=== PATIENT | female | born 1940 | race Caucasian/White ===

== ENCOUNTER → 2017-05-18 | Day surgery (SDC) | payer MEDICARE, OTHER ==
[~2017-05-18] MED LIST: ALBUTEROL SULFATE 2.5 MG/3 ML NEBU. ONE; ATORVASTATIN CA80 MG PO; FUROSEMIDE 20 MG/2 ML VIAL. ONE; IPRATRPIUM/ALBUTEROL 0.5/2.5MG 3 ML NEBU. ONE; METO25TA9 PO; MIDAZOLAM HCL/PF 5 MG/5 ML VIAL. IV ONE; MIDAZOLAM HCL/PF 5 MG/5 ML VIAL. ONE; PANT40TA5 PO; POTA20TA82 PO; PRED-220 PO; PROAIR HFA8.5 GM INH; fentaNYL PF VIAL 100 MCG/2 ML VIAL IV ONE; fentaNYL PF VIAL 100 MCG/2 ML VIAL ONE; methylPREDNISolone SOD SUCC PF 40 MG/ML VIAL. IV ONE
[2017-05-18 10:48] LABS: BASO % 0 % (0-3); EOS % 0 % (0-3); HEMATOCRIT 39.2 % (36.0-47.0); HEMOGLOBIN 12.6 g/dL (12.0-15.5); LYMPH # 1.4 x10^3/uL (1.0-4.8); LYMPH % 12 % (24-48); MEAN CORPUSCULAR HEMOGLOBIN 25 pg (25-35); MEAN CORPUSCULAR HGB CONC 32 g/dL (31-37); MEAN CORPUSCULAR VOLUME 78 fL (79-100); MONO % 6 % (0-9); NEUT % 83 % (31-73); PLATELET COUNT 218 x10^3/uL (140-400); RED BLOOD COUNT 5.01 x10^6/uL (3.50-5.40); RED CELL DISTRIBUTION WIDTH 18.2 % (11.5-14.5); WHITE BLOOD COUNT 11.9 x10^3/uL (4.0-11.0)
[2017-05-18 10:59] LABS: INR 1.1 (0.8-1.1); PROTHROMBIN TIME PATIENT 13.8 SEC (11.7-14.0)
[2017-05-18 13:57] VITALS: BP 123/59
--- NOTE | 2017-05-18 15:38 | OP ---
DATE OF SURGERY: 05/18/2017 PROCEDURE: Fiberoptic bronchoscopy with right upper lobe bronchoalveolar lavage, right upper lobe endobronchial biopsy, right upper lobe brushing. INDICATION FOR PROCEDURE: Abnormal chest x-ray and CT of the chest, right upper lobe atelectasis. ANESTHESIA: Versed 2 mg IV, fentanyl 100 mcg IV. The procedure risk and benefits of the procedure, lack of guarantee was discussed with the patient. She understood and agreed to proceed with the procedure. DESCRIPTION OF PROCEDURE: After informed consent was obtained, timeout was called. Fiberoptic bronchoscopy was performed via right naris after using topical anesthesia with lidocaine jelly. Vocal cords were well visualized. They opposed normally. Vocal cords were normal. Trachea was then entered using more topical anesthesia with lidocaine 1%. Trachea was normal. Deon was sharp. Left mainstem was entered. Left upper lingula, lower lobe bronchi were entered. There were no endobronchial lesions seen. The right mainstem bronchus was entered. About 1.5 to 2 cm below deon, the patient had irregular mass, started from 1.5-2 cm below deon to secondary deon, then towards right upper lobe area causing right upper lobe orifice become very narrowed and it has also gone to right lower lobe area causing narrowing and distortion of right lower lobe, right middle lobe area. Right upper lobe, right secondary deon, endobronchial biopsy was performed. Brushing and bronchoalveolar lavage were performed. The patient developed wheezing and I gave her Solu-Medrol 80 mg IV. The patient is in bronchoscopy room and that has been monitored very closely. Her oxygenation is okay. We will monitor her very closely. The patient continued to smoke. I strongly advised her to stop smoking. The patient also was very anxious before the procedure. The procedure results were discussed with her and her daughter. At the end of the procedure, her heart rate is 105, respiratory rate 22, blood pressure 135/68, oxygen saturation is 94%. The patient tolerated the procedure well. There were no obvious complications. she was discharged to home. Bony ROSADO JOB#: [id number] / [id number] TAJ
--- NOTE | 2017-05-19 16:33 | PATHOLOGY ---
CYTOPATHOLOGY REPORT CLINICAL HISTORY: Cough, RUL atelectulious, possible mass SPECIMEN(S) RECEIVED: A.Bronchoalveolar lavage, RUL B.Bronchial brushing, RUL C.Bronchial brush rinse FINAL DIAGNOSIS: A. Right upper lobe bronchoalveolar lavage, ThinPrep: - No malignant cells identified. - Focally reactive bronchial epithelial cells, pulmonary macrophages, and acute inflammatory cells identified. B. 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 C. 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 (JPM:mgr; 05/19/2017) PATHOLOGIST: Ancelmo Coates M.D. REPORT ELECTRONICALLY SIGNED BY: Ancelmo Coates M.D. DATE/TIME: 05/19/2017 16:33 GROSS PATHOLOGY: A. Bronchoalveolar lavage, RUL: The specimen is submitted unfixed, labeled "Candida Sahni". Received by the Cytology Department is ten mL of cloudy red fluid. One ThinPrep slide was prepared. B. Bronchial brushing, RUL: The specimen is labeled "Candida Sahni" and consists of two fixed slides. C. Bronchial brush rinse: The specimen is labeled "Candida Sahni" and consists of a brush tip in fixative. One ThinPrep slide was prepared. (mm 05.18.2017) CISO(S): DEB Rock(ASCP) INITIAL CPT CODE(S): A; 83212 B; 87822 C; 06483 Professional services performed [place] [address] Technical services performed by [facility] at [address] [place] [address], [address] [address]. PATIENT: CANDIDA SAHNI /AGE: 3 1940 (Age: 76) SEX: F PATIENT #: [id number] ALT CASE #: SPECIMEN COLLECTION DATE: 05/18/2017 SPECIMEN RECEIVED DATE: 05/18/[address] [facility] [address] [place] [address], [address] [place] [address] PHONE: [phone] DIRECTOR: Tesfaye W. Prateek, M.D. * * * END OF REPORT * * *
--- NOTE | 2017-05-20 14:33 | PATHOLOGY ---
PATHOLOGY REPORT * * * * * * * * FINAL DIAGNOSIS: Bronchial biopsies, right upper lobe: - SMALL CELL UNDIFFERENTIATED CARCINOMA. SEE COMMENT. COMMENT: Sections of the right upper lobe bronchial biopsy reveal several segments of bronchial mucosa, which are focally lined by bronchial epithelium and focally lined by metaplastic squamous epithelium. There is a malignant neoplasm within the underlying stroma which shows crush artifact. Where best preserved, the malignant cells are small and have a high N/C ratio. The malignant cells possess nuclei having a finely dispersed chromatin. There is nuclear molding. There is no evidence of squamous or glandular differentiation. The bronchial biopsies also contain segments of necrotic tissue and acute inflammatory exudate. A panel of immunohistochemical stains is obtained and yields the following results: Cytokeratin 7: Tumor cells negative; surface bronchial epithelium and metaplastic squamous epithelium positive. AE1/AE3: Tumor cells show dot-like positivity; bronchial surface epithelium and metaplastic squamous epithelium positive. CD45: Tumor cells negative. Synaptophysin: Tumor cells focally positive. TTF-1: Tumor cells positive. CD56: Tumor cells positive. 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 The case is also examined by Dr. Khanna, who concurs with the diagnosis. The results are reported to Dr. Trujillo office on 05/20/17 at 11:30 AM. Special Stains Performed: Immunoperoxidase stains AE1/AE3, cytokeratin 7, CD45, CD56, Synaptophysin, and TTF-1. (JPM:/rosalva; 05/20/2017) REPORT ELECTRONICALLY SIGNED BY: Ancelmo Coates M.D. DATE/TIME: 05/20/2017 14:32 * * * * * * * * GROSS PATHOLOGY: Received in formalin labeled "Candida Sahni, RUL BBX," are multiple segments of avila soft tissue measuring from less than 00.1 up to 0.3 cm in maximum dimension. The specimen is submitted entirely in cassette A1. (JPM; 05/18/17) INITIAL CPT CODE(S): A; 71126, 81154, 51647, 72737, 89622, 53558, 17024 Professional services performed by [facility] at [address] [address] Technical services performed by [facility] at [address] [place] [address], [address], [place] [address]. SPECIMEN(S) RECEIVED: A.Bronchial biopsy RUL CLINICAL HISTORY: Cough, RUL atelectasis, possible mass PATIENT: CANDIDA SAHNI /AGE: 3 1940 (Age: 76) PATIENT #: [id number] ALT CASE #: [id number] SPECIMEN COLLECTION DATE: 05/18/2017 SPECIMEN RECEIVED DATE: 05/18/2017 [facility] - [address] [place] [address] - PHONE: [phone] * * * END OF REPORT * * *
== END | disposition home or self-care (01) ==
LOC: SURG 09:09
PROVIDERS: ATTEND Internal Medicine Pulmonary Disease
DX: J98.11 Atelectasis (principal); I10 Essential (primary) hypertension; J44.9 Chronic obstructive pulmonary disease, unspecified; M19.90 Unspecified osteoarthritis, unspecified site; Z79.01 Long term (current) use of anticoagulants; Z87.39 Personal history of other diseases of the musculoskeletal system and connective tissue; Z72.0 Tobacco use
CPT/HCPCS: 31624; 31625; 36415; 85025; 85610; 85730; 87070; 87102; 87116; 87205; 88104; 88112; 88305; 88341; 88342; 94640; J2250; J2920; J3010; J7613; J7620; 31622

== ENCOUNTER 2017-08-09 10:31 | Inpatient (IN) | payer MEDICARE, OTHER ==
[2017-08-09] VITALS (15 sets, daily range): BP systolic 94–133; BP diastolic 47–79
[~2017-08-09] VITALS: Ht 157.5 cm; Wt 59.9 kg
[~2017-08-09 10:31] MED LIST changes: -ALBUTEROL SULFATE 2.5 MG/3 ML NEBU. ONE; +APIX5TAB PO; +ASPI-482 PO; +CELE200C PO; +DIAZ2TAB3 PO; +DOXY100C14 PO; -FUROSEMIDE 20 MG/2 ML VIAL. ONE; -IPRATRPIUM/ALBUTEROL 0.5/2.5MG 3 ML NEBU. ONE; +LORA-434 PO; +METO-239 PO; -METO25TA9 PO; -MIDAZOLAM HCL/PF 5 MG/5 ML VIAL. IV ONE; -MIDAZOLAM HCL/PF 5 MG/5 ML VIAL. ONE; +NAPR-682 PO; +NAPR-695 PO; +ONDA8TAB9 PO; +POTASSIUM CHLO10 MEQ PO; +TIOT4MIS3 IH; +TRAM50TA PO; -fentaNYL PF VIAL 100 MCG/2 ML VIAL IV ONE; -fentaNYL PF VIAL 100 MCG/2 ML VIAL ONE; -methylPREDNISolone SOD SUCC PF 40 MG/ML VIAL. IV ONE
[2017-08-09] MEDS ORDERED: IV NORMAL SALINE 1000ML BAG 1,000 ML IV SCH ×2 (10:49→12:10)
--- NOTE | 2017-08-09 10:58 | PHYS DOC ---
Past Medical History Past Medical History: Arthritis, Cancer, SD Past Surgical History: Knee Replacement, Other Additional Past Surgical Histo: CARDIAC STENT Alcohol Use: None Drug Use: None Adult General Chief Complaint Chief Complaint: SHORTNESS OF BREATH HPI HPI Patient is a 76 year old female with a history of arthritis, coronary artery disease, COPD, reflux, hypertension, anxiety, prostatitis, and pulmonary embolism on Eliquis and a history of lung cancer. She was seen originally in March 2017 underwent bronchoscopy in April 2017 which revealed a right mainstem bronchus mass in the right upper lobe the biopsy revealed a small undifferentiated Shona. With evidence of extensive mediastinal lymphadenopathy it was staged at grade 3. She was started on chemotherapy of carboplatin and etoposide in May 2017 she received 3 cycles of chemotherapy and began radiation therapy last received last week. She was seen the last June of this year and she was diagnosed with multiple pulmonary bilateral emboli and was placed on Lovenox and changed to Eliquis. Patient today presents with increasing shortness of breath despite being on medications. She denies any fevers, chills but has had a nonproductive cough. She denies any chest pain just shortness of breath difficulty breathing. She normally is not on any albuterol nebs at home admits to no recent antibiotics. She denies any sick contacts, travel outside the country, or changes in medications. PAST MEDICAL HISTORY: Arthritis, coronary artery disease, COPD, GERD, hypertension, anxiety, osteoarthritis. SOCIAL HISTORY: She has a history of smoking cigarettes for almost 60 years. Review of Systems Review of Systems Constitutional: Denies fever or chills [] Eyes: Denies change in visual acuity, redness, or eye pain [] HENT: Has some nasal congestion and a mild sore throat with cough Respiratory: Does have a nonproductive cough and shortness of breath Cardiovascular: No additional information not addressed in HPI [] GI: Denies abdominal pain, nausea, vomiting, bloody stools or diarrhea [] : Denies dysuria or hematuria [] Musculoskeletal: Denies back pain or joint pain [] Integument: Denies rash or skin lesions [] Neurologic: Denies headache, focal weakness or sensory changes [] All other systems were reviewed and found to be within normal limits, except as documented in this note. Current Medications Current Medications Current Medications Medications (Trade) Dose Ordered Sig/Moses Start Time Stop Time Status Last Admin Dose Admin Albuterol/ Ipratropium (Duoneb) 3 ml 1X ONCE 08/09/17 11:00 08/09/17 11:01 DC 08/09/17 11:05 3 ML Cefepime HCl (Maxipime) 2 gm 1X ONCE 08/09/17 12:30 08/09/17 12:31 Cefepime HCl 2 gm/ Sodium Chloride 100 ml @ 200 mls/hr 1X ONCE 08/09/17 12:15 08/09/17 12:44 UNV Lorazepam (Ativan) 1 mg 1X ONCE 08/09/17 11:00 08/09/17 11:01 DC 08/09/17 11:27 1 MG Methylprednisolone Sodium Succinate (SOLU-Medrol 125MG VIAL) 125 mg 1X ONCE 08/09/17 11:00 08/09/17 11:01 DC 08/09/17 11:27 125 MG Norepinephrine Bitartrate 250 ml @ 0 mls/hr CONT PRN 08/09/17 12:15 Sodium Chloride 1,000 ml @ 1,830 mls/hr Q33M 08/09/17 12:10 08/09/17 13:10 Sodium Chloride (Normal Saline Flush) 10 ml QSHIFT PRN 08/09/17 12:15 Allergies Allergies Allergies Coded Allergies Type Severity Reaction Last Updated Verified No Known Drug Allergies 05/18/17 No Physical Exam Physical Exam Vital signs recorded on the chart noted to be tachycardic. Constitutional: As thin and cachectic obviously distressed with tachypnea nor hypoxia and skin is pale and somewhat pallorous with dry mucous membranes HENT: Normocephalic, atraumatic, bilateral external ears normal, oropharynx dry no oral exudates, nose normal. [] Eyes: PERRLA, EOMI, conjunctiva normal, no discharge. [] Neck: Normal range of motion, no tenderness, supple, no stridor. [] Cardiovascular:Heart rate regular rhythm, no murmur [] Lungs & Thorax: Has decreased breath sounds prolonged exhalation no retractions , no accessory muscle use. Abdomen: Bowel sounds normal, soft, no tenderness, no masses, no pulsatile masses. [] Skin: Warm, dry, no erythema, no rash. [] Back: No tenderness, no CVA tenderness. [] Extremities: No tenderness, no cyanosis, no clubbing, ROM intact, no edema. [] Neurologic: Alert and oriented X 3, normal motor function, normal sensory function, no focal deficits noted. [] Psychologic: Somewhat anxious but able answer questions appropriately. Current Patient Data Vital Signs Vital Signs Date Time Temp Pulse Resp B/P (MAP) Pulse Ox O2 Delivery O2 Flow Rate FiO2 08/09/17 11:37 122 28 89/56 (67) 98 Room Air 08/09/17 10:45 97.6 97.6 Lab Values Laboratory Tests Test 08/09/17 11:00 White Blood Count 1.1 x10^3/uL (4.0-11.0) *L Red Blood Count 2.62 x10^6/uL (3.50-5.40) L Hemoglobin 7.0 g/dL (12.0-15.5) *L Hematocrit 21.3 % (36.0-47.0) L Mean Corpuscular Volume 81 fL (79-100) Mean Corpuscular Hemoglobin 27 pg (25-35) Mean Corpuscular Hemoglobin Concent 33 g/dL (31-37) Red Cell Distribution Width 28.2 % (11.5-14.5) H Platelet Count 164 x10^3/uL (140-400) Neutrophils (%) (Auto) 63 % (31-73) Lymphocytes (%) (Auto) 36 % (24-48) Monocytes (%) (Auto) 1 % (0-9) Eosinophils (%) (Auto) 0 % (0-3) Basophils (%) (Auto) 0 % (0-3) Neutrophils # (Auto) 0.7 x10^3uL (1.8-7.7) L Lymphocytes # (Auto) 0.4 x10^3/uL (1.0-4.8) L Monocytes # (Auto) 0.0 x10^3/uL (0.0-1.1) Eosinophils # (Auto) 0.0 x10^3/uL (0.0-0.7) Basophils # (Auto) 0.0 x10^3/uL (0.0-0.2) Segmented Neutrophils % 56 % (35-66) Lymphocytes % 42 % (24-48) Monocytes % 2 % (0-10) Platelet Estimate Adequate (ADEQUATE) Anisocytosis Mod Sodium Level 139 mmol/L (136-145) Potassium Level 3.0 mmol/L (3.5-5.1) L Chloride Level 102 mmol/L (98-107) Carbon Dioxide Level 21 mmol/L (21-32) Anion Gap 16 (6-14) H Blood Urea Nitrogen 20 mg/dL (7-20) Creatinine 1.2 mg/dL (0.6-1.0) H Estimated GFR (Cockcroft-Gault) 43.4 Glucose Level 142 mg/dL (70-99) H Lactic Acid Level 5.4 mmol/L (0.4-2.0) *H Calcium Level 8.0 mg/dL (8.5-10.1) L Magnesium Level 0.5 mg/dL (1.8-2.4) L Total Bilirubin 1.3 mg/dL (0.2-1.0) H Direct Bilirubin 0.2 mg/dL (0.0-0.2) Aspartate Amino Transferase (AST) 19 U/L (15-37) Alanine Aminotransferase (ALT) 19 U/L (14-59) Alkaline Phosphatase 112 U/L (46-116) Creatine Kinase 54 U/L (26-192) Creatine Kinase MB (Mass) < 0.5 ng/mL (0.0-3.6) Creatine Kinase MB Relative Index % (0-4) Troponin I Quantitative < 0.017 ng/mL (0.000-0.055) ZN-Jkt-U-Type Natriuretic Peptide 577 pg/mL (0-449) H Total Protein 6.6 g/dL (6.4-8.2) Albumin 2.9 g/dL (3.4-5.0) L Thyroid Stimulating Hormone (TSH) 2.307 uIU/mL (0.358-3.74) Influenza Type A Antigen Negative (NEGATIVE) Influenza Type B Antigen Negative (NEGATIVE) Laboratory Tests 08/09/17 11:00 Laboratory Tests 08/09/17 11:00 EKG EKG []Itchy timed 10:39 AM read by me demonstrates a peak QRS sinus tachycardia noted the heart rate of 127 DE interval of 134 inches normal, QRS width of 76 which is normal, QTC of 465 which is normal. His question of left atrial enlargement based on a large P wave in lead 2 Radiology/Procedures Radiology/Procedures [] IMAGING REPORT Signed PATIENT: KAITLYN LEMUS ACCOUNT: [id number] : 1940 LOCATION: ER AGE: 76 SEX: F EXAM STATUS: PRE ER ORD. PHYSICIAN: GEOVANI VALDIVIA MD REASON: sob PROCEDURE: PORTABLE CHEST 1V Portable chest, 08/09/2017: History: Shortness of breath Comparison is made to a study from 07/21/2017. There is unchanged elevation of the right hemidiaphragm. There is a small persistent peripheral mass in the lateral aspect of the right lung base. There is an ongoing mass effect at the right hilum. The CT study from 07/21/2017 suggested that this was due to a combination of underlying tumor and adjacent atelectasis. The left chest is clear. No pleural fluid is seen. The bony structures are demineralized. IMPRESSION: 1. Moderate persistent right hilar opacity compatible with a combination of tumor and adjacent atelectasis, with associated chronic volume loss on the right. 2. Persistent right lateral basilar pulmonary mass. 3. No new abnormality is detected. DICTATED and SIGNED BY: OSCAR VELAZQUEZ MD DATE: 08/09/17 1125 CC: GEOVANI VALDIVIA MD; JERRY GONZALEZ ~ Course & Med Decision Making Course & Med Decision Making Pertinent Labs and Imaging studies reviewed. (See chart for details) []Differential diagnosis: Acute myocardial ischemia, heart failure, cardiac tamponade, bronchospasm, pulmonary embolism, pneumothorax, pulmonary infection i.e. bronchitis or pneumonia, upper airway obstruction, anaphylaxis, aspiration , psychogenic, pulmonary contusion, toxidrome, pneumomediastinum, noncardiogenic pulmonary edema or ARDS, COPD, tuberculosis, cystic fibrosis, asthma, high altitude pulmonary edema, valvular dysfunction, cardiac dysrhythmia , stroke, neuromuscular diseases like myasthenia gravis gravis, ALS, Guillain- Tapia syndrome, metabolic acidosis to include diabetic ketoacidosis, sepsis, and obstructive disorders like massive obesity inserted upon arrival given patient's immediate, state with chemoradiation therapy culture will be completed as well as empiric IV antibiotics if necessary. Approximately 11:30 AM patient noted to have a lactic acid of 5.7 given her tachycardia or hypoxia or tachypnea my concern is possible infiltrate. Chest x-ray reviewed and read by me at 11:11 AM 08/09/2017 as significant mass in the right lower lobe as well as some increased atelectasis at the right middle lobe and also has an elevated MB right diaphragm which may be related to her prior pulmonary most. Patient is no longer tachypnea after the breathing treatment here in the emergency department. Patient's blood pressures improved from 87/69-109/49. Patient's heart rate is also improved from 120s to now 105 Is resting quietly Reviewed by me demonstrates significant neutropenia and significant anemia requiring likely transfusion. Patient's H&H is 7 and 21 given her increased shortness of breath and work of breathing likely secondary to anemia. Her troponin is negative, impression swallow is negative, CMP appears normal, as been ordered 30 mL/kg bolus of ideal body weight team IV antibiotics for suspected pneumonia. She'll be admitted to the ICU given her bouts of hypotension and tachycardia Laboratory Tests Test 08/09/17 11:00 White Blood Count 1.1 x10^3/uL (4.0-11.0) Red Blood Count 2.62 x10^6/uL (3.50-5.40) Hemoglobin 7.0 g/dL (12.0-15.5) Hematocrit 21.3 % (36.0-47.0) Mean Corpuscular Volume 81 fL (79-100) Mean Corpuscular Hemoglobin 27 pg (25-35) Mean Corpuscular Hemoglobin Concent 33 g/dL (31-37) Red Cell Distribution Width 28.2 % (11.5-14.5) Platelet Count 164 x10^3/uL (140-400) Neutrophils (%) (Auto) 63 % (31-73) Lymphocytes (%) (Auto) 36 % (24-48) Monocytes (%) (Auto) 1 % (0-9) Eosinophils (%) (Auto) 0 % (0-3) Basophils (%) (Auto) 0 % (0-3) Neutrophils # (Auto) 0.7 x10^3uL (1.8-7.7) Lymphocytes # (Auto) 0.4 x10^3/uL (1.0-4.8) Monocytes # (Auto) 0.0 x10^3/uL (0.0-1.1) Eosinophils # (Auto) 0.0 x10^3/uL (0.0-0.7) Basophils # (Auto) 0.0 x10^3/uL (0.0-0.2) Segmented Neutrophils % 56 % (35-66) Lymphocytes % 42 % (24-48) Monocytes % 2 % (0-10) Platelet Estimate Adequate (ADEQUATE) Anisocytosis Mod Sodium Level 139 mmol/L (136-145) Chloride Level 102 mmol/L (98-107) Carbon Dioxide Level 21 mmol/L (21-32) Anion Gap 16 (6-14) Blood Urea Nitrogen 20 mg/dL (7-20) Estimated GFR (Cockcroft-Gault) 43.4 Glucose Level 142 mg/dL (70-99) Lactic Acid Level 5.4 mmol/L (0.4-2.0) Calcium Level 8.0 mg/dL (8.5-10.1) Total Bilirubin 1.3 mg/dL (0.2-1.0) Direct Bilirubin 0.2 mg/dL (0.0-0.2) Aspartate Amino Transf (AST/SGOT) 19 U/L (15-37) Alkaline Phosphatase 112 U/L (46-116) Creatine Kinase 54 U/L (26-192) Creatine Kinase MB (Mass) < 0.5 ng/mL (0.0-3.6) Creatine Kinase MB Relative Index % (0-4) Troponin I Quantitative < 0.017 ng/mL (0.000-0.055) Total Protein 6.6 g/dL (6.4-8.2) Albumin 2.9 g/dL (3.4-5.0) Influenza Type A Antigen Negative (NEGATIVE) Influenza Type B Antigen Negative (NEGATIVE) Court Recorder note: Dr. Monaco Court Recorder called at of the service:[id number] Consult called back at12:26 Discussed the case I presented and they agreed with admission. Time of acceptance 12:26 Critical Care: The high probability of sudden, clinically significant deterioration in the patient's condition required the highest level of my preparedness to intervene urgently. The services I provided to this patient were to treat and/or prevent clinically significant deterioration. Services included the following: chart data review, reviewing nursing notes and/or old charts, documentation time, information services consultant collaboration regarding findings and treatment options, medication orders and management, direct patient care, vital sign assessments and ordering, interpreting and reviewing diagnostic studies/ lab tests. Aggregate critical care time includes only time during which I was engaged in work directly related to the patient's care, as described above, whether at the bedside or elsewhere in the Emergency Department. It did not include time spent performing other reported procedures or the services of nurses or physician assistants. Critical Care Time: 35 Dragon Disclaimer Dragon Disclaimer This electronic medical record was generated, in whole or in part, using a voice recognition dictation system. Departure Departure Impression: Primary Impression: Dyspnea Additional Impressions: Pneumonia Neutropenia Anemia Disposition: 09 ADMITTED INPATIENT Admitting Physician: Beltran Monaco Condition: GUARDED Referrals: JERRY GONZALEZ (PCP) Problem Qualifiers GEOVANI VALDIVIA MD Aug 09, 2017 10:58
[2017-08-09] MEDS ORDERED: IPRATRPIUM/ALBUTEROL 0.5/2.5MG 3 ML NEBU. NEB ONE (11:00)
[2017-08-09] MEDS ORDERED: methylPREDNISolone SOD SUCC PF 125 MG/2 ML VIAL. IV ONE (11:00)
[2017-08-09] MEDS ORDERED: 0.9 % SODIUM CHLORIDE 10 ML DISP.SYRIN. IV PRN ×2 (11:00→12:15)
[2017-08-09 11:21] LABS: BASO % 0 % (0-3); EOS % 0 % (0-3); HEMATOCRIT 21.3 % (36.0-47.0); LYMPH # 0.4 x10^3/uL (1.0-4.8); LYMPH % 36 % (24-48); MEAN CORPUSCULAR HEMOGLOBIN 27 pg (25-35); MEAN CORPUSCULAR HGB CONC 33 g/dL (31-37); MEAN CORPUSCULAR VOLUME 81 fL (79-100); MONO % 1 % (0-9); NEUT % 63 % (31-73); PLATELET COUNT 164 x10^3/uL (140-400); RED BLOOD COUNT 2.62 x10^6/uL (3.50-5.40); RED CELL DISTRIBUTION WIDTH 28.2 % (11.5-14.5)
[2017-08-09 11:28] LABS: WHITE BLOOD COUNT 1.1 x10^3/uL (4.0-11.0)
--- NOTE | 2017-08-09 11:36 | RAD ---
Portable chest, 08/09/2017: History: Shortness of breath Comparison is made to a study from 07/21/2017. There is unchanged elevation of the right hemidiaphragm. There is a small persistent peripheral mass in the lateral aspect of the right lung base. There is an ongoing mass effect at the right hilum. The CT study from 07/21/2017 suggested that this was due to a combination of underlying tumor and adjacent atelectasis. The left chest is clear. No pleural fluid is seen. The bony structures are demineralized. IMPRESSION: 1. Moderate persistent right hilar opacity compatible with a combination of tumor and adjacent atelectasis, with associated chronic volume loss on the right. 2. Persistent right lateral basilar pulmonary mass. 3. No new abnormality is detected.
[2017-08-09 11:38] LABS: OBC FLU VALID
[2017-08-09 11:46] LABS: ALBUMIN 2.9 g/dL (3.4-5.0); CREATININE 1.2 mg/dL (0.6-1.0); DIRECT BILIRUBIN 0.2 mg/dL (0.0-0.2); GFR 43.4; MAGNESIUM 0.5 mg/dL (1.8-2.4); TOTAL BILIRUBIN 1.3 mg/dL (0.2-1.0); TOTAL PROTEIN 6.6 g/dL (6.4-8.2)
[2017-08-09 11:53] LABS: ANISOCYTOSIS MOD; PLT ESTIMATE ADEQUATE (ADEQUATE)
[2017-08-09 12:14] LABS: CKMB MASS < 0.5 ng/mL (0.0-3.6); CREATINE KINASE 54 U/L (26-192)
[2017-08-09] MEDS ORDERED: CEFEPIME HCL 2 GM in IV NORMAL SALINE 100ML 100 ML IV ONE (12:15)
[2017-08-09] MEDS ORDERED: CEFEPIME HCL IV Push 2 GM VIAL. IVP ONE (12:30)
[2017-08-09] MEDS ORDERED: ACETAMINOPHEN 325 MG TABLET. PO PRN ×2 (12:45→14:15)
[2017-08-09] MEDS ORDERED: ONDANSETRON PF 4 MG/2 ML VIAL. IV PRN ×2 (12:45→14:15)
[2017-08-09] MEDS ORDERED: fentaNYL PF VIAL 100 MCG/2 ML VIAL IV PRN (12:45)
--- NOTE | 2017-08-09 13:17 | EKG ---
[facility] [address] [place] [address] Test Date: 2017-08-09 Test Time: 10:39:39 Pat Name: KAITLYN LEMUS Department: Room: [facility] Gender: F Senior Java Software Developer: : 1940 Requested By: GEOVANI VALDIVIA Order Number: [id number] Reading MD: Diogenes Goldberg MD Measurements Intervals [place] Rate: 127 P: 51 [place]: 134 QRS: 79 QRSD: 76 T: 56 QT: 316 QTc: 465 Interpretive Statements SINUS TACHYCARDIA Electronically Signed On 08-09-2017 15:33:21 TEST BAKER by Diogenes Goldberg MD
[2017-08-09] MEDS ORDERED: ALBUTEROL SULFATE 2.5 MG/3 ML NEBU. NEB PRN (14:15)
[2017-08-09] MEDS ORDERED: DOCUSATE SODIUM 100 MG CAPSULE. PO PRN (14:15)
[2017-08-09] MEDS ORDERED: LORazepam 1 MG TABLET PO PRN (14:15)
[2017-08-09] MEDS ORDERED: hydrALAZINE 20 MG/ML VIAL. IVP PRN (14:15)
[2017-08-09] MEDS ORDERED: traMADol 50 MG TABLET PO PRN (14:15)
[2017-08-09] MEDS ORDERED: MORPHINE SULFATE 4 MG/ML DISP.SYRIN. IV PRN (14:15)
[2017-08-09] MEDS ORDERED: MAGNESIUM SULFATE 4GM 100 ML IV ONE (14:45)
--- NOTE | 2017-08-09 15:32 | CONS ---
DATE OF CONSULTATION: 08/09/2017 ATTENDING PHYSICIAN: Dr. Monaco. REASON FOR CONSULTATION: Dyspnea and lung cancer. 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 She had a right mainstem bronchial mass and also in the right upper lobe. The patient has had also extensive mediastinal adenopathy. She has received chemo and radiation. The patient was brought in to the hospital with complaint of weakness and as well as some shortness of breath. She had no chest pain, no syncopal episodes. No fever, no chills. She started coughing with yellow sputum production, no hemoptysis. She is on Eliquis for her pulmonary emboli. There was no evidence of DVT. She is currently not requiring any supplemental oxygen. Saturation on room air is 95%. Blood pressure was 111 systolic, initially was 81 systolic, but she responded to fluid. I have been asked to see her for further evaluation. PAST MEDICAL HISTORY: History of arthritis; history of small cell, undifferentiated carcinoma and status post chemoradiation; history of pulmonary embolism, no DVT, hypercoagulable state. History of COPD. History of cardiac stent, knee replacement. PAST SURGICAL HISTORY: As above. ALLERGIES: None. CURRENT MEDICATIONS: Reviewed as listed in the [facility]AD including antibiotics and DuoNebs. REVIEW OF SYSTEMS: Twelve-point system obtained. Pertinent positives discussed in history of present illness, otherwise noncontributory. All systems that were negative were reviewed as well. SOCIAL HISTORY: Smoked for about 35-40 years before quitting. FAMILY HISTORY: Noncontributory to lungs. PHYSICAL EXAMINATION: GENERAL: She is awake, in no obvious respiratory distress. VITAL SIGNS: Latest pressure of 111 systolic. Pulse ox 95% on room air, afebrile. HEENT: Sclerae nonicteric. NECK: Supple. LUNGS: Diminished breath sounds at the bases. No crackles or wheezing. CARDIOVASCULAR: Regular rate and tachycardic. ABDOMEN: Soft, nontender. EXTREMITIES: With trace pitting edema. LABORATORY DATA: Reviewed. White cell count is 1.1, hemoglobin of 7.0 and platelets are 164. Her influenza screen is negative. Chemistries with a lactic acid of 5.4 and it is down to 2.6. ProBNP is 577. Her chest x-ray was reviewed and shows persistent right hilar opacity compatible with tumor and obstructive atelectasis and also history of right lateral basilar pulmonary mass. IMPRESSION: 1. Dyspnea/weakness, most likely related to anemia in a patient who has been treated with chemo and radiation for small cell, undifferentiated carcinoma. 2. Small cell carcinoma, undifferentiated status post chemo and radiation. It is too early to see the response to these treatments. 3. History of recent pulmonary embolism and no evidence of any deep venous thrombosis. This is secondary to hypercoagulable state. Currently on Eliquis at home and I would continue Eliquis. I do not think that anemia is related to Eliquis, but rather chemo-induced. 4. Leukopenia and anemia, chemo-induced. 5. Underlying chronic obstructive pulmonary disease. 6. Suspected post-obstructive pneumonia. RECOMMENDATIONS: 1. Continue with p.r.n. oxygen. 2. Antibiotic cefepime. 3. Continue Eliquis. 4. DuoNebs. 5. Follow Oncology recommendation. 6. Monitor white cell count and hemoglobin. 7. Transfuse to keep hemoglobin above 8. 8. We will follow along with you. CUCA ANTUNEZ MD DR: MIGUEL ÁNGEL/poonam JOB#: [id number] / [id number] TAJ
[2017-08-09] MEDS ORDERED: POTASSIUM CHLORIDE 20 MEQ TABLET.ER. PO ONE (16:30)
[2017-08-09] MEDS ORDERED: ENOXAPARIN 40 MG/0.4 ML SYRINGE. SQ SCH (16:30)
--- NOTE | 2017-08-09 16:34 | PDOC1 ---
History and Physical Date of Admission Date of Admission 08/09/17 Identification/Chief Complaint Chief Complaint sob Problems: Source Source: Chart review, Patient History of Present Illness History of Present Illness HPI Patient is a 76 year old female with a history of arthritis, right lUng Ca on RT AND chemo, PE, came for sob x1 d. Pt was dced here 2 weeks ago fro PE. on eliquis now. She is currently on Chemo and RT for right hilar Non small cell Ca. poor historian. She said she was doing ok, till today with sob, coughing with whitish sputum, denies fever, chills, chest pain, + 1 time loose diarrhea, no N/V. as per ERP, She was seen originally in March 2017 underwent bronchoscopy in April 2017 which revealed a right mainstem bronchus mass in the right upper lobe the biopsy revealed a small undifferentiated. With evidence of extensive mediastinal lymphadenopathy it was staged at grade 3. She was started on chemotherapy of carboplatin and etoposide in May 2017 she received 3 cycles of chemotherapy and began radiation therapy last received last week. pt was found Hb 6.[address] Mccracken office, refused transfusion BP at 80s in ER, responding well to IVF to 100s Past Medical History Past Medical History lung Ca Past Surgical History Past Surgical History: Total knee replacement Family History Family History: Hypertension Social History Smoke: Quit ALCOHOL: social Drugs: None Current Problem List Problem List Problems Medical Problems: (1) Anemia Status: Acute (2) Neutropenia Status: Acute (3) Pneumonia Status: Acute Current Medications Current Medications Current Medications Medications (Trade) Dose Ordered Sig/Moses Start Time Stop Time Status Last Admin Dose Admin Acetaminophen (Tylenol) 650 mg PRN Q6HRS PRN 08/09/17 14:15 Albuterol Sulfate (Ventolin Neb Soln) 2.5 mg PRN Q2HR PRN 08/09/17 14:15 Albuterol/ Ipratropium (Duoneb) 3 ml RTQID 08/09/17 16:00 Apixaban (Eliquis) 5 mg BID 08/09/17 21:00 Cefepime HCl (Maxipime) 1 gm Q12HR 08/09/17 21:00 Cancel Cefepime HCl 1 gm/ Dextrose 50 ml @ 100 mls/hr Q12HR 08/09/17 21:00 Cefepime HCl 2 gm/ Sodium Chloride 100 ml @ 200 mls/hr 1X ONCE 08/09/17 12:15 08/09/17 12:44 UNV Docusate Sodium (Colace) 100 mg PRN DAILY PRN 08/09/17 14:15 Fentanyl Citrate (Fentanyl 2ml Vial) 50 mcg PRN Q2HR PRN 08/09/17 12:45 08/10/17 12:44 Guaifenesin (Mucinex) 600 mg BID 08/09/17 21:00 Hydralazine HCl (Apresoline Inj) 10 mg PRN Q4HRS PRN 08/09/17 14:15 Lorazepam (Ativan) 0.5 mg Q6HRS PRN 08/09/17 14:15 Magnesium Sulfate/ Dextrose 100 ml @ 25 mls/hr 1X ONCE 08/09/17 14:45 08/09/17 18:44 08/09/17 15:30 25 MLS/HR Methylprednisolone Sodium Succinate (SOLU-Medrol 125MG VIAL) 125 mg 1X ONCE 08/09/17 11:00 08/09/17 11:01 DC 08/09/17 11:27 125 MG Morphine Sulfate 2 mg PRN Q2HR PRN 08/09/17 14:15 Norepinephrine Bitartrate 250 ml @ 0 mls/hr CONT PRN 08/09/17 12:15 Ondansetron HCl (Zofran) 4 mg PRN Q6HRS PRN 08/09/17 14:15 Pantoprazole Sodium (Protonix) 40 mg DAILYAC 08/10/17 07:30 Potassium Chloride/Sodium Chloride 1,000 ml @ 75 mls/hr [id number] 08/09/17 14:45 08/09/17 15:32 75 MLS/HR Sodium Chloride 1,000 ml @ 1,830 mls/hr Q33M 08/09/17 12:10 08/09/17 13:10 DC 08/09/17 12:37 1,830 MLS/HR Sodium Chloride (Normal Saline Flush) 10 ml QSHIFT PRN 08/09/17 12:15 Tramadol HCl (Ultram) 50 mg PRN Q6HRS PRN 08/09/17 14:15 Allergies Allergies Allergies Coded Allergies Type Severity Reaction Last Updated Verified No Known Drug Allergies 05/18/17 No ROS Review of System CONSTITUTIONAL: No fever or chills EYES: No recent changes SKIN: No rash or itching CARDIOVASCULAR: No chest pain, syncope, palpitations, or edema RESPIRATORY: No SOB or cough GASTROINTESTINAL: No nausea, vomiting or abdominal pain NEUROLOGICAL: No headaches or weakness ENDOCRINE: No cold or heat intolerance GENITOURINARY: No urgency or frequency of urination MUSCULOSKELETAL: No back pain or joint pain LYMPHATICS: No enlarged lymph nodes PSYCHIATRIC: No anxiety or depression Physical Exam Physical Exam GEN.: No apparent distress. Alert and oriented. HEENT: Head is normocephalic, atraumatic NECK: Supple. LUNGS: bl rhonchis HEART: RRR, S1, S2 present. Peripheral pulses intact ABDOMEN: Soft, nontender. Positive bowel sounds. EXTREMITIES: Without any cyanosis. NEUROLOGIC: Normal speech, normal tone PSYCHIATRIC: Normal affect, normal mood. SKIN: No ulcerations Vitals Vitals Vital Signs Date Time Temp Pulse Resp B/P (MAP) Pulse Ox O2 Delivery O2 Flow Rate FiO2 08/09/17 16:00 98.7 108 106/59 (75) 97 Room Air 98.7 08/09/17 15:26 18 Labs Labs Laboratory Tests Test 08/09/17 11:00 08/09/17 14:10 White Blood Count 1.1 x10^3/uL (4.0-11.0) Red Blood Count 2.62 x10^6/uL (3.50-5.40) Hemoglobin 7.0 g/dL (12.0-15.5) Hematocrit 21.3 % (36.0-47.0) Mean Corpuscular Volume 81 fL (79-100) Mean Corpuscular Hemoglobin 27 pg (25-35) Mean Corpuscular Hemoglobin Concent 33 g/dL (31-37) Red Cell Distribution Width 28.2 % (11.5-14.5) Platelet Count 164 x10^3/uL (140-400) Neutrophils (%) (Auto) 63 % (31-73) Lymphocytes (%) (Auto) 36 % (24-48) Monocytes (%) (Auto) 1 % (0-9) Eosinophils (%) (Auto) 0 % (0-3) Basophils (%) (Auto) 0 % (0-3) Neutrophils # (Auto) 0.7 x10^3uL (1.8-7.7) Lymphocytes # (Auto) 0.4 x10^3/uL (1.0-4.8) Monocytes # (Auto) 0.0 x10^3/uL (0.0-1.1) Eosinophils # (Auto) 0.0 x10^3/uL (0.0-0.7) Basophils # (Auto) 0.0 x10^3/uL (0.0-0.2) Segmented Neutrophils % 56 % (35-66) Lymphocytes % 42 % (24-48) Monocytes % 2 % (0-10) Platelet Estimate Adequate (ADEQUATE) Anisocytosis Mod Sodium Level 139 mmol/L (136-145) Potassium Level 3.0 mmol/L (3.5-5.1) Chloride Level 102 mmol/L (98-107) Carbon Dioxide Level 21 mmol/L (21-32) Anion Gap 16 (6-14) Blood Urea Nitrogen 20 mg/dL (7-20) Creatinine 1.2 mg/dL (0.6-1.0) Estimated GFR (Cockcroft-Gault) 43.4 Glucose Level 142 mg/dL (70-99) Lactic Acid Level 5.4 mmol/L (0.4-2.0) 2.6 mmol/L (0.4-2.0) Calcium Level 8.0 mg/dL (8.5-10.1) Magnesium Level 0.5 mg/dL (1.8-2.4) Total Bilirubin 1.3 mg/dL (0.2-1.0) Direct Bilirubin 0.2 mg/dL (0.0-0.2) Aspartate Amino Transf (AST/SGOT) 19 U/L (15-37) Alanine Aminotransferase (ALT/SGPT) 19 U/L (14-59) Alkaline Phosphatase 112 U/L (46-116) Creatine Kinase 54 U/L (26-192) Creatine Kinase MB (Mass) < 0.5 ng/mL (0.0-3.6) Creatine Kinase MB Relative Index % (0-4) Troponin I Quantitative < 0.017 ng/mL (0.000-0.055) YG-Wah-Y-Type Natriuretic Peptide 577 pg/mL (0-449) Total Protein 6.6 g/dL (6.4-8.2) Albumin 2.9 g/dL (3.4-5.0) Thyroid Stimulating Hormone (TSH) 2.307 uIU/mL (0.358-3.74) Influenza Type A Antigen Negative (NEGATIVE) Influenza Type B Antigen Negative (NEGATIVE) Laboratory Tests Test 08/09/17 11:00 08/09/17 14:10 White Blood Count 1.1 x10^3/uL (4.0-11.0) Red Blood Count 2.62 x10^6/uL (3.50-5.40) Hemoglobin 7.0 g/dL (12.0-15.5) Hematocrit 21.3 % (36.0-47.0) Mean Corpuscular Volume 81 fL (79-100) Mean Corpuscular Hemoglobin 27 pg (25-35) Mean Corpuscular Hemoglobin Concent 33 g/dL (31-37) Red Cell Distribution Width 28.2 % (11.5-14.5) Platelet Count 164 x10^3/uL (140-400) Neutrophils (%) (Auto) 63 % (31-73) Lymphocytes (%) (Auto) 36 % (24-48) Monocytes (%) (Auto) 1 % (0-9) Eosinophils (%) (Auto) 0 % (0-3) Basophils (%) (Auto) 0 % (0-3) Neutrophils # (Auto) 0.7 x10^3uL (1.8-7.7) Lymphocytes # (Auto) 0.4 x10^3/uL (1.0-4.8) Monocytes # (Auto) 0.0 x10^3/uL (0.0-1.1) Eosinophils # (Auto) 0.0 x10^3/uL (0.0-0.7) Basophils # (Auto) 0.0 x10^3/uL (0.0-0.2) Segmented Neutrophils % 56 % (35-66) Lymphocytes % 42 % (24-48) Monocytes % 2 % (0-10) Platelet Estimate Adequate (ADEQUATE) Anisocytosis Mod Sodium Level 139 mmol/L (136-145) Potassium Level 3.0 mmol/L (3.5-5.1) Chloride Level 102 mmol/L (98-107) Carbon Dioxide Level 21 mmol/L (21-32) Anion Gap 16 (6-14) Blood Urea Nitrogen 20 mg/dL (7-20) Creatinine 1.2 mg/dL (0.6-1.0) Estimated GFR (Cockcroft-Gault) 43.4 Glucose Level 142 mg/dL (70-99) Lactic Acid Level 5.4 mmol/L (0.4-2.0) 2.6 mmol/L (0.4-2.0) Calcium Level 8.0 mg/dL (8.5-10.1) Magnesium Level 0.5 mg/dL (1.8-2.4) Total Bilirubin 1.3 mg/dL (0.2-1.0) Direct Bilirubin 0.2 mg/dL (0.0-0.2) Aspartate Amino Transf (AST/SGOT) 19 U/L (15-37) Alanine Aminotransferase (ALT/SGPT) 19 U/L (14-59) Alkaline Phosphatase 112 U/L (46-116) Creatine Kinase 54 U/L (26-192) Creatine Kinase MB (Mass) < 0.5 ng/mL (0.0-3.6) Creatine Kinase MB Relative Index % (0-4) Troponin I Quantitative < 0.017 ng/mL (0.000-0.055) RM-Wkp-[id number]-Type Natriuretic Peptide 577 pg/mL (0-449) Total Protein 6.6 g/dL (6.4-8.2) Albumin 2.9 g/dL (3.4-5.0) Thyroid Stimulating Hormone (TSH) 2.307 uIU/mL (0.358-3.74) Influenza Type A Antigen Negative (NEGATIVE) Influenza Type B Antigen Negative (NEGATIVE) VTE Prophylaxis Ordered VTE Prophylaxis Devices: No VTE Pharmacological Prophylaxi: No Assessment/Plan Assessment/Plan dyspnea, 2/2 right lung Ca, PE, and possible obstructive PNA hypotension, 2/2 anemia, PNA recent dignosed BL PE ON eliquis right lung NON small cell Ca, on chemo and RT h/o Grade 1 CHF, copd pervious smoker htn RA leukopenia with chemo anemia with RT, CHEMO LA acidosis ckd3 mild malnutrition plan: onco, RT, pulm consult 1 u PRBC transfusion ivf for now cont eliquis cefepime for now, check sputum cx, bcx duoneb ICU care, levaphed if needed lbs tmr anemia work out, likely 2/2 chemo tho admit 2 nights PTOT ASHLEY DUMONT MD Aug 09, 2017 16:34
[2017-08-09] MEDS: IPRATRPIUM/ALBUTEROL 0.5/2.5MG 3 ML NEBU. NEB SCH ×2 (17:27→19:49)
--- NOTE | 2017-08-09 17:33 | PDOC2 ---
CONSULT Date of Consult Date of Consult DATE: 08/09/17 TIME: 17:27 Past Surgical History Past Surgical History: Total knee replacement Family History Family History: Hypertension Social History Quit ALCOHOL: social Drugs: None Current Problem List Problem List Problems Medical Problems: (1) Anemia Status: Acute (2) Neutropenia Status: Acute (3) Pneumonia Status: Acute Current Medications Current Medications Current Medications Lorazepam (Ativan) 1 mg 1X ONCE IV Last administered on 08/09/17 11:27; Start 08/09/17 at 11:00; Stop 08/09/17 at 11:01; Status DC Sodium Chloride 1,000 ml @ 1,000 mls/hr Q1H IV Last administered on 11:27; Start 08/09/17 at 10:49; Stop 08/09/17 at 11:48; Status DC Sodium Chloride (Normal Saline Flush) 10 ml QSHIFT PRN IV AFTER MEDS AND BLOOD DRAWS Last administered on 08/09/17 11:28; Start 08/09/17 at 11:00 Albuterol/ Ipratropium (Duoneb) 3 ml 1X ONCE NEB Last administered on 11:05; Start 08/09/17 at 11:00; Stop 08/09/17 at 11:01; Status DC Methylprednisolone Sodium Succinate (SOLU-Medrol 125MG VIAL) 125 mg 1X ONCE IV Last administered on 08/09/17 11:27; Start 08/09/17 at 11:00; Stop at 11:01; Status DC Sodium Chloride (Normal Saline Flush) 10 ml QSHIFT PRN IV AFTER MEDS AND BLOOD DRAWS; Start 08/09/17 at 12:15 Sodium Chloride 1,000 ml @ 1,830 mls/hr Q33M IV Last administered on 12:37; Start 08/09/17 at 12:10; Stop 08/09/17 at 13:10; Status DC Cefepime HCl 2 gm/ Sodium Chloride 100 ml @ 200 mls/hr 1X ONCE IV ; Start at 12:15; Stop 08/09/17 at 12:44; Status UNV Norepinephrine Bitartrate 250 ml @ 0 mls/hr CONT PRN IV PER PROTOCOL; Start at 12:15 Cefepime HCl (Maxipime) 2 gm 1X ONCE IVP Last administered on 08/09/17t 12:33 ; Start 08/09/17 at 12:30; Stop 08/09/17 at 12:31; Status DC Ondansetron HCl (Zofran) 4 mg PRN Q8HRS PRN IV NAUSEA/VOMITING; Start at 12:45; Stop 08/09/17 at 14:13; Status DC Fentanyl Citrate (Fentanyl 2ml Vial) 50 mcg PRN Q2HR PRN IV PAIN; Start at 12:45; Stop 08/10/17 at 12:44 Acetaminophen (Tylenol) 650 mg PRN Q4HRS PRN PO FEVER; Start 08/09/17 at 12:45 ; Stop 08/10/17 at 12:44 Acetaminophen (Tylenol) 650 mg PRN Q6HRS PRN PO FEVER; Start 08/09/17 at 14:15 Ondansetron HCl (Zofran) 4 mg PRN Q6HRS PRN IV NAUSEA/VOMITING; Start at 14:15 Morphine Sulfate 2 mg PRN Q2HR PRN IV PAIN; Start 08/09/17 at 14:15 Tramadol HCl (Ultram) 50 mg PRN Q6HRS PRN PO PAIN; Start 08/09/17 at 14:15 Hydralazine HCl (Apresoline Inj) 10 mg PRN Q4HRS PRN IVP ELEVATED BP, SEE COMMENTS; Start 08/09/17 at 14:15 Docusate Sodium (Colace) 100 mg PRN DAILY PRN PO CONSTIPATION; Start 08/09/17 at 14:15 Apixaban (Eliquis) 5 mg BID PO ; Start 08/09/17 at 21:00 Lorazepam (Ativan) 0.5 mg Q6HRS PRN PO ANXIETY; Start 08/09/17 at 14:15 Pantoprazole Sodium (Protonix) 40 mg DAILYAC PO ; Start 08/10/17 at 07:30 Albuterol/ Ipratropium (Duoneb) 3 ml RTQID NEB ; Start 08/09/17 at 16:00 Albuterol Sulfate (Ventolin Neb Soln) 2.5 mg PRN Q2HR PRN NEB SHORTNESS OF BREATH; Start 08/09/17 at 14:15 Guaifenesin (Mucinex) 600 mg BID PO ; Start 08/09/17 at 21:00 Cefepime HCl 1 gm/ Dextrose 50 ml @ 100 mls/hr Q8HRS IV ; Start 08/09/17 at 22 :00; Status UNV Cefepime HCl (Maxipime) 1 gm Q12HR IVP ; Start 08/09/17 at 21:00; Status Cancel Cefepime HCl 1 gm/ Dextrose 50 ml @ 100 mls/hr Q12HR IV ; Start 08/09/17 at 21 :00 Potassium Chloride/Sodium Chloride 1,000 ml @ 75 mls/hr [id number] IV Last administered on 08/09/17t 15:32; Start 08/09/17 at 14:45; Stop 08/10/17 at 16 :00 Magnesium Sulfate/ Dextrose 100 ml @ 25 mls/hr 1X ONCE IV Last administered on 08/09/17t 15:30; Start 08/09/17 at 14:45; Stop 08/09/17 at 18:44 Potassium Chloride (Klor-Con) 40 meq 1X ONCE PO ; Start 08/09/17 at 16:30; Stop 08/09/17 at 16:31; Status DC Enoxaparin Sodium (Lovenox 40mg Syringe) 40 mg Q24H SQ ; Start 08/09/17 at 16: 30; Status UNV Active Scripts Active Reported Ativan (Lorazepam) 1 Mg Tablet 1 Mg PO Q6HRS PRN Eliquis (Apixaban) 5 Mg Tablet 5 Mg PO BID Zofran (Ondansetron Hcl) 8 Mg Tablet 8 Mg PO BID PRN Pantoprazole Sodium 40 Mg Tablet. 1 Tab PO DAILY Allergies Allergies: Coded Allergies: No Known Drug Allergies (Unverified , 05/18/17) Vitals VITALS Vital Signs Date Time Temp Pulse Resp B/P (MAP) Pulse Ox O2 Delivery O2 Flow Rate FiO2 08/09/17 16:25 98.6 106 28 99/56 98.6 08/09/17 16:05 Room Air 08/09/17 16:00 97 Labs Labs Laboratory Tests Test 08/09/17 11:00 08/09/17 14:10 White Blood Count 1.1 x10^3/uL (4.0-11.0) Red Blood Count 2.62 x10^6/uL (3.50-5.40) Hemoglobin 7.0 g/dL (12.0-15.5) Hematocrit 21.3 % (36.0-47.0) Mean Corpuscular Volume 81 fL (79-100) Mean Corpuscular Hemoglobin 27 pg (25-35) Mean Corpuscular Hemoglobin Concent 33 g/dL (31-37) Red Cell Distribution Width 28.2 % (11.5-14.5) Platelet Count 164 x10^3/uL (140-400) Neutrophils (%) (Auto) 63 % (31-73) Lymphocytes (%) (Auto) 36 % (24-48) Monocytes (%) (Auto) 1 % (0-9) Eosinophils (%) (Auto) 0 % (0-3) Basophils (%) (Auto) 0 % (0-3) Neutrophils # (Auto) 0.7 x10^3uL (1.8-7.7) Lymphocytes # (Auto) 0.4 x10^3/uL (1.0-4.8) Monocytes # (Auto) 0.0 x10^3/uL (0.0-1.1) Eosinophils # (Auto) 0.0 x10^3/uL (0.0-0.7) Basophils # (Auto) 0.0 x10^3/uL (0.0-0.2) Segmented Neutrophils % 56 % (35-66) Lymphocytes % 42 % (24-48) Monocytes % 2 % (0-10) Platelet Estimate Adequate (ADEQUATE) Anisocytosis Mod Sodium Level 139 mmol/L (136-145) Potassium Level 3.0 mmol/L (3.5-5.1) Chloride Level 102 mmol/L (98-107) Carbon Dioxide Level 21 mmol/L (21-32) Anion Gap 16 (6-14) Blood Urea Nitrogen 20 mg/dL (7-20) Creatinine 1.2 mg/dL (0.6-1.0) Estimated GFR (Cockcroft-Gault) 43.4 Glucose Level 142 mg/dL (70-99) Lactic Acid Level 5.4 mmol/L (0.4-2.0) 2.6 mmol/L (0.4-2.0) Calcium Level 8.0 mg/dL (8.5-10.1) Magnesium Level 0.5 mg/dL (1.8-2.4) Total Bilirubin 1.3 mg/dL (0.2-1.0) Direct Bilirubin 0.2 mg/dL (0.0-0.2) Aspartate Amino Transf (AST/SGOT) 19 U/L (15-37) Alanine Aminotransferase (ALT/SGPT) 19 U/L (14-59) Alkaline Phosphatase 112 U/L (46-116) Creatine Kinase 54 U/L (26-192) Creatine Kinase MB (Mass) < 0.5 ng/mL (0.0-3.6) Creatine Kinase MB Relative Index % (0-4) Troponin I Quantitative < 0.017 ng/mL (0.000-0.055) TL-Vku-C-Type Natriuretic Peptide 577 pg/mL (0-449) Total Protein 6.6 g/dL (6.4-8.2) Albumin 2.9 g/dL (3.4-5.0) Thyroid Stimulating Hormone (TSH) 2.307 uIU/mL (0.358-3.74) Influenza Type A Antigen Negative (NEGATIVE) Influenza Type B Antigen Negative (NEGATIVE) Laboratory Tests Test 08/09/17 11:00 08/09/17 14:10 White Blood Count 1.1 x10^3/uL (4.0-11.0) Red Blood Count 2.62 x10^6/uL (3.50-5.40) Hemoglobin 7.0 g/dL (12.0-15.5) Hematocrit 21.3 % (36.0-47.0) Mean Corpuscular Volume 81 fL (79-100) Mean Corpuscular Hemoglobin 27 pg (25-35) Mean Corpuscular Hemoglobin Concent 33 g/dL (31-37) Red Cell Distribution Width 28.2 % (11.5-14.5) Platelet Count 164 x10^3/uL (140-400) Neutrophils (%) (Auto) 63 % (31-73) Lymphocytes (%) (Auto) 36 % (24-48) Monocytes (%) (Auto) 1 % (0-9) Eosinophils (%) (Auto) 0 % (0-3) Basophils (%) (Auto) 0 % (0-3) Neutrophils # (Auto) 0.7 x10^3uL (1.8-7.7) Lymphocytes # (Auto) 0.4 x10^3/uL (1.0-4.8) Monocytes # (Auto) 0.0 x10^3/uL (0.0-1.1) Eosinophils # (Auto) 0.0 x10^3/uL (0.0-0.7) Basophils # (Auto) 0.0 x10^3/uL (0.0-0.2) Segmented Neutrophils % 56 % (35-66) Lymphocytes % 42 % (24-48) Monocytes % 2 % (0-10) Platelet Estimate Adequate (ADEQUATE) Anisocytosis Mod Sodium Level 139 mmol/L (136-145) Potassium Level 3.0 mmol/L (3.5-5.1) Chloride Level 102 mmol/L (98-107) Carbon Dioxide Level 21 mmol/L (21-32) Anion Gap 16 (6-14) Blood Urea Nitrogen 20 mg/dL (7-20) Creatinine 1.2 mg/dL (0.6-1.0) Estimated GFR (Cockcroft-Gault) 43.4 Glucose Level 142 mg/dL (70-99) Lactic Acid Level 5.4 mmol/L (0.4-2.0) 2.6 mmol/L (0.4-2.0) Calcium Level 8.0 mg/dL (8.5-10.1) Magnesium Level 0.5 mg/dL (1.8-2.4) Total Bilirubin 1.3 mg/dL (0.2-1.0) Direct Bilirubin 0.2 mg/dL (0.0-0.2) Aspartate Amino Transf (AST/SGOT) 19 U/L (15-37) Alanine Aminotransferase (ALT/SGPT) 19 U/L (14-59) Alkaline Phosphatase 112 U/L (46-116) Creatine Kinase 54 U/L (26-192) Creatine Kinase MB (Mass) < 0.5 ng/mL (0.0-3.6) Creatine Kinase MB Relative Index % (0-4) Troponin I Quantitative < 0.017 ng/mL (0.000-0.055) CH-Bjs-N-Type Natriuretic Peptide 577 pg/mL (0-449) Total Protein 6.6 g/dL (6.4-8.2) Albumin 2.9 g/dL (3.4-5.0) Thyroid Stimulating Hormone (TSH) 2.307 uIU/mL (0.358-3.74) Influenza Type A Antigen Negative (NEGATIVE) Influenza Type B Antigen Negative (NEGATIVE) Assessment/Plan Assessment/Plan DATE OF CONSULTATION: 08/09/2017 MEDICAL ONCOLOGY CONSULTATION CONSULTATION REQUESTED BY: Dr. Monaco REASON FOR CONSULTATION: Small cell lung cancer and now admitted with pulmonary embolism. HISTORY OF PRESENTING ILLNESS: The patient is a 76-year-old female who has a history of cigarette smoking and she presented with exertional dyspnea since March 2017. She underwent a bronchoscopy on 05/18/2017, which revealed a mass in the right main stem bronchus extending into the right upper lobe. Biopsy revealed small cell undifferentiated carcinoma. There was evidence of extensive mediastinal lymphadenopathy and hence it was staged as a stage 3 malignancy. She was started on chemotherapy with carboplatin and etoposide on 06/06/2017. She received second cycle of chemotherapy from 06/27/2017 and she started concurrent radiation therapy on 06/27/2017. Her radiation and chemotherapy are now on hold because of severe thrombocytopenia. I saw her at the office for an urgent care visit on 07/21/2017 with significant worsening dyspnea and profound fatigue. She was recommended to go to the Emergency Room. CT angiogram of the chest on 07/21/2017 revealed multiple bilateral pulmonary emboli. Subcarinal adenopathy has improved. New cavitary lesion in the lateral aspect of the right lower lobe could be infectious or neoplastic. She underwent venous Doppler of the lower extremities which revealed thrombus in the peroneal vein in the left calf. MRI of the brain on 07/21/2017 did not reveal any evidence of metastatic disease. She was then started on Lovenox. Pulmonary consultation was obtained and she will be switched to Eliquis. The patient was brought in to the hospital 08/09/17 with complaint of weakness and as well as some shortness of breath. She had no chest pain, no syncopal episodes. No fever, no chills. She started coughing with yellow sputum production, no hemoptysis. She is currently not requiring any supplemental oxygen. Saturation on room air is 95%. Blood pressure was 111 systolic, initially was 81 systolic, but she responded to fluid. PAST MEDICAL HISTORY: Arthritis, coronary artery disease, COPD, GERD, hypertension, anxiety, osteoarthritis. SOCIAL HISTORY: She has a history of smoking cigarettes for almost 60 years. FAMILY HISTORY: Negative for malignancy. REVIEW OF SYSTEMS: A 14-point review of system was performed. Pertinent positives are mentioned in the history of present illness. Rest of the system review is negative. PHYSICAL EXAMINATION: GENERAL APPEARANCE: The patient is a 76-year-old female who is in no acute cardiorespiratory distress. VITAL SIGNS: Reviewed HEAD: Atraumatic, normocephalic. EYES: No icterus. NECK: Supple. CHEST: Bilaterally symmetrical. HEART: S1, S2 normal. ABDOMEN: Soft, nontender. CENTRAL NERVOUS SYSTEM: No focal deficits. LYMPHATICS: No lymphadenopathy. SKIN: No rashes. PSYCHOLOGIC: Mood and affect are appropriate. MUSCULOSKELETAL: No joint effusions. LABORATORY DATA: WBC 1.1, hemoglobin 7.0, platelet count 164. IMPRESSION AND PLAN: 1. 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 She was started on chemotherapy with carboplatin and etoposide on 06/06/2017. Cycle #2 was given on 06/27/2017 and radiation therapy was also initiated on 06/27/2017. Cycle #3 was postponed because of severe thrombocytopenia and platelet counts improved and she received chemo Aug 01,, 2. Acute pulmonary embolism, bilateral diagnosed on 07/21/2017 along with deep venous thrombosis of the left peroneal vein diagnosed on 07/22/2017. She was initially started on Lovenox and then switched to Eliquis. Agree to continue anticoagulation and in view of the malignancy, she may need long-term anticoagulation. 3. Anemia due to chemotherapy. Hemoglobin is worse at 7.0 on 08/09/17. Transfuse 1 unit. Continue to monitor hemoglobin and transfuse as needed. 4. Coronary artery disease. Appreciate Cardiology evaluation. 5. Neutropenia due to chemo - start granix 08/09/17. I discussed with IRENE ALEGRIA MD Aug 09, 2017 17:33
[2017-08-09] MEDS: TBO-FILGRASTIM 480 MCG/0.8 ML SYRINGE. SQ SCH (20:32)
[2017-08-09] MEDS: CEFEPIME HCL 1 GM in IV DEXTROSE 5% 50 ML IV SCH (20:33)
[2017-08-09] MEDS: APIXABAN 5 MG TABLET. PO SCH (20:33)
[2017-08-09] MEDS ORDERED: CEFEPIME HCL IV Push 1 GM VIAL. IVP SCH (21:00)
[2017-08-09] MEDS ORDERED: CEFEPIME HCL 1 GM in IV DEXTROSE 5% 50 ML IV SCH (22:00)
[2017-08-10] VITALS (25 sets, daily range): BP systolic 78–117; BP diastolic 49–65
[2017-08-10] MEDS: NOREPINEPHRIN PREMIX 250 ML IV PRN ×2 (00:37→22:46)
--- NOTE | 2017-08-10 01:12 | CONS ---
DATE OF CONSULTATION: 08/09/2017 REFERRING PHYSICIAN: Steve Ji MD. DIAGNOSIS: Limited stage 3 (T2N2M0) small cell carcinoma of the right upper lobe diagnosed with bronchoscopy on 05/18/2017. She initiated chemotherapy in 05/2017 and following this, initiated radiation with her second cycle of chemotherapy. Radiation was significantly delayed due to cytopenia. She ultimately completed just 20 Gy of her chest radiation by 08/05/2017. She now is admitted as a result of recent decline over the last day with increasing shortness of breath, fatigue and chills. We were asked to see her regarding further management. ICD 10 C34.11 HISTORY OF PRESENT ILLNESS: The patient is a 76-year-old woman with diagnosis of stage 3 limited small cell carcinoma of the lung as summarized above. She initially presented with chronic cough and shortness of breath with the chest x-ray in 01/2017 revealing central right hilar mass confirmed on CT scan. Bronchoscopy in 04/2017 revealed a mass 2 cm below the deon, biopsy which did confirm small cell carcinoma. She could not tolerate PET CT imaging or brain MRI imaging to complete a staging as she could not lie down long enough due to her chronic back pain. She ultimately did initiate chemotherapy with chest radiation initiated with her second cycle of chemotherapy on 06/27/2017. Following her initiation of treatment, she developed severe cytopenia, which disruption radiation after the fifth treatment. She ultimately did recover over time and today completed 20 Gy of her chest radiation as of 07/05/2017. She returned to our clinic on the morning of 08/08/2017 generally feeling better. Yesterday evening on the , then developed a sense of not feeling right, diarrhea, shortness of breath, transient chills, minimal nausea with no headaches or vomiting. She had some cough with no chest pain. Prior to reinitiating treatment, she had a CBC in Dr. Mccracken's office on 08/08/2017 at which time, her hemoglobin was 6.8, white count 2400, absolute neutrophil count 1900 and platelet count of 183,000. She now has been admitted from the Emergency Room. She was found to be hypokalemic with potassium 3.0, hypomagnesemic with the magnesium of 0.5 with an elevated creatinine of 1.2. Hemoglobin 7.0, white count 1100, platelet count 164,000. Portable chest x-ray revealed persistent right hilar opacity was chronic volume loss on the right, persistent right lateral basilar pulmonary mass (the latter which had been decreasing in size and was known post-obstructive pneumonitis from the past). She is now receiving transfusion, potassium and magnesium replacement and feeling better. From prior to admission 07/22/2017, venous ultrasonography revealed no deep venous thrombosis. Brain MRI from 07/21/2017 revealed no occult metastatic disease. CTA of the chest from 07/21/2017 did reveal multiple bilateral pulmonary emboli, worsening right upper lobe and right middle lobe atelectasis, right hilar and subcarinal adenopathy, the latter which was smaller, lateralized cavitating lesion in the right lower lobe, incontinuity with the lung obstruction compatible with infectious process, although malignancy could not be excluded at that time. PAST MEDICAL HISTORY: Remarkable for hypertension, coronary artery disease, [place] in 2011, stent placement, COPD, hypercholesterolemia, right knee replacement, osteoarthritis, gastroesophageal reflux disease. ALLERGIES: No known allergies. MEDICATIONS: See hospital chart. FAMILY HISTORY: Parents from some form of malignancy. She cannot recall which type. SOCIAL HISTORY: since June last year, from complications of sepsis and diabetes. One daughter who lives nearby, Susannah Wilkins. 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 Denies alcohol use. Had significant smoking in the past and up to the present illness, smoked 1 quarter to 3 quarter packs of cigarettes a day, now none. PHYSICAL EXAMINATION: GENERAL: Revealed a pleasant, conversant woman, in no acute distress, alopecic from chemotherapy. HEENT: Revealed no scleral icterus. LYMPH NODES: She had no palpable cervical or supraclavicular adenopathy. LUNGS: Clear. No wheezes or rhonchi. HEART: Regular, no gallop. ABDOMEN: Revealed no hepatomegaly, mass or tenderness. EXTREMITIES: Reveal no significant edema. No clubbing or cyanosis. ASSESSMENT AND PLAN: In summary, my impression is that of limited stage 3 small cell carcinoma of the right lung. She has responded to radiation and chemo with some reduction of her central disease. She has had profound cytopenias from her chemo and radiation which delayed radiation. She now has recurrent leukopenia from her last cycle of chemotherapy as well as she has hypomagnesemia likely due to chemotherapy as well. She is now feeling better with transfusion and mineral replacement given the white count and overall debilitated status. We will observe her without reinitiating radiation at this time. Anticipating she does improve and has stable CBC, we would reinitiate radiation when she is better overall. I discussed this with the patient. We will continue to follow her for now. ARASH HERNANDEZ MD DR: BHUPINDER/poonam JOB#: [id number] / [id number] IRENE Kumari MD, GEORGE MD MTDD
[2017-08-10 06:30] LABS: CALCIUM 7.4 mg/dL (8.5-10.1); GFR 53.6; PHOSPHORUS 2.6 mg/dL (2.6-4.7); POTASSIUM 3.5 mmol/L (3.5-5.1)
[2017-08-10 06:33] LABS: % SAT IRON 96 % (15-34)
[2017-08-10 06:41] LABS: IRON,SERUM 191 ug/dL (50-170)
[2017-08-10 06:42] LABS: BASO % 0 % (0-3); EOS % 0 % (0-3); HEMATOCRIT 22.5 % (36.0-47.0); HEMOGLOBIN 7.5 g/dL (12.0-15.5); LYMPH # 0.2 x10^3/uL (1.0-4.8); LYMPH % 24 % (24-48); MEAN CORPUSCULAR HEMOGLOBIN 27 pg (25-35); MEAN CORPUSCULAR HGB CONC 33 g/dL (31-37); MEAN CORPUSCULAR VOLUME 83 fL (79-100); MONO % 4 % (0-9); NEUT % 71 % (31-73); PLATELET COUNT 116 x10^3/uL (140-400); RED BLOOD COUNT 2.72 x10^6/uL (3.50-5.40); RED CELL DISTRIBUTION WIDTH 26.5 % (11.5-14.5)
[2017-08-10] MEDS: IPRATRPIUM/ALBUTEROL 0.5/2.5MG 3 ML NEBU. NEB SCH ×4 (08:00→19:55)
[2017-08-10] MEDS: APIXABAN 5 MG TABLET. PO SCH ×2 (09:03→20:18)
[2017-08-10] MEDS: PANTOPRAZOLE 40 MG TABLET.DR. PO SCH (09:03)
[2017-08-10] MEDS: CEFEPIME HCL 1 GM in IV DEXTROSE 5% 50 ML IV SCH ×2 (09:11→20:19)
[2017-08-10] MEDS: ANTI-COAG MONITOR BY PHARMACY. MC PRN (11:02)
--- NOTE | 2017-08-10 11:51 | PDOC ---
PULMONARY PROGRESS NOTES Subjective no soa Vitals Vital Signs Date Time Temp Pulse Resp B/P (MAP) Pulse Ox O2 Delivery O2 Flow Rate FiO2 08/10/17 10:16 97 Room Air 08/10/17 06:00 115 22 87/55 (66) 1.0 08/10/17 04:09 97.4 97.4 ROS: No Nausea, No Chest Pain, No Increase Cough General: Alert Lungs: Other (decrease bs) Cardiovascular: S1 Abdomen: Soft Neuro Exam: Alert Extremities: Other (1+edema) Labs Laboratory Tests Test 08/09/17 11:00 08/09/17 14:10 08/09/17 14:40 08/10/17 05:27 White Blood Count 1.1 x10^3/uL (4.0-11.0) 1.0 x10^3/uL (4.0-11.0) Red Blood Count 2.62 x10^6/uL (3.50-5.40) 2.72 x10^6/uL (3.50-5.40) Hemoglobin 7.0 g/dL (12.0-15.5) 7.5 g/dL (12.0-15.5) Hematocrit 21.3 % (36.0-47.0) 22.5 % (36.0-47.0) Mean Corpuscular Volume 81 fL (79-100) 83 fL (79-100) Mean Corpuscular Hemoglobin 27 pg (25-35) 27 pg (25-35) Mean Corpuscular Hemoglobin Concent 33 g/dL (31-37) 33 g/dL (31-37) Red Cell Distribution Width 28.2 % (11.5-14.5) 26.5 % (11.5-14.5) Platelet Count 164 x10^3/uL (140-400) 116 x10^3/uL (140-400) Neutrophils (%) (Auto) 63 % (31-73) 71 % (31-73) Lymphocytes (%) (Auto) 36 % (24-48) 24 % (24-48) Monocytes (%) (Auto) 1 % (0-9) 4 % (0-9) Eosinophils (%) (Auto) 0 % (0-3) 0 % (0-3) Basophils (%) (Auto) 0 % (0-3) 0 % (0-3) Neutrophils # (Auto) 0.7 x10^3uL (1.8-7.7) 0.7 x10^3uL (1.8-7.7) Lymphocytes # (Auto) 0.4 x10^3/uL (1.0-4.8) 0.2 x10^3/uL (1.0-4.8) Monocytes # (Auto) 0.0 x10^3/uL (0.0-1.1) 0.0 x10^3/uL (0.0-1.1) Eosinophils # (Auto) 0.0 x10^3/uL (0.0-0.7) 0.0 x10^3/uL (0.0-0.7) Basophils # (Auto) 0.0 x10^3/uL (0.0-0.2) 0.0 x10^3/uL (0.0-0.2) Segmented Neutrophils % 56 % (35-66) Lymphocytes % 42 % (24-48) Monocytes % 2 % (0-10) Platelet Estimate Adequate (ADEQUATE) Anisocytosis Mod Sodium Level 139 mmol/L (136-145) 140 mmol/L (136-145) Potassium Level 3.0 mmol/L (3.5-5.1) 3.5 mmol/L (3.5-5.1) Chloride Level 102 mmol/L (98-107) 108 mmol/L (98-107) Carbon Dioxide Level 21 mmol/L (21-32) 22 mmol/L (21-32) Anion Gap 16 (6-14) 10 (6-14) Blood Urea Nitrogen 20 mg/dL (7-20) 19 mg/dL (7-20) Creatinine 1.2 mg/dL (0.6-1.0) 1.0 mg/dL (0.6-1.0) Estimated GFR (Cockcroft-Gault) 43.4 53.6 Glucose Level 142 mg/dL (70-99) 150 mg/dL (70-99) Lactic Acid Level 5.4 mmol/L (0.4-2.0) 2.6 mmol/L (0.4-2.0) 2.2 mmol/L (0.4-2.0) Calcium Level 8.0 mg/dL (8.5-10.1) 7.4 mg/dL (8.5-10.1) Magnesium Level 0.5 mg/dL (1.8-2.4) 2.0 mg/dL (1.8-2.4) Total Bilirubin 1.3 mg/dL (0.2-1.0) Direct Bilirubin 0.2 mg/dL (0.0-0.2) Aspartate Amino Transf (AST/SGOT) 19 U/L (15-37) Alanine Aminotransferase (ALT/SGPT) 19 U/L (14-59) Alkaline Phosphatase 112 U/L (46-116) Creatine Kinase 54 U/L (26-192) Creatine Kinase MB (Mass) < 0.5 ng/mL (0.0-3.6) Creatine Kinase MB Relative Index % (0-4) Troponin I Quantitative < 0.017 ng/mL (0.000-0.055) DB-Qra-D-Type Natriuretic Peptide 577 pg/mL (0-449) Total Protein 6.6 g/dL (6.4-8.2) Albumin 2.9 g/dL (3.4-5.0) Thyroid Stimulating Hormone (TSH) 2.307 uIU/mL (0.358-3.74) Influenza Type A Antigen Negative (NEGATIVE) Influenza Type B Antigen Negative (NEGATIVE) Nasal Screen MRSA (PCR) Negative (Negative) Phosphorus Level 2.6 mg/dL (2.6-4.7) Iron Level 191 ug/dL (50-170) Total Iron Binding Capacity 200 ug/dL (250-450) Iron Saturation 96 % (15-34) Ferritin 534 ng/mL (8-252) Laboratory Tests Test 08/09/17 14:10 08/09/17 14:40 08/10/17 05:27 Lactic Acid Level 2.6 mmol/L (0.4-2.0) 2.2 mmol/L (0.4-2.0) Nasal Screen MRSA (PCR) Negative (Negative) White Blood Count 1.0 x10^3/uL (4.0-11.0) Red Blood Count 2.72 x10^6/uL (3.50-5.40) Hemoglobin 7.5 g/dL (12.0-15.5) Hematocrit 22.5 % (36.0-47.0) Mean Corpuscular Volume 83 fL (79-100) Mean Corpuscular Hemoglobin 27 pg (25-35) Mean Corpuscular Hemoglobin Concent 33 g/dL (31-37) Red Cell Distribution Width 26.5 % (11.5-14.5) Platelet Count 116 x10^3/uL (140-400) Neutrophils (%) (Auto) 71 % (31-73) Lymphocytes (%) (Auto) 24 % (24-48) Monocytes (%) (Auto) 4 % (0-9) Eosinophils (%) (Auto) 0 % (0-3) Basophils (%) (Auto) 0 % (0-3) Neutrophils # (Auto) 0.7 x10^3uL (1.8-7.7) Lymphocytes # (Auto) 0.2 x10^3/uL (1.0-4.8) Monocytes # (Auto) 0.0 x10^3/uL (0.0-1.1) Eosinophils # (Auto) 0.0 x10^3/uL (0.0-0.7) Basophils # (Auto) 0.0 x10^3/uL (0.0-0.2) Sodium Level 140 mmol/L (136-145) Potassium Level 3.5 mmol/L (3.5-5.1) Chloride Level 108 mmol/L (98-107) Carbon Dioxide Level 22 mmol/L (21-32) Anion Gap 10 (6-14) Blood Urea Nitrogen 19 mg/dL (7-20) Creatinine 1.0 mg/dL (0.6-1.0) Estimated GFR (Cockcroft-Gault) 53.6 Glucose Level 150 mg/dL (70-99) Calcium Level 7.4 mg/dL (8.5-10.1) Phosphorus Level 2.6 mg/dL (2.6-4.7) Magnesium Level 2.0 mg/dL (1.8-2.4) Iron Level 191 ug/dL (50-170) Total Iron Binding Capacity 200 ug/dL (250-450) Iron Saturation 96 % (15-34) Ferritin 534 ng/mL (8-252) Medications Active Scripts Medications Dose Route/Sig Max Daily Dose Days Date Category Ativan (Lorazepam) 1 Mg Tablet 1 Mg PO Q6HRS PRN 07/25/17 Reported Eliquis (Apixaban) 5 Mg Tablet 5 Mg PO BID 07/25/17 Reported Zofran (Ondansetron Hcl) 8 Mg Tablet 8 Mg PO BID PRN 06/09/17 Reported Pantoprazole Sodium 40 Mg Tablet. 1 Tab PO DAILY 05/18/17 Reported Impression . 1. Dyspnea/weakness, most likely related to anemia in a patient who has been treated with chemo and radiation for small cell, undifferentiated carcinoma. 2. Small cell carcinoma, undifferentiated status post chemo and radiation. 3. History of recent pulmonary embolism and no evidence of any deep venous thrombosis. This is secondary to hypercoagulable state. Currently on Eliquis at home and I would continue Eliquis. I do not think that anemia is related to Eliquis, but rather chemo-induced. 4. Neutropenia and anemia, chemo-induced. 5. Underlying chronic obstructive pulmonary disease. 6. Suspected post-obstructive pneumonia. Plan . 1. Continue with p.r.n. oxygen. 2. Antibiotic cefepime. 3. Continue Eliquis. 4. DuoNebs. 5. Follow Oncology recommendation. 6. Monitor white cell count and hemoglobin. 7. Transfuse to keep hemoglobin above 8. 8. We will follow along with you. CUCA ANTUNEZ MD Aug 10, 2017 11:51
--- NOTE | 2017-08-10 12:56 | PDOC ---
Provider Note Provider Note Feeling much better overall. Happy not to need 02 while awake. (Still noted to desat while sleeping) Eating well. Alert upright in chair conversant actively eating lunch. 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 Hb better after 1 unit PRBC's Leukopenia stable with recurrent thrombocytopenia likely due to treatment. Hypokalemia and magnesemia and renal failure all improved with replacement and IVF. Will continue to hold resuming treatment for now, consider resuming when WBC better and out of ICU. ARASH HERNANDEZ MD Aug 10, 2017 12:56
--- NOTE | 2017-08-10 13:07 | PDOC ---
PROGRESS NOTES Chief Complaint Chief Complaint acute dyspnea, 2/2 right lung Ca, PE, and possible obstructive PNA hypotension, 2/2 anemia, PNA, sepsis, recent dignosed BL PE ON eliquis right lung NON small cell Ca, on chemo and RT h/o Grade 1 CHF, copd w/ prior tobacco use history htn Rheumatoid arthritis leukopenia with recent chemo for lung cancer anemia with RT, CHEMO ckd3 mild malnutrition History of Present Illness History of Present Illness in ICU, still on pharmacological BP support, on NE, onco, RT, pulm consult following s/p 1 u PRBC transfusion ivf to continue good PO intake feels much improved, cont eliquis cefepime for now, check sputum cx, bcx PTOT Vitals Vitals Vital Signs Date Time Temp Pulse Resp B/P (MAP) Pulse Ox O2 Delivery O2 Flow Rate FiO2 08/10/17 12:34 97 Room Air 08/10/17 06:00 115 22 87/55 (66) 1.0 08/10/17 04:09 97.4 97.4 Physical Exam General: Alert, Oriented X3, Cooperative, No acute distress, mild distress Heart: No murmurs Lungs: Clear, Other (decrease bs) Abdomen: Normal bowel sounds, No tenderness Extremities: No clubbing, No cyanosis, No edema Skin: No rashes Labs LABS Laboratory Tests Test 08/09/17 14:10 08/09/17 14:40 08/10/17 05:27 Lactic Acid Level 2.6 mmol/L (0.4-2.0) 2.2 mmol/L (0.4-2.0) Nasal Screen MRSA (PCR) Negative (Negative) White Blood Count 1.0 x10^3/uL (4.0-11.0) Red Blood Count 2.72 x10^6/uL (3.50-5.40) Hemoglobin 7.5 g/dL (12.0-15.5) Hematocrit 22.5 % (36.0-47.0) Mean Corpuscular Volume 83 fL (79-100) Mean Corpuscular Hemoglobin 27 pg (25-35) Mean Corpuscular Hemoglobin Concent 33 g/dL (31-37) Red Cell Distribution Width 26.5 % (11.5-14.5) Platelet Count 116 x10^3/uL (140-400) Neutrophils (%) (Auto) 71 % (31-73) Lymphocytes (%) (Auto) 24 % (24-48) Monocytes (%) (Auto) 4 % (0-9) Eosinophils (%) (Auto) 0 % (0-3) Basophils (%) (Auto) 0 % (0-3) Neutrophils # (Auto) 0.7 x10^3uL (1.8-7.7) Lymphocytes # (Auto) 0.2 x10^3/uL (1.0-4.8) Monocytes # (Auto) 0.0 x10^3/uL (0.0-1.1) Eosinophils # (Auto) 0.0 x10^3/uL (0.0-0.7) Basophils # (Auto) 0.0 x10^3/uL (0.0-0.2) Sodium Level 140 mmol/L (136-145) Potassium Level 3.5 mmol/L (3.5-5.1) Chloride Level 108 mmol/L (98-107) Carbon Dioxide Level 22 mmol/L (21-32) Anion Gap 10 (6-14) Blood Urea Nitrogen 19 mg/dL (7-20) Creatinine 1.0 mg/dL (0.6-1.0) Estimated GFR (Cockcroft-Gault) 53.6 Glucose Level 150 mg/dL (70-99) Calcium Level 7.4 mg/dL (8.5-10.1) Phosphorus Level 2.6 mg/dL (2.6-4.7) Magnesium Level 2.0 mg/dL (1.8-2.4) Iron Level 191 ug/dL (50-170) Total Iron Binding Capacity 200 ug/dL (250-450) Iron Saturation 96 % (15-34) Ferritin 534 ng/mL (8-252) Review of Systems Review of Systems some weakness no cough, no n.v.d Assessment and Plan Assessmemt and Plan Problems Medical Problems: (1) Anemia Status: Acute (2) Neutropenia Status: Acute (3) Pneumonia Status: Acute Problems: Comment Review of Relevant I have reviewed the following items gen (where applicable) has been applied. Labs Laboratory Tests Test 08/09/17 11:00 08/09/17 14:10 08/09/17 14:40 08/10/17 05:27 White Blood Count 1.1 x10^3/uL (4.0-11.0) 1.0 x10^3/uL (4.0-11.0) Red Blood Count 2.62 x10^6/uL (3.50-5.40) 2.72 x10^6/uL (3.50-5.40) Hemoglobin 7.0 g/dL (12.0-15.5) 7.5 g/dL (12.0-15.5) Hematocrit 21.3 % (36.0-47.0) 22.5 % (36.0-47.0) Mean Corpuscular Volume 81 fL (79-100) 83 fL (79-100) Mean Corpuscular Hemoglobin 27 pg (25-35) 27 pg (25-35) Mean Corpuscular Hemoglobin Concent 33 g/dL (31-37) 33 g/dL (31-37) Red Cell Distribution Width 28.2 % (11.5-14.5) 26.5 % (11.5-14.5) Platelet Count 164 x10^3/uL (140-400) 116 x10^3/uL (140-400) Neutrophils (%) (Auto) 63 % (31-73) 71 % (31-73) Lymphocytes (%) (Auto) 36 % (24-48) 24 % (24-48) Monocytes (%) (Auto) 1 % (0-9) 4 % (0-9) Eosinophils (%) (Auto) 0 % (0-3) 0 % (0-3) Basophils (%) (Auto) 0 % (0-3) 0 % (0-3) Neutrophils # (Auto) 0.7 x10^3uL (1.8-7.7) 0.7 x10^3uL (1.8-7.7) Lymphocytes # (Auto) 0.4 x10^3/uL (1.0-4.8) 0.2 x10^3/uL (1.0-4.8) Monocytes # (Auto) 0.0 x10^3/uL (0.0-1.1) 0.0 x10^3/uL (0.0-1.1) Eosinophils # (Auto) 0.0 x10^3/uL (0.0-0.7) 0.0 x10^3/uL (0.0-0.7) Basophils # (Auto) 0.0 x10^3/uL (0.0-0.2) 0.0 x10^3/uL (0.0-0.2) Segmented Neutrophils % 56 % (35-66) Lymphocytes % 42 % (24-48) Monocytes % 2 % (0-10) Platelet Estimate Adequate (ADEQUATE) Anisocytosis Mod Sodium Level 139 mmol/L (136-145) 140 mmol/L (136-145) Potassium Level 3.0 mmol/L (3.5-5.1) 3.5 mmol/L (3.5-5.1) Chloride Level 102 mmol/L (98-107) 108 mmol/L (98-107) Carbon Dioxide Level 21 mmol/L (21-32) 22 mmol/L (21-32) Anion Gap 16 (6-14) 10 (6-14) Blood Urea Nitrogen 20 mg/dL (7-20) 19 mg/dL (7-20) Creatinine 1.2 mg/dL (0.6-1.0) 1.0 mg/dL (0.6-1.0) Estimated GFR (Cockcroft-Gault) 43.4 53.6 Glucose Level 142 mg/dL (70-99) 150 mg/dL (70-99) Lactic Acid Level 5.4 mmol/L (0.4-2.0) 2.6 mmol/L (0.4-2.0) 2.2 mmol/L (0.4-2.0) Calcium Level 8.0 mg/dL (8.5-10.1) 7.4 mg/dL (8.5-10.1) Magnesium Level 0.5 mg/dL (1.8-2.4) 2.0 mg/dL (1.8-2.4) Total Bilirubin 1.3 mg/dL (0.2-1.0) Direct Bilirubin 0.2 mg/dL (0.0-0.2) Aspartate Amino Transf (AST/SGOT) 19 U/L (15-37) Alanine Aminotransferase (ALT/SGPT) 19 U/L (14-59) Alkaline Phosphatase 112 U/L (46-116) Creatine Kinase 54 U/L (26-192) Creatine Kinase MB (Mass) < 0.5 ng/mL (0.0-3.6) Creatine Kinase MB Relative Index % (0-4) Troponin I Quantitative < 0.017 ng/mL (0.000-0.055) HK-Ocl-B-Type Natriuretic Peptide 577 pg/mL (0-449) Total Protein 6.6 g/dL (6.4-8.2) Albumin 2.9 g/dL (3.4-5.0) Thyroid Stimulating Hormone (TSH) 2.307 uIU/mL (0.358-3.74) Influenza Type A Antigen Negative (NEGATIVE) Influenza Type B Antigen Negative (NEGATIVE) Nasal Screen MRSA (PCR) Negative (Negative) Phosphorus Level 2.6 mg/dL (2.6-4.7) Iron Level 191 ug/dL (50-170) Total Iron Binding Capacity 200 ug/dL (250-450) Iron Saturation 96 % (15-34) Ferritin 534 ng/mL (8-252) Laboratory Tests Test 08/09/17 14:10 08/09/17 14:40 08/10/17 05:27 Lactic Acid Level 2.6 mmol/L (0.4-2.0) 2.2 mmol/L (0.4-2.0) Nasal Screen MRSA (PCR) Negative (Negative) White Blood Count 1.0 x10^3/uL (4.0-11.0) Red Blood Count 2.72 x10^6/uL (3.50-5.40) Hemoglobin 7.5 g/dL (12.0-15.5) Hematocrit 22.5 % (36.0-47.0) Mean Corpuscular Volume 83 fL (79-100) Mean Corpuscular Hemoglobin 27 pg (25-35) Mean Corpuscular Hemoglobin Concent 33 g/dL (31-37) Red Cell Distribution Width 26.5 % (11.5-14.5) Platelet Count 116 x10^3/uL (140-400) Neutrophils (%) (Auto) 71 % (31-73) Lymphocytes (%) (Auto) 24 % (24-48) Monocytes (%) (Auto) 4 % (0-9) Eosinophils (%) (Auto) 0 % (0-3) Basophils (%) (Auto) 0 % (0-3) Neutrophils # (Auto) 0.7 x10^3uL (1.8-7.7) Lymphocytes # (Auto) 0.2 x10^3/uL (1.0-4.8) Monocytes # (Auto) 0.0 x10^3/uL (0.0-1.1) Eosinophils # (Auto) 0.0 x10^3/uL (0.0-0.7) Basophils # (Auto) 0.0 x10^3/uL (0.0-0.2) Sodium Level 140 mmol/L (136-145) Potassium Level 3.5 mmol/L (3.5-5.1) Chloride Level 108 mmol/L (98-107) Carbon Dioxide Level 22 mmol/L (21-32) Anion Gap 10 (6-14) Blood Urea Nitrogen 19 mg/dL (7-20) Creatinine 1.0 mg/dL (0.6-1.0) Estimated GFR (Cockcroft-Gault) 53.6 Glucose Level 150 mg/dL (70-99) Calcium Level 7.4 mg/dL (8.5-10.1) Phosphorus Level 2.6 mg/dL (2.6-4.7) Magnesium Level 2.0 mg/dL (1.8-2.4) Iron Level 191 ug/dL (50-170) Total Iron Binding Capacity 200 ug/dL (250-450) Iron Saturation 96 % (15-34) Ferritin 534 ng/mL (8-252) Microbiology 08/09/17 Blood Culture - Preliminary, Resulted NO GROWTH AFTER 1 DAY Medications Current Medications Lorazepam (Ativan) 1 mg 1X ONCE IV Last administered on 08/09/17 11:27; Start 08/09/17 at 11:00; Stop 08/09/17 at 11:01; Status DC Sodium Chloride 1,000 ml @ 1,000 mls/hr Q1H IV Last administered on 11:27; Start 08/09/17 at 10:49; Stop 08/09/17 at 11:48; Status DC Sodium Chloride (Normal Saline Flush) 10 ml QSHIFT PRN IV AFTER MEDS AND BLOOD DRAWS Last administered on 08/09/17 11:28; Start 08/09/17 at 11:00; Stop at 09:41; Status DC Albuterol/ Ipratropium (Duoneb) 3 ml 1X ONCE NEB Last administered on 11:05; Start 08/09/17 at 11:00; Stop 08/09/17 at 11:01; Status DC Methylprednisolone Sodium Succinate (SOLU-Medrol 125MG VIAL) 125 mg 1X ONCE IV Last administered on 08/09/17 11:27; Start 08/09/17 at 11:00; Stop at 11:01; Status DC Sodium Chloride (Normal Saline Flush) 10 ml QSHIFT PRN IV AFTER MEDS AND BLOOD DRAWS; Start 08/09/17 at 12:15 Sodium Chloride 1,000 ml @ 1,830 mls/hr Q33M IV Last administered on 12:37; Start 08/09/17 at 12:10; Stop 08/09/17 at 13:10; Status DC Cefepime HCl 2 gm/ Sodium Chloride 100 ml @ 200 mls/hr 1X ONCE IV ; Start at 12:15; Stop 08/09/17 at 12:44; Status UNV Norepinephrine Bitartrate 250 ml @ 0 mls/hr CONT PRN IV PER PROTOCOL Last administered on 08/10/17 00:37; Start 08/09/17 at 12:15 Cefepime HCl (Maxipime) 2 gm 1X ONCE IVP Last administered on 08/09/17 12:33 ; Start 08/09/17 at 12:30; Stop 08/09/17 at 12:31; Status DC Ondansetron HCl (Zofran) 4 mg PRN Q8HRS PRN IV NAUSEA/VOMITING; Start at 12:45; Stop 08/09/17 at 14:13; Status DC Fentanyl Citrate (Fentanyl 2ml Vial) 50 mcg PRN Q2HR PRN IV PAIN Last administered on 08/10/17 01:01; Start 08/09/17 at 12:45; Stop 08/10/17 at 12 :44; Status DC Acetaminophen (Tylenol) 650 mg PRN Q4HRS PRN PO FEVER; Start 08/09/17 at 12:45 ; Stop 08/10/17 at 12:44; Status DC Acetaminophen (Tylenol) 650 mg PRN Q6HRS PRN PO FEVER Last administered on 09:03; Start 08/09/17 at 14:15 Ondansetron HCl (Zofran) 4 mg PRN Q6HRS PRN IV NAUSEA/VOMITING; Start at 14:15 Morphine Sulfate 2 mg PRN Q2HR PRN IV PAIN; Start 08/09/17 at 14:15 Tramadol HCl (Ultram) 50 mg PRN Q6HRS PRN PO PAIN; Start 08/09/17 at 14:15 Hydralazine HCl (Apresoline Inj) 10 mg PRN Q4HRS PRN IVP ELEVATED BP, SEE COMMENTS; Start 08/09/17 at 14:15 Docusate Sodium (Colace) 100 mg PRN DAILY PRN PO CONSTIPATION; Start 08/09/17 at 14:15 Apixaban (Eliquis) 5 mg BID PO Last administered on 08/10/17 09:03; Start at 21:00 Lorazepam (Ativan) 0.5 mg Q6HRS PRN PO ANXIETY; Start 08/09/17 at 14:15 Pantoprazole Sodium (Protonix) 40 mg DAILYAC PO Last administered on 09:03; Start 08/10/17 at 07:30 Albuterol/ Ipratropium (Duoneb) 3 ml RTQID NEB Last administered on 08/10/17 12:34; Start 08/09/17 at 16:00 Albuterol Sulfate (Ventolin Neb Soln) 2.5 mg PRN Q2HR PRN NEB SHORTNESS OF BREATH; Start 08/09/17 at 14:15 Guaifenesin (Mucinex) 600 mg BID PO Last administered on 08/10/17 09:04; Start 08/09/17 at 21:00 Cefepime HCl 1 gm/ Dextrose 50 ml @ 100 mls/hr Q8HRS IV ; Start 08/09/17 at 22 :00; Status UNV Cefepime HCl (Maxipime) 1 gm Q12HR IVP ; Start 08/09/17 at 21:00; Status Cancel Cefepime HCl 1 gm/ Dextrose 50 ml @ 100 mls/hr Q12HR IV Last administered on 08/10/17 09:11; Start 08/09/17 at 21:00; Stop 08/10/17 at 23:00 Potassium Chloride/Sodium Chloride 1,000 ml @ 75 mls/hr [id number] IV Last administered on 08/10/17 09:04; Start 08/09/17 at 14:45; Stop 08/10/17 at 16 :00 Magnesium Sulfate/ Dextrose 100 ml @ 25 mls/hr 1X ONCE IV Last administered on 08/09/17 15:30; Start 08/09/17 at 14:45; Stop 08/09/17 at 18:44; Status DC Potassium Chloride (Klor-Con) 40 meq 1X ONCE PO Last administered on 20:32; Start 08/09/17 at 16:30; Stop 08/09/17 at 16:31; Status DC Enoxaparin Sodium (Lovenox 40mg Syringe) 40 mg Q24H SQ ; Start 08/09/17 at 16: 30; Status UNV Tbo-Filgrastim (Granix) 480 mcg QHS SQ Last administered on 08/09/17 20:32; Start 08/09/17 at 21:00 Cefepime HCl (Maxipime) 1 gm Q12HR IVP ; Start 08/11/17 at 09:00 Info (Anti-Coagulation Monitoring By Pharmacy) 1 each PRN DAILY PRN MC SEE COMMENTS Last administered on 08/10/17 11:02; Start 08/10/17 at 11:00 Active Scripts Active Reported Ativan (Lorazepam) 1 Mg Tablet 1 Mg PO Q6HRS PRN Eliquis (Apixaban) 5 Mg Tablet 5 Mg PO BID Zofran (Ondansetron Hcl) 8 Mg Tablet 8 Mg PO BID PRN Pantoprazole Sodium 40 Mg Tablet. 1 Tab PO DAILY Vitals/I & O Vital Sign - Last 24 Hours 08/09/17 08/09/17 08/09/17 08/09/17 13:37 14:30 14:30 15:00 Temp 98.6 98.6 Pulse 118 112 112 Resp 22 B/P (MAP) 111/64 (80) 102/57 (72) 111/64 (80) Pulse Ox 95 96 94 O2 Delivery Room Air Room Air Room Air 11/14/17 11/14/17 11/14/17 11/14/17 15:06 15:26 15:30 16:00 Temp 98.5 98.4 98.7 98.5 98.4 98.7 Pulse 110 104 110 108 Resp 18 B/P (MAP) 104/60 106/65 106/65 (79) 106/59 (75) Pulse Ox 96 97 O2 Delivery Room Air Room Air 08/09/17 08/09/17 08/09/17 08/09/17 16:05 16:25 17:00 17:27 Temp 98.6 98.6 Pulse 106 102 Resp B/P (MAP) 99/56 99/56 (70) Pulse Ox 96 97 O2 Delivery Room Air Room Air Room Air 08/09/17 08/09/17 08/09/17 08/09/17 17:30 18:00 19:00 19:47 Temp 98.3 98.3 98.3 98.3 Pulse 107 107 112 Resp B/P (MAP) 133/69 107/68 (81) 94/47 (63) Pulse Ox 95 96 91 O2 Delivery Room Air Room Air Room Air 08/09/17 08/09/17 08/09/17 08/09/17 20:00 20:00 21:00 22:00 Temp 97.4 97.4 Pulse 112 112 110 Resp B/P (MAP) 103/50 (67) 109/55 (73) 108/79 (89) Pulse Ox 96 96 94 O2 Delivery Room Air Room Air Room Air Room Air 08/09/17 08/09/17 08/10/17 08/10/17 23:00 23:59 01:00 01:01 Pulse 106 106 Resp B/P (MAP) 95/51 (66) 78/52 (61) Pulse Ox 96 96 96 O2 Delivery Room Air Room Air Room Air Room Air 08/10/17 08/10/17 08/10/17 08/10/17 01:15 01:31 01:31 02:00 Pulse 120 119 117 Resp 17 23 19 B/P (MAP) 86/51 (63) 106/65 (79) 107/63 (78) Pulse Ox 95 96 96 96 O2 Delivery Room Air Room Air Room Air Room Air 08/10/17 08/10/17 08/10/17 08/10/17 03:00 04:06 04:09 05:13 Temp 97.4 97.4 Pulse 116 116 119 Resp 25 28 22 B/P (MAP) 108/61 (77) 97/54 (68) 99/57 (71) Pulse Ox 98 97 95 O2 Delivery Nasal Cannula Room Air Nasal Cannula Nasal Cannula O2 Flow Rate 1.0 1.0 1.0 08/10/17 08/10/17 08/10/17 08/10/17 06:00 08:00 10:16 12:34 Pulse 115 Resp 22 B/P (MAP) 87/55 (66) Pulse Ox 95 97 97 O2 Delivery Nasal Cannula Room Air Room Air Room Air O2 Flow Rate 1.0 Intake and Output 08/09/17 08/09/17 08/10/17 15:00 23:00 07:00 Intake Total 2000 ml 780 ml 497 ml Output Total 50 ml 0 ml Balance 2000 ml 730 ml 497 ml LAURA VENTURA MD Aug 10, 2017 13:07
[2017-08-10 13:37] LABS: FOLATE 5.99 ng/ml (3.2-20.0)
--- NOTE | 2017-08-10 17:19 | PDOC ---
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 She was started on chemotherapy with carboplatin and etoposide on 06/06/2017. ROS - feels much better Objective Objective Vital Signs Date Time Temp Pulse Resp B/P (MAP) Pulse Ox O2 Delivery O2 Flow Rate FiO2 08/10/17 16:06 Room Air 08/10/17 12:34 97 08/10/17 06:00 115 22 87/55 (66) 1.0 08/10/17 04:09 97.4 97.4 Intake and Output 08/10/17 07:00 Intake Total 3277 ml Output Total 50 ml Balance 3227 ml Intake Oral 400 ml IV Total 2497 ml Blood Product 330 ml Other 50 ml Output Urine Total 50 ml # Voids 1 Physical Exam Heart: Normal S1, Normal S2 General: Alert, Oriented X3, No acute distress Lungs: Clear to auscultation Neuro: Normal speech Psych/Mental Status: Mental status NL Assessment Assessment Problems Medical Problems: (1) Anemia Status: Acute (2) Neutropenia Status: Acute (3) Pneumonia Status: Acute IMPRESSION AND PLAN: 1. 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 She was started on chemotherapy with carboplatin and etoposide on 06/06/2017. Cycle #2 was given on 06/27/2017 and radiation therapy was also initiated on 06/27/2017. Cycle #3 was postponed because of severe thrombocytopenia and platelet counts improved and she received chemo Aug 01,, 2. Acute pulmonary embolism, bilateral diagnosed on 07/21/2017 along with deep venous thrombosis of the left peroneal vein diagnosed on 07/22/2017. She was initially started on Lovenox and then switched to Eliquis. Agree to continue anticoagulation and in view of the malignancy, she may need long-term anticoagulation. 3. Anemia due to chemotherapy. Hemoglobin is worse at 7.0 on 08/09/17. Transfused 1 unit. Hb better at 7.5 on 08/10/17. Continue to monitor hemoglobin and transfuse as needed. 4. Coronary artery disease. Appreciate Cardiology evaluation. 5. Neutropenia due to chemo - started granix 08/09/17. WBC worse at 1.0, monitor Comment Review of Relevant I have reviewed the following items gen (where applicable) has been applied. Labs Laboratory Tests Test 08/09/17 11:00 08/09/17 14:10 08/09/17 14:40 08/10/17 05:27 White Blood Count 1.1 x10^3/uL (4.0-11.0) 1.0 x10^3/uL (4.0-11.0) Red Blood Count 2.62 x10^6/uL (3.50-5.40) 2.72 x10^6/uL (3.50-5.40) Hemoglobin 7.0 g/dL (12.0-15.5) 7.5 g/dL (12.0-15.5) Hematocrit 21.3 % (36.0-47.0) 22.5 % (36.0-47.0) Mean Corpuscular Volume 81 fL (79-100) 83 fL (79-100) Mean Corpuscular Hemoglobin 27 pg (25-35) 27 pg (25-35) Mean Corpuscular Hemoglobin Concent 33 g/dL (31-37) 33 g/dL (31-37) Red Cell Distribution Width 28.2 % (11.5-14.5) 26.5 % (11.5-14.5) Platelet Count 164 x10^3/uL (140-400) 116 x10^3/uL (140-400) Neutrophils (%) (Auto) 63 % (31-73) 71 % (31-73) Lymphocytes (%) (Auto) 36 % (24-48) 24 % (24-48) Monocytes (%) (Auto) 1 % (0-9) 4 % (0-9) Eosinophils (%) (Auto) 0 % (0-3) 0 % (0-3) Basophils (%) (Auto) 0 % (0-3) 0 % (0-3) Neutrophils # (Auto) 0.7 x10^3uL (1.8-7.7) 0.7 x10^3uL (1.8-7.7) Lymphocytes # (Auto) 0.4 x10^3/uL (1.0-4.8) 0.2 x10^3/uL (1.0-4.8) Monocytes # (Auto) 0.0 x10^3/uL (0.0-1.1) 0.0 x10^3/uL (0.0-1.1) Eosinophils # (Auto) 0.0 x10^3/uL (0.0-0.7) 0.0 x10^3/uL (0.0-0.7) Basophils # (Auto) 0.0 x10^3/uL (0.0-0.2) 0.0 x10^3/uL (0.0-0.2) Segmented Neutrophils % 56 % (35-66) Lymphocytes % 42 % (24-48) Monocytes % 2 % (0-10) Platelet Estimate Adequate (ADEQUATE) Anisocytosis Mod Sodium Level 139 mmol/L (136-145) 140 mmol/L (136-145) Potassium Level 3.0 mmol/L (3.5-5.1) 3.5 mmol/L (3.5-5.1) Chloride Level 102 mmol/L (98-107) 108 mmol/L (98-107) Carbon Dioxide Level 21 mmol/L (21-32) 22 mmol/L (21-32) Anion Gap 16 (6-14) 10 (6-14) Blood Urea Nitrogen 20 mg/dL (7-20) 19 mg/dL (7-20) Creatinine 1.2 mg/dL (0.6-1.0) 1.0 mg/dL (0.6-1.0) Estimated GFR (Cockcroft-Gault) 43.4 53.6 Glucose Level 142 mg/dL (70-99) 150 mg/dL (70-99) Lactic Acid Level 5.4 mmol/L (0.4-2.0) 2.6 mmol/L (0.4-2.0) 2.2 mmol/L (0.4-2.0) Calcium Level 8.0 mg/dL (8.5-10.1) 7.4 mg/dL (8.5-10.1) Magnesium Level 0.5 mg/dL (1.8-2.4) 2.0 mg/dL (1.8-2.4) Total Bilirubin 1.3 mg/dL (0.2-1.0) Direct Bilirubin 0.2 mg/dL (0.0-0.2) Aspartate Amino Transf (AST/SGOT) 19 U/L (15-37) Alanine Aminotransferase (ALT/SGPT) 19 U/L (14-59) Alkaline Phosphatase 112 U/L (46-116) Creatine Kinase 54 U/L (26-192) Creatine Kinase MB (Mass) < 0.5 ng/mL (0.0-3.6) Creatine Kinase MB Relative Index % (0-4) Troponin I Quantitative < 0.017 ng/mL (0.000-0.055) BC-Csg-N-Type Natriuretic Peptide 577 pg/mL (0-449) Total Protein 6.6 g/dL (6.4-8.2) Albumin 2.9 g/dL (3.4-5.0) Thyroid Stimulating Hormone (TSH) 2.307 uIU/mL (0.358-3.74) Influenza Type A Antigen Negative (NEGATIVE) Influenza Type B Antigen Negative (NEGATIVE) Nasal Screen MRSA (PCR) Negative (Negative) Phosphorus Level 2.6 mg/dL (2.6-4.7) Iron Level 191 ug/dL (50-170) Total Iron Binding Capacity 200 ug/dL (250-450) Iron Saturation 96 % (15-34) Ferritin 534 ng/mL (8-252) Vitamin B12 Level 334 pg/mL (247-911) Serum Folate 5.99 ng/ml (3.2-20.0) Laboratory Tests Test 08/10/17 05:27 White Blood Count 1.0 x10^3/uL (4.0-11.0) Red Blood Count 2.72 x10^6/uL (3.50-5.40) Hemoglobin 7.5 g/dL (12.0-15.5) Hematocrit 22.5 % (36.0-47.0) Mean Corpuscular Volume 83 fL (79-100) Mean Corpuscular Hemoglobin 27 pg (25-35) Mean Corpuscular Hemoglobin Concent 33 g/dL (31-37) Red Cell Distribution Width 26.5 % (11.5-14.5) Platelet Count 116 x10^3/uL (140-400) Neutrophils (%) (Auto) 71 % (31-73) Lymphocytes (%) (Auto) 24 % (24-48) Monocytes (%) (Auto) 4 % (0-9) Eosinophils (%) (Auto) 0 % (0-3) Basophils (%) (Auto) 0 % (0-3) Neutrophils # (Auto) 0.7 x10^3uL (1.8-7.7) Lymphocytes # (Auto) 0.2 x10^3/uL (1.0-4.8) Monocytes # (Auto) 0.0 x10^3/uL (0.0-1.1) Eosinophils # (Auto) 0.0 x10^3/uL (0.0-0.7) Basophils # (Auto) 0.0 x10^3/uL (0.0-0.2) Sodium Level 140 mmol/L (136-145) Potassium Level 3.5 mmol/L (3.5-5.1) Chloride Level 108 mmol/L (98-107) Carbon Dioxide Level 22 mmol/L (21-32) Anion Gap 10 (6-14) Blood Urea Nitrogen 19 mg/dL (7-20) Creatinine 1.0 mg/dL (0.6-1.0) Estimated GFR (Cockcroft-Gault) 53.6 Glucose Level 150 mg/dL (70-99) Lactic Acid Level 2.2 mmol/L (0.4-2.0) Calcium Level 7.4 mg/dL (8.5-10.1) Phosphorus Level 2.6 mg/dL (2.6-4.7) Magnesium Level 2.0 mg/dL (1.8-2.4) Iron Level 191 ug/dL (50-170) Total Iron Binding Capacity 200 ug/dL (250-450) Iron Saturation 96 % (15-34) Ferritin 534 ng/mL (8-252) Vitamin B12 Level 334 pg/mL (247-911) Serum Folate 5.99 ng/ml (3.2-20.0) Microbiology 08/09/17 Blood Culture - Preliminary, Resulted NO GROWTH AFTER 1 DAY Medications Current Medications Lorazepam (Ativan) 1 mg 1X ONCE IV Last administered on 08/09/17 11:27; Start 08/09/17 at 11:00; Stop 08/09/17 at 11:01; Status DC Sodium Chloride 1,000 ml @ 1,000 mls/hr Q1H IV Last administered on 11:27; Start 08/09/17 at 10:49; Stop 08/09/17 at 11:48; Status DC Sodium Chloride (Normal Saline Flush) 10 ml QSHIFT PRN IV AFTER MEDS AND BLOOD DRAWS Last administered on 08/09/17 11:28; Start 08/09/17 at 11:00; Stop at 09:41; Status DC Albuterol/ Ipratropium (Duoneb) 3 ml 1X ONCE NEB Last administered on 11:05; Start 08/09/17 at 11:00; Stop 08/09/17 at 11:01; Status DC Methylprednisolone Sodium Succinate (SOLU-Medrol 125MG VIAL) 125 mg 1X ONCE IV Last administered on 08/09/17 11:27; Start 08/09/17 at 11:00; Stop at 11:01; Status DC Sodium Chloride (Normal Saline Flush) 10 ml QSHIFT PRN IV AFTER MEDS AND BLOOD DRAWS; Start 08/09/17 at 12:15 Sodium Chloride 1,000 ml @ 1,830 mls/hr Q33M IV Last administered on 12:37; Start 08/09/17 at 12:10; Stop 08/09/17 at 13:10; Status DC Cefepime HCl 2 gm/ Sodium Chloride 100 ml @ 200 mls/hr 1X ONCE IV ; Start at 12:15; Stop 08/09/17 at 12:44; Status UNV Norepinephrine Bitartrate 250 ml @ 0 mls/hr CONT PRN IV PER PROTOCOL Last administered on 08/10/17 00:37; Start 08/09/17 at 12:15 Cefepime HCl (Maxipime) 2 gm 1X ONCE IVP Last administered on 08/09/17 12:33 ; Start 08/09/17 at 12:30; Stop 08/09/17 at 12:31; Status DC Ondansetron HCl (Zofran) 4 mg PRN Q8HRS PRN IV NAUSEA/VOMITING; Start at 12:45; Stop 08/09/17 at 14:13; Status DC Fentanyl Citrate (Fentanyl 2ml Vial) 50 mcg PRN Q2HR PRN IV PAIN Last administered on 08/10/17 01:01; Start 08/09/17 at 12:45; Stop 08/10/17 at 12 :44; Status DC Acetaminophen (Tylenol) 650 mg PRN Q4HRS PRN PO FEVER; Start 08/09/17 at 12:45 ; Stop 08/10/17 at 12:44; Status DC Acetaminophen (Tylenol) 650 mg PRN Q6HRS PRN PO FEVER Last administered on 09:03; Start 08/09/17 at 14:15 Ondansetron HCl (Zofran) 4 mg PRN Q6HRS PRN IV NAUSEA/VOMITING; Start at 14:15 Morphine Sulfate 2 mg PRN Q2HR PRN IV PAIN; Start 08/09/17 at 14:15 Tramadol HCl (Ultram) 50 mg PRN Q6HRS PRN PO PAIN; Start 08/09/17 at 14:15 Hydralazine HCl (Apresoline Inj) 10 mg PRN Q4HRS PRN IVP ELEVATED BP, SEE COMMENTS; Start 08/09/17 at 14:15 Docusate Sodium (Colace) 100 mg PRN DAILY PRN PO CONSTIPATION; Start 08/09/17 at 14:15 Apixaban (Eliquis) 5 mg BID PO Last administered on 08/10/17 09:03; Start at 21:00 Lorazepam (Ativan) 0.5 mg Q6HRS PRN PO ANXIETY; Start 08/09/17 at 14:15 Pantoprazole Sodium (Protonix) 40 mg DAILYAC PO Last administered on 09:03; Start 08/10/17 at 07:30 Albuterol/ Ipratropium (Duoneb) 3 ml RTQID NEB Last administered on 08/10/17 16:03; Start 08/09/17 at 16:00 Albuterol Sulfate (Ventolin Neb Soln) 2.5 mg PRN Q2HR PRN NEB SHORTNESS OF BREATH; Start 08/09/17 at 14:15 Guaifenesin (Mucinex) 600 mg BID PO Last administered on 08/10/17 09:04; Start 08/09/17 at 21:00 Cefepime HCl 1 gm/ Dextrose 50 ml @ 100 mls/hr Q8HRS IV ; Start 08/09/17 at 22 :00; Status UNV Cefepime HCl (Maxipime) 1 gm Q12HR IVP ; Start 08/09/17 at 21:00; Status Cancel Cefepime HCl 1 gm/ Dextrose 50 ml @ 100 mls/hr Q12HR IV Last administered on 08/10/17 09:11; Start 08/09/17 at 21:00; Stop 08/10/17 at 23:00 Potassium Chloride/Sodium Chloride 1,000 ml @ 75 mls/hr [id number] IV Last administered on 08/10/17 09:04; Start 08/09/17 at 14:45; Stop 08/10/17 at 16 :00; Status DC Magnesium Sulfate/ Dextrose 100 ml @ 25 mls/hr 1X ONCE IV Last administered on 08/09/17 15:30; Start 08/09/17 at 14:45; Stop 08/09/17 at 18:44; Status DC Potassium Chloride (Klor-Con) 40 meq 1X ONCE PO Last administered on 20:32; Start 08/09/17 at 16:30; Stop 08/09/17 at 16:31; Status DC Enoxaparin Sodium (Lovenox 40mg Syringe) 40 mg Q24H SQ ; Start 08/09/17 at 16: 30; Status UNV Tbo-Filgrastim (Granix) 480 mcg QHS SQ Last administered on 08/09/17 20:32; Start 08/09/17 at 21:00 Cefepime HCl (Maxipime) 1 gm Q12HR IVP ; Start 08/11/17 at 09:00 Info (Anti-Coagulation Monitoring By Pharmacy) 1 each PRN DAILY PRN MC SEE COMMENTS Last administered on 08/10/17 11:02; Start 08/10/17 at 11:00 Active Scripts Active Reported Ativan (Lorazepam) 1 Mg Tablet 1 Mg PO Q6HRS PRN Eliquis (Apixaban) 5 Mg Tablet 5 Mg PO BID Zofran (Ondansetron Hcl) 8 Mg Tablet 8 Mg PO BID PRN Pantoprazole Sodium 40 Mg Tablet. 1 Tab PO DAILY Vitals/I & O Vital Sign - Last 24 Hours 08/09/17 08/09/17 08/09/17 08/09/17 17:27 17:30 18:00 19:00 Temp 98.3 98.3 98.3 98.3 Pulse 107 107 112 Resp 28 B/P (MAP) 133/69 107/68 (81) 94/47 (63) Pulse Ox 97 95 96 O2 Delivery Room Air Room Air Room Air 08/09/17 08/09/17 08/09/17 08/09/17 19:47 20:00 20:00 21:00 Temp 97.4 97.4 Pulse 112 112 Resp 28 B/P (MAP) 103/50 (67) 109/55 (73) Pulse Ox 91 96 96 O2 Delivery Room Air Room Air Room Air Room Air 08/09/17 08/09/17 08/09/17 08/10/17 22:00 23:00 23:59 01:00 Pulse 110 106 106 Resp 24 B/P (MAP) 108/79 (89) 95/51 (66) 78/52 (61) Pulse Ox 94 96 96 O2 Delivery Room Air Room Air Room Air Room Air 08/10/17 08/10/17 08/10/17 08/10/17 01:01 01:15 01:31 01:31 Pulse 120 119 Resp 17 23 B/P (MAP) 86/51 (63) 106/65 (79) Pulse Ox 96 95 96 96 O2 Delivery Room Air Room Air Room Air Room Air 08/10/17 08/10/17 08/10/17 08/10/17 02:00 03:00 04:06 04:09 Temp 97.4 97.4 Pulse 117 116 116 Resp 28 B/P (MAP) 107/63 (78) 108/61 (77) 97/54 (68) Pulse Ox 96 98 97 O2 Delivery Room Air Nasal Cannula Room Air Nasal Cannula O2 Flow Rate 1.0 1.0 08/10/17 08/10/17 08/10/17 08/10/17 05:13 06:00 08:00 10:16 Pulse 119 115 Resp 22 22 B/P (MAP) 99/57 (71) 87/55 (66) Pulse Ox 95 95 97 O2 Delivery Nasal Cannula Nasal Cannula Room Air Room Air O2 Flow Rate 1.0 1.0 08/10/17 08/10/17 08/10/17 12:00 12:34 16:06 Pulse Ox 97 O2 Delivery Room Air Room Air Room Air Intake and Output 08/09/17 08/09/17 08/10/17 15:00 23:00 07:00 Intake Total 2000 ml 780 ml 497 ml Output Total 50 ml 0 ml Balance 2000 ml 730 ml 497 ml IRENE HDZ MD Aug 10, 2017 17:18
[2017-08-10] MEDS: TBO-FILGRASTIM 480 MCG/0.8 ML SYRINGE. SQ SCH (20:25)
[2017-08-10] MEDS ORDERED: LIDO:MAALOX:DONNATAL 1:1:1 15 ML SINGLE DOSE SWSW PRN (20:45)
[2017-08-10] MEDS ORDERED: CALCIUM CARBONATE 500 MG TAB.CHEW PO PRN (20:45)
[2017-08-11] VITALS (38 sets, daily range): BP systolic 80–129; BP diastolic 43–118
[2017-08-11 08:21] LABS: BASO % 0 % (0-3); EOS % 1 % (0-3); HEMATOCRIT 21.3 % (36.0-47.0); LYMPH # 0.3 x10^3/uL (1.0-4.8); LYMPH % 75 % (24-48); MEAN CORPUSCULAR HEMOGLOBIN 28 pg (25-35); MEAN CORPUSCULAR HGB CONC 33 g/dL (31-37); MEAN CORPUSCULAR VOLUME 85 fL (79-100); MONO % 6 % (0-9); NEUT % 18 % (31-73); PLATELET COUNT 64 x10^3/uL (140-400); RED BLOOD COUNT 2.51 x10^6/uL (3.50-5.40); RED CELL DISTRIBUTION WIDTH 27.4 % (11.5-14.5)
[2017-08-11] MEDS: IPRATRPIUM/ALBUTEROL 0.5/2.5MG 3 ML NEBU. NEB SCH ×4 (08:26→20:30)
[2017-08-11] MEDS: PANTOPRAZOLE 40 MG TABLET.DR. PO SCH (08:44)
[2017-08-11] MEDS: APIXABAN 5 MG TABLET. PO SCH ×2 (08:44→21:33)
[2017-08-11] MEDS: CEFEPIME HCL IV Push 1 GM VIAL. IVP SCH ×2 (08:44→21:34)
[2017-08-11 08:47] LABS: HEMOGLOBIN 6.9 g/dL (12.0-15.5); WHITE BLOOD COUNT 0.4 x10^3/uL (4.0-11.0)
--- NOTE | 2017-08-11 09:01 | PDOC ---
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 ROS - dyspnea better Objective Objective Vital Signs Date Time Temp Pulse Resp B/P (MAP) Pulse Ox O2 Delivery O2 Flow Rate FiO2 08/11/17 08:27 97 Room Air 08/11/17 06:45 109 24 105/61 (76) 1.0 08/11/17 00:00 97.4 97.4 Intake and Output 08/11/17 07:00 Intake Total 1866.13 ml Output Total 2300 ml Balance -433.87 ml Intake Oral 600 ml IV Total 1266.13 ml Output Urine Total 2300 ml Physical Exam Heart: Normal S1, Normal S2 General: Alert, Oriented X3, No acute distress Lungs: Clear to auscultation Neuro: Normal speech Psych/Mental Status: Mental status NL Assessment Assessment Problems Medical Problems: (1) Anemia Status: Acute (2) Neutropenia Status: Acute (3) Pneumonia Status: Acute IMPRESSION AND PLAN: 1. 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 She was started on chemotherapy with carboplatin and etoposide on 06/06/2017. Cycle #2 was given on 06/27/2017 and radiation therapy was also initiated on 06/27/2017. Cycle #3 was postponed because of severe thrombocytopenia and platelet counts improved and she received chemo Aug 01,, 2. Acute pulmonary embolism, bilateral diagnosed on 07/21/2017 along with deep venous thrombosis of the left peroneal vein diagnosed on 07/22/2017. She was initially started on Lovenox and then switched to Eliquis. Agree to continue anticoagulation and in view of the malignancy, she may need long-term anticoagulation. 3. Anemia due to chemotherapy. Hemoglobin is worse at 7.0 on 08/09/17. Transfused 1 unit. Hb better at 7.5 on 08/10/17. Worse at 6.9 on 08/11/17, plan 1 unit PRBC Continue to monitor hemoglobin and transfuse as needed. 4. Coronary artery disease. Appreciate Cardiology evaluation. 5. Neutropenia due to chemo - started granix 08/09/17. WBC worse at 0.4, monitor. Continue granix. 6. Thrombocytopenia, monitor. Comment Review of Relevant I have reviewed the following items gen (where applicable) has been applied. Labs Laboratory Tests Test 08/09/17 11:00 08/09/17 14:10 08/09/17 14:40 08/10/17 05:27 White Blood Count 1.1 x10^3/uL (4.0-11.0) 1.0 x10^3/uL (4.0-11.0) Red Blood Count 2.62 x10^6/uL (3.50-5.40) 2.72 x10^6/uL (3.50-5.40) Hemoglobin 7.0 g/dL (12.0-15.5) 7.5 g/dL (12.0-15.5) Hematocrit 21.3 % (36.0-47.0) 22.5 % (36.0-47.0) Mean Corpuscular Volume 81 fL (79-100) 83 fL (79-100) Mean Corpuscular Hemoglobin 27 pg (25-35) 27 pg (25-35) Mean Corpuscular Hemoglobin Concent 33 g/dL (31-37) 33 g/dL (31-37) Red Cell Distribution Width 28.2 % (11.5-14.5) 26.5 % (11.5-14.5) Platelet Count 164 x10^3/uL (140-400) 116 x10^3/uL (140-400) Neutrophils (%) (Auto) 63 % (31-73) 71 % (31-73) Lymphocytes (%) (Auto) 36 % (24-48) 24 % (24-48) Monocytes (%) (Auto) 1 % (0-9) 4 % (0-9) Eosinophils (%) (Auto) 0 % (0-3) 0 % (0-3) Basophils (%) (Auto) 0 % (0-3) 0 % (0-3) Neutrophils # (Auto) 0.7 x10^3uL (1.8-7.7) 0.7 x10^3uL (1.8-7.7) Lymphocytes # (Auto) 0.4 x10^3/uL (1.0-4.8) 0.2 x10^3/uL (1.0-4.8) Monocytes # (Auto) 0.0 x10^3/uL (0.0-1.1) 0.0 x10^3/uL (0.0-1.1) Eosinophils # (Auto) 0.0 x10^3/uL (0.0-0.7) 0.0 x10^3/uL (0.0-0.7) Basophils # (Auto) 0.0 x10^3/uL (0.0-0.2) 0.0 x10^3/uL (0.0-0.2) Segmented Neutrophils % 56 % (35-66) Lymphocytes % 42 % (24-48) Monocytes % 2 % (0-10) Platelet Estimate Adequate (ADEQUATE) Anisocytosis Mod Sodium Level 139 mmol/L (136-145) 140 mmol/L (136-145) Potassium Level 3.0 mmol/L (3.5-5.1) 3.5 mmol/L (3.5-5.1) Chloride Level 102 mmol/L (98-107) 108 mmol/L (98-107) Carbon Dioxide Level 21 mmol/L (21-32) 22 mmol/L (21-32) Anion Gap 16 (6-14) 10 (6-14) Blood Urea Nitrogen 20 mg/dL (7-20) 19 mg/dL (7-20) Creatinine 1.2 mg/dL (0.6-1.0) 1.0 mg/dL (0.6-1.0) Estimated GFR (Cockcroft-Gault) 43.4 53.6 Glucose Level 142 mg/dL (70-99) 150 mg/dL (70-99) Lactic Acid Level 5.4 mmol/L (0.4-2.0) 2.6 mmol/L (0.4-2.0) 2.2 mmol/L (0.4-2.0) Calcium Level 8.0 mg/dL (8.5-10.1) 7.4 mg/dL (8.5-10.1) Magnesium Level 0.5 mg/dL (1.8-2.4) 2.0 mg/dL (1.8-2.4) Total Bilirubin 1.3 mg/dL (0.2-1.0) Direct Bilirubin 0.2 mg/dL (0.0-0.2) Aspartate Amino Transf (AST/SGOT) 19 U/L (15-37) Alanine Aminotransferase (ALT/SGPT) 19 U/L (14-59) Alkaline Phosphatase 112 U/L (46-116) Creatine Kinase 54 U/L (26-192) Creatine Kinase MB (Mass) < 0.5 ng/mL (0.0-3.6) Creatine Kinase MB Relative Index % (0-4) Troponin I Quantitative < 0.017 ng/mL (0.000-0.055) VX-Iwd-P-Type Natriuretic Peptide 577 pg/mL (0-449) Total Protein 6.6 g/dL (6.4-8.2) Albumin 2.9 g/dL (3.4-5.0) Thyroid Stimulating Hormone (TSH) 2.307 uIU/mL (0.358-3.74) Influenza Type A Antigen Negative (NEGATIVE) Influenza Type B Antigen Negative (NEGATIVE) Nasal Screen MRSA (PCR) Negative (Negative) Phosphorus Level 2.6 mg/dL (2.6-4.7) Iron Level 191 ug/dL (50-170) Total Iron Binding Capacity 200 ug/dL (250-450) Iron Saturation 96 % (15-34) Ferritin 534 ng/mL (8-252) Vitamin B12 Level 334 pg/mL (247-911) Serum Folate 5.99 ng/ml (3.2-20.0) Test 08/11/17 08:07 White Blood Count 0.4 x10^3/uL (4.0-11.0) Red Blood Count 2.51 x10^6/uL (3.50-5.40) Hemoglobin 6.9 g/dL (12.0-15.5) Hematocrit 21.3 % (36.0-47.0) Mean Corpuscular Volume 85 fL (79-100) Mean Corpuscular Hemoglobin 28 pg (25-35) Mean Corpuscular Hemoglobin Concent 33 g/dL (31-37) Red Cell Distribution Width 27.4 % (11.5-14.5) Platelet Count 64 x10^3/uL (140-400) Neutrophils (%) (Auto) 18 % (31-73) Lymphocytes (%) (Auto) 75 % (24-48) Monocytes (%) (Auto) 6 % (0-9) Eosinophils (%) (Auto) 1 % (0-3) Basophils (%) (Auto) 0 % (0-3) Neutrophils # (Auto) 0.1 x10^3uL (1.8-7.7) Lymphocytes # (Auto) 0.3 x10^3/uL (1.0-4.8) Monocytes # (Auto) 0.0 x10^3/uL (0.0-1.1) Eosinophils # (Auto) 0.0 x10^3/uL (0.0-0.7) Basophils # (Auto) 0.0 x10^3/uL (0.0-0.2) Laboratory Tests Test 08/11/17 08:07 White Blood Count 0.4 x10^3/uL (4.0-11.0) Red Blood Count 2.51 x10^6/uL (3.50-5.40) Hemoglobin 6.9 g/dL (12.0-15.5) Hematocrit 21.3 % (36.0-47.0) Mean Corpuscular Volume 85 fL (79-100) Mean Corpuscular Hemoglobin 28 pg (25-35) Mean Corpuscular Hemoglobin Concent 33 g/dL (31-37) Red Cell Distribution Width 27.4 % (11.5-14.5) Platelet Count 64 x10^3/uL (140-400) Neutrophils (%) (Auto) 18 % (31-73) Lymphocytes (%) (Auto) 75 % (24-48) Monocytes (%) (Auto) 6 % (0-9) Eosinophils (%) (Auto) 1 % (0-3) Basophils (%) (Auto) 0 % (0-3) Neutrophils # (Auto) 0.1 x10^3uL (1.8-7.7) Lymphocytes # (Auto) 0.3 x10^3/uL (1.0-4.8) Monocytes # (Auto) 0.0 x10^3/uL (0.0-1.1) Eosinophils # (Auto) 0.0 x10^3/uL (0.0-0.7) Basophils # (Auto) 0.0 x10^3/uL (0.0-0.2) Microbiology 08/09/17 Blood Culture - Preliminary, Resulted NO GROWTH AFTER 1 DAY Medications Current Medications Lorazepam (Ativan) 1 mg 1X ONCE IV Last administered on 08/09/17 11:27; Start 08/09/17 at 11:00; Stop 08/09/17 at 11:01; Status DC Sodium Chloride 1,000 ml @ 1,000 mls/hr Q1H IV Last administered on 11:27; Start 08/09/17 at 10:49; Stop 08/09/17 at 11:48; Status DC Sodium Chloride (Normal Saline Flush) 10 ml QSHIFT PRN IV AFTER MEDS AND BLOOD DRAWS Last administered on 08/09/17 11:28; Start 08/09/17 at 11:00; Stop at 09:41; Status DC Albuterol/ Ipratropium (Duoneb) 3 ml 1X ONCE NEB Last administered on 11:05; Start 08/09/17 at 11:00; Stop 08/09/17 at 11:01; Status DC Methylprednisolone Sodium Succinate (SOLU-Medrol 125MG VIAL) 125 mg 1X ONCE IV Last administered on 08/09/17 11:27; Start 08/09/17 at 11:00; Stop at 11:01; Status DC Sodium Chloride (Normal Saline Flush) 10 ml QSHIFT PRN IV AFTER MEDS AND BLOOD DRAWS; Start 08/09/17 at 12:15 Sodium Chloride 1,000 ml @ 1,830 mls/hr Q33M IV Last administered on 12:37; Start 08/09/17 at 12:10; Stop 08/09/17 at 13:10; Status DC Cefepime HCl 2 gm/ Sodium Chloride 100 ml @ 200 mls/hr 1X ONCE IV ; Start at 12:15; Stop 08/09/17 at 12:44; Status UNV Norepinephrine Bitartrate 250 ml @ 0 mls/hr CONT PRN IV PER PROTOCOL Last administered on 08/10/17 22:46; Start 08/09/17 at 12:15 Cefepime HCl (Maxipime) 2 gm 1X ONCE IVP Last administered on 08/09/17 12:33 ; Start 08/09/17 at 12:30; Stop 08/09/17 at 12:31; Status DC Ondansetron HCl (Zofran) 4 mg PRN Q8HRS PRN IV NAUSEA/VOMITING; Start at 12:45; Stop 08/09/17 at 14:13; Status DC Fentanyl Citrate (Fentanyl 2ml Vial) 50 mcg PRN Q2HR PRN IV PAIN Last administered on 08/10/17 01:01; Start 08/09/17 at 12:45; Stop 08/10/17 at 12 :44; Status DC Acetaminophen (Tylenol) 650 mg PRN Q4HRS PRN PO FEVER; Start 08/09/17 at 12:45 ; Stop 08/10/17 at 12:44; Status DC Acetaminophen (Tylenol) 650 mg PRN Q6HRS PRN PO FEVER Last administered on 09:03; Start 08/09/17 at 14:15 Ondansetron HCl (Zofran) 4 mg PRN Q6HRS PRN IV NAUSEA/VOMITING; Start at 14:15 Morphine Sulfate 2 mg PRN Q2HR PRN IV PAIN; Start 08/09/17 at 14:15 Tramadol HCl (Ultram) 50 mg PRN Q6HRS PRN PO PAIN; Start 08/09/17 at 14:15 Hydralazine HCl (Apresoline Inj) 10 mg PRN Q4HRS PRN IVP ELEVATED BP, SEE COMMENTS; Start 08/09/17 at 14:15 Docusate Sodium (Colace) 100 mg PRN DAILY PRN PO CONSTIPATION; Start 08/09/17 at 14:15 Apixaban (Eliquis) 5 mg BID PO Last administered on 08/11/17 08:44; Start at 21:00 Lorazepam (Ativan) 0.5 mg Q6HRS PRN PO ANXIETY; Start 08/09/17 at 14:15 Pantoprazole Sodium (Protonix) 40 mg DAILYAC PO Last administered on 08:44; Start 08/10/17 at 07:30 Albuterol/ Ipratropium (Duoneb) 3 ml RTQID NEB Last administered on 08/11/17 08:26; Start 08/09/17 at 16:00 Albuterol Sulfate (Ventolin Neb Soln) 2.5 mg PRN Q2HR PRN NEB SHORTNESS OF BREATH; Start 08/09/17 at 14:15 Guaifenesin (Mucinex) 600 mg BID PO Last administered on 08/11/17 08:44; Start 08/09/17 at 21:00 Cefepime HCl 1 gm/ Dextrose 50 ml @ 100 mls/hr Q8HRS IV ; Start 08/09/17 at 22 :00; Status UNV Cefepime HCl (Maxipime) 1 gm Q12HR IVP ; Start 08/09/17 at 21:00; Status Cancel Cefepime HCl 1 gm/ Dextrose 50 ml @ 100 mls/hr Q12HR IV Last administered on 08/10/17 20:19; Start 08/09/17 at 21:00; Stop 08/10/17 at 23:00; Status DC Potassium Chloride/Sodium Chloride 1,000 ml @ 75 mls/hr [id number] IV Last administered on 08/10/17 09:04; Start 08/09/17 at 14:45; Stop 08/10/17 at 16 :00; Status DC Magnesium Sulfate/ Dextrose 100 ml @ 25 mls/hr 1X ONCE IV Last administered on 08/09/17 15:30; Start 08/09/17 at 14:45; Stop 08/09/17 at 18:44; Status DC Potassium Chloride (Klor-Con) 40 meq 1X ONCE PO Last administered on 20:32; Start 08/09/17 at 16:30; Stop 08/09/17 at 16:31; Status DC Enoxaparin Sodium (Lovenox 40mg Syringe) 40 mg Q24H SQ ; Start 08/09/17 at 16: 30; Status UNV Tbo-Filgrastim (Granix) 480 mcg QHS SQ Last administered on 08/10/17 20:25; Start 08/09/17 at 21:00 Cefepime HCl (Maxipime) 1 gm Q12HR IVP Last administered on 08/11/17 08:44; Start 08/11/17 at 09:00 Info (Anti-Coagulation Monitoring By Pharmacy) 1 each PRN DAILY PRN MC SEE COMMENTS Last administered on 08/10/17 11:02; Start 08/10/17 at 11:00 Calcium Carbonate/ Glycine (Tums) 500 mg PRN AFTMEALHC PRN PO INDIGESTION Last administered on 08/10/17t 21:09; Start 08/10/17 at 20:45 Multi-Ingredient Mouthwash/Gargle (Gi Cocktail Single Dose) 15 ml PRN 1X PRN SWSW CHEST PAIN; Start 08/10/17 at 20:45 Active Scripts Active Reported Ativan (Lorazepam) 1 Mg Tablet 1 Mg PO Q6HRS PRN Eliquis (Apixaban) 5 Mg Tablet 5 Mg PO BID Zofran (Ondansetron Hcl) 8 Mg Tablet 8 Mg PO BID PRN Pantoprazole Sodium 40 Mg Tablet. 1 Tab PO DAILY Vitals/I & O Vital Sign - Last 24 Hours 08/10/17 08/10/17 08/10/17 08/10/17 09:00 10:00 10:16 11:00 Pulse 120 116 116 Resp 24 20 B/P (MAP) 109/58 (75) 97/55 (69) 113/58 (76) Pulse Ox 98 98 97 98 O2 Delivery Room Air Room Air Room Air Room Air 08/10/17 08/10/17 08/10/17 08/10/17 12:00 12:00 12:34 13:00 Temp 97.4 97.4 Pulse 118 130 Resp B/P (MAP) 99/49 (66) 112/63 (79) Pulse Ox 97 97 98 O2 Delivery Room Air Room Air Room Air Room Air 08/10/17 08/10/17 08/10/17 08/10/17 14:00 15:00 16:00 16:00 Temp 97.8 97.8 Pulse 124 114 118 Resp 24 20 B/P (MAP) 90/50 (63) 97/62 (74) 109/58 (75) Pulse Ox 97 95 96 O2 Delivery Room Air Room Air Room Air Room Air 08/10/17 08/10/17 08/10/17 08/10/17 16:06 17:00 18:00 19:00 Pulse 132 126 119 Resp 21 B/P (MAP) 112/59 (76) 94/59 (71) 109/61 (77) Pulse Ox 98 98 97 O2 Delivery Room Air Room Air Room Air Room Air 11/15/17 11/15/17 11/15/17 11/15/17 19:49 19:55 20:00 21:00 Temp 97.4 97.4 Pulse 124 120 Resp 21 B/P (MAP) 102/60 (74) 103/59 (74) Pulse Ox 98 97 97 O2 Delivery Room Air Room Air Room Air Room Air 08/10/17 08/10/17 08/11/17 08/11/17 22:00 23:00 00:00 00:14 Temp 97.4 97.4 Pulse 126 130 120 Resp 25 20 18 B/P (MAP) 106/58 (74) 110/61 (77) 117/56 (76) Pulse Ox 92 96 95 O2 Delivery Room Air Room Air Nasal Cannula Nasal Cannula O2 Flow Rate 1.0 1.0 08/11/17 08/11/17 08/11/17 08/11/17 01:00 02:00 02:15 02:30 Pulse 119 116 118 116 Resp 19 B/P (MAP) 108/64 (79) 109/72 (84) 113/64 (80) 113/58 (76) Pulse Ox 99 99 99 100 O2 Delivery Nasal Cannula Nasal Cannula Nasal Cannula Nasal Cannula O2 Flow Rate 1.0 1.0 1.0 1.0 08/11/17 08/11/17 08/11/17 08/11/17 03:00 03:15 03:30 03:45 Pulse 116 116 110 108 Resp 20 B/P (MAP) 113/68 (83) 98/54 (69) 83/57 (66) 129/118 (122) Pulse Ox 100 97 97 99 O2 Delivery Nasal Cannula Nasal Cannula Nasal Cannula Nasal Cannula O2 Flow Rate 1.0 1.0 1.0 1.0 08/11/17 08/11/17 08/11/17 08/11/17 03:58 04:00 04:15 05:00 Pulse 108 110 112 Resp 19 15 B/P (MAP) 80/44 (56) 81/43 (56) 106/70 (82) Pulse Ox 99 99 99 O2 Delivery Nasal Cannula Nasal Cannula Nasal Cannula Nasal Cannula O2 Flow Rate 1.0 1.0 1.0 1.0 08/11/17 08/11/17 08/11/17 08/11/17 06:00 06:45 08:00 08:27 Pulse 114 109 Resp 24 B/P (MAP) 106/65 (79) 105/61 (76) Pulse Ox 100 96 97 O2 Delivery Nasal Cannula Nasal Cannula Room Air Room Air O2 Flow Rate 1.0 1.0 Intake and Output 08/10/17 08/10/17 08/11/17 15:00 23:00 07:00 Intake Total 290 ml 1379.13 ml 197 ml Output Total 700 ml 650 ml 950 ml Balance -410 ml 729.13 ml -753 ml IRENE HDZ MD Aug 11, 2017 09:01
--- NOTE | 2017-08-11 10:47 | PDOC ---
PULMONARY PROGRESS NOTES Subjective no soa Vitals Vital Signs Date Time Temp Pulse Resp B/P (MAP) Pulse Ox O2 Delivery O2 Flow Rate FiO2 08/11/17 10:45 97.5 118 23 96/44 97.5 08/11/17 08:27 97 Room Air 08/11/17 06:45 1.0 ROS: No Nausea, No Chest Pain, No Increase Cough General: Alert Lungs: Other (decrease bs) Cardiovascular: S1 Abdomen: Soft Neuro Exam: Alert Extremities: Other (1+edema) Labs Laboratory Tests Test 08/09/17 11:00 08/09/17 14:10 08/09/17 14:40 08/10/17 05:27 White Blood Count 1.1 x10^3/uL (4.0-11.0) 1.0 x10^3/uL (4.0-11.0) Red Blood Count 2.62 x10^6/uL (3.50-5.40) 2.72 x10^6/uL (3.50-5.40) Hemoglobin 7.0 g/dL (12.0-15.5) 7.5 g/dL (12.0-15.5) Hematocrit 21.3 % (36.0-47.0) 22.5 % (36.0-47.0) Mean Corpuscular Volume 81 fL (79-100) 83 fL (79-100) Mean Corpuscular Hemoglobin 27 pg (25-35) 27 pg (25-35) Mean Corpuscular Hemoglobin Concent 33 g/dL (31-37) 33 g/dL (31-37) Red Cell Distribution Width 28.2 % (11.5-14.5) 26.5 % (11.5-14.5) Platelet Count 164 x10^3/uL (140-400) 116 x10^3/uL (140-400) Neutrophils (%) (Auto) 63 % (31-73) 71 % (31-73) Lymphocytes (%) (Auto) 36 % (24-48) 24 % (24-48) Monocytes (%) (Auto) 1 % (0-9) 4 % (0-9) Eosinophils (%) (Auto) 0 % (0-3) 0 % (0-3) Basophils (%) (Auto) 0 % (0-3) 0 % (0-3) Neutrophils # (Auto) 0.7 x10^3uL (1.8-7.7) 0.7 x10^3uL (1.8-7.7) Lymphocytes # (Auto) 0.4 x10^3/uL (1.0-4.8) 0.2 x10^3/uL (1.0-4.8) Monocytes # (Auto) 0.0 x10^3/uL (0.0-1.1) 0.0 x10^3/uL (0.0-1.1) Eosinophils # (Auto) 0.0 x10^3/uL (0.0-0.7) 0.0 x10^3/uL (0.0-0.7) Basophils # (Auto) 0.0 x10^3/uL (0.0-0.2) 0.0 x10^3/uL (0.0-0.2) Segmented Neutrophils % 56 % (35-66) Lymphocytes % 42 % (24-48) Monocytes % 2 % (0-10) Platelet Estimate Adequate (ADEQUATE) Anisocytosis Mod Sodium Level 139 mmol/L (136-145) 140 mmol/L (136-145) Potassium Level 3.0 mmol/L (3.5-5.1) 3.5 mmol/L (3.5-5.1) Chloride Level 102 mmol/L (98-107) 108 mmol/L (98-107) Carbon Dioxide Level 21 mmol/L (21-32) 22 mmol/L (21-32) Anion Gap 16 (6-14) 10 (6-14) Blood Urea Nitrogen 20 mg/dL (7-20) 19 mg/dL (7-20) Creatinine 1.2 mg/dL (0.6-1.0) 1.0 mg/dL (0.6-1.0) Estimated GFR (Cockcroft-Gault) 43.4 53.6 Glucose Level 142 mg/dL (70-99) 150 mg/dL (70-99) Lactic Acid Level 5.4 mmol/L (0.4-2.0) 2.6 mmol/L (0.4-2.0) 2.2 mmol/L (0.4-2.0) Calcium Level 8.0 mg/dL (8.5-10.1) 7.4 mg/dL (8.5-10.1) Magnesium Level 0.5 mg/dL (1.8-2.4) 2.0 mg/dL (1.8-2.4) Total Bilirubin 1.3 mg/dL (0.2-1.0) Direct Bilirubin 0.2 mg/dL (0.0-0.2) Aspartate Amino Transf (AST/SGOT) 19 U/L (15-37) Alanine Aminotransferase (ALT/SGPT) 19 U/L (14-59) Alkaline Phosphatase 112 U/L (46-116) Creatine Kinase 54 U/L (26-192) Creatine Kinase MB (Mass) < 0.5 ng/mL (0.0-3.6) Creatine Kinase MB Relative Index % (0-4) Troponin I Quantitative < 0.017 ng/mL (0.000-0.055) XC-Hnk-[id number]-Type Natriuretic Peptide 577 pg/mL (0-449) Total Protein 6.6 g/dL (6.4-8.2) Albumin 2.9 g/dL (3.4-5.0) Thyroid Stimulating Hormone (TSH) 2.307 uIU/mL (0.358-3.74) Influenza Type A Antigen Negative (NEGATIVE) Influenza Type B Antigen Negative (NEGATIVE) Nasal Screen MRSA (PCR) Negative (Negative) Phosphorus Level 2.6 mg/dL (2.6-4.7) Iron Level 191 ug/dL (50-170) Total Iron Binding Capacity 200 ug/dL (250-450) Iron Saturation 96 % (15-34) Ferritin 534 ng/mL (8-252) Vitamin B12 Level 334 pg/mL (247-911) Serum Folate 5.99 ng/ml (3.2-20.0) Test 08/11/17 08:07 White Blood Count 0.4 x10^3/uL (4.0-11.0) Red Blood Count 2.51 x10^6/uL (3.50-5.40) Hemoglobin 6.9 g/dL (12.0-15.5) Hematocrit 21.3 % (36.0-47.0) Mean Corpuscular Volume 85 fL (79-100) Mean Corpuscular Hemoglobin 28 pg (25-35) Mean Corpuscular Hemoglobin Concent 33 g/dL (31-37) Red Cell Distribution Width 27.4 % (11.5-14.5) Platelet Count 64 x10^3/uL (140-400) Neutrophils (%) (Auto) 18 % (31-73) Lymphocytes (%) (Auto) 75 % (24-48) Monocytes (%) (Auto) 6 % (0-9) Eosinophils (%) (Auto) 1 % (0-3) Basophils (%) (Auto) 0 % (0-3) Neutrophils # (Auto) 0.1 x10^3uL (1.8-7.7) Lymphocytes # (Auto) 0.3 x10^3/uL (1.0-4.8) Monocytes # (Auto) 0.0 x10^3/uL (0.0-1.1) Eosinophils # (Auto) 0.0 x10^3/uL (0.0-0.7) Basophils # (Auto) 0.0 x10^3/uL (0.0-0.2) Laboratory Tests Test 08/11/17 08:07 White Blood Count 0.4 x10^3/uL (4.0-11.0) Red Blood Count 2.51 x10^6/uL (3.50-5.40) Hemoglobin 6.9 g/dL (12.0-15.5) Hematocrit 21.3 % (36.0-47.0) Mean Corpuscular Volume 85 fL (79-100) Mean Corpuscular Hemoglobin 28 pg (25-35) Mean Corpuscular Hemoglobin Concent 33 g/dL (31-37) Red Cell Distribution Width 27.4 % (11.5-14.5) Platelet Count 64 x10^3/uL (140-400) Neutrophils (%) (Auto) 18 % (31-73) Lymphocytes (%) (Auto) 75 % (24-48) Monocytes (%) (Auto) 6 % (0-9) Eosinophils (%) (Auto) 1 % (0-3) Basophils (%) (Auto) 0 % (0-3) Neutrophils # (Auto) 0.1 x10^3uL (1.8-7.7) Lymphocytes # (Auto) 0.3 x10^3/uL (1.0-4.8) Monocytes # (Auto) 0.0 x10^3/uL (0.0-1.1) Eosinophils # (Auto) 0.0 x10^3/uL (0.0-0.7) Basophils # (Auto) 0.0 x10^3/uL (0.0-0.2) Medications Active Scripts Medications Dose Route/Sig Max Daily Dose Days Date Category Ativan (Lorazepam) 1 Mg Tablet 1 Mg PO Q6HRS PRN 07/25/17 Reported Eliquis (Apixaban) 5 Mg Tablet 5 Mg PO BID 07/25/17 Reported Zofran (Ondansetron Hcl) 8 Mg Tablet 8 Mg PO BID PRN 06/09/17 Reported Pantoprazole Sodium 40 Mg Tablet.dr 1 Tab PO DAILY 05/18/17 Reported Impression . 1. Dyspnea/weakness, most likely related to anemia in a patient who has been treated with chemo and radiation for small cell, undifferentiated carcinoma. 2. Small cell carcinoma, undifferentiated status post chemo and radiation. 3. History of recent pulmonary embolism and no evidence of any deep venous thrombosis. This is secondary to hypercoagulable state. Currently on Eliquis at home and I would continue Eliquis. I do not think that anemia is related to Eliquis, but rather chemo-induced. 4. Neutropenia and anemia, chemo-induced. 5. Underlying chronic obstructive pulmonary disease. 6. Suspected post-obstructive pneumonia. Plan . 1. Continue with p.r.n. oxygen. 2. Antibiotic cefepime. 3. Continue Eliquis. 4. DuoNebs. 5. Follow Oncology recommendation. 6. Monitor white cell count and hemoglobin. 7. Transfuse to keep hemoglobin above 8. 8. We will follow along with you. CUCA ANTUNEZ MD Aug 11, 2017 10:47
--- NOTE | 2017-08-11 14:06 | PDOC ---
PROGRESS NOTES Chief Complaint Chief Complaint acute dyspnea, 2/2 right lung Ca, PE, and obstructive PNA hypotension, 2/2 anemia, PNA, sepsis, still on NE recent dignosed BL PE ON eliquis right lung NON small cell Ca, on chemo and RT h/o Grade 1 CHF, copd w/ prior tobacco use history htn Rheumatoid arthritis leukopenia with recent chemo for lung cancer anemia with RT, CHEMO ckd3 mild malnutrition History of Present Illness History of Present Illness in ICU, still on pharmacological BP support, on NE, for sepsis, severe sepsis and hypotension ivf to continue good PO intake feels much improved, cont eliquis cefepime for now, check sputum cx, bcx PTOT Vitals Vitals Vital Signs Date Time Temp Pulse Resp B/P (MAP) Pulse Ox O2 Delivery O2 Flow Rate FiO2 08/11/17 12:00 Room Air 08/11/17 11:27 97 08/11/17 10:45 97.5 118 23 96/44 97.5 08/11/17 06:45 1.0 Physical Exam General: Alert, Oriented X3, No acute distress Heart: Normal S1, Normal S2 Lungs: Other (decrease bs) Abdomen: Normal bowel sounds, No tenderness Extremities: No clubbing, No cyanosis, No edema Skin: No rashes Labs LABS Laboratory Tests Test 08/11/17 08:07 White Blood Count 0.4 x10^3/uL (4.0-11.0) Red Blood Count 2.51 x10^6/uL (3.50-5.40) Hemoglobin 6.9 g/dL (12.0-15.5) Hematocrit 21.3 % (36.0-47.0) Mean Corpuscular Volume 85 fL (79-100) Mean Corpuscular Hemoglobin 28 pg (25-35) Mean Corpuscular Hemoglobin Concent 33 g/dL (31-37) Red Cell Distribution Width 27.4 % (11.5-14.5) Platelet Count 64 x10^3/uL (140-400) Neutrophils (%) (Auto) 18 % (31-73) Lymphocytes (%) (Auto) 75 % (24-48) Monocytes (%) (Auto) 6 % (0-9) Eosinophils (%) (Auto) 1 % (0-3) Basophils (%) (Auto) 0 % (0-3) Neutrophils # (Auto) 0.1 x10^3uL (1.8-7.7) Lymphocytes # (Auto) 0.3 x10^3/uL (1.0-4.8) Monocytes # (Auto) 0.0 x10^3/uL (0.0-1.1) Eosinophils # (Auto) 0.0 x10^3/uL (0.0-0.7) Basophils # (Auto) 0.0 x10^3/uL (0.0-0.2) Review of Systems Review of Systems no n.v.d Assessment and Plan Assessmemt and Plan Problems Medical Problems: (1) Anemia Status: Acute (2) Neutropenia Status: Acute (3) Pneumonia Status: Acute Problems: Comment Review of Relevant I have reviewed the following items gen (where applicable) has been applied. Labs Laboratory Tests Test 08/09/17 14:10 08/09/17 14:40 08/10/17 05:27 08/11/17 08:07 Lactic Acid Level 2.6 mmol/L (0.4-2.0) 2.2 mmol/L (0.4-2.0) Nasal Screen MRSA (PCR) Negative (Negative) White Blood Count 1.0 x10^3/uL (4.0-11.0) 0.4 x10^3/uL (4.0-11.0) Red Blood Count 2.72 x10^6/uL (3.50-5.40) 2.51 x10^6/uL (3.50-5.40) Hemoglobin 7.5 g/dL (12.0-15.5) 6.9 g/dL (12.0-15.5) Hematocrit 22.5 % (36.0-47.0) 21.3 % (36.0-47.0) Mean Corpuscular Volume 83 fL (79-100) 85 fL (79-100) Mean Corpuscular Hemoglobin 27 pg (25-35) 28 pg (25-35) Mean Corpuscular Hemoglobin Concent 33 g/dL (31-37) 33 g/dL (31-37) Red Cell Distribution Width 26.5 % (11.5-14.5) 27.4 % (11.5-14.5) Platelet Count 116 x10^3/uL (140-400) 64 x10^3/uL (140-400) Neutrophils (%) (Auto) 71 % (31-73) 18 % (31-73) Lymphocytes (%) (Auto) 24 % (24-48) 75 % (24-48) Monocytes (%) (Auto) 4 % (0-9) 6 % (0-9) Eosinophils (%) (Auto) 0 % (0-3) 1 % (0-3) Basophils (%) (Auto) 0 % (0-3) 0 % (0-3) Neutrophils # (Auto) 0.7 x10^3uL (1.8-7.7) 0.1 x10^3uL (1.8-7.7) Lymphocytes # (Auto) 0.2 x10^3/uL (1.0-4.8) 0.3 x10^3/uL (1.0-4.8) Monocytes # (Auto) 0.0 x10^3/uL (0.0-1.1) 0.0 x10^3/uL (0.0-1.1) Eosinophils # (Auto) 0.0 x10^3/uL (0.0-0.7) 0.0 x10^3/uL (0.0-0.7) Basophils # (Auto) 0.0 x10^3/uL (0.0-0.2) 0.0 x10^3/uL (0.0-0.2) Sodium Level 140 mmol/L (136-145) Potassium Level 3.5 mmol/L (3.5-5.1) Chloride Level 108 mmol/L (98-107) Carbon Dioxide Level 22 mmol/L (21-32) Anion Gap 10 (6-14) Blood Urea Nitrogen 19 mg/dL (7-20) Creatinine 1.0 mg/dL (0.6-1.0) Estimated GFR (Cockcroft-Gault) 53.6 Glucose Level 150 mg/dL (70-99) Calcium Level 7.4 mg/dL (8.5-10.1) Phosphorus Level 2.6 mg/dL (2.6-4.7) Magnesium Level 2.0 mg/dL (1.8-2.4) Iron Level 191 ug/dL (50-170) Total Iron Binding Capacity 200 ug/dL (250-450) Iron Saturation 96 % (15-34) Ferritin 534 ng/mL (8-252) Vitamin B12 Level 334 pg/mL (247-911) Serum Folate 5.99 ng/ml (3.2-20.0) Laboratory Tests Test 08/11/17 08:07 White Blood Count 0.4 x10^3/uL (4.0-11.0) Red Blood Count 2.51 x10^6/uL (3.50-5.40) Hemoglobin 6.9 g/dL (12.0-15.5) Hematocrit 21.3 % (36.0-47.0) Mean Corpuscular Volume 85 fL (79-100) Mean Corpuscular Hemoglobin 28 pg (25-35) Mean Corpuscular Hemoglobin Concent 33 g/dL (31-37) Red Cell Distribution Width 27.4 % (11.5-14.5) Platelet Count 64 x10^3/uL (140-400) Neutrophils (%) (Auto) 18 % (31-73) Lymphocytes (%) (Auto) 75 % (24-48) Monocytes (%) (Auto) 6 % (0-9) Eosinophils (%) (Auto) 1 % (0-3) Basophils (%) (Auto) 0 % (0-3) Neutrophils # (Auto) 0.1 x10^3uL (1.8-7.7) Lymphocytes # (Auto) 0.3 x10^3/uL (1.0-4.8) Monocytes # (Auto) 0.0 x10^3/uL (0.0-1.1) Eosinophils # (Auto) 0.0 x10^3/uL (0.0-0.7) Basophils # (Auto) 0.0 x10^3/uL (0.0-0.2) Microbiology 08/09/17 Blood Culture - Preliminary, Resulted NO GROWTH AFTER 2 DAYS Medications Current Medications Lorazepam (Ativan) 1 mg 1X ONCE IV Last administered on 08/09/17 11:27; Start 08/09/17 at 11:00; Stop 08/09/17 at 11:01; Status DC Sodium Chloride 1,000 ml @ 1,000 mls/hr Q1H IV Last administered on 11:27; Start 08/09/17 at 10:49; Stop 08/09/17 at 11:48; Status DC Sodium Chloride (Normal Saline Flush) 10 ml QSHIFT PRN IV AFTER MEDS AND BLOOD DRAWS Last administered on 08/09/17 11:28; Start 08/09/17 at 11:00; Stop at 09:41; Status DC Albuterol/ Ipratropium (Duoneb) 3 ml 1X ONCE NEB Last administered on 11:05; Start 08/09/17 at 11:00; Stop 08/09/17 at 11:01; Status DC Methylprednisolone Sodium Succinate (SOLU-Medrol 125MG VIAL) 125 mg 1X ONCE IV Last administered on 08/09/17 11:27; Start 08/09/17 at 11:00; Stop at 11:01; Status DC Sodium Chloride (Normal Saline Flush) 10 ml QSHIFT PRN IV AFTER MEDS AND BLOOD DRAWS; Start 08/09/17 at 12:15 Sodium Chloride 1,000 ml @ 1,830 mls/hr Q33M IV Last administered on 12:37; Start 08/09/17 at 12:10; Stop 08/09/17 at 13:10; Status DC Cefepime HCl 2 gm/ Sodium Chloride 100 ml @ 200 mls/hr 1X ONCE IV ; Start at 12:15; Stop 08/09/17 at 12:44; Status UNV Norepinephrine Bitartrate 250 ml @ 0 mls/hr CONT PRN IV PER PROTOCOL Last administered on 08/10/17 22:46; Start 08/09/17 at 12:15 Cefepime HCl (Maxipime) 2 gm 1X ONCE IVP Last administered on 08/09/17 12:33 ; Start 08/09/17 at 12:30; Stop 08/09/17 at 12:31; Status DC Ondansetron HCl (Zofran) 4 mg PRN Q8HRS PRN IV NAUSEA/VOMITING; Start at 12:45; Stop 08/09/17 at 14:13; Status DC Fentanyl Citrate (Fentanyl 2ml Vial) 50 mcg PRN Q2HR PRN IV PAIN Last administered on 08/10/17 01:01; Start 08/09/17 at 12:45; Stop 08/10/17 at 12 :44; Status DC Acetaminophen (Tylenol) 650 mg PRN Q4HRS PRN PO FEVER; Start 08/09/17 at 12:45 ; Stop 08/10/17 at 12:44; Status DC Acetaminophen (Tylenol) 650 mg PRN Q6HRS PRN PO FEVER Last administered on 09:03; Start 08/09/17 at 14:15 Ondansetron HCl (Zofran) 4 mg PRN Q6HRS PRN IV NAUSEA/VOMITING; Start at 14:15 Morphine Sulfate 2 mg PRN Q2HR PRN IV PAIN; Start 08/09/17 at 14:15 Tramadol HCl (Ultram) 50 mg PRN Q6HRS PRN PO PAIN; Start 08/09/17 at 14:15 Hydralazine HCl (Apresoline Inj) 10 mg PRN Q4HRS PRN IVP ELEVATED BP, SEE COMMENTS; Start 08/09/17 at 14:15 Docusate Sodium (Colace) 100 mg PRN DAILY PRN PO CONSTIPATION; Start 08/09/17 at 14:15 Apixaban (Eliquis) 5 mg BID PO Last administered on 08/11/17 08:44; Start at 21:00 Lorazepam (Ativan) 0.5 mg Q6HRS PRN PO ANXIETY; Start 08/09/17 at 14:15 Pantoprazole Sodium (Protonix) 40 mg DAILYAC PO Last administered on 08:44; Start 08/10/17 at 07:30 Albuterol/ Ipratropium (Duoneb) 3 ml RTQID NEB Last administered on 08/11/17 11:27; Start 08/09/17 at 16:00 Albuterol Sulfate (Ventolin Neb Soln) 2.5 mg PRN Q2HR PRN NEB SHORTNESS OF BREATH; Start 08/09/17 at 14:15 Guaifenesin (Mucinex) 600 mg BID PO Last administered on 08/11/17 08:44; Start 08/09/17 at 21:00 Cefepime HCl 1 gm/ Dextrose 50 ml @ 100 mls/hr Q8HRS IV ; Start 08/09/17 at 22 :00; Status UNV Cefepime HCl (Maxipime) 1 gm Q12HR IVP ; Start 08/09/17 at 21:00; Status Cancel Cefepime HCl 1 gm/ Dextrose 50 ml @ 100 mls/hr Q12HR IV Last administered on 08/10/17 20:19; Start 08/09/17 at 21:00; Stop 08/10/17 at 23:00; Status DC Potassium Chloride/Sodium Chloride 1,000 ml @ 75 mls/hr [id number] IV Last administered on 08/10/17 09:04; Start 08/09/17 at 14:45; Stop 08/10/17 at 16 :00; Status DC Magnesium Sulfate/ Dextrose 100 ml @ 25 mls/hr 1X ONCE IV Last administered on 08/09/17 15:30; Start 08/09/17 at 14:45; Stop 08/09/17 at 18:44; Status DC Potassium Chloride (Klor-Con) 40 meq 1X ONCE PO Last administered on 20:32; Start 08/09/17 at 16:30; Stop 08/09/17 at 16:31; Status DC Enoxaparin Sodium (Lovenox 40mg Syringe) 40 mg Q24H SQ ; Start 08/09/17 at 16: 30; Status UNV Tbo-Filgrastim (Granix) 480 mcg QHS SQ Last administered on 08/10/17 20:25; Start 08/09/17 at 21:00 Cefepime HCl (Maxipime) 1 gm Q12HR IVP Last administered on 08/11/17 08:44; Start 08/11/17 at 09:00 Info (Anti-Coagulation Monitoring By Pharmacy) 1 each PRN DAILY PRN MC SEE COMMENTS Last administered on 08/10/17 11:02; Start 08/10/17 at 11:00 Calcium Carbonate/ Glycine (Tums) 500 mg PRN AFTMEALHC PRN PO INDIGESTION Last administered on 08/10/17 21:09; Start 08/10/17 at 20:45 Multi-Ingredient Mouthwash/Gargle (Gi Cocktail Single Dose) 15 ml PRN 1X PRN SWSW CHEST PAIN; Start 08/10/17 at 20:45 Active Scripts Active Reported Ativan (Lorazepam) 1 Mg Tablet 1 Mg PO Q6HRS PRN Eliquis (Apixaban) 5 Mg Tablet 5 Mg PO BID Zofran (Ondansetron Hcl) 8 Mg Tablet 8 Mg PO BID PRN Pantoprazole Sodium 40 Mg Tablet. 1 Tab PO DAILY Vitals/I & O Vital Sign - Last 24 Hours 08/10/17 08/10/17 08/10/17 08/10/17 15:00 16:00 16:00 16:06 Temp 97.8 97.8 Pulse 114 118 Resp 24 20 B/P (MAP) 97/62 (74) 109/58 (75) Pulse Ox 95 96 O2 Delivery Room Air Room Air Room Air Room Air 08/10/17 08/10/17 08/10/17 08/10/17 17:00 18:00 19:00 19:49 Pulse 132 126 119 Resp 26 20 21 B/P (MAP) 112/59 (76) 94/59 (71) 109/61 (77) Pulse Ox 98 98 97 O2 Delivery Room Air Room Air Room Air Room Air 08/10/17 08/10/17 08/10/17 08/10/17 19:55 20:00 21:00 22:00 Temp 97.4 97.4 Pulse 124 120 126 Resp 25 21 25 B/P (MAP) 102/60 (74) 103/59 (74) 106/58 (74) Pulse Ox 98 97 97 92 O2 Delivery Room Air Room Air Room Air Room Air 08/10/17 08/11/17 08/11/17 08/11/17 23:00 00:00 00:14 01:00 Temp 97.4 97.4 Pulse 130 120 119 Resp 20 18 16 B/P (MAP) 110/61 (77) 117/56 (76) 108/64 (79) Pulse Ox 96 95 99 O2 Delivery Room Air Nasal Cannula Nasal Cannula Nasal Cannula O2 Flow Rate 1.0 1.0 1.0 08/11/17 08/11/17 08/11/17 08/11/17 02:00 02:15 02:30 03:00 Pulse 116 118 116 116 Resp 17 22 19 13 B/P (MAP) 109/72 (84) 113/64 (80) 113/58 (76) 113/68 (83) Pulse Ox 99 99 100 100 O2 Delivery Nasal Cannula Nasal Cannula Nasal Cannula Nasal Cannula O2 Flow Rate 1.0 1.0 1.0 1.0 08/11/17 08/11/17 08/11/17 08/11/17 03:15 03:30 03:45 03:58 Pulse 116 110 108 Resp 25 22 20 B/P (MAP) 98/54 (69) 83/57 (66) 129/118 (122) Pulse Ox 97 97 99 O2 Delivery Nasal Cannula Nasal Cannula Nasal Cannula Nasal Cannula O2 Flow Rate 1.0 1.0 1.0 1.0 08/11/17 08/11/17 08/11/17 08/11/17 04:00 04:15 05:00 06:00 Pulse 108 110 112 114 Resp 20 15 17 B/P (MAP) 80/44 (56) 81/43 (56) 106/70 (82) 106/65 (79) Pulse Ox 99 99 99 100 O2 Delivery Nasal Cannula Nasal Cannula Nasal Cannula Nasal Cannula O2 Flow Rate 1.0 1.0 1.0 1.0 08/11/17 08/11/17 08/11/17 08/11/17 06:45 08:00 08:27 10:45 Temp 97.5 97.5 Pulse 109 118 Resp 24 23 B/P (MAP) 105/61 (76) 96/44 Pulse Ox 96 97 O2 Delivery Nasal Cannula Room Air Room Air O2 Flow Rate 1.0 08/11/17 08/11/17 11:27 12:00 Pulse Ox 97 O2 Delivery Room Air Room Air Intake and Output 08/10/17 08/10/17 08/11/17 15:00 23:00 07:00 Intake Total 290 ml 1379.13 ml 197 ml Output Total 700 ml 650 ml 950 ml Balance -410 ml 729.13 ml -753 ml LAURA VENTURA MD Aug 11, 2017 14:06
--- NOTE | 2017-08-11 15:51 | PDOC ---
Provider Note Provider Note 76 [address] small cell carcinoma of right lung. Previous treatment delays prior to admit for significant cytopenias. Now doing better since admit with treatment for sepsis and now second unit of pRBCs. Still on Levophed at reduced dose for persistent hypotension. Felling better oveall. Eating well, breathing ok, dry mouth but no difficulty with swallowing. Lab today Hb 6.9 (before second unit) WBC 0.4 Plat 64K Impression: Limited small cell lung cancer. Complicated by recurrent cytopenias sepsis and hypotension. Will continue to observe for now. Discussed with patient. ARASH HERNANDEZ MD Aug 11, 2017 15:51
[2017-08-11] MEDS: TBO-FILGRASTIM 480 MCG/0.8 ML SYRINGE. SQ SCH (21:33)
[2017-08-12] VITALS (41 sets, daily range): BP systolic 67–130; BP diastolic 44–69
[2017-08-12] MEDS: IPRATRPIUM/ALBUTEROL 0.5/2.5MG 3 ML NEBU. NEB SCH ×4 (07:47→19:39)
[2017-08-12 09:34] LABS: BASO % 0 % (0-3); EOS % 1 % (0-3); HEMATOCRIT 26.8 % (36.0-47.0); HEMOGLOBIN 8.8 g/dL (12.0-15.5); LYMPH # 0.3 x10^3/uL (1.0-4.8); LYMPH % 80 % (24-48); MEAN CORPUSCULAR HEMOGLOBIN 28 pg (25-35); MEAN CORPUSCULAR HGB CONC 33 g/dL (31-37); MEAN CORPUSCULAR VOLUME 85 fL (79-100); MONO % 12 % (0-9); NEUT % 6 % (31-73); PLATELET COUNT 34 x10^3/uL (140-400); RED BLOOD COUNT 3.17 x10^6/uL (3.50-5.40); RED CELL DISTRIBUTION WIDTH 23.7 % (11.5-14.5)
[2017-08-12] MEDS: PANTOPRAZOLE 40 MG TABLET.DR. PO SCH (09:43)
[2017-08-12] MEDS: CEFEPIME HCL IV Push 1 GM VIAL. IVP SCH ×2 (09:43→20:11)
[2017-08-12] MEDS: APIXABAN 5 MG TABLET. PO SCH ×2 (09:43→20:12)
[2017-08-12] MEDS: ANTI-COAG MONITOR BY PHARMACY. MC PRN (10:28)
[2017-08-12 10:45] LABS: WHITE BLOOD COUNT 0.3 x10^3/uL (4.0-11.0)
--- NOTE | 2017-08-12 11:05 | PDOC ---
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 diagnosed on 05/18/2017 by a bronchoscopy and biopsy ROS - has cough Objective Objective Vital Signs Date Time Temp Pulse Resp B/P (MAP) Pulse Ox O2 Delivery O2 Flow Rate FiO2 08/12/17 08:00 Room Air 08/12/17 07:48 94 08/12/17 06:44 101/56 (71) 08/12/17 06:00 108 24 2.0 08/12/17 04:00 99.2 99.2 Intake and Output 08/12/17 07:00 Intake Total 431 ml Output Total 1150 ml Balance -719 ml Intake Oral 220 ml IV Total 111 ml Blood Product IV Normal Saline Flush 100 ml Output Urine Total 1150 ml Physical Exam Heart: Normal S1, Normal S2 General: Alert, Oriented X3 Lungs: Clear to auscultation Neuro: Normal speech Psych/Mental Status: Mental status NL Assessment Assessment Problems Medical Problems: (1) Anemia Status: Acute (2) Neutropenia Status: Acute (3) Pneumonia Status: Acute IMPRESSION AND PLAN: 1. 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 She was started on chemotherapy with carboplatin and etoposide on 06/06/2017. Cycle #2 was given on 06/27/2017 and radiation therapy was also initiated on 06/27/2017. Cycle #3 was postponed because of severe thrombocytopenia and platelet counts improved and she received chemo Nov 6,7,8 2. Acute pulmonary embolism, bilateral diagnosed on 07/21/2017 along with deep venous thrombosis of the left peroneal vein diagnosed on 07/22/2017. She was initially started on Lovenox and then switched to Eliquis. Agree to continue anticoagulation and in view of the malignancy, she may need long-term anticoagulation. 3. Anemia due to chemotherapy. Hemoglobin is worse at 7.0 on 08/09/17. Transfused 1 unit. Hb better at 7.5 on 08/10/17. Worse at 6.9 on 08/11/17, s/p 1 unit PRBC 08.11.17 Hb better at 8.8 on 08/12/17 Continue to monitor hemoglobin and transfuse as needed. 4. Coronary artery disease. Appreciate Cardiology evaluation. 5. Neutropenia due to chemo - started granix 08/09/17. WBC worse at 0.3, monitor. Continue granix. 6. Thrombocytopenia, monitor. Plt 34 Comment Review of Relevant I have reviewed the following items gen (where applicable) has been applied. Labs Laboratory Tests Test 08/11/17 08:07 08/12/17 09:20 White Blood Count 0.4 x10^3/uL (4.0-11.0) 0.3 x10^3/uL (4.0-11.0) Red Blood Count 2.51 x10^6/uL (3.50-5.40) 3.17 x10^6/uL (3.50-5.40) Hemoglobin 6.9 g/dL (12.0-15.5) 8.8 g/dL (12.0-15.5) Hematocrit 21.3 % (36.0-47.0) 26.8 % (36.0-47.0) Mean Corpuscular Volume 85 fL (79-100) 85 fL (79-100) Mean Corpuscular Hemoglobin 28 pg (25-35) 28 pg (25-35) Mean Corpuscular Hemoglobin Concent 33 g/dL (31-37) 33 g/dL (31-37) Red Cell Distribution Width 27.4 % (11.5-14.5) 23.7 % (11.5-14.5) Platelet Count 64 x10^3/uL (140-400) 34 x10^3/uL (140-400) Neutrophils (%) (Auto) 18 % (31-73) 6 % (31-73) Lymphocytes (%) (Auto) 75 % (24-48) 80 % (24-48) Monocytes (%) (Auto) 6 % (0-9) 12 % (0-9) Eosinophils (%) (Auto) 1 % (0-3) 1 % (0-3) Basophils (%) (Auto) 0 % (0-3) 0 % (0-3) Neutrophils # (Auto) 0.1 x10^3uL (1.8-7.7) 0.0 x10^3uL (1.8-7.7) Lymphocytes # (Auto) 0.3 x10^3/uL (1.0-4.8) 0.3 x10^3/uL (1.0-4.8) Monocytes # (Auto) 0.0 x10^3/uL (0.0-1.1) 0.0 x10^3/uL (0.0-1.1) Eosinophils # (Auto) 0.0 x10^3/uL (0.0-0.7) 0.0 x10^3/uL (0.0-0.7) Basophils # (Auto) 0.0 x10^3/uL (0.0-0.2) 0.0 x10^3/uL (0.0-0.2) Laboratory Tests Test 08/12/17 09:20 White Blood Count 0.3 x10^3/uL (4.0-11.0) Red Blood Count 3.17 x10^6/uL (3.50-5.40) Hemoglobin 8.8 g/dL (12.0-15.5) Hematocrit 26.8 % (36.0-47.0) Mean Corpuscular Volume 85 fL (79-100) Mean Corpuscular Hemoglobin 28 pg (25-35) Mean Corpuscular Hemoglobin Concent 33 g/dL (31-37) Red Cell Distribution Width 23.7 % (11.5-14.5) Platelet Count 34 x10^3/uL (140-400) Neutrophils (%) (Auto) 6 % (31-73) Lymphocytes (%) (Auto) 80 % (24-48) Monocytes (%) (Auto) 12 % (0-9) Eosinophils (%) (Auto) 1 % (0-3) Basophils (%) (Auto) 0 % (0-3) Neutrophils # (Auto) 0.0 x10^3uL (1.8-7.7) Lymphocytes # (Auto) 0.3 x10^3/uL (1.0-4.8) Monocytes # (Auto) 0.0 x10^3/uL (0.0-1.1) Eosinophils # (Auto) 0.0 x10^3/uL (0.0-0.7) Basophils # (Auto) 0.0 x10^3/uL (0.0-0.2) Microbiology 08/09/17 Blood Culture - Preliminary, Resulted NO GROWTH AFTER 2 DAYS 08/11/17 - Final, Resulted 08/11/17 - Final, Resulted 08/11/17 - Final, Resulted 08/11/17 - Final, Resulted 08/11/17 - Final, Resulted 08/11/17 Gram Stain Evaluation - Final, Resulted 08/11/17 Sputum Culture, Resulted Pending 08/11/17 Sputum Result 1, Resulted Pending Medications Current Medications Lorazepam (Ativan) 1 mg 1X ONCE IV Last administered on 08/09/17 11:27; Start 08/09/17 at 11:00; Stop 08/09/17 at 11:01; Status DC Sodium Chloride 1,000 ml @ 1,000 mls/hr Q1H IV Last administered on 11:27; Start 08/09/17 at 10:49; Stop 08/09/17 at 11:48; Status DC Sodium Chloride (Normal Saline Flush) 10 ml QSHIFT PRN IV AFTER MEDS AND BLOOD DRAWS Last administered on 08/09/17 11:28; Start 08/09/17 at 11:00; Stop at 09:41; Status DC Albuterol/ Ipratropium (Duoneb) 3 ml 1X ONCE NEB Last administered on 11:05; Start 08/09/17 at 11:00; Stop 08/09/17 at 11:01; Status DC Methylprednisolone Sodium Succinate (SOLU-Medrol 125MG VIAL) 125 mg 1X ONCE IV Last administered on 08/09/17 11:27; Start 08/09/17 at 11:00; Stop at 11:01; Status DC Sodium Chloride (Normal Saline Flush) 10 ml QSHIFT PRN IV AFTER MEDS AND BLOOD DRAWS; Start 08/09/17 at 12:15 Sodium Chloride 1,000 ml @ 1,830 mls/hr Q33M IV Last administered on 12:37; Start 08/09/17 at 12:10; Stop 08/09/17 at 13:10; Status DC Cefepime HCl 2 gm/ Sodium Chloride 100 ml @ 200 mls/hr 1X ONCE IV ; Start at 12:15; Stop 08/09/17 at 12:44; Status UNV Norepinephrine Bitartrate 250 ml @ 0 mls/hr CONT PRN IV PER PROTOCOL Last administered on 08/10/17 22:46; Start 08/09/17 at 12:15 Cefepime HCl (Maxipime) 2 gm 1X ONCE IVP Last administered on 08/09/17 12:33 ; Start 08/09/17 at 12:30; Stop 08/09/17 at 12:31; Status DC Ondansetron HCl (Zofran) 4 mg PRN Q8HRS PRN IV NAUSEA/VOMITING; Start at 12:45; Stop 08/09/17 at 14:13; Status DC Fentanyl Citrate (Fentanyl 2ml Vial) 50 mcg PRN Q2HR PRN IV PAIN Last administered on 08/10/17 01:01; Start 08/09/17 at 12:45; Stop 08/10/17 at 12 :44; Status DC Acetaminophen (Tylenol) 650 mg PRN Q4HRS PRN PO FEVER; Start 08/09/17 at 12:45 ; Stop 08/10/17 at 12:44; Status DC Acetaminophen (Tylenol) 650 mg PRN Q6HRS PRN PO FEVER Last administered on 09:03; Start 08/09/17 at 14:15 Ondansetron HCl (Zofran) 4 mg PRN Q6HRS PRN IV NAUSEA/VOMITING; Start at 14:15 Morphine Sulfate 2 mg PRN Q2HR PRN IV PAIN; Start 08/09/17 at 14:15 Tramadol HCl (Ultram) 50 mg PRN Q6HRS PRN PO PAIN; Start 08/09/17 at 14:15 Hydralazine HCl (Apresoline Inj) 10 mg PRN Q4HRS PRN IVP ELEVATED BP, SEE COMMENTS; Start 08/09/17 at 14:15 Docusate Sodium (Colace) 100 mg PRN DAILY PRN PO CONSTIPATION; Start 08/09/17 at 14:15 Apixaban (Eliquis) 5 mg BID PO Last administered on 08/12/17 09:43; Start at 21:00 Lorazepam (Ativan) 0.5 mg Q6HRS PRN PO ANXIETY; Start 08/09/17 at 14:15 Pantoprazole Sodium (Protonix) 40 mg DAILYAC PO Last administered on 09:43; Start 08/10/17 at 07:30 Albuterol/ Ipratropium (Duoneb) 3 ml RTQID NEB Last administered on 08/12/17 07:47; Start 08/09/17 at 16:00 Albuterol Sulfate (Ventolin Neb Soln) 2.5 mg PRN Q2HR PRN NEB SHORTNESS OF BREATH; Start 08/09/17 at 14:15 Guaifenesin (Mucinex) 600 mg BID PO Last administered on 08/12/17 09:43; Start 08/09/17 at 21:00 Cefepime HCl 1 gm/ Dextrose 50 ml @ 100 mls/hr Q8HRS IV ; Start 08/09/17 at 22 :00; Status UNV Cefepime HCl (Maxipime) 1 gm Q12HR IVP ; Start 08/09/17 at 21:00; Status Cancel Cefepime HCl 1 gm/ Dextrose 50 ml @ 100 mls/hr Q12HR IV Last administered on 08/10/17 20:19; Start 08/09/17 at 21:00; Stop 08/10/17 at 23:00; Status DC Potassium Chloride/Sodium Chloride 1,000 ml @ 75 mls/hr [id number] IV Last administered on 08/10/17 09:04; Start 08/09/17 at 14:45; Stop 08/10/17 at 16 :00; Status DC Magnesium Sulfate/ Dextrose 100 ml @ 25 mls/hr 1X ONCE IV Last administered on 08/09/17 15:30; Start 08/09/17 at 14:45; Stop 08/09/17 at 18:44; Status DC Potassium Chloride (Klor-Con) 40 meq 1X ONCE PO Last administered on 20:32; Start 08/09/17 at 16:30; Stop 08/09/17 at 16:31; Status DC Enoxaparin Sodium (Lovenox 40mg Syringe) 40 mg Q24H SQ ; Start 08/09/17 at 16: 30; Status UNV Tbo-Filgrastim (Granix) 480 mcg QHS SQ Last administered on 08/11/17 21:33; Start 08/09/17 at 21:00 Cefepime HCl (Maxipime) 1 gm Q12HR IVP Last administered on 08/12/17 09:43; Start 08/11/17 at 09:00 Info (Anti-Coagulation Monitoring By Pharmacy) 1 each PRN DAILY PRN MC SEE COMMENTS Last administered on 08/12/17 10:28; Start 08/10/17 at 11:00 Calcium Carbonate/ Glycine (Tums) 500 mg PRN AFTMEALHC PRN PO INDIGESTION Last administered on 08/10/17 21:09; Start 08/10/17 at 20:45 Multi-Ingredient Mouthwash/Gargle (Gi Cocktail Single Dose) 15 ml PRN 1X PRN SWSW CHEST PAIN; Start 08/10/17 at 20:45 Active Scripts Active Reported Ativan (Lorazepam) 1 Mg Tablet 1 Mg PO Q6HRS PRN Eliquis (Apixaban) 5 Mg Tablet 5 Mg PO BID Zofran (Ondansetron Hcl) 8 Mg Tablet 8 Mg PO BID PRN Pantoprazole Sodium 40 Mg Tablet.dr 1 Tab PO DAILY Vitals/I & O Vital Sign - Last 24 Hours 08/11/17 08/11/17 08/11/17 08/11/17 11:27 11:30 12:00 12:00 Temp 98.3 98.3 Pulse 112 114 Resp 22 24 B/P (MAP) 93/50 (64) 95/50 (65) Pulse Ox 97 100 96 O2 Delivery Room Air Room Air Room Air Room Air 08/11/17 08/11/17 08/11/17 08/11/17 13:00 14:00 15:00 15:23 Pulse 116 120 118 Resp 24 28 24 B/P (MAP) 103/53 (70) 96/55 (69) 102/50 (67) Pulse Ox 96 96 97 99 O2 Delivery Room Air Room Air Room Air Room Air 08/11/17 08/11/17 08/11/17 08/11/17 16:00 16:00 17:00 18:00 Temp 98.4 98.4 Pulse 118 114 119 Resp 20 26 25 B/P (MAP) 107/60 (76) 90/46 (61) 93/51 (65) Pulse Ox 96 95 95 O2 Delivery Room Air Room Air Room Air Room Air 11/16/17 11/16/17 11/16/17 11/16/17 19:00 20:00 20:00 20:15 Pulse 114 112 Resp 21 29 B/P (MAP) 100/54 (69) 100/52 (68) 86/53 (64) Pulse Ox 97 97 O2 Delivery Room Air Room Air Room Air 08/11/17 08/11/17 08/11/17 08/11/17 20:30 20:31 20:45 21:00 Pulse 114 Resp 29 B/P (MAP) 97/55 (69) 94/43 (60) 97/55 (69) Pulse Ox 98 95 O2 Delivery Room Air Room Air 08/11/17 08/11/17 08/12/17 08/12/17 22:00 23:00 00:00 00:00 Temp 97.8 97.8 Pulse 128 122 121 Resp 23 19 24 B/P (MAP) 104/52 (69) 116/60 (78) 116/64 (81) Pulse Ox 97 92 95 O2 Delivery Room Air Room Air Room Air Room Air 08/12/17 08/12/17 08/12/17 08/12/17 00:30 02:00 02:30 03:00 Pulse 123 123 Resp 27 25 B/P (MAP) 104/50 (68) 117/65 (82) 120/60 (80) 114/69 (84) Pulse Ox 97 96 O2 Delivery Nasal Cannula Nasal Cannula O2 Flow Rate 2.0 2.0 08/12/17 08/12/17 08/12/17 08/12/17 03:30 04:00 04:00 04:30 Temp 99.2 99.2 Pulse 116 Resp 25 B/P (MAP) 104/58 (73) 105/65 (78) 119/64 (82) Pulse Ox 98 O2 Delivery Room Air Nasal Cannula O2 Flow Rate 2.0 08/12/17 08/12/17 08/12/17 08/12/17 05:00 05:30 06:00 06:44 Pulse 113 108 Resp 21 24 B/P (MAP) 120/59 (79) 91/49 (63) 102/52 (69) 101/56 (71) Pulse Ox 98 99 O2 Delivery Nasal Cannula Nasal Cannula O2 Flow Rate 2.0 2.0 08/12/17 08/12/17 07:48 08:00 Pulse Ox 94 O2 Delivery Room Air Room Air Intake and Output 08/11/17 08/11/1708/12/17 15:00 23:00 07:00 Intake Total 220 ml 145 ml 66 ml Output Total 500 ml 0 ml 650 ml Balance -280 ml 145 ml -584 ml IRENE HDZ MD Aug 12, 2017 11:05
--- NOTE | 2017-08-12 12:01 | PDOC ---
PULMONARY PROGRESS NOTES Subjective no soa ON LOW DOSE LEVO Vitals Vital Signs Date Time Temp Pulse Resp B/P (MAP) Pulse Ox O2 Delivery O2 Flow Rate FiO2 08/12/17 11:44 97 Room Air 08/12/17 06:44 101/56 (71) 08/12/17 06:00 108 24 2.0 08/12/17 04:00 99.2 99.2 ROS: No Nausea, No Chest Pain, No Increase Cough General: Alert, No acute distress Lungs: Other (decrease bs) Cardiovascular: S1 Abdomen: Soft Neuro Exam: Alert Extremities: Other (1+edema) Labs Laboratory Tests Test 08/11/17 08:07 08/12/17 09:20 White Blood Count 0.4 x10^3/uL (4.0-11.0) 0.3 x10^3/uL (4.0-11.0) Red Blood Count 2.51 x10^6/uL (3.50-5.40) 3.17 x10^6/uL (3.50-5.40) Hemoglobin 6.9 g/dL (12.0-15.5) 8.8 g/dL (12.0-15.5) Hematocrit 21.3 % (36.0-47.0) 26.8 % (36.0-47.0) Mean Corpuscular Volume 85 fL (79-100) 85 fL (79-100) Mean Corpuscular Hemoglobin 28 pg (25-35) 28 pg (25-35) Mean Corpuscular Hemoglobin Concent 33 g/dL (31-37) 33 g/dL (31-37) Red Cell Distribution Width 27.4 % (11.5-14.5) 23.7 % (11.5-14.5) Platelet Count 64 x10^3/uL (140-400) 34 x10^3/uL (140-400) Neutrophils (%) (Auto) 18 % (31-73) 6 % (31-73) Lymphocytes (%) (Auto) 75 % (24-48) 80 % (24-48) Monocytes (%) (Auto) 6 % (0-9) 12 % (0-9) Eosinophils (%) (Auto) 1 % (0-3) 1 % (0-3) Basophils (%) (Auto) 0 % (0-3) 0 % (0-3) Neutrophils # (Auto) 0.1 x10^3uL (1.8-7.7) 0.0 x10^3uL (1.8-7.7) Lymphocytes # (Auto) 0.3 x10^3/uL (1.0-4.8) 0.3 x10^3/uL (1.0-4.8) Monocytes # (Auto) 0.0 x10^3/uL (0.0-1.1) 0.0 x10^3/uL (0.0-1.1) Eosinophils # (Auto) 0.0 x10^3/uL (0.0-0.7) 0.0 x10^3/uL (0.0-0.7) Basophils # (Auto) 0.0 x10^3/uL (0.0-0.2) 0.0 x10^3/uL (0.0-0.2) Laboratory Tests Test 08/12/17 09:20 White Blood Count 0.3 x10^3/uL (4.0-11.0) Red Blood Count 3.17 x10^6/uL (3.50-5.40) Hemoglobin 8.8 g/dL (12.0-15.5) Hematocrit 26.8 % (36.0-47.0) Mean Corpuscular Volume 85 fL (79-100) Mean Corpuscular Hemoglobin 28 pg (25-35) Mean Corpuscular Hemoglobin Concent 33 g/dL (31-37) Red Cell Distribution Width 23.7 % (11.5-14.5) Platelet Count 34 x10^3/uL (140-400) Neutrophils (%) (Auto) 6 % (31-73) Lymphocytes (%) (Auto) 80 % (24-48) Monocytes (%) (Auto) 12 % (0-9) Eosinophils (%) (Auto) 1 % (0-3) Basophils (%) (Auto) 0 % (0-3) Neutrophils # (Auto) 0.0 x10^3uL (1.8-7.7) Lymphocytes # (Auto) 0.3 x10^3/uL (1.0-4.8) Monocytes # (Auto) 0.0 x10^3/uL (0.0-1.1) Eosinophils # (Auto) 0.0 x10^3/uL (0.0-0.7) Basophils # (Auto) 0.0 x10^3/uL (0.0-0.2) Medications Active Scripts Medications Dose Route/Sig Max Daily Dose Days Date Category Ativan (Lorazepam) 1 Mg Tablet 1 Mg PO Q6HRS PRN 07/25/17 Reported Eliquis (Apixaban) 5 Mg Tablet 5 Mg PO BID 07/25/17 Reported Zofran (Ondansetron Hcl) 8 Mg Tablet 8 Mg PO BID PRN 06/09/17 Reported Pantoprazole Sodium 40 Mg Tablet.dr 1 Tab PO DAILY 05/18/17 Reported Impression . 1. Dyspnea/weakness, most likely related to anemia in a patient who has been treated with chemo and radiation for small cell, undifferentiated carcinoma. 2. Small cell carcinoma, undifferentiated status post chemo and radiation. 3. History of recent pulmonary embolism and no evidence of any deep venous thrombosis. This is secondary to hypercoagulable state. Currently on Eliquis at home and I would continue Eliquis. I do not think that anemia is related to Eliquis, but rather chemo-induced. 4. Neutropenia and anemia, chemo-induced. 5. Underlying chronic obstructive pulmonary disease. 6. Suspected post-obstructive pneumonia. 7. SHOCK Plan . 1. Continue with p.r.n. oxygen. 2. Antibiotic cefepime. 3. Continue Eliquis. 4. DuoNebs. 5. Follow Oncology recommendation. 6. Monitor white cell count and hemoglobin. 7. Transfuse to keep hemoglobin above 8. 8. Try fluids bolus 9. wean pressor CUCA ANTUNEZ MD Aug 12, 2017 12:01
[2017-08-12] MEDS ORDERED: IV NORMAL SALINE 1000ML BAG 1,000 ML IV ONE (14:00)
--- NOTE | 2017-08-12 14:17 | RAD ---
Portable chest, 08/12/2017: History: Distress posttransfusion Comparison is made to a study from 08/09/2017. There is unchanged elevation of the right hemidiaphragm. The heart size is normal. There is an unchanged mass effect at the right hilum. There is an unchanged peripheral density laterally in the right base. The pulmonary vascularity is normal. No pulmonary infiltrates are seen. No significant pleural fluid is identified. IMPRESSION: 1. Stable right chest opacities. 2. No new cardiopulmonary abnormality is detected.
--- NOTE | 2017-08-12 14:17 | EKG ---
[facility] [address] [place] [address] Test Date: 2017-08-12 Test Time: 14:14:41 Pat Name: KAITLYN LEMUS Department: Room: [facility] 1 Gender: F Emissions Testing Technician: LAQUITA : 1940 Requested By: LAURA VENTURA Order Number: [id number] Reading MD: Diogenes Goldberg MD Measurements Intervals [place] Rate: 127 P: 49 MN: 136 QRS: 90 QRSD: 82 T: 56 QT: 308 QTc: 453 Interpretive Statements SINUS TACHYCARDIA ATRIAL PREMATURE COMPLEX(ES) NON-SPECIFIC ST/T CHANGES Electronically Signed On 08-15-2017 14:15:02 GARMENT FOLDER by Diogenes Goldberg MD
[2017-08-12] MEDS ORDERED: VECURONIUM BOLUS 10 MG VIAL. IV PRN (14:30)
--- NOTE | 2017-08-12 15:00 | PDOC2 ---
CARDIAC CONSULT DATE OF CONSULT Date of Consult DATE: 08/12/17 TIME: 14:19 REASON FOR CONSULT Reason for Consult: Tachycardia, hypotension REFERRING PHYSICIAN Referring Physician: Waqar SOURCE Source: Chart review, Patient HISTORY OF PRESENT ILLNESS HISTORY OF PRESENT ILLNESS This is a pleasant 76 yo female admitted for complains of SOA. She was recently discharged and was treated for PE. I saw her last on her previous admission for tachycardia which was related to her PE on 07/22/2017. 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 She is also significant for lung CA and COPD. She has been on chemotherapy and radiation therapy. She has presented back for increasing SOA and was noted with anemia. Pt has received blood transfusion and presently denies SOA and no discomfort but BP remains low and with sinus tach prompting this consult. No cardiac symptoms at this time. PAST MEDICAL HISTORY Past Medical History Cardiovascular: CAD, HTN Pulmonary: COPD, PE GI: GERD Heme/Onc: Cancer (lung) Psych: Anxiety Musculoskeletal: Osteoarthritis PAST SURGICAL HISTORY Past Surgical History right knee surgery last yr; PCI/stent FAMILY HISTORY Family History noncontributory SOCIAL HISTORY Social History Smoke: <1 pack per day ALCOHOL: none Drugs: None Lives: Alone ALLERGIES ALLERGIES: Coded Allergies: No Known Drug Allergies (Unverified , 05/18/17) ROS Review of System 14 point ROS evaluated with pertinent positives noted per HPI PHYSICAL EXAM General: Alert, Oriented X3, Cooperative, No acute distress HEENT: Atraumatic, Mucous membr. moist/pink Lungs: Clear to auscultation, Normal air movement Heart: Regular rate (sinus tach with PACs), Normal S1, Normal S2, Other (2/6 systolic murmur to LLS border) Abdomen: Soft, No tenderness Extremities: No cyanosis, No edema Skin: No breakdown, No significant lesion Neuro: Normal speech, Sensation intact Psych/Mental Status: Mental status NL, Mood NL MUSCULOSKELETAL: Osteoarthritic changes both hands VITALS VITALS Vital Signs Date Time Temp Pulse Resp B/P (MAP) Pulse Ox O2 Delivery O2 Flow Rate FiO2 08/12/17 12:00 Room Air 08/12/17 11:44 97 08/12/17 06:44 101/56 (71) 08/12/17 06:00 108 24 2.0 08/12/17 04:00 99.2 99.2 LABS Lab: Laboratory Tests Test 08/12/17 09:20 White Blood Count 0.3 x10^3/uL (4.0-11.0) Red Blood Count 3.17 x10^6/uL (3.50-5.40) Hemoglobin 8.8 g/dL (12.0-15.5) Hematocrit 26.8 % (36.0-47.0) Mean Corpuscular Volume 85 fL (79-100) Mean Corpuscular Hemoglobin 28 pg (25-35) Mean Corpuscular Hemoglobin Concent 33 g/dL (31-37) Red Cell Distribution Width 23.7 % (11.5-14.5) Platelet Count 34 x10^3/uL (140-400) Neutrophils (%) (Auto) 6 % (31-73) Lymphocytes (%) (Auto) 80 % (24-48) Monocytes (%) (Auto) 12 % (0-9) Eosinophils (%) (Auto) 1 % (0-3) Basophils (%) (Auto) 0 % (0-3) Neutrophils # (Auto) 0.0 x10^3uL (1.8-7.7) Lymphocytes # (Auto) 0.3 x10^3/uL (1.0-4.8) Monocytes # (Auto) 0.0 x10^3/uL (0.0-1.1) Eosinophils # (Auto) 0.0 x10^3/uL (0.0-0.7) Basophils # (Auto) 0.0 x10^3/uL (0.0-0.2) ECHOCARDIOGRAM ECHOCARDIOGRAM <Conclusion> The left ventricular systolic function is hyperdynamic. The Ejection Fraction is >70%. There is normal LV segmental wall motion. The right ventricle is mildly dilated. Doppler and Color Flow revealed trace tricuspid regurgitation.There is mild pulmonary hypertension.The PA pressure was estimated at 38 mmHg. DATE: 07/22/17 1258 ASSESSMENT/PLAN ASSESSMENT/PLAN 1. Dyspnea: multifactorial wit lung CA, recent acute bilateral PE, and anemia. SOA much better and comfortable. 2. Stage 3 SCLCA with pancytopenia 3. Sinus tachycardia with hypotension: Reactive and multifactorial primarily due to extracardiac factors as noted above. 4. Protein malnutrition 5. CAD: PCI/stent in the past 6. COPD Recommendations 1. No obvious sign of bleed. Continue with eliquis per pulmonary. Agree with keeping Hgb at 8. Recheck hemogram. 2. Start routine IV hydration. Check CMP and will consider giving albumin and replace K and Mg per results.. 3. No AV esau blocking agents. Continue to treat extracardiac factors 4. Vasopressor to titrate as warranted Problems: ISABEL WELSH PARTS WASHER Aug 12, 2017 15:00
--- NOTE | 2017-08-12 15:23 | PDOC ---
PROGRESS NOTES Chief Complaint Chief Complaint acute dyspnea, 2/2 right lung Ca, PE, and obstructive PNA hypotension, 2/2 anemia, PNA, sepsis, still on NE recent dignosed BL PE ON eliquis right lung NON small cell Ca, on chemo and RT h/o Grade 1 CHF, copd w/ prior tobacco use history htn Rheumatoid arthritis leukopenia with recent chemo for lung cancer anemia with RT, CHEMO ckd3 mild malnutrition History of Present Illness History of Present Illness in ICU, still on pharmacological BP support, on NE, for sepsis, severe sepsis and hypotension ivf to continue good PO intake feels much improved, cont eliquis cefepime for now, check sputum cx, bcx PT/OT Vitals Vitals Vital Signs Date Time Temp Pulse Resp B/P (MAP) Pulse Ox O2 Delivery O2 Flow Rate FiO2 08/12/17 12:00 Room Air 08/12/17 11:44 97 08/12/17 06:44 101/56 (71) 08/12/17 06:00 108 24 2.0 08/12/17 04:00 99.2 99.2 Physical Exam General: Alert, Oriented X3, Cooperative, No acute distress Heart: Regular rate (sinus tach with PACs), Normal S1, Normal S2, Other (2/6 systolic murmur to LLS border) Lungs: Other (decrease bs) Abdomen: Soft, No tenderness Extremities: No cyanosis, No edema Skin: No breakdown, No significant lesion Labs LABS Laboratory Tests Test 08/12/17 09:20 White Blood Count 0.3 x10^3/uL (4.0-11.0) Red Blood Count 3.17 x10^6/uL (3.50-5.40) Hemoglobin 8.8 g/dL (12.0-15.5) Hematocrit 26.8 % (36.0-47.0) Mean Corpuscular Volume 85 fL (79-100) Mean Corpuscular Hemoglobin 28 pg (25-35) Mean Corpuscular Hemoglobin Concent 33 g/dL (31-37) Red Cell Distribution Width 23.7 % (11.5-14.5) Platelet Count 34 x10^3/uL (140-400) Neutrophils (%) (Auto) 6 % (31-73) Lymphocytes (%) (Auto) 80 % (24-48) Monocytes (%) (Auto) 12 % (0-9) Eosinophils (%) (Auto) 1 % (0-3) Basophils (%) (Auto) 0 % (0-3) Neutrophils # (Auto) 0.0 x10^3uL (1.8-7.7) Lymphocytes # (Auto) 0.3 x10^3/uL (1.0-4.8) Monocytes # (Auto) 0.0 x10^3/uL (0.0-1.1) Eosinophils # (Auto) 0.0 x10^3/uL (0.0-0.7) Basophils # (Auto) 0.0 x10^3/uL (0.0-0.2) Magnesium Level 0.7 mg/dL (1.8-2.4) Review of Systems Review of Systems no n,v/d Assessment and Plan Assessmemt and Plan Problems Medical Problems: (1) Anemia Status: Acute (2) Neutropenia Status: Acute (3) Pneumonia Status: Acute Problems: Comment Review of Relevant I have reviewed the following items gen (where applicable) has been applied. Labs Laboratory Tests Test 08/11/17 08:07 08/12/17 09:20 White Blood Count 0.4 x10^3/uL (4.0-11.0) 0.3 x10^3/uL (4.0-11.0) Red Blood Count 2.51 x10^6/uL (3.50-5.40) 3.17 x10^6/uL (3.50-5.40) Hemoglobin 6.9 g/dL (12.0-15.5) 8.8 g/dL (12.0-15.5) Hematocrit 21.3 % (36.0-47.0) 26.8 % (36.0-47.0) Mean Corpuscular Volume 85 fL (79-100) 85 fL (79-100) Mean Corpuscular Hemoglobin 28 pg (25-35) 28 pg (25-35) Mean Corpuscular Hemoglobin Concent 33 g/dL (31-37) 33 g/dL (31-37) Red Cell Distribution Width 27.4 % (11.5-14.5) 23.7 % (11.5-14.5) Platelet Count 64 x10^3/uL (140-400) 34 x10^3/uL (140-400) Neutrophils (%) (Auto) 18 % (31-73) 6 % (31-73) Lymphocytes (%) (Auto) 75 % (24-48) 80 % (24-48) Monocytes (%) (Auto) 6 % (0-9) 12 % (0-9) Eosinophils (%) (Auto) 1 % (0-3) 1 % (0-3) Basophils (%) (Auto) 0 % (0-3) 0 % (0-3) Neutrophils # (Auto) 0.1 x10^3uL (1.8-7.7) 0.0 x10^3uL (1.8-7.7) Lymphocytes # (Auto) 0.3 x10^3/uL (1.0-4.8) 0.3 x10^3/uL (1.0-4.8) Monocytes # (Auto) 0.0 x10^3/uL (0.0-1.1) 0.0 x10^3/uL (0.0-1.1) Eosinophils # (Auto) 0.0 x10^3/uL (0.0-0.7) 0.0 x10^3/uL (0.0-0.7) Basophils # (Auto) 0.0 x10^3/uL (0.0-0.2) 0.0 x10^3/uL (0.0-0.2) Magnesium Level 0.7 mg/dL (1.8-2.4) Laboratory Tests Test 08/12/17 09:20 White Blood Count 0.3 x10^3/uL (4.0-11.0) Red Blood Count 3.17 x10^6/uL (3.50-5.40) Hemoglobin 8.8 g/dL (12.0-15.5) Hematocrit 26.8 % (36.0-47.0) Mean Corpuscular Volume 85 fL (79-100) Mean Corpuscular Hemoglobin 28 pg (25-35) Mean Corpuscular Hemoglobin Concent 33 g/dL (31-37) Red Cell Distribution Width 23.7 % (11.5-14.5) Platelet Count 34 x10^3/uL (140-400) Neutrophils (%) (Auto) 6 % (31-73) Lymphocytes (%) (Auto) 80 % (24-48) Monocytes (%) (Auto) 12 % (0-9) Eosinophils (%) (Auto) 1 % (0-3) Basophils (%) (Auto) 0 % (0-3) Neutrophils # (Auto) 0.0 x10^3uL (1.8-7.7) Lymphocytes # (Auto) 0.3 x10^3/uL (1.0-4.8) Monocytes # (Auto) 0.0 x10^3/uL (0.0-1.1) Eosinophils # (Auto) 0.0 x10^3/uL (0.0-0.7) Basophils # (Auto) 0.0 x10^3/uL (0.0-0.2) Magnesium Level 0.7 mg/dL (1.8-2.4) Microbiology 08/09/17 Blood Culture - Preliminary, Resulted NO GROWTH AFTER 3 DAYS 08/11/17 - Final, Resulted 08/11/17 - Final, Resulted 08/11/17 - Final, Resulted 08/11/17 - Final, Resulted 08/11/17 - Final, Resulted 08/11/17 Gram Stain Evaluation - Final, Resulted 08/11/17 Sputum Culture - Preliminary, Resulted 08/11/17 Sputum Result 1 - Final, Resulted Medications Current Medications Lorazepam (Ativan) 1 mg 1X ONCE IV Last administered on 08/09/17 11:27; Start 08/09/17 at 11:00; Stop 08/09/17 at 11:01; Status DC Sodium Chloride 1,000 ml @ 1,000 mls/hr Q1H IV Last administered on 11:27; Start 08/09/17 at 10:49; Stop 08/09/17 at 11:48; Status DC Sodium Chloride (Normal Saline Flush) 10 ml QSHIFT PRN IV AFTER MEDS AND BLOOD DRAWS Last administered on 08/09/17 11:28; Start 08/09/17 at 11:00; Stop at 09:41; Status DC Albuterol/ Ipratropium (Duoneb) 3 ml 1X ONCE NEB Last administered on 11:05; Start 08/09/17 at 11:00; Stop 08/09/17 at 11:01; Status DC Methylprednisolone Sodium Succinate (SOLU-Medrol 125MG VIAL) 125 mg 1X ONCE IV Last administered on 08/09/17 11:27; Start 08/09/17 at 11:00; Stop at 11:01; Status DC Sodium Chloride (Normal Saline Flush) 10 ml QSHIFT PRN IV AFTER MEDS AND BLOOD DRAWS; Start 08/09/17 at 12:15 Sodium Chloride 1,000 ml @ 1,830 mls/hr Q33M IV Last administered on 12:37; Start 08/09/17 at 12:10; Stop 08/09/17 at 13:10; Status DC Cefepime HCl 2 gm/ Sodium Chloride 100 ml @ 200 mls/hr 1X ONCE IV ; Start at 12:15; Stop 08/09/17 at 12:44; Status UNV Norepinephrine Bitartrate 250 ml @ 0 mls/hr CONT PRN IV PER PROTOCOL Last administered on 08/10/17 22:46; Start 08/09/17 at 12:15 Cefepime HCl (Maxipime) 2 gm 1X ONCE IVP Last administered on 08/09/17 12:33 ; Start 08/09/17 at 12:30; Stop 08/09/17 at 12:31; Status DC Ondansetron HCl (Zofran) 4 mg PRN Q8HRS PRN IV NAUSEA/VOMITING; Start at 12:45; Stop 08/09/17 at 14:13; Status DC Fentanyl Citrate (Fentanyl 2ml Vial) 50 mcg PRN Q2HR PRN IV PAIN Last administered on 08/10/17 01:01; Start 08/09/17 at 12:45; Stop 08/10/17 at 12 :44; Status DC Acetaminophen (Tylenol) 650 mg PRN Q4HRS PRN PO FEVER; Start 08/09/17 at 12:45 ; Stop 08/10/17 at 12:44; Status DC Acetaminophen (Tylenol) 650 mg PRN Q6HRS PRN PO FEVER Last administered on 09:03; Start 08/09/17 at 14:15 Ondansetron HCl (Zofran) 4 mg PRN Q6HRS PRN IV NAUSEA/VOMITING Last administered on 08/12/17 13:38; Start 08/09/17 at 14:15 Morphine Sulfate 2 mg PRN Q2HR PRN IV PAIN; Start 08/09/17 at 14:15 Tramadol HCl (Ultram) 50 mg PRN Q6HRS PRN PO PAIN; Start 08/09/17 at 14:15 Hydralazine HCl (Apresoline Inj) 10 mg PRN Q4HRS PRN IVP ELEVATED BP, SEE COMMENTS; Start 08/09/17 at 14:15 Docusate Sodium (Colace) 100 mg PRN DAILY PRN PO CONSTIPATION; Start 08/09/17 at 14:15 Apixaban (Eliquis) 5 mg BID PO Last administered on 08/12/17 09:43; Start at 21:00 Lorazepam (Ativan) 0.5 mg Q6HRS PRN PO ANXIETY; Start 08/09/17 at 14:15 Pantoprazole Sodium (Protonix) 40 mg DAILYAC PO Last administered on 09:43; Start 08/10/17 at 07:30 Albuterol/ Ipratropium (Duoneb) 3 ml RTQID NEB Last administered on 08/12/17 11:44; Start 08/09/17 at 16:00 Albuterol Sulfate (Ventolin Neb Soln) 2.5 mg PRN Q2HR PRN NEB SHORTNESS OF BREATH; Start 08/09/17 at 14:15 Guaifenesin (Mucinex) 600 mg BID PO Last administered on 08/12/17 09:43; Start 08/09/17 at 21:00 Cefepime HCl 1 gm/ Dextrose 50 ml @ 100 mls/hr Q8HRS IV ; Start 08/09/17 at 22 :00; Status UNV Cefepime HCl (Maxipime) 1 gm Q12HR IVP ; Start 08/09/17 at 21:00; Status Cancel Cefepime HCl 1 gm/ Dextrose 50 ml @ 100 mls/hr Q12HR IV Last administered on 08/10/17 20:19; Start 08/09/17 at 21:00; Stop 08/10/17 at 23:00; Status DC Potassium Chloride/Sodium Chloride 1,000 ml @ 75 mls/hr [id number] IV Last administered on 08/10/17 09:04; Start 08/09/17 at 14:45; Stop 08/10/17 at 16 :00; Status DC Magnesium Sulfate/ Dextrose 100 ml @ 25 mls/hr 1X ONCE IV Last administered on 08/09/17 15:30; Start 08/09/17 at 14:45; Stop 08/09/17 at 18:44; Status DC Potassium Chloride (Klor-Con) 40 meq 1X ONCE PO Last administered on 20:32; Start 08/09/17 at 16:30; Stop 08/09/17 at 16:31; Status DC Enoxaparin Sodium (Lovenox 40mg Syringe) 40 mg Q24H SQ ; Start 08/09/17 at 16: 30; Status UNV Tbo-Filgrastim (Granix) 480 mcg QHS SQ Last administered on 08/11/17 21:33; Start 08/09/17 at 21:00 Cefepime HCl (Maxipime) 1 gm Q12HR IVP Last administered on 08/12/17 09:43; Start 08/11/17 at 09:00 Info (Anti-Coagulation Monitoring By Pharmacy) 1 each PRN DAILY PRN MC SEE COMMENTS Last administered on 08/12/17 10:28; Start 08/10/17 at 11:00 Calcium Carbonate/ Glycine (Tums) 500 mg PRN AFTMEALHC PRN PO INDIGESTION Last administered on 08/10/17 21:09; Start 08/10/17 at 20:45 Multi-Ingredient Mouthwash/Gargle (Gi Cocktail Single Dose) 15 ml PRN 1X PRN SWSW CHEST PAIN; Start 08/10/17 at 20:45 Sodium Chloride 1,000 ml @ 1,000 mls/hr 1X ONCE IV Last administered on 08/12 15:02; Start 08/12/17 at 14:00; Stop 08/12/17 at 14:59; Status DC Vecuronium [place] (Norcuron Bolus) 4 mg PRN Q4HRS PRN IV AGITATION; Start at 14:30; Stop 08/12/17 at 14:48; Status DC Active Scripts Active Reported Ativan (Lorazepam) 1 Mg Tablet 1 Mg PO Q6HRS PRN Eliquis (Apixaban) 5 Mg Tablet 5 Mg PO BID Zofran (Ondansetron Hcl) 8 Mg Tablet 8 Mg PO BID PRN Pantoprazole Sodium 40 Mg Tablet. 1 Tab PO DAILY Vitals/I & O Vital Sign - Last 24 Hours 08/11/17 08/11/17 08/11/17 08/11/17 15:23 16:00 16:00 17:00 Temp 98.4 98.4 Pulse 118 114 Resp 20 26 B/P (MAP) 107/60 (76) 90/46 (61) Pulse Ox 99 96 95 O2 Delivery Room Air Room Air Room Air Room Air 08/11/17 08/11/17 08/11/17 08/11/17 18:00 19:00 20:00 20:00 Pulse 119 114 112 Resp 25 21 29 B/P (MAP) 93/51 (65) 100/54 (69) 100/52 (68) Pulse Ox 95 97 97 O2 Delivery Room Air Room Air Room Air Room Air 08/11/17 08/11/17 08/11/17 08/11/17 20:15 20:30 20:31 20:45 B/P (MAP) 86/53 (64) 97/55 (69) 94/43 (60) Pulse Ox 98 O2 Delivery Room Air 08/11/17 08/11/17 08/11/17 08/12/17 21:00 22:00 23:00 00:00 Pulse 114 128 122 Resp 29 23 19 B/P (MAP) 97/55 (69) 104/52 (69) 116/60 (78) Pulse Ox 95 97 92 O2 Delivery Room Air Room Air Room Air Room Air 08/12/17 08/12/17 08/12/17 08/12/17 00:00 00:30 02:00 02:30 Temp 97.8 97.8 Pulse 121 123 Resp 24 27 B/P (MAP) 116/64 (81) 104/50 (68) 117/65 (82) 120/60 (80) Pulse Ox 95 97 O2 Delivery Room Air Nasal Cannula O2 Flow Rate 2.0 08/12/17 08/12/17 08/12/17 08/12/17 03:00 03:30 04:00 04:00 Temp 99.2 99.2 Pulse 123 116 Resp 25 25 B/P (MAP) 114/69 (84) 104/58 (73) 105/65 (78) Pulse Ox 96 98 O2 Delivery Nasal Cannula Room Air Nasal Cannula O2 Flow Rate 2.0 2.0 08/12/17 08/12/17 08/12/17 08/12/17 04:30 05:00 05:30 06:00 Pulse 113 108 Resp 21 24 B/P (MAP) 119/64 (82) 120/59 (79) 91/49 (63) 102/52 (69) Pulse Ox 98 99 O2 Delivery Nasal Cannula Nasal Cannula O2 Flow Rate 2.0 2.0 08/12/17 08/12/17 08/12/17 08/12/17 06:44 07:48 08:00 11:44 B/P (MAP) 101/56 (71) Pulse Ox 94 97 O2 Delivery Room Air Room Air Room Air 08/12/17 12:00 O2 Delivery Room Air Intake and Output 08/11/17 08/11/17 08/12/17 15:00 23:00 07:00 Intake Total 220 ml 145 ml 66 ml Output Total 500 ml 0 ml 650 ml Balance -280 ml 145 ml -584 ml LAURA VENTURA MD Aug 12, 2017 15:23
[2017-08-12 15:27] LABS: ALBUMIN 2.7 g/dL (3.4-5.0); CALCIUM 8.1 mg/dL (8.5-10.1); CREATININE 0.8 mg/dL (0.6-1.0); GFR 69.4; TOTAL BILIRUBIN 0.5 mg/dL (0.2-1.0); TOTAL PROTEIN 5.5 g/dL (6.4-8.2)
[2017-08-12 15:34] LABS: POTASSIUM 2.9 mmol/L (3.5-5.1)
[2017-08-12] MEDS ORDERED: ALBUMIN HUMAN 25% 100 ML IV ONE (15:45)
[2017-08-12] MEDS ORDERED: POTASSIUM CHLORIDE 20 MEQ TABLET.ER. PO ONE ×3 (15:45→22:00)
[2017-08-12 15:58] LABS: HEMATOCRIT 26.2 % (36.0-47.0); HEMOGLOBIN 8.7 g/dL (12.0-15.5); RED BLOOD COUNT 3.13 x10^6/uL (3.50-5.40); RED CELL DISTRIBUTION WIDTH 23.3 % (11.5-14.5)
[2017-08-12] MEDS ORDERED: MAGNESIUM SULFATE 4GM 100 ML IV ONE (16:00)
[2017-08-12 16:02] LABS: WHITE BLOOD COUNT 0.4 x10^3/uL (4.0-11.0)
[2017-08-12] MEDS: TBO-FILGRASTIM 480 MCG/0.8 ML SYRINGE. SQ SCH (20:35)
[2017-08-12] MEDS: NOREPINEPHRIN PREMIX 250 ML IV PRN (21:01)
[2017-08-12 21:18] LABS: MAGNESIUM 2.3 mg/dL (1.8-2.4)
[2017-08-12 21:28] LABS: POTASSIUM 2.8 mmol/L (3.5-5.1)
[2017-08-13] VITALS (39 sets, daily range): BP systolic 73–115; BP diastolic 36–67
[2017-08-13] MEDS ORDERED: POTASSIUM CHLORIDE 20 MEQ TABLET.ER. PO ONE
[2017-08-13 05:28] LABS: BASO % 1 % (0-3); EOS % 2 % (0-3); HEMATOCRIT 24.4 % (36.0-47.0); HEMOGLOBIN 8.1 g/dL (12.0-15.5); LYMPH # 0.2 x10^3/uL (1.0-4.8); LYMPH % 65 % (24-48); MEAN CORPUSCULAR HEMOGLOBIN 27 pg (25-35); MEAN CORPUSCULAR HGB CONC 33 g/dL (31-37); MEAN CORPUSCULAR VOLUME 83 fL (79-100); MONO % 24 % (0-9); NEUT % 9 % (31-73); RED BLOOD COUNT 2.94 x10^6/uL (3.50-5.40); RED CELL DISTRIBUTION WIDTH 23.6 % (11.5-14.5)
[2017-08-13 05:33] LABS: WHITE BLOOD COUNT 0.4 x10^3/uL (4.0-11.0)
[2017-08-13 05:34] LABS: PLATELET COUNT 23 x10^3/uL (140-400)
[2017-08-13 05:57] LABS: ALBUMIN 2.9 g/dL (3.4-5.0); CALCIUM 8.5 mg/dL (8.5-10.1); CREATININE 0.7 mg/dL (0.6-1.0); GFR 80.9; POTASSIUM 4.6 mmol/L (3.5-5.1); TOTAL BILIRUBIN 0.6 mg/dL (0.2-1.0); TOTAL PROTEIN 5.9 g/dL (6.4-8.2)
[2017-08-13] MEDS: IPRATRPIUM/ALBUTEROL 0.5/2.5MG 3 ML NEBU. NEB SCH ×4 (08:14→20:14)
--- NOTE | 2017-08-13 09:50 | PDOC ---
PROGRESS NOTES Chief Complaint Chief Complaint acute dyspnea, 2/2 right lung Ca, PE, and obstructive PNA hypotension, 2/2 anemia, PNA, sepsis, still on NE recent dignosed BL PE ON eliquis right lung NON small cell Ca, on chemo and RT h/o Grade 1 CHF, copd w/ prior tobacco use history htn Rheumatoid arthritis leukopenia with recent chemo for lung cancer anemia with RT, CHEMO ckd3 mild malnutrition History of Present Illness History of Present Illness in ICU, still on pharmacological BP support, hypotension persists, she feels well, and wants to move out of ICU ivf to continue good PO intake feels much improved, cont eliquis cefepime for now, check sputum cx, bcx PT/OT code status reviewed with RN and patient, she is open to discussing next week with palliative care, would prefer to be full code for now, her daughter is stressed with her in the [facility] right now, has a lot on her plate Vitals Vitals Vital Signs Date Time Temp Pulse Resp B/P (MAP) Pulse Ox O2 Delivery O2 Flow Rate FiO2 08/13/17 08:14 95 Nasal Cannula 2.0 08/13/17 07:00 110 27 104/55 (71) 08/13/17 04:00 98.9 98.9 Physical Exam General: Alert, Oriented X3, Cooperative, No acute distress Heart: Regular rate (sinus tach with PACs), Normal S1, Normal S2, Other (2/6 systolic murmur to LLS border) Lungs: Other (decrease bs) Abdomen: Soft, No tenderness Extremities: No cyanosis, No edema Skin: No breakdown, No significant lesion Labs LABS Laboratory Tests Test 08/12/17 15:15 08/12/17 21:00 08/13/17 05:00 White Blood Count 0.4 x10^3/uL (4.0-11.0) 0.4 x10^3/uL (4.0-11.0) Red Blood Count 3.13 x10^6/uL (3.50-5.40) 2.94 x10^6/uL (3.50-5.40) Hemoglobin 8.7 g/dL (12.0-15.5) 8.1 g/dL (12.0-15.5) Hematocrit 26.2 % (36.0-47.0) 24.4 % (36.0-47.0) Mean Corpuscular Volume 84 fL (79-100) 83 fL (79-100) Mean Corpuscular Hemoglobin 28 pg (25-35) 27 pg (25-35) Mean Corpuscular Hemoglobin Concent 33 g/dL (31-37) 33 g/dL (31-37) Red Cell Distribution Width 23.3 % (11.5-14.5) 23.6 % (11.5-14.5) Platelet Count 28 x10^3/uL (140-400) 23 x10^3/uL (140-400) Potassium Level 2.8 mmol/L (3.5-5.1) 4.6 mmol/L (3.5-5.1) Magnesium Level 2.3 mg/dL (1.8-2.4) Neutrophils (%) (Auto) 9 % (31-73) Lymphocytes (%) (Auto) 65 % (24-48) Monocytes (%) (Auto) 24 % (0-9) Eosinophils (%) (Auto) 2 % (0-3) Basophils (%) (Auto) 1 % (0-3) Neutrophils # (Auto) 0.0 x10^3uL (1.8-7.7) Lymphocytes # (Auto) 0.2 x10^3/uL (1.0-4.8) Monocytes # (Auto) 0.1 x10^3/uL (0.0-1.1) Eosinophils # (Auto) 0.0 x10^3/uL (0.0-0.7) Basophils # (Auto) 0.0 x10^3/uL (0.0-0.2) Sodium Level 141 mmol/L (136-145) Chloride Level 105 mmol/L (98-107) Carbon Dioxide Level 27 mmol/L (21-32) Anion Gap 9 (6-14) Blood Urea Nitrogen 8 mg/dL (7-20) Creatinine 0.7 mg/dL (0.6-1.0) Estimated GFR (Cockcroft-Gault) 80.9 BUN/Creatinine Ratio 11 (6-20) Glucose Level 122 mg/dL (70-99) Calcium Level 8.5 mg/dL (8.5-10.1) Total Bilirubin 0.6 mg/dL (0.2-1.0) Aspartate Amino Transf (AST/SGOT) 11 U/L (15-37) Alanine Aminotransferase (ALT/SGPT) 14 U/L (14-59) Alkaline Phosphatase 95 U/L (46-116) Total Protein 5.9 g/dL (6.4-8.2) Albumin 2.9 g/dL (3.4-5.0) Albumin/Globulin Ratio 1.0 (1.0-1.7) Review of Systems Review of Systems no n.v.d str better eating OK, did OK with PT Assessment and Plan Assessmemt and Plan Problems Medical Problems: (1) Anemia Status: Acute (2) Neutropenia Status: Acute (3) Pneumonia Status: Acute Problems: Comment Review of Relevant I have reviewed the following items gen (where applicable) has been applied. Labs Laboratory Tests Test 08/12/17 09:20 08/12/17 15:15 08/12/17 21:00 08/13/17 05:00 White Blood Count 0.3 x10^3/uL (4.0-11.0) 0.4 x10^3/uL (4.0-11.0) 0.4 x10^3/uL (4.0-11.0) Red Blood Count 3.17 x10^6/uL (3.50-5.40) 3.13 x10^6/uL (3.50-5.40) 2.94 x10^6/uL (3.50-5.40) Hemoglobin 8.8 g/dL (12.0-15.5) 8.7 g/dL (12.0-15.5) 8.1 g/dL (12.0-15.5) Hematocrit 26.8 % (36.0-47.0) 26.2 % (36.0-47.0) 24.4 % (36.0-47.0) Mean Corpuscular Volume 85 fL (79-100) 84 fL (79-100) 83 fL (79-100) Mean Corpuscular Hemoglobin 28 pg (25-35) 28 pg (25-35) 27 pg (25-35) Mean Corpuscular Hemoglobin Concent 33 g/dL (31-37) 33 g/dL (31-37) 33 g/dL (31-37) Red Cell Distribution Width 23.7 % (11.5-14.5) 23.3 % (11.5-14.5) 23.6 % (11.5-14.5) Platelet Count 34 x10^3/uL (140-400) 28 x10^3/uL (140-400) 23 x10^3/uL (140-400) Neutrophils (%) (Auto) 6 % (31-73) 9 % (31-73) Lymphocytes (%) (Auto) 80 % (24-48) 65 % (24-48) Monocytes (%) (Auto) 12 % (0-9) 24 % (0-9) Eosinophils (%) (Auto) 1 % (0-3) 2 % (0-3) Basophils (%) (Auto) 0 % (0-3) 1 % (0-3) Neutrophils # (Auto) 0.0 x10^3uL (1.8-7.7) 0.0 x10^3uL (1.8-7.7) Lymphocytes # (Auto) 0.3 x10^3/uL (1.0-4.8) 0.2 x10^3/uL (1.0-4.8) Monocytes # (Auto) 0.0 x10^3/uL (0.0-1.1) 0.1 x10^3/uL (0.0-1.1) Eosinophils # (Auto) 0.0 x10^3/uL (0.0-0.7) 0.0 x10^3/uL (0.0-0.7) Basophils # (Auto) 0.0 x10^3/uL (0.0-0.2) 0.0 x10^3/uL (0.0-0.2) Sodium Level 140 mmol/L (136-145) 141 mmol/L (136-145) Potassium Level 2.9 mmol/L (3.5-5.1) 2.8 mmol/L (3.5-5.1) 4.6 mmol/L (3.5-5.1) Chloride Level 102 mmol/L (98-107) 105 mmol/L (98-107) Carbon Dioxide Level 28 mmol/L (21-32) 27 mmol/L (21-32) Anion Gap 10 (6-14) 9 (6-14) Blood Urea Nitrogen 9 mg/dL (7-20) 8 mg/dL (7-20) Creatinine 0.8 mg/dL (0.6-1.0) 0.7 mg/dL (0.6-1.0) Estimated GFR (Cockcroft-Gault) 69.4 80.9 BUN/Creatinine Ratio 11 (6-20) 11 (6-20) Glucose Level 133 mg/dL (70-99) 122 mg/dL (70-99) Calcium Level 8.1 mg/dL (8.5-10.1) 8.5 mg/dL (8.5-10.1) Magnesium Level 0.7 mg/dL (1.8-2.4) 2.3 mg/dL (1.8-2.4) Total Bilirubin 0.5 mg/dL (0.2-1.0) 0.6 mg/dL (0.2-1.0) Aspartate Amino Transf (AST/SGOT) 8 U/L (15-37) 11 U/L (15-37) Alanine Aminotransferase (ALT/SGPT) 17 U/L (14-59) 14 U/L (14-59) Alkaline Phosphatase 106 U/L (46-116) 95 U/L (46-116) Total Protein 5.5 g/dL (6.4-8.2) 5.9 g/dL (6.4-8.2) Albumin 2.7 g/dL (3.4-5.0) 2.9 g/dL (3.4-5.0) Albumin/Globulin Ratio 1.0 (1.0-1.7) 1.0 (1.0-1.7) Laboratory Tests Test 08/12/17 15:15 08/12/17 21:00 08/13/17 05:00 White Blood Count 0.4 x10^3/uL (4.0-11.0) 0.4 x10^3/uL (4.0-11.0) Red Blood Count 3.13 x10^6/uL (3.50-5.40) 2.94 x10^6/uL (3.50-5.40) Hemoglobin 8.7 g/dL (12.0-15.5) 8.1 g/dL (12.0-15.5) Hematocrit 26.2 % (36.0-47.0) 24.4 % (36.0-47.0) Mean Corpuscular Volume 84 fL (79-100) 83 fL (79-100) Mean Corpuscular Hemoglobin 28 pg (25-35) 27 pg (25-35) Mean Corpuscular Hemoglobin Concent 33 g/dL (31-37) 33 g/dL (31-37) Red Cell Distribution Width 23.3 % (11.5-14.5) 23.6 % (11.5-14.5) Platelet Count 28 x10^3/uL (140-400) 23 x10^3/uL (140-400) Potassium Level 2.8 mmol/L (3.5-5.1) 4.6 mmol/L (3.5-5.1) Magnesium Level 2.3 mg/dL (1.8-2.4) Neutrophils (%) (Auto) 9 % (31-73) Lymphocytes (%) (Auto) 65 % (24-48) Monocytes (%) (Auto) 24 % (0-9) Eosinophils (%) (Auto) 2 % (0-3) Basophils (%) (Auto) 1 % (0-3) Neutrophils # (Auto) 0.0 x10^3uL (1.8-7.7) Lymphocytes # (Auto) 0.2 x10^3/uL (1.0-4.8) Monocytes # (Auto) 0.1 x10^3/uL (0.0-1.1) Eosinophils # (Auto) 0.0 x10^3/uL (0.0-0.7) Basophils # (Auto) 0.0 x10^3/uL (0.0-0.2) Sodium Level 141 mmol/L (136-145) Chloride Level 105 mmol/L (98-107) Carbon Dioxide Level 27 mmol/L (21-32) Anion Gap 9 (6-14) Blood Urea Nitrogen 8 mg/dL (7-20) Creatinine 0.7 mg/dL (0.6-1.0) Estimated GFR (Cockcroft-Gault) 80.9 BUN/Creatinine Ratio 11 (6-20) Glucose Level 122 mg/dL (70-99) Calcium Level 8.5 mg/dL (8.5-10.1) Total Bilirubin 0.6 mg/dL (0.2-1.0) Aspartate Amino Transf (AST/SGOT) 11 U/L (15-37) Alanine Aminotransferase (ALT/SGPT) 14 U/L (14-59) Alkaline Phosphatase 95 U/L (46-116) Total Protein 5.9 g/dL (6.4-8.2) Albumin 2.9 g/dL (3.4-5.0) Albumin/Globulin Ratio 1.0 (1.0-1.7) Microbiology 08/09/17 Blood Culture - Preliminary, Resulted NO GROWTH AFTER 3 DAYS 08/11/17 - Final, Resulted 08/11/17 - Final, Resulted 08/11/17 - Final, Resulted 08/11/17 - Final, Resulted 08/11/17 - Final, Resulted 08/11/17 Gram Stain Evaluation - Final, Resulted 08/11/17 Sputum Culture - Preliminary, Resulted 08/11/17 Sputum Result 1 - Final, Resulted Medications Current Medications Lorazepam (Ativan) 1 mg 1X ONCE IV Last administered on 08/09/17 11:27; Start 08/09/17 at 11:00; Stop 08/09/17 at 11:01; Status DC Sodium Chloride 1,000 ml @ 1,000 mls/hr Q1H IV Last administered on 11:27; Start 08/09/17 at 10:49; Stop 08/09/17 at 11:48; Status DC Sodium Chloride (Normal Saline Flush) 10 ml QSHIFT PRN IV AFTER MEDS AND BLOOD DRAWS Last administered on 08/09/17 11:28; Start 08/09/17 at 11:00; Stop at 09:41; Status DC Albuterol/ Ipratropium (Duoneb) 3 ml 1X ONCE NEB Last administered on 11:05; Start 08/09/17 at 11:00; Stop 08/09/17 at 11:01; Status DC Methylprednisolone Sodium Succinate (SOLU-Medrol 125MG VIAL) 125 mg 1X ONCE IV Last administered on 08/09/17 11:27; Start 08/09/17 at 11:00; Stop at 11:01; Status DC Sodium Chloride (Normal Saline Flush) 10 ml QSHIFT PRN IV AFTER MEDS AND BLOOD DRAWS; Start 08/09/17 at 12:15 Sodium Chloride 1,000 ml @ 1,830 mls/hr Q33M IV Last administered on 12:37; Start 08/09/17 at 12:10; Stop 08/09/17 at 13:10; Status DC Cefepime HCl 2 gm/ Sodium Chloride 100 ml @ 200 mls/hr 1X ONCE IV ; Start at 12:15; Stop 08/09/17 at 12:44; Status UNV Norepinephrine Bitartrate 250 ml @ 0 mls/hr CONT PRN IV PER PROTOCOL Last administered on 08/12/17 21:01; Start 08/09/17 at 12:15 Cefepime HCl (Maxipime) 2 gm 1X ONCE IVP Last administered on 08/09/17 12:33 ; Start 08/09/17 at 12:30; Stop 08/09/17 at 12:31; Status DC Ondansetron HCl (Zofran) 4 mg PRN Q8HRS PRN IV NAUSEA/VOMITING; Start at 12:45; Stop 08/09/17 at 14:13; Status DC Fentanyl Citrate (Fentanyl 2ml Vial) 50 mcg PRN Q2HR PRN IV PAIN Last administered on 08/10/17 01:01; Start 08/09/17 at 12:45; Stop 08/10/17 at 12 :44; Status DC Acetaminophen (Tylenol) 650 mg PRN Q4HRS PRN PO FEVER; Start 08/09/17 at 12:45 ; Stop 08/10/17 at 12:44; Status DC Acetaminophen (Tylenol) 650 mg PRN Q6HRS PRN PO FEVER Last administered on 09:03; Start 08/09/17 at 14:15 Ondansetron HCl (Zofran) 4 mg PRN Q6HRS PRN IV NAUSEA/VOMITING Last administered on 08/12/17 13:38; Start 08/09/17 at 14:15 Morphine Sulfate 2 mg PRN Q2HR PRN IV PAIN; Start 08/09/17 at 14:15 Tramadol HCl (Ultram) 50 mg PRN Q6HRS PRN PO PAIN; Start 08/09/17 at 14:15 Hydralazine HCl (Apresoline Inj) 10 mg PRN Q4HRS PRN IVP ELEVATED BP, SEE COMMENTS; Start 08/09/17 at 14:15 Docusate Sodium (Colace) 100 mg PRN DAILY PRN PO CONSTIPATION; Start 08/09/17 at 14:15 Apixaban (Eliquis) 5 mg BID PO Last administered on 08/12/17 20:12; Start at 21:00 Lorazepam (Ativan) 0.5 mg Q6HRS PRN PO ANXIETY; Start 08/09/17 at 14:15 Pantoprazole Sodium (Protonix) 40 mg DAILYAC PO Last administered on 09:43; Start 08/10/17 at 07:30 Albuterol/ Ipratropium (Duoneb) 3 ml RTQID NEB Last administered on 08/13/17 08:14; Start 08/09/17 at 16:00 Albuterol Sulfate (Ventolin Neb Soln) 2.5 mg PRN Q2HR PRN NEB SHORTNESS OF BREATH; Start 08/09/17 at 14:15 Guaifenesin (Mucinex) 600 mg BID PO Last administered on 08/12/17 20:11; Start 08/09/17 at 21:00 Cefepime HCl 1 gm/ Dextrose 50 ml @ 100 mls/hr Q8HRS IV ; Start 08/09/17 at 22 :00; Status UNV Cefepime HCl (Maxipime) 1 gm Q12HR IVP ; Start 08/09/17 at 21:00; Status Cancel Cefepime HCl 1 gm/ Dextrose 50 ml @ 100 mls/hr Q12HR IV Last administered on 08/10/17 20:19; Start 08/09/17 at 21:00; Stop 08/10/17 at 23:00; Status DC Potassium Chloride/Sodium Chloride 1,000 ml @ 75 mls/hr [id number] IV Last administered on 08/10/17 09:04; Start 08/09/17 at 14:45; Stop 08/10/17 at 16 :00; Status DC Magnesium Sulfate/ Dextrose 100 ml @ 25 mls/hr 1X ONCE IV Last administered on 08/09/17 15:30; Start 08/09/17 at 14:45; Stop 08/09/17 at 18:44; Status DC Potassium Chloride (Klor-Con) 40 meq 1X ONCE PO Last administered on 20:32; Start 08/09/17 at 16:30; Stop 08/09/17 at 16:31; Status DC Enoxaparin Sodium (Lovenox 40mg Syringe) 40 mg Q24H SQ ; Start 08/09/17 at 16: 30; Status UNV Tbo-Filgrastim (Granix) 480 mcg QHS SQ Last administered on 08/12/17 20:35; Start 08/09/17 at 21:00 Cefepime HCl (Maxipime) 1 gm Q12HR IVP Last administered on 08/12/17 20:11; Start 08/11/17 at 09:00 Info (Anti-Coagulation Monitoring By Pharmacy) 1 each PRN DAILY PRN MC SEE COMMENTS Last administered on 08/12/17 10:28; Start 08/10/17 at 11:00 Calcium Carbonate/ Glycine (Tums) 500 mg PRN AFTMEALHC PRN PO INDIGESTION Last administered on 08/10/17 21:09; Start 08/10/17 at 20:45 Multi-Ingredient Mouthwash/Gargle (Gi Cocktail Single Dose) 15 ml PRN 1X PRN SWSW CHEST PAIN; Start 08/10/17 at 20:45 Sodium Chloride 1,000 ml @ 1,000 mls/hr 1X ONCE IV Last administered on 08/12 15:02; Start 08/12/17 at 14:00; Stop 08/12/17 at 14:59; Status DC Vecuronium [place] (Norcuron Bolus) 4 mg PRN Q4HRS PRN IV AGITATION; Start at 14:30; Stop 08/12/17 at 14:48; Status DC Albumin Human 100 ml @ 100 mls/hr 1X ONCE IV Last administered on 08/12/17 16:15; Start 08/12/17 at 15:45; Stop 08/12/17 at 16:44; Status DC Potassium Chloride (Klor-Con) 40 meq 1X ONCE PO Last administered on 16:08; Start 08/12/17 at 15:45; Stop 08/12/17 at 15:46; Status DC Potassium Chloride (Klor-Con) 20 meq 1X ONCE PO Last administered on 20:12; Start 08/12/17 at 18:00; Stop 08/12/17 at 18:01; Status DC Magnesium Sulfate/ Dextrose 100 ml @ 25 mls/hr 1X ONCE IV Last administered on 08/12/17 16:09; Start 08/12/17 at 16:00; Stop 08/12/17 at 19:59; Status DC Potassium Chloride (Klor-Con) 40 meq 1X ONCE PO Last administered on 21:56; Start 08/12/17 at 22:00; Stop 08/12/17 at 22:01; Status DC Potassium Chloride (Klor-Con) 40 meq 1X ONCE PO Last administered on 00:27; Start 08/13/17 at 00:00; Stop 08/13/17 at 00:01; Status DC Active Scripts Active Reported Ativan (Lorazepam) 1 Mg Tablet 1 Mg PO Q6HRS PRN Eliquis (Apixaban) 5 Mg Tablet 5 Mg PO BID Zofran (Ondansetron Hcl) 8 Mg Tablet 8 Mg PO BID PRN Pantoprazole Sodium 40 Mg Tablet.dr 1 Tab PO DAILY Vitals/I & O Vital Sign - Last 24 Hours 08/12/17 08/12/17 08/12/17 08/12/17 10:00 10:30 11:00 11:44 Pulse 116 126 122 Resp 18 19 24 B/P (MAP) 82/48 (59) 110/58 (75) 109/59 (76) Pulse Ox 96 98 96 97 O2 Delivery Room Air Room Air Room Air Room Air 08/12/17 08/12/17 08/12/17 08/12/17 12:00 12:00 13:00 14:00 Temp 98.0 98.0 Pulse 132 138 126 Resp 25 20 23 B/P (MAP) 112/68 (83) 110/59 (76) 86/46 (59) Pulse Ox 95 98 96 O2 Delivery Room Air Room Air Room Air Room Air 08/12/17 08/12/17 08/12/17 08/12/17 14:30 15:00 15:30 15:32 Pulse 120 122 122 Resp 26 26 18 B/P (MAP) 83/47 (59) 83/50 (61) 74/44 (54) Pulse Ox 94 92 97 97 O2 Delivery Room Air Room Air Room Air Room Air 08/12/17 08/12/17 08/12/17 08/12/17 16:00 16:00 16:30 17:00 Temp 98.0 98.0 Pulse 126 122 134 Resp 20 18 27 B/P (MAP) 95/51 (66) 67/46 (53) 126/66 (86) Pulse Ox 96 95 96 O2 Delivery Room Air Room Air Room Air Room Air 08/12/17 08/12/17 08/12/17 08/12/17 17:30 18:00 19:00 19:30 Pulse 136 133 125 Resp 24 24 31 B/P (MAP) 124/60 (81) 130/67 (88) 102/52 (69) 113/55 (74) Pulse Ox 92 94 92 O2 Delivery Room Air Room Air Room Air 08/12/17 08/12/17 08/12/17 08/12/17 19:40 20:00 20:00 20:30 Temp 98.4 98.4 Pulse 128 Resp 27 B/P (MAP) 108/55 (72) 115/62 (79) Pulse Ox 99 93 O2 Delivery Room Air Room Air Room Air 08/12/17 08/12/17 08/12/17 08/12/17 21:00 21:30 22:00 22:30 Pulse 132 125 Resp 19 19 B/P (MAP) 113/54 (73) 126/63 (84) 102/56 (71) 104/61 (75) Pulse Ox 98 95 O2 Delivery Room Air Room Air 08/12/17 08/12/17 08/13/17 08/13/17 23:00 23:30 00:00 00:00 Temp 98.9 98.9 Pulse 124 118 Resp 23 18 B/P (MAP) 97/53 (68) 112/58 (76) 112/63 (79) Pulse Ox 95 99 O2 Delivery Room Air Room Air Room Air 08/13/17 08/13/17 08/13/17 08/13/17 00:30 02:00 03:00 04:00 Temp 98.9 98.9 Pulse 123 130 115 Resp 28 25 24 B/P (MAP) 97/58 (71) 100/61 (74) 101/55 (70) 101/61 (74) Pulse Ox 98 98 96 O2 Delivery Room Air Room Air Room Air 08/13/17 08/13/17 08/13/17 08/13/17 04:00 04:30 05:00 05:30 Pulse 114 Resp 29 B/P (MAP) 115/67 (83) 112/57 (75) 103/60 (74) Pulse Ox 97 O2 Delivery Room Air Room Air 08/13/17 08/13/17 08/13/17 06:00 07:00 08:14 Pulse 114 110 Resp 30 27 B/P (MAP) 95/54 (68) 104/55 (71) Pulse Ox 95 96 95 O2 Delivery Room Air Room Air Nasal Cannula O2 Flow Rate 2.0 Intake and Output 08/12/17 08/12/17 08/13/17 14:59 22:59 06:59 Intake Total 360 ml 1600 ml 397 ml Output Total 1100 ml 1700 ml 700 ml Balance -740 ml -100 ml -303 ml LAURA VENTURA MD Aug 13, 2017 09:50
--- NOTE | 2017-08-13 10:10 | PDOC ---
PROGRESS NOTES Subjective Subjective Patient continues to complain of dyspnea. Denied any chest pain. Objective Objective Vital Signs Date Time Temp Pulse Resp B/P (MAP) Pulse Ox O2 Delivery O2 Flow Rate FiO2 08/13/17 08:14 95 Nasal Cannula 2.0 08/13/17 07:00 110 27 104/55 (71) 08/13/17 04:00 98.9 98.9 Intake and Output 08/13/17 07:00 Intake Total 2357 ml Output Total 3500 ml Balance -1143 ml Intake Oral 720 ml IV Total 1637 ml Output Urine Total 3500 ml Physical Exam Abdomen: Soft, No tenderness Heart: Normal S1, Normal S2, Other (tachycardic, 2/6 systolic murmur to LLS border) Extremities: No cyanosis, No edema General: Alert, Oriented X3, Cooperative, No acute distress HEENT: Atraumatic, Mucous membr. moist/pink Lungs: Other (decreased air entry bases. Scattered crepitations.) MUSCULOSKELETAL: Osteoarthritic changes both hands Neuro: Normal speech, Sensation intact Psych/Mental Status: Mental status NL, Mood NL Skin: No breakdown, No significant lesion Assessment Assessment 1. Dyspnea: multifactorial with lung CA, recent acute bilateral PE, postobstructive pneumonia, COPD and anemia. SOA improved since admission. 2. Stage 3 SCLCA with pancytopenia. Pulmonary following 3. Sinus tachycardia with hypotension: Reactive and multifactorial primarily due to extracardiac factors as noted above. Patient still needing pressors - wean off as tolerated. 4. CAD: PCI/stent in the past, stable and chest pain-free. Okay for transfer out of ICU Plan Plan of Care Problems Medical Problems: (1) Anemia Status: Acute (2) Neutropenia Status: Acute (3) Pneumonia Status: Acute Comment Review of Relevant I have reviewed the following items gen (where applicable) has been applied. Labs Laboratory Tests Test 08/12/17 15:15 08/12/17 21:00 08/13/17 05:00 White Blood Count 0.4 x10^3/uL (4.0-11.0) 0.4 x10^3/uL (4.0-11.0) Red Blood Count 3.13 x10^6/uL (3.50-5.40) 2.94 x10^6/uL (3.50-5.40) Hemoglobin 8.7 g/dL (12.0-15.5) 8.1 g/dL (12.0-15.5) Hematocrit 26.2 % (36.0-47.0) 24.4 % (36.0-47.0) Mean Corpuscular Volume 84 fL (79-100) 83 fL (79-100) Mean Corpuscular Hemoglobin 28 pg (25-35) 27 pg (25-35) Mean Corpuscular Hemoglobin Concent 33 g/dL (31-37) 33 g/dL (31-37) Red Cell Distribution Width 23.3 % (11.5-14.5) 23.6 % (11.5-14.5) Platelet Count 28 x10^3/uL (140-400) 23 x10^3/uL (140-400) Potassium Level 2.8 mmol/L (3.5-5.1) 4.6 mmol/L (3.5-5.1) Magnesium Level 2.3 mg/dL (1.8-2.4) Neutrophils (%) (Auto) 9 % (31-73) Lymphocytes (%) (Auto) 65 % (24-48) Monocytes (%) (Auto) 24 % (0-9) Eosinophils (%) (Auto) 2 % (0-3) Basophils (%) (Auto) 1 % (0-3) Neutrophils # (Auto) 0.0 x10^3uL (1.8-7.7) Lymphocytes # (Auto) 0.2 x10^3/uL (1.0-4.8) Monocytes # (Auto) 0.1 x10^3/uL (0.0-1.1) Eosinophils # (Auto) 0.0 x10^3/uL (0.0-0.7) Basophils # (Auto) 0.0 x10^3/uL (0.0-0.2) Sodium Level 141 mmol/L (136-145) Chloride Level 105 mmol/L (98-107) Carbon Dioxide Level 27 mmol/L (21-32) Anion Gap 9 (6-14) Blood Urea Nitrogen 8 mg/dL (7-20) Creatinine 0.7 mg/dL (0.6-1.0) Estimated GFR (Cockcroft-Gault) 80.9 BUN/Creatinine Ratio 11 (6-20) Glucose Level 122 mg/dL (70-99) Calcium Level 8.5 mg/dL (8.5-10.1) Total Bilirubin 0.6 mg/dL (0.2-1.0) Aspartate Amino Transf (AST/SGOT) 11 U/L (15-37) Alanine Aminotransferase (ALT/SGPT) 14 U/L (14-59) Alkaline Phosphatase 95 U/L (46-116) Total Protein 5.9 g/dL (6.4-8.2) Albumin 2.9 g/dL (3.4-5.0) Albumin/Globulin Ratio 1.0 (1.0-1.7) Microbiology 08/09/17 Blood Culture - Preliminary, Resulted NO GROWTH AFTER 3 DAYS 08/11/17 - Final, Resulted 08/11/17 - Final, Resulted 08/11/17 - Final, Resulted 08/11/17 - Final, Resulted 08/11/17 - Final, Resulted 08/11/17 Gram Stain Evaluation - Final, Resulted 08/11/17 Sputum Culture - Preliminary, Resulted 08/11/17 Sputum Result 1 - Final, Resulted Medications Current Medications Albumin Human 100 ml @ 100 mls/hr 1X ONCE IV Last administered on 08/12/17 16:15; Start 08/12/17 at 15:45; Stop 08/12/17 at 16:44; Status DC Magnesium Sulfate/ Dextrose 100 ml @ 25 mls/hr 1X ONCE IV Last administered on 08/12/17 16:09; Start 08/12/17 at 16:00; Stop 08/12/17 at 19:59; Status DC Potassium Chloride (Klor-Con) 20 meq 1X ONCE PO Last administered on 20:12; Start 08/12/17 at 18:00; Stop 08/12/17 at 18:01; Status DC Potassium Chloride (Klor-Con) 40 meq 1X ONCE PO Last administered on 16:08; Start 08/12/17 at 15:45; Stop 08/12/17 at 15:46; Status DC Potassium Chloride (Klor-Con) 40 meq 1X ONCE PO Last administered on 21:56; Start 08/12/17 at 22:00; Stop 08/12/17 at 22:01; Status DC Potassium Chloride (Klor-Con) 40 meq 1X ONCE PO Last administered on t 00:27; Start 08/13/17 at 00:00; Stop 08/13/17 at 00:01; Status DC Sodium Chloride 1,000 ml @ 1,000 mls/hr 1X ONCE IV Last administered on 08/12t 15:02; Start 08/12/17 at 14:00; Stop 08/12/17 at 14:59; Status DC Vecuronium Winter (Norcuron Bolus) 4 mg PRN Q4HRS PRN IV AGITATION; Start at 14:30; Stop 08/12/17 at 14:48; Status DC Vitals/I & O Vital Sign - Last 24 Hours 08/12/17 08/12/17 08/12/17 08/12/17 10:30 11:00 11:44 12:00 Temp 98.0 98.0 Pulse 126 122 132 Resp 19 24 25 B/P (MAP) 110/58 (75) 109/59 (76) 112/68 (83) Pulse Ox 98 96 97 95 O2 Delivery Room Air Room Air Room Air Room Air 08/12/17 08/12/17 08/12/17 08/12/17 12:00 13:00 14:00 14:30 Pulse 138 126 120 Resp 20 23 26 B/P (MAP) 110/59 (76) 86/46 (59) 83/47 (59) Pulse Ox 98 96 94 O2 Delivery Room Air Room Air Room Air Room Air 08/12/17 08/12/17 08/12/17 08/12/17 15:00 15:30 15:32 16:00 Pulse 122 122 Resp 26 18 B/P (MAP) 83/50 (61) 74/44 (54) Pulse Ox 92 97 97 O2 Delivery Room Air Room Air Room Air Room Air 08/12/17 08/12/17 08/12/17 08/12/17 16:00 16:30 17:00 17:30 Temp 98.0 98.0 Pulse 126 122 134 136 Resp 20 18 27 24 B/P (MAP) 95/51 (66) 67/46 (53) 126/66 (86) 124/60 (81) Pulse Ox 96 95 96 92 O2 Delivery Room Air Room Air Room Air Room Air 11/17/08/12/17 08/12/17 08/12/17 18:00 19:00 19:30 19:40 Pulse 133 125 Resp 24 31 B/P (MAP) 130/67 (88) 102/52 (69) 113/55 (74) Pulse Ox 94 92 99 O2 Delivery Room Air Room Air Room Air 08/12/17 08/12/17 08/12/17 08/12/17 20:00 20:00 20:30 21:00 Temp 98.4 98.4 Pulse 128 132 Resp 27 19 B/P (MAP) 108/55 (72) 115/62 (79) 113/54 (73) Pulse Ox 93 98 O2 Delivery Room Air Room Air Room Air 08/12/17 08/12/17 08/12/17 08/12/17 21:30 22:00 22:30 23:00 Pulse 125 124 Resp 19 23 B/P (MAP) 126/63 (84) 102/56 (71) 104/61 (75) 97/53 (68) Pulse Ox 95 95 O2 Delivery Room Air Room Air 08/12/17 08/13/17 08/13/17 08/13/17 23:30 00:00 00:00 00:30 Temp 98.9 98.9 Pulse 118 Resp 18 B/P (MAP) 112/58 (76) 112/63 (79) 97/58 (71) Pulse Ox 99 O2 Delivery Room Air Room Air 08/13/17 08/13/17 08/13/17 08/13/17 02:00 03:00 04:00 04:00 Temp 98.9 98.9 Pulse 123 130 115 Resp 28 25 24 B/P (MAP) 100/61 (74) 101/55 (70) 101/61 (74) Pulse Ox 98 98 96 O2 Delivery Room Air Room Air Room Air Room Air 08/13/17 08/13/17 08/13/17 08/13/17 04:30 05:00 05:30 06:00 Pulse 114 114 Resp 29 30 B/P (MAP) 115/67 (83) 112/57 (75) 103/60 (74) 95/54 (68) Pulse Ox 97 95 O2 Delivery Room Air Room Air 08/13/17 08/13/17 08/13/17 07:00 08:00 08:14 Pulse 110 Resp 27 B/P (MAP) 104/55 (71) Pulse Ox 96 95 O2 Delivery Room Air Room Air Nasal Cannula O2 Flow Rate 2.0 Intake and Output 08/12/17 08/12/17 08/13/17 15:00 23:00 07:00 Intake Total 480 ml 1480 ml 397 ml Output Total 1400 ml 1600 ml 500 ml Balance -920 ml -120 ml -103 ml ELISA SOUZA MD Aug 13, 2017 10:10
[2017-08-13] MEDS: APIXABAN 5 MG TABLET. PO SCH ×2 (10:43→20:30)
[2017-08-13] MEDS: CEFEPIME HCL IV Push 1 GM VIAL. IVP SCH ×2 (10:43→20:31)
[2017-08-13] MEDS: PANTOPRAZOLE 40 MG TABLET.DR. PO SCH (10:43)
[2017-08-13] MEDS: MICAFUNGIN 100 MG in IV DEXTROSE 5% 100 ML IV SCH (12:04)
--- NOTE | 2017-08-13 12:30 | PDOC ---
PULMONARY PROGRESS NOTES Subjective no soa ON LOW DOSE LEVO Vitals Vital Signs Date Time Temp Pulse Resp B/P (MAP) Pulse Ox O2 Delivery O2 Flow Rate FiO2 08/13/17 12:00 Room Air 08/13/17 11:58 95 08/13/17 11:00 114 21 92/47 (62) 08/13/17 08:14 2.0 08/13/17 08:00 98.7 98.7 ROS: No Nausea, No Chest Pain, No Increase Cough General: Alert, No acute distress Lungs: Other (decrease bs) Cardiovascular: S1 Abdomen: Soft Neuro Exam: Alert Extremities: Other (1+edema) Labs Laboratory Tests Test 08/12/17 09:20 08/12/17 15:15 08/12/17 21:00 08/13/17 05:00 White Blood Count 0.3 x10^3/uL (4.0-11.0) 0.4 x10^3/uL (4.0-11.0) 0.4 x10^3/uL (4.0-11.0) Red Blood Count 3.17 x10^6/uL (3.50-5.40) 3.13 x10^6/uL (3.50-5.40) 2.94 x10^6/uL (3.50-5.40) Hemoglobin 8.8 g/dL (12.0-15.5) 8.7 g/dL (12.0-15.5) 8.1 g/dL (12.0-15.5) Hematocrit 26.8 % (36.0-47.0) 26.2 % (36.0-47.0) 24.4 % (36.0-47.0) Mean Corpuscular Volume 85 fL (79-100) 84 fL (79-100) 83 fL (79-100) Mean Corpuscular Hemoglobin 28 pg (25-35) 28 pg (25-35) 27 pg (25-35) Mean Corpuscular Hemoglobin Concent 33 g/dL (31-37) 33 g/dL (31-37) 33 g/dL (31-37) Red Cell Distribution Width 23.7 % (11.5-14.5) 23.3 % (11.5-14.5) 23.6 % (11.5-14.5) Platelet Count 34 x10^3/uL (140-400) 28 x10^3/uL (140-400) 23 x10^3/uL (140-400) Neutrophils (%) (Auto) 6 % (31-73) 9 % (31-73) Lymphocytes (%) (Auto) 80 % (24-48) 65 % (24-48) Monocytes (%) (Auto) 12 % (0-9) 24 % (0-9) Eosinophils (%) (Auto) 1 % (0-3) 2 % (0-3) Basophils (%) (Auto) 0 % (0-3) 1 % (0-3) Neutrophils # (Auto) 0.0 x10^3uL (1.8-7.7) 0.0 x10^3uL (1.8-7.7) Lymphocytes # (Auto) 0.3 x10^3/uL (1.0-4.8) 0.2 x10^3/uL (1.0-4.8) Monocytes # (Auto) 0.0 x10^3/uL (0.0-1.1) 0.1 x10^3/uL (0.0-1.1) Eosinophils # (Auto) 0.0 x10^3/uL (0.0-0.7) 0.0 x10^3/uL (0.0-0.7) Basophils # (Auto) 0.0 x10^3/uL (0.0-0.2) 0.0 x10^3/uL (0.0-0.2) Sodium Level 140 mmol/L (136-145) 141 mmol/L (136-145) Potassium Level 2.9 mmol/L (3.5-5.1) 2.8 mmol/L (3.5-5.1) 4.6 mmol/L (3.5-5.1) Chloride Level 102 mmol/L (98-107) 105 mmol/L (98-107) Carbon Dioxide Level 28 mmol/L (21-32) 27 mmol/L (21-32) Anion Gap 10 (6-14) 9 (6-14) Blood Urea Nitrogen 9 mg/dL (7-20) 8 mg/dL (7-20) Creatinine 0.8 mg/dL (0.6-1.0) 0.7 mg/dL (0.6-1.0) Estimated GFR (Cockcroft-Gault) 69.4 80.9 BUN/Creatinine Ratio 11 (6-20) 11 (6-20) Glucose Level 133 mg/dL (70-99) 122 mg/dL (70-99) Calcium Level 8.1 mg/dL (8.5-10.1) 8.5 mg/dL (8.5-10.1) Magnesium Level 0.7 mg/dL (1.8-2.4) 2.3 mg/dL (1.8-2.4) Total Bilirubin 0.5 mg/dL (0.2-1.0) 0.6 mg/dL (0.2-1.0) Aspartate Amino Transf (AST/SGOT) 8 U/L (15-37) 11 U/L (15-37) Alanine Aminotransferase (ALT/SGPT) 17 U/L (14-59) 14 U/L (14-59) Alkaline Phosphatase 106 U/L (46-116) 95 U/L (46-116) Total Protein 5.5 g/dL (6.4-8.2) 5.9 g/dL (6.4-8.2) Albumin 2.7 g/dL (3.4-5.0) 2.9 g/dL (3.4-5.0) Albumin/Globulin Ratio 1.0 (1.0-1.7) 1.0 (1.0-1.7) Laboratory Tests Test 08/12/17 15:15 08/12/17 21:00 08/13/17 05:00 White Blood Count 0.4 x10^3/uL (4.0-11.0) 0.4 x10^3/uL (4.0-11.0) Red Blood Count 3.13 x10^6/uL (3.50-5.40) 2.94 x10^6/uL (3.50-5.40) Hemoglobin 8.7 g/dL (12.0-15.5) 8.1 g/dL (12.0-15.5) Hematocrit 26.2 % (36.0-47.0) 24.4 % (36.0-47.0) Mean Corpuscular Volume 84 fL (79-100) 83 fL (79-100) Mean Corpuscular Hemoglobin 28 pg (25-35) 27 pg (25-35) Mean Corpuscular Hemoglobin Concent 33 g/dL (31-37) 33 g/dL (31-37) Red Cell Distribution Width 23.3 % (11.5-14.5) 23.6 % (11.5-14.5) Platelet Count 28 x10^3/uL (140-400) 23 x10^3/uL (140-400) Potassium Level 2.8 mmol/L (3.5-5.1) 4.6 mmol/L (3.5-5.1) Magnesium Level 2.3 mg/dL (1.8-2.4) Neutrophils (%) (Auto) 9 % (31-73) Lymphocytes (%) (Auto) 65 % (24-48) Monocytes (%) (Auto) 24 % (0-9) Eosinophils (%) (Auto) 2 % (0-3) Basophils (%) (Auto) 1 % (0-3) Neutrophils # (Auto) 0.0 x10^3uL (1.8-7.7) Lymphocytes # (Auto) 0.2 x10^3/uL (1.0-4.8) Monocytes # (Auto) 0.1 x10^3/uL (0.0-1.1) Eosinophils # (Auto) 0.0 x10^3/uL (0.0-0.7) Basophils # (Auto) 0.0 x10^3/uL (0.0-0.2) Sodium Level 141 mmol/L (136-145) Chloride Level 105 mmol/L (98-107) Carbon Dioxide Level 27 mmol/L (21-32) Anion Gap 9 (6-14) Blood Urea Nitrogen 8 mg/dL (7-20) Creatinine 0.7 mg/dL (0.6-1.0) Estimated GFR (Cockcroft-Gault) 80.9 BUN/Creatinine Ratio 11 (6-20) Glucose Level 122 mg/dL (70-99) Calcium Level 8.5 mg/dL (8.5-10.1) Total Bilirubin 0.6 mg/dL (0.2-1.0) Aspartate Amino Transf (AST/SGOT) 11 U/L (15-37) Alanine Aminotransferase (ALT/SGPT) 14 U/L (14-59) Alkaline Phosphatase 95 U/L (46-116) Total Protein 5.9 g/dL (6.4-8.2) Albumin 2.9 g/dL (3.4-5.0) Albumin/Globulin Ratio 1.0 (1.0-1.7) Medications Active Scripts Medications Dose Route/Sig Max Daily Dose Days Date Category Ativan (Lorazepam) 1 Mg Tablet 1 Mg PO Q6HRS PRN 07/25/17 Reported Eliquis (Apixaban) 5 Mg Tablet 5 Mg PO BID 07/25/17 Reported Zofran (Ondansetron Hcl) 8 Mg Tablet 8 Mg PO BID PRN 06/09/17 Reported Pantoprazole Sodium 40 Mg Tablet.dr 1 Tab PO DAILY 05/18/17 Reported Impression . 1. Dyspnea/weakness, most likely related to anemia in a patient who has been treated with chemo and radiation for small cell, undifferentiated carcinoma. 2. Small cell carcinoma, undifferentiated status post chemo and radiation. 3. History of recent pulmonary embolism and no evidence of any deep venous thrombosis. This is secondary to hypercoagulable state. Currently on Eliquis at home and I would continue Eliquis. I do not think that anemia is related to Eliquis, but rather chemo-induced. 4. Neutropenia and anemia, chemo-induced. 5. Underlying chronic obstructive pulmonary disease. 6. Suspected post-obstructive pneumonia. 7. SHOCK Plan . 1. Continue with p.r.n. oxygen. 2. Antibiotic cefepime. 3. Continue Eliquis. 4. DuoNebs. 5. Follow Oncology recommendation. 6. Monitor white cell count and hemoglobin. 7. Transfuse to keep hemoglobin above 8. 8. sputum with yeast, add micafungin 9. wean pressor CUCA ANTUNEZ MD Aug 13, 2017 12:30
[2017-08-13] MEDS: ANTI-COAG MONITOR BY PHARMACY. MC PRN (16:19)
[2017-08-13] MEDS: TBO-FILGRASTIM 480 MCG/0.8 ML SYRINGE. SQ SCH (20:39)
[2017-08-14] VITALS (8 sets, daily range): BP systolic 87–154; BP diastolic 46–82
[2017-08-14 05:32] LABS: BASO % 0 % (0-3); EOS % 2 % (0-3); HEMATOCRIT 23.8 % (36.0-47.0); HEMOGLOBIN 7.9 g/dL (12.0-15.5); LYMPH # 0.4 x10^3/uL (1.0-4.8); LYMPH % 52 % (24-48); MEAN CORPUSCULAR HEMOGLOBIN 28 pg (25-35); MEAN CORPUSCULAR HGB CONC 33 g/dL (31-37); MEAN CORPUSCULAR VOLUME 83 fL (79-100); MONO % 16 % (0-9); NEUT % 30 % (31-73); RED BLOOD COUNT 2.86 x10^6/uL (3.50-5.40); RED CELL DISTRIBUTION WIDTH 24.5 % (11.5-14.5)
[2017-08-14 05:47] LABS: WHITE BLOOD COUNT 0.7 x10^3/uL (4.0-11.0)
[2017-08-14 05:48] LABS: PLATELET COUNT 13 x10^3/uL (140-400)
[2017-08-14 06:04] LABS: ALBUMIN 2.6 g/dL (3.4-5.0); ALBUMIN/GLOBULIN RATIO 0.8 (1.0-1.7); CALCIUM 8.7 mg/dL (8.5-10.1); CREATININE 0.7 mg/dL (0.6-1.0); GFR 80.9; POTASSIUM 4.4 mmol/L (3.5-5.1); TOTAL BILIRUBIN 0.5 mg/dL (0.2-1.0); TOTAL PROTEIN 5.8 g/dL (6.4-8.2)
[2017-08-14] MEDS: IPRATRPIUM/ALBUTEROL 0.5/2.5MG 3 ML NEBU. NEB SCH ×4 (08:17→19:19)
[2017-08-14] MEDS: CEFEPIME HCL IV Push 1 GM VIAL. IVP SCH ×2 (08:59→21:12)
[2017-08-14] MEDS: PANTOPRAZOLE 40 MG TABLET.DR. PO SCH (08:59)
[2017-08-14] MEDS: APIXABAN 5 MG TABLET. PO SCH ×2 (08:59→21:12)
--- NOTE | 2017-08-14 09:24 | PDOC ---
PROGRESS NOTES Subjective Subjective Doing better. Off pressors. No bruising or bleeding. Mild cough, no dyspnea Objective Objective Vital Signs Date Time Temp Pulse Resp B/P (MAP) Pulse Ox O2 Delivery O2 Flow Rate FiO2 08/14/17 08:19 95 Room Air 08/14/17 03:40 97.9 111 26 108/55 (72) 97.9 08/13/17 08:14 2.0 Intake and Output 08/14/17 07:00 Intake Total 1000 ml Output Total 1035 ml Balance -35 ml Intake Oral 900 ml IV Total 100 ml Output Urine Total 1035 ml # Bowel Movements 1 Physical Exam Abdomen: Normal bowel sounds Heart: Regular rate Extremities: No clubbing General: Alert HEENT: Atraumatic Lungs: Normal air movement MUSCULOSKELETAL: No joint tenderness Neck: Supple Neuro: Normal speech Psych/Mental Status: Mental status NL Skin: No rashes Assessment Assessment Problems Medical Problems: (1) Anemia Status: Acute (2) Neutropenia Status: Acute (3) Pneumonia Status: Acute Plan Plan of Care Impression: Thrombocytopenia Neutropenia Acute PE/DVT on Eliquis Stage III lugn cancer s/p chemoradiation Recent septic shock Recommend: - Transfuse 1U platelets - [place] to have platelets >50k while on full dose Eliquis - Continue Eliquis - Continue Granix until ANC >1500 - Continue supportive care Comment Review of Relevant I have reviewed the following items gen (where applicable) has been applied. Labs Laboratory Tests Test 08/12/17 15:15 08/12/17 21:00 08/13/17 05:00 08/14/17 03:00 White Blood Count 0.4 x10^3/uL (4.0-11.0) 0.4 x10^3/uL (4.0-11.0) 0.7 x10^3/uL (4.0-11.0) Red Blood Count 3.13 x10^6/uL (3.50-5.40) 2.94 x10^6/uL (3.50-5.40) 2.86 x10^6/uL (3.50-5.40) Hemoglobin 8.7 g/dL (12.0-15.5) 8.1 g/dL (12.0-15.5) 7.9 g/dL (12.0-15.5) Hematocrit 26.2 % (36.0-47.0) 24.4 % (36.0-47.0) 23.8 % (36.0-47.0) Mean Corpuscular Volume 84 fL (79-100) 83 fL (79-100) 83 fL (79-100) Mean Corpuscular Hemoglobin 28 pg (25-35) 27 pg (25-35) 28 pg (25-35) Mean Corpuscular Hemoglobin Concent 33 g/dL (31-37) 33 g/dL (31-37) 33 g/dL (31-37) Red Cell Distribution Width 23.3 % (11.5-14.5) 23.6 % (11.5-14.5) 24.5 % (11.5-14.5) Platelet Count 28 x10^3/uL (140-400) 23 x10^3/uL (140-400) 13 x10^3/uL (140-400) Potassium Level 2.8 mmol/L (3.5-5.1) 4.6 mmol/L (3.5-5.1) 4.4 mmol/L (3.5-5.1) Magnesium Level 2.3 mg/dL (1.8-2.4) Neutrophils (%) (Auto) 9 % (31-73) 30 % (31-73) Lymphocytes (%) (Auto) 65 % (24-48) 52 % (24-48) Monocytes (%) (Auto) 24 % (0-9) 16 % (0-9) Eosinophils (%) (Auto) 2 % (0-3) 2 % (0-3) Basophils (%) (Auto) 1 % (0-3) 0 % (0-3) Neutrophils # (Auto) 0.0 x10^3uL (1.8-7.7) 0.2 x10^3uL (1.8-7.7) Lymphocytes # (Auto) 0.2 x10^3/uL (1.0-4.8) 0.4 x10^3/uL (1.0-4.8) Monocytes # (Auto) 0.1 x10^3/uL (0.0-1.1) 0.1 x10^3/uL (0.0-1.1) Eosinophils # (Auto) 0.0 x10^3/uL (0.0-0.7) 0.0 x10^3/uL (0.0-0.7) Basophils # (Auto) 0.0 x10^3/uL (0.0-0.2) 0.0 x10^3/uL (0.0-0.2) Sodium Level 141 mmol/L (136-145) 137 mmol/L (136-145) Chloride Level 105 mmol/L (98-107) 103 mmol/L (98-107) Carbon Dioxide Level 27 mmol/L (21-32) 27 mmol/L (21-32) Anion Gap 9 (6-14) 7 (6-14) Blood Urea Nitrogen 8 mg/dL (7-20) 11 mg/dL (7-20) Creatinine 0.7 mg/dL (0.6-1.0) 0.7 mg/dL (0.6-1.0) Estimated GFR (Cockcroft-Gault) 80.9 80.9 BUN/Creatinine Ratio 11 (6-20) 16 (6-20) Glucose Level 122 mg/dL (70-99) 102 mg/dL (70-99) Calcium Level 8.5 mg/dL (8.5-10.1) 8.7 mg/dL (8.5-10.1) Total Bilirubin 0.6 mg/dL (0.2-1.0) 0.5 mg/dL (0.2-1.0) Aspartate Amino Transf (AST/SGOT) 11 U/L (15-37) 12 U/L (15-37) Alanine Aminotransferase (ALT/SGPT) 14 U/L (14-59) 14 U/L (14-59) Alkaline Phosphatase 95 U/L (46-116) 91 U/L (46-116) Total Protein 5.9 g/dL (6.4-8.2) 5.8 g/dL (6.4-8.2) Albumin 2.9 g/dL (3.4-5.0) 2.6 g/dL (3.4-5.0) Albumin/Globulin Ratio 1.0 (1.0-1.7) 0.8 (1.0-1.7) Laboratory Tests Test 08/14/17 03:00 White Blood Count 0.7 x10^3/uL (4.0-11.0) Red Blood Count 2.86 x10^6/uL (3.50-5.40) Hemoglobin 7.9 g/dL (12.0-15.5) Hematocrit 23.8 % (36.0-47.0) Mean Corpuscular Volume 83 fL (79-100) Mean Corpuscular Hemoglobin 28 pg (25-35) Mean Corpuscular Hemoglobin Concent 33 g/dL (31-37) Red Cell Distribution Width 24.5 % (11.5-14.5) Platelet Count 13 x10^3/uL (140-400) Neutrophils (%) (Auto) 30 % (31-73) Lymphocytes (%) (Auto) 52 % (24-48) Monocytes (%) (Auto) 16 % (0-9) Eosinophils (%) (Auto) 2 % (0-3) Basophils (%) (Auto) 0 % (0-3) Neutrophils # (Auto) 0.2 x10^3uL (1.8-7.7) Lymphocytes # (Auto) 0.4 x10^3/uL (1.0-4.8) Monocytes # (Auto) 0.1 x10^3/uL (0.0-1.1) Eosinophils # (Auto) 0.0 x10^3/uL (0.0-0.7) Basophils # (Auto) 0.0 x10^3/uL (0.0-0.2) Sodium Level 137 mmol/L (136-145) Potassium Level 4.4 mmol/L (3.5-5.1) Chloride Level 103 mmol/L (98-107) Carbon Dioxide Level 27 mmol/L (21-32) Anion Gap 7 (6-14) Blood Urea Nitrogen 11 mg/dL (7-20) Creatinine 0.7 mg/dL (0.6-1.0) Estimated GFR (Cockcroft-Gault) 80.9 BUN/Creatinine Ratio 16 (6-20) Glucose Level 102 mg/dL (70-99) Calcium Level 8.7 mg/dL (8.5-10.1) Total Bilirubin 0.5 mg/dL (0.2-1.0) Aspartate Amino Transf (AST/SGOT) 12 U/L (15-37) Alanine Aminotransferase (ALT/SGPT) 14 U/L (14-59) Alkaline Phosphatase 91 U/L (46-116) Total Protein 5.8 g/dL (6.4-8.2) Albumin 2.6 g/dL (3.4-5.0) Albumin/Globulin Ratio 0.8 (1.0-1.7) Microbiology 08/09/17 Blood Culture - Preliminary, Resulted NO GROWTH AFTER 4 DAYS 08/11/17 - Final, Complete 08/11/17 - Final, Complete 08/11/17 - Final, Complete 08/11/17 - Final, Complete 08/11/17 - Final, Complete 08/11/17 Gram Stain Evaluation - Final, Complete 08/11/17 Sputum Culture - Final, Complete 08/11/17 Sputum Result 1 - Final, Complete Medications Current Medications Lorazepam (Ativan) 1 mg 1X ONCE IV Last administered on 08/09/17 11:27; Start 08/09/17 at 11:00; Stop 08/09/17 at 11:01; Status DC Sodium Chloride 1,000 ml @ 1,000 mls/hr Q1H IV Last administered on 11:27; Start 08/09/17 at 10:49; Stop 08/09/17 at 11:48; Status DC Sodium Chloride (Normal Saline Flush) 10 ml QSHIFT PRN IV AFTER MEDS AND BLOOD DRAWS Last administered on 08/09/17 11:28; Start 08/09/17 at 11:00; Stop at 09:41; Status DC Albuterol/ Ipratropium (Duoneb) 3 ml 1X ONCE NEB Last administered on 11:05; Start 08/09/17 at 11:00; Stop 08/09/17 at 11:01; Status DC Methylprednisolone Sodium Succinate (SOLU-Medrol 125MG VIAL) 125 mg 1X ONCE IV Last administered on 08/09/17 11:27; Start 08/09/17 at 11:00; Stop at 11:01; Status DC Sodium Chloride (Normal Saline Flush) 10 ml QSHIFT PRN IV AFTER MEDS AND BLOOD DRAWS; Start 08/09/17 at 12:15 Sodium Chloride 1,000 ml @ 1,830 mls/hr Q33M IV Last administered on 12:37; Start 08/09/17 at 12:10; Stop 08/09/17 at 13:10; Status DC Cefepime HCl 2 gm/ Sodium Chloride 100 ml @ 200 mls/hr 1X ONCE IV ; Start at 12:15; Stop 08/09/17 at 12:44; Status UNV Norepinephrine Bitartrate 250 ml @ 0 mls/hr CONT PRN IV PER PROTOCOL Last administered on 08/12/17 21:01; Start 08/09/17 at 12:15 Cefepime HCl (Maxipime) 2 gm 1X ONCE IVP Last administered on 08/09/17 12:33 ; Start 08/09/17 at 12:30; Stop 08/09/17 at 12:31; Status DC Ondansetron HCl (Zofran) 4 mg PRN Q8HRS PRN IV NAUSEA/VOMITING; Start at 12:45; Stop 08/09/17 at 14:13; Status DC Fentanyl Citrate (Fentanyl 2ml Vial) 50 mcg PRN Q2HR PRN IV PAIN Last administered on 08/10/17 01:01; Start 08/09/17 at 12:45; Stop 08/10/17 at 12 :44; Status DC Acetaminophen (Tylenol) 650 mg PRN Q4HRS PRN PO FEVER; Start 08/09/17 at 12:45 ; Stop 08/10/17 at 12:44; Status DC Acetaminophen (Tylenol) 650 mg PRN Q6HRS PRN PO FEVER Last administered on 09:03; Start 08/09/17 at 14:15 Ondansetron HCl (Zofran) 4 mg PRN Q6HRS PRN IV NAUSEA/VOMITING Last administered on 08/12/17 13:38; Start 08/09/17 at 14:15 Morphine Sulfate 2 mg PRN Q2HR PRN IV PAIN; Start 08/09/17 at 14:15 Tramadol HCl (Ultram) 50 mg PRN Q6HRS PRN PO PAIN; Start 08/09/17 at 14:15 Hydralazine HCl (Apresoline Inj) 10 mg PRN Q4HRS PRN IVP ELEVATED BP, SEE COMMENTS; Start 08/09/17 at 14:15 Docusate Sodium (Colace) 100 mg PRN DAILY PRN PO CONSTIPATION; Start 08/09/17 at 14:15 Apixaban (Eliquis) 5 mg BID PO Last administered on 08/14/17 08:59; Start at 21:00 Lorazepam (Ativan) 0.5 mg Q6HRS PRN PO ANXIETY; Start 08/09/17 at 14:15 Pantoprazole Sodium (Protonix) 40 mg DAILYAC PO Last administered on 08:59; Start 08/10/17 at 07:30 Albuterol/ Ipratropium (Duoneb) 3 ml RTQID NEB Last administered on 08/14/17 08:17; Start 08/09/17 at 16:00 Albuterol Sulfate (Ventolin Neb Soln) 2.5 mg PRN Q2HR PRN NEB SHORTNESS OF BREATH; Start 08/09/17 at 14:15 Guaifenesin (Mucinex) 600 mg BID PO Last administered on 08/14/17 08:59; Start 08/09/17 at 21:00 Cefepime HCl 1 gm/ Dextrose 50 ml @ 100 mls/hr Q8HRS IV ; Start 08/09/17 at 22 :00; Status UNV Cefepime HCl (Maxipime) 1 gm Q12HR IVP ; Start 08/09/17 at 21:00; Status Cancel Cefepime HCl 1 gm/ Dextrose 50 ml @ 100 mls/hr Q12HR IV Last administered on 08/10/17 20:19; Start 08/09/17 at 21:00; Stop 08/10/17 at 23:00; Status DC Potassium Chloride/Sodium Chloride 1,000 ml @ 75 mls/hr [id number] IV Last administered on 08/10/17 09:04; Start 08/09/17 at 14:45; Stop 08/10/17 at 16 :00; Status DC Magnesium Sulfate/ Dextrose 100 ml @ 25 mls/hr 1X ONCE IV Last administered on 08/09/17 15:30; Start 08/09/17 at 14:45; Stop 08/09/17 at 18:44; Status DC Potassium Chloride (Klor-Con) 40 meq 1X ONCE PO Last administered on 20:32; Start 08/09/17 at 16:30; Stop 08/09/17 at 16:31; Status DC Enoxaparin Sodium (Lovenox 40mg Syringe) 40 mg Q24H SQ ; Start 08/09/17 at 16: 30; Status UNV Tbo-Filgrastim (Granix) 480 mcg QHS SQ Last administered on 08/13/17 20:39; Start 08/09/17 at 21:00 Cefepime HCl (Maxipime) 1 gm Q12HR IVP Last administered on 08/14/17 08:59; Start 08/11/17 at 09:00 Info (Anti-Coagulation Monitoring By Pharmacy) 1 each PRN DAILY PRN MC SEE COMMENTS Last administered on 08/13/17 16:19; Start 08/10/17 at 11:00 Calcium Carbonate/ Glycine (Tums) 500 mg PRN AFTMEALHC PRN PO INDIGESTION Last administered on 08/10/17 21:09; Start 08/10/17 at 20:45 Multi-Ingredient Mouthwash/Gargle (Gi Cocktail Single Dose) 15 ml PRN 1X PRN SWSW CHEST PAIN; Start 08/10/17 at 20:45 Sodium Chloride 1,000 ml @ 1,000 mls/hr 1X ONCE IV Last administered on 08/12 15:02; Start 08/12/17 at 14:00; Stop 08/12/17 at 14:59; Status DC Vecuronium Slater (Norcuron Bolus) 4 mg PRN Q4HRS PRN IV AGITATION; Start at 14:30; Stop 08/12/17 at 14:48; Status DC Albumin Human 100 ml @ 100 mls/hr 1X ONCE IV Last administered on 08/12/17 16:15; Start 08/12/17 at 15:45; Stop 08/12/17 at 16:44; Status DC Potassium Chloride (Klor-Con) 40 meq 1X ONCE PO Last administered on 16:08; Start 08/12/17 at 15:45; Stop 08/12/17 at 15:46; Status DC Potassium Chloride (Klor-Con) 20 meq 1X ONCE PO Last administered on 20:12; Start 08/12/17 at 18:00; Stop 08/12/17 at 18:01; Status DC Magnesium Sulfate/ Dextrose 100 ml @ 25 mls/hr 1X ONCE IV Last administered on 08/12/17 16:09; Start 08/12/17 at 16:00; Stop 08/12/17 at 19:59; Status DC Potassium Chloride (Klor-Con) 40 meq 1X ONCE PO Last administered on 21:56; Start 08/12/17 at 22:00; Stop 08/12/17 at 22:01; Status DC Potassium Chloride (Klor-Con) 40 meq 1X ONCE PO Last administered on 00:27; Start 08/13/17 at 00:00; Stop 08/13/17 at 00:01; Status DC Micafungin Sodium 100 mg/Dextrose 100 ml @ 100 mls/hr Q24H IV Last administered on 08/13/17 12:04; Start 08/13/17 at 12:00 Active Scripts Active Reported Ativan (Lorazepam) 1 Mg Tablet 1 Mg PO Q6HRS PRN Eliquis (Apixaban) 5 Mg Tablet 5 Mg PO BID Zofran (Ondansetron Hcl) 8 Mg Tablet 8 Mg PO BID PRN Pantoprazole Sodium 40 Mg Tablet. 1 Tab PO DAILY Vitals/I & O Vital Sign - Last 24 Hours 08/13/17 08/13/17 08/13/17 08/13/17 09:30 10:00 10:30 10:45 Pulse 118 116 118 114 Resp 20 28 29 29 B/P (MAP) 86/48 (61) 87/46 (60) 87/46 (60) 86/47 (60) Pulse Ox 97 98 98 96 O2 Delivery Room Air Room Air Room Air Room Air 08/13/17 08/13/17 08/13/17 08/13/17 11:00 11:15 11:30 11:45 Pulse 114 124 114 112 Resp 21 39 21 20 B/P (MAP) 92/47 (62) 108/52 (70) 92/47 (62) 78/41 (53) Pulse Ox 97 96 97 98 O2 Delivery Room Air Room Air Room Air Room Air 08/13/17 08/13/17 08/13/17 08/13/17 11:58 12:00 12:00 12:15 Temp 98.2 98.2 Pulse 112 116 Resp 13 29 B/P (MAP) 89/46 (60) 87/48 (61) Pulse Ox 95 100 96 O2 Delivery Room Air Room Air Room Air Room Air 08/13/17 08/13/17 08/13/17 08/13/17 12:30 12:45 13:00 13:15 Pulse 114 118 118 122 Resp 27 30 B/P (MAP) 82/46 (58) 78/40 (53) 79/46 (57) 87/48 (61) Pulse Ox 98 94 97 99 O2 Delivery Room Air Room Air Room Air Room Air 08/13/17 08/13/17 08/13/17 08/13/17 13:30 13:45 14:00 14:15 Pulse 114 114 114 114 Resp 25 14 B/P (MAP) 80/52 (61) 73/36 (48) 79/43 (55) 83/46 (58) Pulse Ox 95 96 94 92 O2 Delivery Room Air Room Air Room Air Room Air 08/13/17 08/13/17 08/13/17 08/13/17 14:30 14:45 15:00 15:15 Pulse 114 112 112 116 Resp 13 28 B/P (MAP) 80/43 (55) 77/36 (50) 86/45 (59) 80/55 (63) Pulse Ox 92 93 94 96 O2 Delivery Room Air Room Air Room Air Room Air 08/13/17 08/13/17 08/13/17 08/13/17 15:30 15:58 18:00 18:00 Temp 98.1 98.1 Pulse 116 117 Resp 30 24 B/P (MAP) 87/51 (63) 90/52 (65) 89/50 (63) Pulse Ox 95 96 O2 Delivery Room Air Room Air Room Air 08/13/17 08/13/17 08/13/17 08/13/17 19:30 20:00 20:15 23:30 Temp 98.8 97.5 98.8 97.5 Pulse 116 109 Resp 24 25 B/P (MAP) 83/50 (61) 96/50 (65) Pulse Ox 97 94 O2 Delivery Room Air Room Air Room Air Room Air 08/14/17 08/14/17 08/14/17 03:40 07:18 08:19 Temp 97.9 97.9 Pulse 111 Resp 26 B/P (MAP) 108/55 (72) Pulse Ox 93 95 O2 Delivery Room Air Room Air Room Air Intake and Output 08/13/17 08/13/17 08/14/17 15:00 23:00 07:00 Intake Total 580 ml 370 ml 50 ml Output Total 575 ml 60 ml 400 ml Balance 5 ml 310 ml -350 ml ANTONINA KATHLEEN MD Aug 14, 2017 09:24
[2017-08-14] MEDS: ANTI-COAG MONITOR BY PHARMACY. MC PRN (09:55)
--- NOTE | 2017-08-14 11:02 | PDOC ---
PULMONARY PROGRESS NOTES Subjective no soa Vitals Vital Signs Date Time Temp Pulse Resp B/P (MAP) Pulse Ox O2 Delivery O2 Flow Rate FiO2 08/14/17 08:19 95 Room Air 08/14/17 07:00 97.8 105 20 102/59 (73) 97.8 08/13/17 08:14 2.0 ROS: No Nausea, No Chest Pain, No Increase Cough General: Alert, No acute distress Lungs: Other (decrease bs) Cardiovascular: S1 Abdomen: Soft Neuro Exam: Alert Extremities: Other (1+edema) Labs Laboratory Tests Test 08/12/17 15:15 08/12/17 21:00 08/13/17 05:00 08/14/17 03:00 White Blood Count 0.4 x10^3/uL (4.0-11.0) 0.4 x10^3/uL (4.0-11.0) 0.7 x10^3/uL (4.0-11.0) Red Blood Count 3.13 x10^6/uL (3.50-5.40) 2.94 x10^6/uL (3.50-5.40) 2.86 x10^6/uL (3.50-5.40) Hemoglobin 8.7 g/dL (12.0-15.5) 8.1 g/dL (12.0-15.5) 7.9 g/dL (12.0-15.5) Hematocrit 26.2 % (36.0-47.0) 24.4 % (36.0-47.0) 23.8 % (36.0-47.0) Mean Corpuscular Volume 84 fL (79-100) 83 fL (79-100) 83 fL (79-100) Mean Corpuscular Hemoglobin 28 pg (25-35) 27 pg (25-35) 28 pg (25-35) Mean Corpuscular Hemoglobin Concent 33 g/dL (31-37) 33 g/dL (31-37) 33 g/dL (31-37) Red Cell Distribution Width 23.3 % (11.5-14.5) 23.6 % (11.5-14.5) 24.5 % (11.5-14.5) Platelet Count 28 x10^3/uL (140-400) 23 x10^3/uL (140-400) 13 x10^3/uL (140-400) Potassium Level 2.8 mmol/L (3.5-5.1) 4.6 mmol/L (3.5-5.1) 4.4 mmol/L (3.5-5.1) Magnesium Level 2.3 mg/dL (1.8-2.4) Neutrophils (%) (Auto) 9 % (31-73) 30 % (31-73) Lymphocytes (%) (Auto) 65 % (24-48) 52 % (24-48) Monocytes (%) (Auto) 24 % (0-9) 16 % (0-9) Eosinophils (%) (Auto) 2 % (0-3) 2 % (0-3) Basophils (%) (Auto) 1 % (0-3) 0 % (0-3) Neutrophils # (Auto) 0.0 x10^3uL (1.8-7.7) 0.2 x10^3uL (1.8-7.7) Lymphocytes # (Auto) 0.2 x10^3/uL (1.0-4.8) 0.4 x10^3/uL (1.0-4.8) Monocytes # (Auto) 0.1 x10^3/uL (0.0-1.1) 0.1 x10^3/uL (0.0-1.1) Eosinophils # (Auto) 0.0 x10^3/uL (0.0-0.7) 0.0 x10^3/uL (0.0-0.7) Basophils # (Auto) 0.0 x10^3/uL (0.0-0.2) 0.0 x10^3/uL (0.0-0.2) Sodium Level 141 mmol/L (136-145) 137 mmol/L (136-145) Chloride Level 105 mmol/L (98-107) 103 mmol/L (98-107) Carbon Dioxide Level 27 mmol/L (21-32) 27 mmol/L (21-32) Anion Gap 9 (6-14) 7 (6-14) Blood Urea Nitrogen 8 mg/dL (7-20) 11 mg/dL (7-20) Creatinine 0.7 mg/dL (0.6-1.0) 0.7 mg/dL (0.6-1.0) Estimated GFR (Cockcroft-Gault) 80.9 80.9 BUN/Creatinine Ratio 11 (6-20) 16 (6-20) Glucose Level 122 mg/dL (70-99) 102 mg/dL (70-99) Calcium Level 8.5 mg/dL (8.5-10.1) 8.7 mg/dL (8.5-10.1) Total Bilirubin 0.6 mg/dL (0.2-1.0) 0.5 mg/dL (0.2-1.0) Aspartate Amino Transf (AST/SGOT) 11 U/L (15-37) 12 U/L (15-37) Alanine Aminotransferase (ALT/SGPT) 14 U/L (14-59) 14 U/L (14-59) Alkaline Phosphatase 95 U/L (46-116) 91 U/L (46-116) Total Protein 5.9 g/dL (6.4-8.2) 5.8 g/dL (6.4-8.2) Albumin 2.9 g/dL (3.4-5.0) 2.6 g/dL (3.4-5.0) Albumin/Globulin Ratio 1.0 (1.0-1.7) 0.8 (1.0-1.7) Laboratory Tests Test 08/14/17 03:00 White Blood Count 0.7 x10^3/uL (4.0-11.0) Red Blood Count 2.86 x10^6/uL (3.50-5.40) Hemoglobin 7.9 g/dL (12.0-15.5) Hematocrit 23.8 % (36.0-47.0) Mean Corpuscular Volume 83 fL (79-100) Mean Corpuscular Hemoglobin 28 pg (25-35) Mean Corpuscular Hemoglobin Concent 33 g/dL (31-37) Red Cell Distribution Width 24.5 % (11.5-14.5) Platelet Count 13 x10^3/uL (140-400) Neutrophils (%) (Auto) 30 % (31-73) Lymphocytes (%) (Auto) 52 % (24-48) Monocytes (%) (Auto) 16 % (0-9) Eosinophils (%) (Auto) 2 % (0-3) Basophils (%) (Auto) 0 % (0-3) Neutrophils # (Auto) 0.2 x10^3uL (1.8-7.7) Lymphocytes # (Auto) 0.4 x10^3/uL (1.0-4.8) Monocytes # (Auto) 0.1 x10^3/uL (0.0-1.1) Eosinophils # (Auto) 0.0 x10^3/uL (0.0-0.7) Basophils # (Auto) 0.0 x10^3/uL (0.0-0.2) Sodium Level 137 mmol/L (136-145) Potassium Level 4.4 mmol/L (3.5-5.1) Chloride Level 103 mmol/L (98-107) Carbon Dioxide Level 27 mmol/L (21-32) Anion Gap 7 (6-14) Blood Urea Nitrogen 11 mg/dL (7-20) Creatinine 0.7 mg/dL (0.6-1.0) Estimated GFR (Cockcroft-Gault) 80.9 BUN/Creatinine Ratio 16 (6-20) Glucose Level 102 mg/dL (70-99) Calcium Level 8.7 mg/dL (8.5-10.1) Total Bilirubin 0.5 mg/dL (0.2-1.0) Aspartate Amino Transf (AST/SGOT) 12 U/L (15-37) Alanine Aminotransferase (ALT/SGPT) 14 U/L (14-59) Alkaline Phosphatase 91 U/L (46-116) Total Protein 5.8 g/dL (6.4-8.2) Albumin 2.6 g/dL (3.4-5.0) Albumin/Globulin Ratio 0.8 (1.0-1.7) Medications Active Scripts Medications Dose Route/Sig Max Daily Dose Days Date Category Ativan (Lorazepam) 1 Mg Tablet 1 Mg PO Q6HRS PRN 07/25/17 Reported Eliquis (Apixaban) 5 Mg Tablet 5 Mg PO BID 07/25/17 Reported Zofran (Ondansetron Hcl) 8 Mg Tablet 8 Mg PO BID PRN 06/09/17 Reported Pantoprazole Sodium 40 Mg Tablet.dr 1 Tab PO DAILY 05/18/17 Reported Impression . 1. Dyspnea/weakness, most likely related to anemia in a patient who has been treated with chemo and radiation for small cell, undifferentiated carcinoma. 2. Small cell carcinoma, undifferentiated status post chemo and radiation. 3. History of recent pulmonary embolism and no evidence of any deep venous thrombosis. This is secondary to hypercoagulable state. Currently on Eliquis at home and I would continue Eliquis. I do not think that anemia is related to Eliquis, but rather chemo-induced. 4. Neutropenia and anemia, chemo-induced. 5. Underlying chronic obstructive pulmonary disease. 6. Suspected post-obstructive pneumonia. 7. SHOCK Plan . 1. Continue with p.r.n. oxygen. 2. Antibiotic cefepime. 3. Continue Eliquis. 4. DuoNebs. 5. Follow Oncology recommendation. 6. Monitor white cell count and hemoglobin. 7. Transfuse to keep hemoglobin above 8. 8. sputum with yeast, added micafungin 9. off pressor CUCA ANTUNEZ MD Aug 14, 2017 11:02
--- NOTE | 2017-08-14 11:09 | PDOC ---
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 Began chemo in 05/2017 chest radiation begain with second cycle of chemo 06/2017 with significant delay of treatment due to prior cytopenias. Thus far she has had 20 Gy of chest radiation thus far. Admitted with sepsis and recurrent cytopenia. She was in the ICU with hypotension and required Levophed for support. Now feeling better and off Levophed and out of ICU. She notes some chills no SOB cough or chest pain. No nose bleeds or urinary or stool blood. Actually feels better and eating well with no nausea, vomiting or headaches. Lab today Hb 7.9 WBC 0.7 (was 0.4 08/13) Plat 13k (was 23K 08/14) Plat transfusion planned. Impression: Limited SCLC with recurrent profound treatment related cytopenias. Will continue to follow and consider resuming treatment only when counts improve significantly. Will discuss modifying overall treatment strategy with Dr. Mccracken in light of issue of recurrent significant cytopenias. ARASH HERNANDEZ MD Aug 14, 2017 11:09
[2017-08-14] MEDS: MICAFUNGIN 100 MG in IV DEXTROSE 5% 100 ML IV SCH (12:00)
--- NOTE | 2017-08-14 13:53 | PDOC ---
PROGRESS NOTES Chief Complaint Chief Complaint acute dyspnea, 2/2 right lung Ca, PE, and obstructive PNA hypotension, 2/2 anemia, PNA, sepsis, required days of IV norepi in the ICU recent dignosed Bilateral PE ON eliquis right lung NON small cell Ca, on chemo and RT now with pancytopenia, critical thrombocytopenia h/o Grade 1 CHF, copd w/ prior tobacco use history htn Rheumatoid arthritis anemia with RT, CHEMO ckd3 mild malnutrition History of Present Illness History of Present Illness on , hypotension better, , she feels well, and wants to discharge home soon plts have dropped markedly, now risk with eliquis for DVT, heme and RadOnc team following good PO intake feels much improved, cont eliquis cefepime for now, check sputum cx, bcx PT/OT Vitals Vitals Vital Signs Date Time Temp Pulse Resp B/P (MAP) Pulse Ox O2 Delivery O2 Flow Rate FiO2 08/14/17 13:18 98.2 120 18 96/46 98.2 08/14/17 11:47 Room Air 08/14/17 11:00 98 08/13/17 08:14 2.0 Physical Exam General: Alert Heart: Regular rate Lungs: Other (decrease bs) Abdomen: Normal bowel sounds Extremities: No clubbing Skin: No rashes Labs LABS Laboratory Tests Test 08/14/17 03:00 White Blood Count 0.7 x10^3/uL (4.0-11.0) Red Blood Count 2.86 x10^6/uL (3.50-5.40) Hemoglobin 7.9 g/dL (12.0-15.5) Hematocrit 23.8 % (36.0-47.0) Mean Corpuscular Volume 83 fL (79-100) Mean Corpuscular Hemoglobin 28 pg (25-35) Mean Corpuscular Hemoglobin Concent 33 g/dL (31-37) Red Cell Distribution Width 24.5 % (11.5-14.5) Platelet Count 13 x10^3/uL (140-400) Neutrophils (%) (Auto) 30 % (31-73) Lymphocytes (%) (Auto) 52 % (24-48) Monocytes (%) (Auto) 16 % (0-9) Eosinophils (%) (Auto) 2 % (0-3) Basophils (%) (Auto) 0 % (0-3) Neutrophils # (Auto) 0.2 x10^3uL (1.8-7.7) Lymphocytes # (Auto) 0.4 x10^3/uL (1.0-4.8) Monocytes # (Auto) 0.1 x10^3/uL (0.0-1.1) Eosinophils # (Auto) 0.0 x10^3/uL (0.0-0.7) Basophils # (Auto) 0.0 x10^3/uL (0.0-0.2) Sodium Level 137 mmol/L (136-145) Potassium Level 4.4 mmol/L (3.5-5.1) Chloride Level 103 mmol/L (98-107) Carbon Dioxide Level 27 mmol/L (21-32) Anion Gap 7 (6-14) Blood Urea Nitrogen 11 mg/dL (7-20) Creatinine 0.7 mg/dL (0.6-1.0) Estimated GFR (Cockcroft-Gault) 80.9 BUN/Creatinine Ratio 16 (6-20) Glucose Level 102 mg/dL (70-99) Calcium Level 8.7 mg/dL (8.5-10.1) Total Bilirubin 0.5 mg/dL (0.2-1.0) Aspartate Amino Transf (AST/SGOT) 12 U/L (15-37) Alanine Aminotransferase (ALT/SGPT) 14 U/L (14-59) Alkaline Phosphatase 91 U/L (46-116) Total Protein 5.8 g/dL (6.4-8.2) Albumin 2.6 g/dL (3.4-5.0) Albumin/Globulin Ratio 0.8 (1.0-1.7) Review of Systems Review of Systems no n.v.d Assessment and Plan Assessmemt and Plan Problems Medical Problems: (1) Anemia Status: Acute (2) Neutropenia Status: Acute (3) Pneumonia Status: Acute Problems: Comment Review of Relevant I have reviewed the following items gen (where applicable) has been applied. Labs Laboratory Tests Test 08/12/17 15:15 08/12/17 21:00 08/13/17 05:00 08/14/17 03:00 White Blood Count 0.4 x10^3/uL (4.0-11.0) 0.4 x10^3/uL (4.0-11.0) 0.7 x10^3/uL (4.0-11.0) Red Blood Count 3.13 x10^6/uL (3.50-5.40) 2.94 x10^6/uL (3.50-5.40) 2.86 x10^6/uL (3.50-5.40) Hemoglobin 8.7 g/dL (12.0-15.5) 8.1 g/dL (12.0-15.5) 7.9 g/dL (12.0-15.5) Hematocrit 26.2 % (36.0-47.0) 24.4 % (36.0-47.0) 23.8 % (36.0-47.0) Mean Corpuscular Volume 84 fL (79-100) 83 fL (79-100) 83 fL (79-100) Mean Corpuscular Hemoglobin 28 pg (25-35) 27 pg (25-35) 28 pg (25-35) Mean Corpuscular Hemoglobin Concent 33 g/dL (31-37) 33 g/dL (31-37) 33 g/dL (31-37) Red Cell Distribution Width 23.3 % (11.5-14.5) 23.6 % (11.5-14.5) 24.5 % (11.5-14.5) Platelet Count 28 x10^3/uL (140-400) 23 x10^3/uL (140-400) 13 x10^3/uL (140-400) Potassium Level 2.8 mmol/L (3.5-5.1) 4.6 mmol/L (3.5-5.1) 4.4 mmol/L (3.5-5.1) Magnesium Level 2.3 mg/dL (1.8-2.4) Neutrophils (%) (Auto) 9 % (31-73) 30 % (31-73) Lymphocytes (%) (Auto) 65 % (24-48) 52 % (24-48) Monocytes (%) (Auto) 24 % (0-9) 16 % (0-9) Eosinophils (%) (Auto) 2 % (0-3) 2 % (0-3) Basophils (%) (Auto) 1 % (0-3) 0 % (0-3) Neutrophils # (Auto) 0.0 x10^3uL (1.8-7.7) 0.2 x10^3uL (1.8-7.7) Lymphocytes # (Auto) 0.2 x10^3/uL (1.0-4.8) 0.4 x10^3/uL (1.0-4.8) Monocytes # (Auto) 0.1 x10^3/uL (0.0-1.1) 0.1 x10^3/uL (0.0-1.1) Eosinophils # (Auto) 0.0 x10^3/uL (0.0-0.7) 0.0 x10^3/uL (0.0-0.7) Basophils # (Auto) 0.0 x10^3/uL (0.0-0.2) 0.0 x10^3/uL (0.0-0.2) Sodium Level 141 mmol/L (136-145) 137 mmol/L (136-145) Chloride Level 105 mmol/L (98-107) 103 mmol/L (98-107) Carbon Dioxide Level 27 mmol/L (21-32) 27 mmol/L (21-32) Anion Gap 9 (6-14) 7 (6-14) Blood Urea Nitrogen 8 mg/dL (7-20) 11 mg/dL (7-20) Creatinine 0.7 mg/dL (0.6-1.0) 0.7 mg/dL (0.6-1.0) Estimated GFR (Cockcroft-Gault) 80.9 80.9 BUN/Creatinine Ratio 11 (6-20) 16 (6-20) Glucose Level 122 mg/dL (70-99) 102 mg/dL (70-99) Calcium Level 8.5 mg/dL (8.5-10.1) 8.7 mg/dL (8.5-10.1) Total Bilirubin 0.6 mg/dL (0.2-1.0) 0.5 mg/dL (0.2-1.0) Aspartate Amino Transf (AST/SGOT) 11 U/L (15-37) 12 U/L (15-37) Alanine Aminotransferase (ALT/SGPT) 14 U/L (14-59) 14 U/L (14-59) Alkaline Phosphatase 95 U/L (46-116) 91 U/L (46-116) Total Protein 5.9 g/dL (6.4-8.2) 5.8 g/dL (6.4-8.2) Albumin 2.9 g/dL (3.4-5.0) 2.6 g/dL (3.4-5.0) Albumin/Globulin Ratio 1.0 (1.0-1.7) 0.8 (1.0-1.7) Laboratory Tests Test 08/14/17 03:00 White Blood Count 0.7 x10^3/uL (4.0-11.0) Red Blood Count 2.86 x10^6/uL (3.50-5.40) Hemoglobin 7.9 g/dL (12.0-15.5) Hematocrit 23.8 % (36.0-47.0) Mean Corpuscular Volume 83 fL (79-100) Mean Corpuscular Hemoglobin 28 pg (25-35) Mean Corpuscular Hemoglobin Concent 33 g/dL (31-37) Red Cell Distribution Width 24.5 % (11.5-14.5) Platelet Count 13 x10^3/uL (140-400) Neutrophils (%) (Auto) 30 % (31-73) Lymphocytes (%) (Auto) 52 % (24-48) Monocytes (%) (Auto) 16 % (0-9) Eosinophils (%) (Auto) 2 % (0-3) Basophils (%) (Auto) 0 % (0-3) Neutrophils # (Auto) 0.2 x10^3uL (1.8-7.7) Lymphocytes # (Auto) 0.4 x10^3/uL (1.0-4.8) Monocytes # (Auto) 0.1 x10^3/uL (0.0-1.1) Eosinophils # (Auto) 0.0 x10^3/uL (0.0-0.7) Basophils # (Auto) 0.0 x10^3/uL (0.0-0.2) Sodium Level 137 mmol/L (136-145) Potassium Level 4.4 mmol/L (3.5-5.1) Chloride Level 103 mmol/L (98-107) Carbon Dioxide Level 27 mmol/L (21-32) Anion Gap 7 (6-14) Blood Urea Nitrogen 11 mg/dL (7-20) Creatinine 0.7 mg/dL (0.6-1.0) Estimated GFR (Cockcroft-Gault) 80.9 BUN/Creatinine Ratio 16 (6-20) Glucose Level 102 mg/dL (70-99) Calcium Level 8.7 mg/dL (8.5-10.1) Total Bilirubin 0.5 mg/dL (0.2-1.0) Aspartate Amino Transf (AST/SGOT) 12 U/L (15-37) Alanine Aminotransferase (ALT/SGPT) 14 U/L (14-59) Alkaline Phosphatase 91 U/L (46-116) Total Protein 5.8 g/dL (6.4-8.2) Albumin 2.6 g/dL (3.4-5.0) Albumin/Globulin Ratio 0.8 (1.0-1.7) Microbiology 08/09/17 Blood Culture - Final, Complete NO GROWTH AFTER 5 DAYS 08/11/17 - Final, Complete 08/11/17 - Final, Complete 08/11/17 - Final, Complete 08/11/17 - Final, Complete 08/11/17 - Final, Complete 08/11/17 Gram Stain Evaluation - Final, Complete 08/11/17 Sputum Culture - Final, Complete 08/11/17 Sputum Result 1 - Final, Complete Medications Current Medications Lorazepam (Ativan) 1 mg 1X ONCE IV Last administered on 08/09/17 11:27; Start 08/09/17 at 11:00; Stop 08/09/17 at 11:01; Status DC Sodium Chloride 1,000 ml @ 1,000 mls/hr Q1H IV Last administered on 11:27; Start 08/09/17 at 10:49; Stop 08/09/17 at 11:48; Status DC Sodium Chloride (Normal Saline Flush) 10 ml QSHIFT PRN IV AFTER MEDS AND BLOOD DRAWS Last administered on 08/09/17 11:28; Start 08/09/17 at 11:00; Stop at 09:41; Status DC Albuterol/ Ipratropium (Duoneb) 3 ml 1X ONCE NEB Last administered on 11:05; Start 08/09/17 at 11:00; Stop 08/09/17 at 11:01; Status DC Methylprednisolone Sodium Succinate (SOLU-Medrol 125MG VIAL) 125 mg 1X ONCE IV Last administered on 08/09/17 11:27; Start 08/09/17 at 11:00; Stop at 11:01; Status DC Sodium Chloride (Normal Saline Flush) 10 ml QSHIFT PRN IV AFTER MEDS AND BLOOD DRAWS; Start 08/09/17 at 12:15 Sodium Chloride 1,000 ml @ 1,830 mls/hr Q33M IV Last administered on 12:37; Start 08/09/17 at 12:10; Stop 08/09/17 at 13:10; Status DC Cefepime HCl 2 gm/ Sodium Chloride 100 ml @ 200 mls/hr 1X ONCE IV ; Start at 12:15; Stop 08/09/17 at 12:44; Status UNV Norepinephrine Bitartrate 250 ml @ 0 mls/hr CONT PRN IV PER PROTOCOL Last administered on 08/12/17 21:01; Start 08/09/17 at 12:15; Stop 08/14/17 at 09 :55; Status DC Cefepime HCl (Maxipime) 2 gm 1X ONCE IVP Last administered on 08/09/17 12:33 ; Start 08/09/17 at 12:30; Stop 08/09/17 at 12:31; Status DC Ondansetron HCl (Zofran) 4 mg PRN Q8HRS PRN IV NAUSEA/VOMITING; Start at 12:45; Stop 08/09/17 at 14:13; Status DC Fentanyl Citrate (Fentanyl 2ml Vial) 50 mcg PRN Q2HR PRN IV PAIN Last administered on 08/10/17 01:01; Start 08/09/17 at 12:45; Stop 08/10/17 at 12 :44; Status DC Acetaminophen (Tylenol) 650 mg PRN Q4HRS PRN PO FEVER; Start 08/09/17 at 12:45 ; Stop 08/10/17 at 12:44; Status DC Acetaminophen (Tylenol) 650 mg PRN Q6HRS PRN PO FEVER Last administered on 09:03; Start 08/09/17 at 14:15 Ondansetron HCl (Zofran) 4 mg PRN Q6HRS PRN IV NAUSEA/VOMITING Last administered on 08/12/17 13:38; Start 08/09/17 at 14:15 Morphine Sulfate 2 mg PRN Q2HR PRN IV PAIN; Start 08/09/17 at 14:15 Tramadol HCl (Ultram) 50 mg PRN Q6HRS PRN PO PAIN; Start 08/09/17 at 14:15 Hydralazine HCl (Apresoline Inj) 10 mg PRN Q4HRS PRN IVP ELEVATED BP, SEE COMMENTS; Start 08/09/17 at 14:15 Docusate Sodium (Colace) 100 mg PRN DAILY PRN PO CONSTIPATION; Start 08/09/17 at 14:15 Apixaban (Eliquis) 5 mg BID PO Last administered on 08/14/17 08:59; Start at 21:00 Lorazepam (Ativan) 0.5 mg Q6HRS PRN PO ANXIETY; Start 08/09/17 at 14:15 Pantoprazole Sodium (Protonix) 40 mg DAILYAC PO Last administered on 08:59; Start 08/10/17 at 07:30 Albuterol/ Ipratropium (Duoneb) 3 ml RTQID NEB Last administered on 08/14/17 11:45; Start 08/09/17 at 16:00 Albuterol Sulfate (Ventolin Neb Soln) 2.5 mg PRN Q2HR PRN NEB SHORTNESS OF BREATH; Start 08/09/17 at 14:15 Guaifenesin (Mucinex) 600 mg BID PO Last administered on 08/14/17 08:59; Start 08/09/17 at 21:00 Cefepime HCl 1 gm/ Dextrose 50 ml @ 100 mls/hr Q8HRS IV ; Start 08/09/17 at 22 :00; Status UNV Cefepime HCl (Maxipime) 1 gm Q12HR IVP ; Start 08/09/17 at 21:00; Status Cancel Cefepime HCl 1 gm/ Dextrose 50 ml @ 100 mls/hr Q12HR IV Last administered on 08/10/17 20:19; Start 08/09/17 at 21:00; Stop 08/10/17 at 23:00; Status DC Potassium Chloride/Sodium Chloride 1,000 ml @ 75 mls/hr [id number] IV Last administered on 08/10/17 09:04; Start 08/09/17 at 14:45; Stop 08/10/17 at 16 :00; Status DC Magnesium Sulfate/ Dextrose 100 ml @ 25 mls/hr 1X ONCE IV Last administered on 08/09/17 15:30; Start 08/09/17 at 14:45; Stop 08/09/17 at 18:44; Status DC Potassium Chloride (Klor-Con) 40 meq 1X ONCE PO Last administered on 20:32; Start 08/09/17 at 16:30; Stop 08/09/17 at 16:31; Status DC Enoxaparin Sodium (Lovenox 40mg Syringe) 40 mg Q24H SQ ; Start 08/09/17 at 16: 30; Status UNV Tbo-Filgrastim (Granix) 480 mcg QHS SQ Last administered on 08/13/17 20:39; Start 08/09/17 at 21:00 Cefepime HCl (Maxipime) 1 gm Q12HR IVP Last administered on 08/14/17 08:59; Start 08/11/17 at 09:00 Info (Anti-Coagulation Monitoring By Pharmacy) 1 each PRN DAILY PRN MC SEE COMMENTS Last administered on 08/14/17 09:55; Start 08/10/17 at 11:00 Calcium Carbonate/ Glycine (Tums) 500 mg PRN AFTMEALHC PRN PO INDIGESTION Last administered on 08/10/17 21:09; Start 08/10/17 at 20:45 Multi-Ingredient Mouthwash/Gargle (Gi Cocktail Single Dose) 15 ml PRN 1X PRN SWSW CHEST PAIN; Start 08/10/17 at 20:45 Sodium Chloride 1,000 ml @ 1,000 mls/hr 1X ONCE IV Last administered on 08/12 15:02; Start 08/12/17 at 14:00; Stop 08/12/17 at 14:59; Status DC Vecuronium [place] (Norcuron Bolus) 4 mg PRN Q4HRS PRN IV AGITATION; Start at 14:30; Stop 08/12/17 at 14:48; Status DC Albumin Human 100 ml @ 100 mls/hr 1X ONCE IV Last administered on 08/12/17 16:15; Start 08/12/17 at 15:45; Stop 08/12/17 at 16:44; Status DC Potassium Chloride (Klor-Con) 40 meq 1X ONCE PO Last administered on 16:08; Start 08/12/17 at 15:45; Stop 08/12/17 at 15:46; Status DC Potassium Chloride (Klor-Con) 20 meq 1X ONCE PO Last administered on 20:12; Start 08/12/17 at 18:00; Stop 08/12/17 at 18:01; Status DC Magnesium Sulfate/ Dextrose 100 ml @ 25 mls/hr 1X ONCE IV Last administered on 08/12/17 16:09; Start 08/12/17 at 16:00; Stop 08/12/17 at 19:59; Status DC Potassium Chloride (Klor-Con) 40 meq 1X ONCE PO Last administered on 21:56; Start 08/12/17 at 22:00; Stop 08/12/17 at 22:01; Status DC Potassium Chloride (Klor-Con) 40 meq 1X ONCE PO Last administered on 00:27; Start 08/13/17 at 00:00; Stop 08/13/17 at 00:01; Status DC Micafungin Sodium 100 mg/Dextrose 100 ml @ 100 mls/hr Q24H IV Last administered on 08/13/17 12:04; Start 08/13/17 at 12:00 Active Scripts Active Reported Ativan (Lorazepam) 1 Mg Tablet 1 Mg PO Q6HRS PRN Eliquis (Apixaban) 5 Mg Tablet 5 Mg PO BID Zofran (Ondansetron Hcl) 8 Mg Tablet 8 Mg PO BID PRN Pantoprazole Sodium 40 Mg Tablet. 1 Tab PO DAILY Vitals/I & O Vital Sign - Last 24 Hours 08/13/17 08/13/17 08/13/17 08/13/17 14:00 14:15 14:30 14:45 Pulse 114 114 114 112 Resp 25 14 13 26 B/P (MAP) 79/43 (55) 83/46 (58) 80/43 (55) 77/36 (50) Pulse Ox 94 92 92 93 O2 Delivery Room Air Room Air Room Air Room Air 08/13/17 08/13/17 08/13/17 08/13/17 15:00 15:15 15:30 15:58 Pulse 112 116 116 Resp 28 30 B/P (MAP) 86/45 (59) 80/55 (63) 87/51 (63) Pulse Ox 94 96 95 O2 Delivery Room Air Room Air Room Air Room Air 08/13/17 08/13/17 08/13/17 08/13/17 18:00 18:00 19:30 20:00 Temp 98.1 98.8 98.1 98.8 Pulse 117 116 Resp 24 24 B/P (MAP) 90/52 (65) 89/50 (63) 83/50 (61) Pulse Ox 96 97 O2 Delivery Room Air Room Air Room Air 08/13/17 08/13/17 08/14/17 08/14/17 20:15 23:30 03:40 07:00 Temp 97.5 97.9 97.8 97.5 97.9 97.8 Pulse 109 111 105 Resp 26 20 B/P (MAP) 96/50 (65) 108/55 (72) 102/59 (73) Pulse Ox 94 93 100 O2 Delivery Room Air Room Air Room Air Room Air 08/14/17 08/14/17 08/14/17 08/14/17 07:18 08:19 11:00 11:00 Temp 97.8 97.8 Pulse 97 Resp 19 B/P (MAP) 94/52 (66) 87/53 (64) Pulse Ox 95 98 O2 Delivery Room Air Room Air Room Air 08/14/17 08/14/17 08/14/17 11:47 13:09 13:18 Temp 98.1 98.2 98.1 98.2 Pulse 97 120 Resp 18 18 B/P (MAP) 94/52 96/46 O2 Delivery Room Air Intake and Output 08/13/17 08/13/17 08/14/17 15:00 23:00 07:00 Intake Total 580 ml 370 ml 50 ml Output Total 575 ml 60 ml 400 ml Balance 5 ml 310 ml -350 ml LAURA VENTURA MD Aug 14, 2017 13:53
[2017-08-14] MEDS: TBO-FILGRASTIM 480 MCG/0.8 ML SYRINGE. SQ SCH (21:13)
[2017-08-15 02:52] VITALS: BP 108/55
[2017-08-15 03:44] LABS: BASO % 0 % (0-3); EOS % 1 % (0-3); HEMATOCRIT 24.9 % (36.0-47.0); HEMOGLOBIN 8.2 g/dL (12.0-15.5); LYMPH # 0.4 x10^3/uL (1.0-4.8); LYMPH % 21 % (24-48); MEAN CORPUSCULAR HEMOGLOBIN 27 pg (25-35); MEAN CORPUSCULAR HGB CONC 33 g/dL (31-37); MEAN CORPUSCULAR VOLUME 83 fL (79-100); MONO % 13 % (0-9); NEUT % 65 % (31-73); PLATELET COUNT 49 x10^3/uL (140-400); RED BLOOD COUNT 2.98 x10^6/uL (3.50-5.40); RED CELL DISTRIBUTION WIDTH 24.5 % (11.5-14.5)
[2017-08-15 03:54] LABS: CALCIUM 8.7 mg/dL (8.5-10.1); CREATININE 0.8 mg/dL (0.6-1.0); GFR 69.4
[2017-08-15 03:58] LABS: WHITE BLOOD COUNT 1.8 x10^3/uL (4.0-11.0)
[2017-08-15 07:00] VITALS: BP 103/56
[2017-08-15] MEDS: IPRATRPIUM/ALBUTEROL 0.5/2.5MG 3 ML NEBU. NEB SCH ×4 (07:15→19:54)
[2017-08-15] MEDS: APIXABAN 5 MG TABLET. PO SCH ×2 (09:09→20:32)
[2017-08-15] MEDS: PANTOPRAZOLE 40 MG TABLET.DR. PO SCH (09:09)
[2017-08-15] MEDS: CEFEPIME HCL IV Push 1 GM VIAL. IVP SCH ×2 (09:09→20:32)
--- NOTE | 2017-08-15 09:13 | PDOC ---
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 ROS - dyspnea better Objective Objective Vital Signs Date Time Temp Pulse Resp B/P (MAP) Pulse Ox O2 Delivery O2 Flow Rate FiO2 08/15/17 07:16 95 Room Air 08/15/17 07:00 98.1 119 18 103/56 (72) 2.0 98.1 Intake and Output 08/15/17 07:00 Intake Total 1778 ml Output Total 1150 ml Balance 628 ml Intake Oral 1550 ml Blood Product IV Normal Saline Flush 228 ml Output Urine Total 1150 ml Physical Exam Heart: Normal S1, Normal S2 General: Alert, Oriented X3, No acute distress Lungs: Clear to auscultation Neuro: Normal speech Psych/Mental Status: Mental status NL Assessment Assessment Problems Medical Problems: (1) Anemia Status: Acute (2) Neutropenia Status: Acute (3) Pneumonia Status: Acute IMPRESSION AND PLAN: 1. 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 She was started on chemotherapy with carboplatin and etoposide on 06/06/2017. Cycle #2 was given on 06/27/2017 and radiation therapy was also initiated on 06/27/2017. Cycle #3 was postponed because of severe thrombocytopenia and platelet counts improved and she received chemo Aug 01,, 2. Acute pulmonary embolism, bilateral diagnosed on 07/21/2017 along with deep venous thrombosis of the left peroneal vein diagnosed on 07/22/2017. She was initially started on Lovenox and then switched to Eliquis. Agree to continue anticoagulation and in view of the malignancy, 3. Anemia due to chemotherapy. Hemoglobin is worse at 7.0 on 08/09/17. Transfused 1 unit. Hb better at 7.5 on 08/10/17. Worse at 6.9 on 08/11/17, s/p 1 unit PRBC 08.11.17 Hb 8.2 on 08/15/17 Continue to monitor hemoglobin and transfuse as needed. 4. Coronary artery disease. Appreciate Cardiology evaluation. 5. Neutropenia due to chemo - started granix 08/09/17. WBC 1.8, monitor. Continue granix. 6. Thrombocytopenia, monitor. Plt 49, check cbc tomorrow and transfuse if worse. Comment Review of Relevant I have reviewed the following items gen (where applicable) has been applied. Labs Laboratory Tests Test 08/14/17 03:00 08/15/17 03:33 White Blood Count 0.7 x10^3/uL (4.0-11.0) 1.8 x10^3/uL (4.0-11.0) Red Blood Count 2.86 x10^6/uL (3.50-5.40) 2.98 x10^6/uL (3.50-5.40) Hemoglobin 7.9 g/dL (12.0-15.5) 8.2 g/dL (12.0-15.5) Hematocrit 23.8 % (36.0-47.0) 24.9 % (36.0-47.0) Mean Corpuscular Volume 83 fL (79-100) 83 fL (79-100) Mean Corpuscular Hemoglobin 28 pg (25-35) 27 pg (25-35) Mean Corpuscular Hemoglobin Concent 33 g/dL (31-37) 33 g/dL (31-37) Red Cell Distribution Width 24.5 % (11.5-14.5) 24.5 % (11.5-14.5) Platelet Count 13 x10^3/uL (140-400) 49 x10^3/uL (140-400) Neutrophils (%) (Auto) 30 % (31-73) 65 % (31-73) Lymphocytes (%) (Auto) 52 % (24-48) 21 % (24-48) Monocytes (%) (Auto) 16 % (0-9) 13 % (0-9) Eosinophils (%) (Auto) 2 % (0-3) 1 % (0-3) Basophils (%) (Auto) 0 % (0-3) 0 % (0-3) Neutrophils # (Auto) 0.2 x10^3uL (1.8-7.7) 1.2 x10^3uL (1.8-7.7) Lymphocytes # (Auto) 0.4 x10^3/uL (1.0-4.8) 0.4 x10^3/uL (1.0-4.8) Monocytes # (Auto) 0.1 x10^3/uL (0.0-1.1) 0.2 x10^3/uL (0.0-1.1) Eosinophils # (Auto) 0.0 x10^3/uL (0.0-0.7) 0.0 x10^3/uL (0.0-0.7) Basophils # (Auto) 0.0 x10^3/uL (0.0-0.2) 0.0 x10^3/uL (0.0-0.2) Sodium Level 137 mmol/L (136-145) 137 mmol/L (136-145) Potassium Level 4.4 mmol/L (3.5-5.1) 4.0 mmol/L (3.5-5.1) Chloride Level 103 mmol/L (98-107) 102 mmol/L (98-107) Carbon Dioxide Level 27 mmol/L (21-32) 30 mmol/L (21-32) Anion Gap 7 (6-14) 5 (6-14) Blood Urea Nitrogen 11 mg/dL (7-20) 12 mg/dL (7-20) Creatinine 0.7 mg/dL (0.6-1.0) 0.8 mg/dL (0.6-1.0) Estimated GFR (Cockcroft-Gault) 80.9 69.4 BUN/Creatinine Ratio 16 (6-20) Glucose Level 102 mg/dL (70-99) 116 mg/dL (70-99) Calcium Level 8.7 mg/dL (8.5-10.1) 8.7 mg/dL (8.5-10.1) Total Bilirubin 0.5 mg/dL (0.2-1.0) Aspartate Amino Transf (AST/SGOT) 12 U/L (15-37) Alanine Aminotransferase (ALT/SGPT) 14 U/L (14-59) Alkaline Phosphatase 91 U/L (46-116) Total Protein 5.8 g/dL (6.4-8.2) Albumin 2.6 g/dL (3.4-5.0) Albumin/Globulin Ratio 0.8 (1.0-1.7) Laboratory Tests Test 08/15/17 03:33 White Blood Count 1.8 x10^3/uL (4.0-11.0) Red Blood Count 2.98 x10^6/uL (3.50-5.40) Hemoglobin 8.2 g/dL (12.0-15.5) Hematocrit 24.9 % (36.0-47.0) Mean Corpuscular Volume 83 fL (79-100) Mean Corpuscular Hemoglobin 27 pg (25-35) Mean Corpuscular Hemoglobin Concent 33 g/dL (31-37) Red Cell Distribution Width 24.5 % (11.5-14.5) Platelet Count 49 x10^3/uL (140-400) Neutrophils (%) (Auto) 65 % (31-73) Lymphocytes (%) (Auto) 21 % (24-48) Monocytes (%) (Auto) 13 % (0-9) Eosinophils (%) (Auto) 1 % (0-3) Basophils (%) (Auto) 0 % (0-3) Neutrophils # (Auto) 1.2 x10^3uL (1.8-7.7) Lymphocytes # (Auto) 0.4 x10^3/uL (1.0-4.8) Monocytes # (Auto) 0.2 x10^3/uL (0.0-1.1) Eosinophils # (Auto) 0.0 x10^3/uL (0.0-0.7) Basophils # (Auto) 0.0 x10^3/uL (0.0-0.2) Sodium Level 137 mmol/L (136-145) Potassium Level 4.0 mmol/L (3.5-5.1) Chloride Level 102 mmol/L (98-107) Carbon Dioxide Level 30 mmol/L (21-32) Anion Gap 5 (6-14) Blood Urea Nitrogen 12 mg/dL (7-20) Creatinine 0.8 mg/dL (0.6-1.0) Estimated GFR (Cockcroft-Gault) 69.4 Glucose Level 116 mg/dL (70-99) Calcium Level 8.7 mg/dL (8.5-10.1) Microbiology 08/09/17 Blood Culture - Final, Complete NO GROWTH AFTER 5 DAYS 08/11/17 - Final, Complete 08/11/17 - Final, Complete 08/11/17 - Final, Complete 08/11/17 - Final, Complete 08/11/17 - Final, Complete 08/11/17 Gram Stain Evaluation - Final, Complete 08/11/17 Sputum Culture - Final, Complete 08/11/17 Sputum Result 1 - Final, Complete Medications Current Medications Lorazepam (Ativan) 1 mg 1X ONCE IV Last administered on 08/09/17 11:27; Start 08/09/17 at 11:00; Stop 08/09/17 at 11:01; Status DC Sodium Chloride 1,000 ml @ 1,000 mls/hr Q1H IV Last administered on 11:27; Start 08/09/17 at 10:49; Stop 08/09/17 at 11:48; Status DC Sodium Chloride (Normal Saline Flush) 10 ml QSHIFT PRN IV AFTER MEDS AND BLOOD DRAWS Last administered on 08/09/17 11:28; Start 08/09/17 at 11:00; Stop at 09:41; Status DC Albuterol/ Ipratropium (Duoneb) 3 ml 1X ONCE NEB Last administered on 11:05; Start 08/09/17 at 11:00; Stop 08/09/17 at 11:01; Status DC Methylprednisolone Sodium Succinate (SOLU-Medrol 125MG VIAL) 125 mg 1X ONCE IV Last administered on 08/09/17 11:27; Start 08/09/17 at 11:00; Stop at 11:01; Status DC Sodium Chloride (Normal Saline Flush) 10 ml QSHIFT PRN IV AFTER MEDS AND BLOOD DRAWS; Start 08/09/17 at 12:15 Sodium Chloride 1,000 ml @ 1,830 mls/hr Q33M IV Last administered on 12:37; Start 08/09/17 at 12:10; Stop 08/09/17 at 13:10; Status DC Cefepime HCl 2 gm/ Sodium Chloride 100 ml @ 200 mls/hr 1X ONCE IV ; Start at 12:15; Stop 08/09/17 at 12:44; Status UNV Norepinephrine Bitartrate 250 ml @ 0 mls/hr CONT PRN IV PER PROTOCOL Last administered on 08/12/17 21:01; Start 08/09/17 at 12:15; Stop 08/14/17 at 09 :55; Status DC Cefepime HCl (Maxipime) 2 gm 1X ONCE IVP Last administered on 08/09/17 12:33 ; Start 08/09/17 at 12:30; Stop 08/09/17 at 12:31; Status DC Ondansetron HCl (Zofran) 4 mg PRN Q8HRS PRN IV NAUSEA/VOMITING; Start at 12:45; Stop 08/09/17 at 14:13; Status DC Fentanyl Citrate (Fentanyl 2ml Vial) 50 mcg PRN Q2HR PRN IV PAIN Last administered on 08/10/17 01:01; Start 08/09/17 at 12:45; Stop 08/10/17 at 12 :44; Status DC Acetaminophen (Tylenol) 650 mg PRN Q4HRS PRN PO FEVER; Start 08/09/17 at 12:45 ; Stop 08/10/17 at 12:44; Status DC Acetaminophen (Tylenol) 650 mg PRN Q6HRS PRN PO FEVER Last administered on 09:03; Start 08/09/17 at 14:15 Ondansetron HCl (Zofran) 4 mg PRN Q6HRS PRN IV NAUSEA/VOMITING Last administered on 08/12/17 13:38; Start 08/09/17 at 14:15 Morphine Sulfate 2 mg PRN Q2HR PRN IV PAIN; Start 08/09/17 at 14:15 Tramadol HCl (Ultram) 50 mg PRN Q6HRS PRN PO PAIN; Start 08/09/17 at 14:15 Hydralazine HCl (Apresoline Inj) 10 mg PRN Q4HRS PRN IVP ELEVATED BP, SEE COMMENTS; Start 08/09/17 at 14:15 Docusate Sodium (Colace) 100 mg PRN DAILY PRN PO CONSTIPATION; Start 08/09/17 at 14:15 Apixaban (Eliquis) 5 mg BID PO Last administered on 08/15/17 09:09; Start at 21:00 Lorazepam (Ativan) 0.5 mg Q6HRS PRN PO ANXIETY; Start 08/09/17 at 14:15 Pantoprazole Sodium (Protonix) 40 mg DAILYAC PO Last administered on 09:09; Start 08/10/17 at 07:30 Albuterol/ Ipratropium (Duoneb) 3 ml RTQID NEB Last administered on 08/15/17 07:15; Start 08/09/17 at 16:00 Albuterol Sulfate (Ventolin Neb Soln) 2.5 mg PRN Q2HR PRN NEB SHORTNESS OF BREATH; Start 08/09/17 at 14:15 Guaifenesin (Mucinex) 600 mg BID PO Last administered on 08/15/17 09:09; Start 08/09/17 at 21:00 Cefepime HCl 1 gm/ Dextrose 50 ml @ 100 mls/hr Q8HRS IV ; Start 08/09/17 at 22 :00; Status UNV Cefepime HCl (Maxipime) 1 gm Q12HR IVP ; Start 08/09/17 at 21:00; Status Cancel Cefepime HCl 1 gm/ Dextrose 50 ml @ 100 mls/hr Q12HR IV Last administered on 08/10/17 20:19; Start 08/09/17 at 21:00; Stop 08/10/17 at 23:00; Status DC Potassium Chloride/Sodium Chloride 1,000 ml @ 75 mls/hr [id number] IV Last administered on 08/10/17 09:04; Start 08/09/17 at 14:45; Stop 08/10/17 at 16 :00; Status DC Magnesium Sulfate/ Dextrose 100 ml @ 25 mls/hr 1X ONCE IV Last administered on 08/09/17 15:30; Start 08/09/17 at 14:45; Stop 08/09/17 at 18:44; Status DC Potassium Chloride (Klor-Con) 40 meq 1X ONCE PO Last administered on 20:32; Start 08/09/17 at 16:30; Stop 08/09/17 at 16:31; Status DC Enoxaparin Sodium (Lovenox 40mg Syringe) 40 mg Q24H SQ ; Start 08/09/17 at 16: 30; Status UNV Tbo-Filgrastim (Granix) 480 mcg QHS SQ Last administered on 08/14/17 21:13; Start 08/09/17 at 21:00 Cefepime HCl (Maxipime) 1 gm Q12HR IVP Last administered on 08/15/17 09:09; Start 08/11/17 at 09:00 Info (Anti-Coagulation Monitoring By Pharmacy) 1 each PRN DAILY PRN MC SEE COMMENTS Last administered on 08/14/17 09:55; Start 08/10/17 at 11:00 Calcium Carbonate/ Glycine (Tums) 500 mg PRN AFTMEALHC PRN PO INDIGESTION Last administered on 08/10/17 21:09; Start 08/10/17 at 20:45 Multi-Ingredient Mouthwash/Gargle (Gi Cocktail Single Dose) 15 ml PRN 1X PRN SWSW CHEST PAIN; Start 08/10/17 at 20:45 Sodium Chloride 1,000 ml @ 1,000 mls/hr 1X ONCE IV Last administered on 08/12 15:02; Start 08/12/17 at 14:00; Stop 08/12/17 at 14:59; Status DC Vecuronium [place] (Norcuron Bolus) 4 mg PRN Q4HRS PRN IV AGITATION; Start at 14:30; Stop 08/12/17 at 14:48; Status DC Albumin Human 100 ml @ 100 mls/hr 1X ONCE IV Last administered on 08/12/17 16:15; Start 08/12/17 at 15:45; Stop 08/12/17 at 16:44; Status DC Potassium Chloride (Klor-Con) 40 meq 1X ONCE PO Last administered on 16:08; Start 08/12/17 at 15:45; Stop 08/12/17 at 15:46; Status DC Potassium Chloride (Klor-Con) 20 meq 1X ONCE PO Last administered on 20:12; Start 08/12/17 at 18:00; Stop 08/12/17 at 18:01; Status DC Magnesium Sulfate/ Dextrose 100 ml @ 25 mls/hr 1X ONCE IV Last administered on 08/12/17 16:09; Start 08/12/17 at 16:00; Stop 08/12/17 at 19:59; Status DC Potassium Chloride (Klor-Con) 40 meq 1X ONCE PO Last administered on 21:56; Start 08/12/17 at 22:00; Stop 08/12/17 at 22:01; Status DC Potassium Chloride (Klor-Con) 40 meq 1X ONCE PO Last administered on 00:27; Start 08/13/17 at 00:00; Stop 08/13/17 at 00:01; Status DC Micafungin Sodium 100 mg/Dextrose 100 ml @ 100 mls/hr Q24H IV Last administered on 08/14/17 12:00; Start 08/13/17 at 12:00 Active Scripts Active Reported Ativan (Lorazepam) 1 Mg Tablet 1 Mg PO Q6HRS PRN Eliquis (Apixaban) 5 Mg Tablet 5 Mg PO BID Zofran (Ondansetron Hcl) 8 Mg Tablet 8 Mg PO BID PRN Pantoprazole Sodium 40 Mg Tablet. 1 Tab PO DAILY Vitals/I & O Vital Sign - Last 24 Hours 08/14/17 08/14/17 08/14/17 08/14/17 11:00 11:00 11:47 13:09 Temp 97.8 98.1 97.8 98.1 Pulse 97 97 Resp 19 18 B/P (MAP) 94/52 (66) 87/53 (64) 94/52 Pulse Ox 98 O2 Delivery Room Air Room Air 08/14/17 08/14/17 08/14/17 08/14/17 13:18 15:00 16:15 19:15 Temp 98.2 98.1 97.8 98.2 98.1 97.8 Pulse 120 122 125 Resp 18 20 25 B/P (MAP) 96/46 95/55 (68) 87/54 (65) Pulse Ox 96 94 O2 Delivery Room Air Room Air Room Air 08/14/17 08/14/17 08/14/17 08/15/17 19:19 19:20 23:15 02:52 Temp 98.8 97.9 98.8 97.9 Pulse 120 120 Resp 22 22 B/P (MAP) 94/52 (66) 108/55 (72) Pulse Ox 96 94 O2 Delivery Room Air Room Air Room Air Nasal Cannula O2 Flow Rate 2.0 08/15/17 08/15/17 07:00 07:16 Temp 98.1 98.1 Pulse 119 Resp 18 B/P (MAP) 103/56 (72) Pulse Ox 92 95 O2 Delivery Nasal Cannula Room Air O2 Flow Rate 2.0 Intake and Output 08/14/17 08/14/17 08/15/17 15:00 23:00 07:00 Intake Total 728 ml 600 ml 450 ml Output Total 0 ml 800 ml 350 ml Balance 728 ml -200 ml 100 ml IRENE HDZ MD Aug 15, 2017 09:13
[2017-08-15 11:00] VITALS: BP 98/52
[2017-08-15 12:16] LABS: NEG OBC FOB NEG; POS OBC FOB POS
[2017-08-15] MEDS: MICAFUNGIN 100 MG in IV DEXTROSE 5% 100 ML IV SCH (13:16)
--- NOTE | 2017-08-15 13:53 | PDOC ---
PROGRESS NOTES Chief Complaint Chief Complaint acute dyspnea, 2/2 right lung Ca, PE, and obstructive PNA hypotension, 2/2 anemia, PNA, sepsis, required days of IV norepi in the ICU recently diagnosed Bilateral PE ON eliquis right lung NON small cell Ca, on chemo and RT now with pancytopenia, critical thrombocytopenia h/o Grade 1 CHF, copd w/ prior tobacco use history htn Rheumatoid arthritis anemia with RT, CHEMO ckd3 mild malnutrition History of Present Illness History of Present Illness Pt seen and examined at bedside hypotension better, she feels well and wants to be discharge home soon plts have dropped markedly, now risk with eliquis for DVT, heme and RadOnc team following Vitals Vitals Vital Signs Date Time Temp Pulse Resp B/P (MAP) Pulse Ox O2 Delivery O2 Flow Rate FiO2 08/15/17 11:14 Room Air 08/15/17 11:00 97.3 119 17 98/52 (67) 94 97.3 08/15/17 07:00 2.0 Physical Exam General: Alert, Oriented X3, No acute distress Heart: Normal S1, Normal S2, No murmurs Lungs: Other (decrease bs, fine crackles ) Abdomen: Normal bowel sounds, Soft, No tenderness Extremities: No clubbing, No cyanosis, No edema Skin: No rashes, No breakdown, No significant lesion Labs LABS Laboratory Tests Test 08/15/17 03:33 08/15/17 12:00 White Blood Count 1.8 x10^3/uL (4.0-11.0) Red Blood Count 2.98 x10^6/uL (3.50-5.40) Hemoglobin 8.2 g/dL (12.0-15.5) Hematocrit 24.9 % (36.0-47.0) Mean Corpuscular Volume 83 fL (79-100) Mean Corpuscular Hemoglobin 27 pg (25-35) Mean Corpuscular Hemoglobin Concent 33 g/dL (31-37) Red Cell Distribution Width 24.5 % (11.5-14.5) Platelet Count 49 x10^3/uL (140-400) Neutrophils (%) (Auto) 65 % (31-73) Lymphocytes (%) (Auto) 21 % (24-48) Monocytes (%) (Auto) 13 % (0-9) Eosinophils (%) (Auto) 1 % (0-3) Basophils (%) (Auto) 0 % (0-3) Neutrophils # (Auto) 1.2 x10^3uL (1.8-7.7) Lymphocytes # (Auto) 0.4 x10^3/uL (1.0-4.8) Monocytes # (Auto) 0.2 x10^3/uL (0.0-1.1) Eosinophils # (Auto) 0.0 x10^3/uL (0.0-0.7) Basophils # (Auto) 0.0 x10^3/uL (0.0-0.2) Sodium Level 137 mmol/L (136-145) Potassium Level 4.0 mmol/L (3.5-5.1) Chloride Level 102 mmol/L (98-107) Carbon Dioxide Level 30 mmol/L (21-32) Anion Gap 5 (6-14) Blood Urea Nitrogen 12 mg/dL (7-20) Creatinine 0.8 mg/dL (0.6-1.0) Estimated GFR (Cockcroft-Gault) 69.4 Glucose Level 116 mg/dL (70-99) Calcium Level 8.7 mg/dL (8.5-10.1) Stool Occult Blood Negative (NEG) Review of Systems Review of Systems General: fatigue GI: no n/v/pain Assessment and Plan Assessmemt and Plan Problems Medical Problems: (1) Anemia Status: Acute (2) Neutropenia Status: Acute (3) Pneumonia Status: Acute Assessment: acute dyspnea, 2/2 right lung Ca, PE, and obstructive PNA hypotension, 2/2 anemia, PNA, sepsis, required days of IV norepi in the ICU recently diagnosed Bilateral PE ON eliquis right lung NON small cell Ca, on chemo and RT now with pancytopenia, critical thrombocytopenia h/o Grade 1 CHF, copd w/ prior tobacco use history htn Rheumatoid arthritis anemia with RT, CHEMO ckd3 mild malnutrition Plan: Possible d/c with subspeciality input Continue home medications Continue breathing treatments and O2 monitoring Continue antibiotics Consult PT/OT Problems: Comment Review of Relevant I have reviewed the following items gen (where applicable) has been applied. Labs Laboratory Tests Test 08/14/17 03:00 08/15/17 03:33 08/15/17 12:00 White Blood Count 0.7 x10^3/uL (4.0-11.0) 1.8 x10^3/uL (4.0-11.0) Red Blood Count 2.86 x10^6/uL (3.50-5.40) 2.98 x10^6/uL (3.50-5.40) Hemoglobin 7.9 g/dL (12.0-15.5) 8.2 g/dL (12.0-15.5) Hematocrit 23.8 % (36.0-47.0) 24.9 % (36.0-47.0) Mean Corpuscular Volume 83 fL (79-100) 83 fL (79-100) Mean Corpuscular Hemoglobin 28 pg (25-35) 27 pg (25-35) Mean Corpuscular Hemoglobin Concent 33 g/dL (31-37) 33 g/dL (31-37) Red Cell Distribution Width 24.5 % (11.5-14.5) 24.5 % (11.5-14.5) Platelet Count 13 x10^3/uL (140-400) 49 x10^3/uL (140-400) Neutrophils (%) (Auto) 30 % (31-73) 65 % (31-73) Lymphocytes (%) (Auto) 52 % (24-48) 21 % (24-48) Monocytes (%) (Auto) 16 % (0-9) 13 % (0-9) Eosinophils (%) (Auto) 2 % (0-3) 1 % (0-3) Basophils (%) (Auto) 0 % (0-3) 0 % (0-3) Neutrophils # (Auto) 0.2 x10^3uL (1.8-7.7) 1.2 x10^3uL (1.8-7.7) Lymphocytes # (Auto) 0.4 x10^3/uL (1.0-4.8) 0.4 x10^3/uL (1.0-4.8) Monocytes # (Auto) 0.1 x10^3/uL (0.0-1.1) 0.2 x10^3/uL (0.0-1.1) Eosinophils # (Auto) 0.0 x10^3/uL (0.0-0.7) 0.0 x10^3/uL (0.0-0.7) Basophils # (Auto) 0.0 x10^3/uL (0.0-0.2) 0.0 x10^3/uL (0.0-0.2) Sodium Level 137 mmol/L (136-145) 137 mmol/L (136-145) Potassium Level 4.4 mmol/L (3.5-5.1) 4.0 mmol/L (3.5-5.1) Chloride Level 103 mmol/L (98-107) 102 mmol/L (98-107) Carbon Dioxide Level 27 mmol/L (21-32) 30 mmol/L (21-32) Anion Gap 7 (6-14) 5 (6-14) Blood Urea Nitrogen 11 mg/dL (7-20) 12 mg/dL (7-20) Creatinine 0.7 mg/dL (0.6-1.0) 0.8 mg/dL (0.6-1.0) Estimated GFR (Cockcroft-Gault) 80.9 69.4 BUN/Creatinine Ratio 16 (6-20) Glucose Level 102 mg/dL (70-99) 116 mg/dL (70-99) Calcium Level 8.7 mg/dL (8.5-10.1) 8.7 mg/dL (8.5-10.1) Total Bilirubin 0.5 mg/dL (0.2-1.0) Aspartate Amino Transf (AST/SGOT) 12 U/L (15-37) Alanine Aminotransferase (ALT/SGPT) 14 U/L (14-59) Alkaline Phosphatase 91 U/L (46-116) Total Protein 5.8 g/dL (6.4-8.2) Albumin 2.6 g/dL (3.4-5.0) Albumin/Globulin Ratio 0.8 (1.0-1.7) Stool Occult Blood Negative (NEG) Laboratory Tests Test 08/15/17 03:33 08/15/17 12:00 White Blood Count 1.8 x10^3/uL (4.0-11.0) Red Blood Count 2.98 x10^6/uL (3.50-5.40) Hemoglobin 8.2 g/dL (12.0-15.5) Hematocrit 24.9 % (36.0-47.0) Mean Corpuscular Volume 83 fL (79-100) Mean Corpuscular Hemoglobin 27 pg (25-35) Mean Corpuscular Hemoglobin Concent 33 g/dL (31-37) Red Cell Distribution Width 24.5 % (11.5-14.5) Platelet Count 49 x10^3/uL (140-400) Neutrophils (%) (Auto) 65 % (31-73) Lymphocytes (%) (Auto) 21 % (24-48) Monocytes (%) (Auto) 13 % (0-9) Eosinophils (%) (Auto) 1 % (0-3) Basophils (%) (Auto) 0 % (0-3) Neutrophils # (Auto) 1.2 x10^3uL (1.8-7.7) Lymphocytes # (Auto) 0.4 x10^3/uL (1.0-4.8) Monocytes # (Auto) 0.2 x10^3/uL (0.0-1.1) Eosinophils # (Auto) 0.0 x10^3/uL (0.0-0.7) Basophils # (Auto) 0.0 x10^3/uL (0.0-0.2) Sodium Level 137 mmol/L (136-145) Potassium Level 4.0 mmol/L (3.5-5.1) Chloride Level 102 mmol/L (98-107) Carbon Dioxide Level 30 mmol/L (21-32) Anion Gap 5 (6-14) Blood Urea Nitrogen 12 mg/dL (7-20) Creatinine 0.8 mg/dL (0.6-1.0) Estimated GFR (Cockcroft-Gault) 69.4 Glucose Level 116 mg/dL (70-99) Calcium Level 8.7 mg/dL (8.5-10.1) Stool Occult Blood Negative (NEG) Microbiology 08/09/17 Blood Culture - Final, Complete NO GROWTH AFTER 5 DAYS 08/11/17 - Final, Complete 08/11/17 - Final, Complete 08/11/17 - Final, Complete 08/11/17 - Final, Complete 08/11/17 - Final, Complete 08/11/17 Gram Stain Evaluation - Final, Complete 08/11/17 Sputum Culture - Final, Complete 08/11/17 Sputum Result 1 - Final, Complete Medications Current Medications Lorazepam (Ativan) 1 mg 1X ONCE IV Last administered on 08/09/17 11:27; Start 08/09/17 at 11:00; Stop 08/09/17 at 11:01; Status DC Sodium Chloride 1,000 ml @ 1,000 mls/hr Q1H IV Last administered on 11:27; Start 08/09/17 at 10:49; Stop 08/09/17 at 11:48; Status DC Sodium Chloride (Normal Saline Flush) 10 ml QSHIFT PRN IV AFTER MEDS AND BLOOD DRAWS Last administered on 08/09/17 11:28; Start 08/09/17 at 11:00; Stop at 09:41; Status DC Albuterol/ Ipratropium (Duoneb) 3 ml 1X ONCE NEB Last administered on 11:05; Start 08/09/17 at 11:00; Stop 08/09/17 at 11:01; Status DC Methylprednisolone Sodium Succinate (SOLU-Medrol 125MG VIAL) 125 mg 1X ONCE IV Last administered on 08/09/17 11:27; Start 08/09/17 at 11:00; Stop at 11:01; Status DC Sodium Chloride (Normal Saline Flush) 10 ml QSHIFT PRN IV AFTER MEDS AND BLOOD DRAWS; Start 08/09/17 at 12:15 Sodium Chloride 1,000 ml @ 1,830 mls/hr Q33M IV Last administered on 12:37; Start 08/09/17 at 12:10; Stop 08/09/17 at 13:10; Status DC Cefepime HCl 2 gm/ Sodium Chloride 100 ml @ 200 mls/hr 1X ONCE IV ; Start at 12:15; Stop 08/09/17 at 12:44; Status UNV Norepinephrine Bitartrate 250 ml @ 0 mls/hr CONT PRN IV PER PROTOCOL Last administered on 08/12/17 21:01; Start 08/09/17 at 12:15; Stop 08/14/17 at 09 :55; Status DC Cefepime HCl (Maxipime) 2 gm 1X ONCE IVP Last administered on 08/09/17 12:33 ; Start 08/09/17 at 12:30; Stop 08/09/17 at 12:31; Status DC Ondansetron HCl (Zofran) 4 mg PRN Q8HRS PRN IV NAUSEA/VOMITING; Start at 12:45; Stop 08/09/17 at 14:13; Status DC Fentanyl Citrate (Fentanyl 2ml Vial) 50 mcg PRN Q2HR PRN IV PAIN Last administered on 08/10/17 01:01; Start 08/09/17 at 12:45; Stop 08/10/17 at 12 :44; Status DC Acetaminophen (Tylenol) 650 mg PRN Q4HRS PRN PO FEVER; Start 08/09/17 at 12:45 ; Stop 08/10/17 at 12:44; Status DC Acetaminophen (Tylenol) 650 mg PRN Q6HRS PRN PO FEVER Last administered on 09:03; Start 08/09/17 at 14:15 Ondansetron HCl (Zofran) 4 mg PRN Q6HRS PRN IV NAUSEA/VOMITING Last administered on 08/12/17 13:38; Start 08/09/17 at 14:15 Morphine Sulfate 2 mg PRN Q2HR PRN IV PAIN; Start 08/09/17 at 14:15 Tramadol HCl (Ultram) 50 mg PRN Q6HRS PRN PO PAIN; Start 08/09/17 at 14:15 Hydralazine HCl (Apresoline Inj) 10 mg PRN Q4HRS PRN IVP ELEVATED BP, SEE COMMENTS; Start 08/09/17 at 14:15 Docusate Sodium (Colace) 100 mg PRN DAILY PRN PO CONSTIPATION; Start 08/09/17 at 14:15 Apixaban (Eliquis) 5 mg BID PO Last administered on 08/15/17 09:09; Start at 21:00 Lorazepam (Ativan) 0.5 mg Q6HRS PRN PO ANXIETY; Start 08/09/17 at 14:15 Pantoprazole Sodium (Protonix) 40 mg DAILYAC PO Last administered on 09:09; Start 08/10/17 at 07:30 Albuterol/ Ipratropium (Duoneb) 3 ml RTQID NEB Last administered on 08/15/17 11:12; Start 08/09/17 at 16:00 Albuterol Sulfate (Ventolin Neb Soln) 2.5 mg PRN Q2HR PRN NEB SHORTNESS OF BREATH; Start 08/09/17 at 14:15 Guaifenesin (Mucinex) 600 mg BID PO Last administered on 08/15/17 09:09; Start 08/09/17 at 21:00 Cefepime HCl 1 gm/ Dextrose 50 ml @ 100 mls/hr Q8HRS IV ; Start 08/09/17 at 22 :00; Status UNV Cefepime HCl (Maxipime) 1 gm Q12HR IVP ; Start 08/09/17 at 21:00; Status Cancel Cefepime HCl 1 gm/ Dextrose 50 ml @ 100 mls/hr Q12HR IV Last administered on 08/10/17 20:19; Start 08/09/17 at 21:00; Stop 08/10/17 at 23:00; Status DC Potassium Chloride/Sodium Chloride 1,000 ml @ 75 mls/hr [id number] IV Last administered on 08/10/17 09:04; Start 08/09/17 at 14:45; Stop 08/10/17 at 16 :00; Status DC Magnesium Sulfate/ Dextrose 100 ml @ 25 mls/hr 1X ONCE IV Last administered on 08/09/17 15:30; Start 08/09/17 at 14:45; Stop 08/09/17 at 18:44; Status DC Potassium Chloride (Klor-Con) 40 meq 1X ONCE PO Last administered on 20:32; Start 08/09/17 at 16:30; Stop 08/09/17 at 16:31; Status DC Enoxaparin Sodium (Lovenox 40mg Syringe) 40 mg Q24H SQ ; Start 08/09/17 at 16: 30; Status UNV Tbo-Filgrastim (Granix) 480 mcg QHS SQ Last administered on 08/14/17 21:13; Start 08/09/17 at 21:00 Cefepime HCl (Maxipime) 1 gm Q12HR IVP Last administered on 08/15/17 09:09; Start 08/11/17 at 09:00 Info (Anti-Coagulation Monitoring By Pharmacy) 1 each PRN DAILY PRN MC SEE COMMENTS Last administered on 08/14/17 09:55; Start 08/10/17 at 11:00 Calcium Carbonate/ Glycine (Tums) 500 mg PRN AFTMEALHC PRN PO INDIGESTION Last administered on 08/10/17 21:09; Start 08/10/17 at 20:45 Multi-Ingredient Mouthwash/Gargle (Gi Cocktail Single Dose) 15 ml PRN 1X PRN SWSW CHEST PAIN; Start 08/10/17 at 20:45 Sodium Chloride 1,000 ml @ 1,000 mls/hr 1X ONCE IV Last administered on 08/12 15:02; Start 08/12/17 at 14:00; Stop 08/12/17 at 14:59; Status DC Vecuronium [place] (Norcuron Bolus) 4 mg PRN Q4HRS PRN IV AGITATION; Start at 14:30; Stop 08/12/17 at 14:48; Status DC Albumin Human 100 ml @ 100 mls/hr 1X ONCE IV Last administered on 08/12/17 16:15; Start 08/12/17 at 15:45; Stop 08/12/17 at 16:44; Status DC Potassium Chloride (Klor-Con) 40 meq 1X ONCE PO Last administered on 16:08; Start 08/12/17 at 15:45; Stop 08/12/17 at 15:46; Status DC Potassium Chloride (Klor-Con) 20 meq 1X ONCE PO Last administered on 20:12; Start 08/12/17 at 18:00; Stop 08/12/17 at 18:01; Status DC Magnesium Sulfate/ Dextrose 100 ml @ 25 mls/hr 1X ONCE IV Last administered on 08/12/17 16:09; Start 08/12/17 at 16:00; Stop 08/12/17 at 19:59; Status DC Potassium Chloride (Klor-Con) 40 meq 1X ONCE PO Last administered on 21:56; Start 08/12/17 at 22:00; Stop 08/12/17 at 22:01; Status DC Potassium Chloride (Klor-Con) 40 meq 1X ONCE PO Last administered on 00:27; Start 08/13/17 at 00:00; Stop 08/13/17 at 00:01; Status DC Micafungin Sodium 100 mg/Dextrose 100 ml @ 100 mls/hr Q24H IV Last administered on 08/15/17t 13:16; Start 08/13/17 at 12:00 Active Scripts Active Reported Ativan (Lorazepam) 1 Mg Tablet 1 Mg PO Q6HRS PRN Eliquis (Apixaban) 5 Mg Tablet 5 Mg PO BID Zofran (Ondansetron Hcl) 8 Mg Tablet 8 Mg PO BID PRN Pantoprazole Sodium 40 Mg Tablet.dr 1 Tab PO DAILY Vitals/I & O Vital Sign - Last 24 Hours 08/14/17 08/14/17 08/14/17 08/14/17 15:00 16:15 19:15 19:19 Temp 98.1 97.8 98.1 97.8 Pulse 122 125 Resp 20 25 B/P (MAP) 95/55 (68) 87/54 (65) Pulse Ox 96 94 O2 Delivery Room Air Room Air Room Air Room Air 08/14/17 08/14/17 08/15/17 08/15/17 19:20 23:15 02:52 07:00 Temp 98.8 97.9 98.1 98.8 97.9 98.1 Pulse 120 120 119 Resp 22 22 18 B/P (MAP) 94/52 (66) 108/55 (72) 103/56 (72) Pulse Ox 96 94 92 O2 Delivery Room Air Room Air Nasal Cannula Nasal Cannula O2 Flow Rate 2.0 2.0 08/15/17 08/15/17 08/15/17 08/15/17 07:16 08:00 08:00 11:00 Temp 97.3 97.3 Pulse 119 Resp 17 B/P (MAP) 98/52 (67) Pulse Ox 95 94 O2 Delivery Room Air Room Air Room Air Room Air 08/15/17 11:14 O2 Delivery Room Air Intake and Output 08/14/17 08/14/17 08/15/17 14:59 22:59 06:59 Intake Total 728 ml 600 ml 450 ml Output Total 0 ml 800 ml 350 ml Balance 728 ml -200 ml 100 ml AYESHA HURST III DO Aug 15, 2017 13:53
[2017-08-15 15:00] VITALS: BP 106/60
--- NOTE | 2017-08-15 16:14 | PDOC ---
PROGRESS NOTES Subjective Subjective Patient seen and examined The patient is mildly more comfortable today. Objective Objective Vital Signs Date Time Temp Pulse Resp B/P (MAP) Pulse Ox O2 Delivery O2 Flow Rate FiO2 08/15/17 15:31 Room Air 08/15/17 15:00 98.1 124 18 106/60 (75) 94 98.1 08/15/17 07:00 2.0 Intake and Output 08/15/17 07:00 Intake Total 1778 ml Output Total 1150 ml Balance 628 ml Intake Oral 1550 ml Blood Product IV Normal Saline Flush 228 ml Output Urine Total 1150 ml Physical Exam Abdomen: Normal bowel sounds Heart: Regular rate General: mild distress Lungs: Other (decreased breath sounds) Assessment Assessment Problems Medical Problems: (1) Anemia Status: Acute (2) Neutropenia Status: Acute (3) Pneumonia Status: Acute 1. Dyspnea: multifactorial with lung CA, recent acute bilateral PE, postobstructive pneumonia, COPD and anemia. The patient is slowly improving and feels better today. 2. Stage 3 SCLCA with pancytopenia. Pulmonary and oncology following 3. Sinus tachycardia with hypotension: Improved. Reactive and multifactorial primarily due to extracardiac factors as noted above. Pressors as needed. 4. CAD: PCI/stent in the past, stable and chest pain-free. Comment Review of Relevant I have reviewed the following items gen (where applicable) has been applied. Labs Laboratory Tests Test 08/14/17 03:00 08/15/17 03:33 08/15/17 12:00 White Blood Count 0.7 x10^3/uL (4.0-11.0) 1.8 x10^3/uL (4.0-11.0) Red Blood Count 2.86 x10^6/uL (3.50-5.40) 2.98 x10^6/uL (3.50-5.40) Hemoglobin 7.9 g/dL (12.0-15.5) 8.2 g/dL (12.0-15.5) Hematocrit 23.8 % (36.0-47.0) 24.9 % (36.0-47.0) Mean Corpuscular Volume 83 fL (79-100) 83 fL (79-100) Mean Corpuscular Hemoglobin 28 pg (25-35) 27 pg (25-35) Mean Corpuscular Hemoglobin Concent 33 g/dL (31-37) 33 g/dL (31-37) Red Cell Distribution Width 24.5 % (11.5-14.5) 24.5 % (11.5-14.5) Platelet Count 13 x10^3/uL (140-400) 49 x10^3/uL (140-400) Neutrophils (%) (Auto) 30 % (31-73) 65 % (31-73) Lymphocytes (%) (Auto) 52 % (24-48) 21 % (24-48) Monocytes (%) (Auto) 16 % (0-9) 13 % (0-9) Eosinophils (%) (Auto) 2 % (0-3) 1 % (0-3) Basophils (%) (Auto) 0 % (0-3) 0 % (0-3) Neutrophils # (Auto) 0.2 x10^3uL (1.8-7.7) 1.2 x10^3uL (1.8-7.7) Lymphocytes # (Auto) 0.4 x10^3/uL (1.0-4.8) 0.4 x10^3/uL (1.0-4.8) Monocytes # (Auto) 0.1 x10^3/uL (0.0-1.1) 0.2 x10^3/uL (0.0-1.1) Eosinophils # (Auto) 0.0 x10^3/uL (0.0-0.7) 0.0 x10^3/uL (0.0-0.7) Basophils # (Auto) 0.0 x10^3/uL (0.0-0.2) 0.0 x10^3/uL (0.0-0.2) Sodium Level 137 mmol/L (136-145) 137 mmol/L (136-145) Potassium Level 4.4 mmol/L (3.5-5.1) 4.0 mmol/L (3.5-5.1) Chloride Level 103 mmol/L (98-107) 102 mmol/L (98-107) Carbon Dioxide Level 27 mmol/L (21-32) 30 mmol/L (21-32) Anion Gap 7 (6-14) 5 (6-14) Blood Urea Nitrogen 11 mg/dL (7-20) 12 mg/dL (7-20) Creatinine 0.7 mg/dL (0.6-1.0) 0.8 mg/dL (0.6-1.0) Estimated GFR (Cockcroft-Gault) 80.9 69.4 BUN/Creatinine Ratio 16 (6-20) Glucose Level 102 mg/dL (70-99) 116 mg/dL (70-99) Calcium Level 8.7 mg/dL (8.5-10.1) 8.7 mg/dL (8.5-10.1) Total Bilirubin 0.5 mg/dL (0.2-1.0) Aspartate Amino Transf (AST/SGOT) 12 U/L (15-37) Alanine Aminotransferase (ALT/SGPT) 14 U/L (14-59) Alkaline Phosphatase 91 U/L (46-116) Total Protein 5.8 g/dL (6.4-8.2) Albumin 2.6 g/dL (3.4-5.0) Albumin/Globulin Ratio 0.8 (1.0-1.7) Stool Occult Blood Negative (NEG) Laboratory Tests Test 08/15/17 03:33 08/15/17 12:00 White Blood Count 1.8 x10^3/uL (4.0-11.0) Red Blood Count 2.98 x10^6/uL (3.50-5.40) Hemoglobin 8.2 g/dL (12.0-15.5) Hematocrit 24.9 % (36.0-47.0) Mean Corpuscular Volume 83 fL (79-100) Mean Corpuscular Hemoglobin 27 pg (25-35) Mean Corpuscular Hemoglobin Concent 33 g/dL (31-37) Red Cell Distribution Width 24.5 % (11.5-14.5) Platelet Count 49 x10^3/uL (140-400) Neutrophils (%) (Auto) 65 % (31-73) Lymphocytes (%) (Auto) 21 % (24-48) Monocytes (%) (Auto) 13 % (0-9) Eosinophils (%) (Auto) 1 % (0-3) Basophils (%) (Auto) 0 % (0-3) Neutrophils # (Auto) 1.2 x10^3uL (1.8-7.7) Lymphocytes # (Auto) 0.4 x10^3/uL (1.0-4.8) Monocytes # (Auto) 0.2 x10^3/uL (0.0-1.1) Eosinophils # (Auto) 0.0 x10^3/uL (0.0-0.7) Basophils # (Auto) 0.0 x10^3/uL (0.0-0.2) Sodium Level 137 mmol/L (136-145) Potassium Level 4.0 mmol/L (3.5-5.1) Chloride Level 102 mmol/L (98-107) Carbon Dioxide Level 30 mmol/L (21-32) Anion Gap 5 (6-14) Blood Urea Nitrogen 12 mg/dL (7-20) Creatinine 0.8 mg/dL (0.6-1.0) Estimated GFR (Cockcroft-Gault) 69.4 Glucose Level 116 mg/dL (70-99) Calcium Level 8.7 mg/dL (8.5-10.1) Stool Occult Blood Negative (NEG) Microbiology 08/09/17 Blood Culture - Final, Complete NO GROWTH AFTER 5 DAYS 08/11/17 - Final, Complete 08/11/17 - Final, Complete 08/11/17 - Final, Complete 08/11/17 - Final, Complete 08/11/17 - Final, Complete 08/11/17 Gram Stain Evaluation - Final, Complete 08/11/17 Sputum Culture - Final, Complete 08/11/17 Sputum Result 1 - Final, Complete Medications Current Medications Lorazepam (Ativan) 1 mg 1X ONCE IV Last administered on 08/09/17 11:27; Start 08/09/17 at 11:00; Stop 08/09/17 at 11:01; Status DC Sodium Chloride 1,000 ml @ 1,000 mls/hr Q1H IV Last administered on 11:27; Start 08/09/17 at 10:49; Stop 08/09/17 at 11:48; Status DC Sodium Chloride (Normal Saline Flush) 10 ml QSHIFT PRN IV AFTER MEDS AND BLOOD DRAWS Last administered on 08/09/17 11:28; Start 08/09/17 at 11:00; Stop at 09:41; Status DC Albuterol/ Ipratropium (Duoneb) 3 ml 1X ONCE NEB Last administered on 11:05; Start 08/09/17 at 11:00; Stop 08/09/17 at 11:01; Status DC Methylprednisolone Sodium Succinate (SOLU-Medrol 125MG VIAL) 125 mg 1X ONCE IV Last administered on 08/09/17 11:27; Start 08/09/17 at 11:00; Stop at 11:01; Status DC Sodium Chloride (Normal Saline Flush) 10 ml QSHIFT PRN IV AFTER MEDS AND BLOOD DRAWS; Start 08/09/17 at 12:15 Sodium Chloride 1,000 ml @ 1,830 mls/hr Q33M IV Last administered on 12:37; Start 08/09/17 at 12:10; Stop 08/09/17 at 13:10; Status DC Cefepime HCl 2 gm/ Sodium Chloride 100 ml @ 200 mls/hr 1X ONCE IV ; Start at 12:15; Stop 08/09/17 at 12:44; Status UNV Norepinephrine Bitartrate 250 ml @ 0 mls/hr CONT PRN IV PER PROTOCOL Last administered on 08/12/17 21:01; Start 08/09/17 at 12:15; Stop 08/14/17 at 09 :55; Status DC Cefepime HCl (Maxipime) 2 gm 1X ONCE IVP Last administered on 08/09/17 12:33 ; Start 08/09/17 at 12:30; Stop 08/09/17 at 12:31; Status DC Ondansetron HCl (Zofran) 4 mg PRN Q8HRS PRN IV NAUSEA/VOMITING; Start at 12:45; Stop 08/09/17 at 14:13; Status DC Fentanyl Citrate (Fentanyl 2ml Vial) 50 mcg PRN Q2HR PRN IV PAIN Last administered on 08/10/17 01:01; Start 08/09/17 at 12:45; Stop 08/10/17 at 12 :44; Status DC Acetaminophen (Tylenol) 650 mg PRN Q4HRS PRN PO FEVER; Start 08/09/17 at 12:45 ; Stop 08/10/17 at 12:44; Status DC Acetaminophen (Tylenol) 650 mg PRN Q6HRS PRN PO FEVER Last administered on 09:03; Start 08/09/17 at 14:15 Ondansetron HCl (Zofran) 4 mg PRN Q6HRS PRN IV NAUSEA/VOMITING Last administered on 08/12/17 13:38; Start 08/09/17 at 14:15 Morphine Sulfate 2 mg PRN Q2HR PRN IV PAIN; Start 08/09/17 at 14:15 Tramadol HCl (Ultram) 50 mg PRN Q6HRS PRN PO PAIN; Start 08/09/17 at 14:15 Hydralazine HCl (Apresoline Inj) 10 mg PRN Q4HRS PRN IVP ELEVATED BP, SEE COMMENTS; Start 08/09/17 at 14:15 Docusate Sodium (Colace) 100 mg PRN DAILY PRN PO CONSTIPATION; Start 08/09/17 at 14:15 Apixaban (Eliquis) 5 mg BID PO Last administered on 08/15/17 09:09; Start at 21:00 Lorazepam (Ativan) 0.5 mg Q6HRS PRN PO ANXIETY; Start 08/09/17 at 14:15 Pantoprazole Sodium (Protonix) 40 mg DAILYAC PO Last administered on 09:09; Start 08/10/17 at 07:30 Albuterol/ Ipratropium (Duoneb) 3 ml RTQID NEB Last administered on 08/15/17 15:30; Start 08/09/17 at 16:00 Albuterol Sulfate (Ventolin Neb Soln) 2.5 mg PRN Q2HR PRN NEB SHORTNESS OF BREATH; Start 08/09/17 at 14:15 Guaifenesin (Mucinex) 600 mg BID PO Last administered on 08/15/17 09:09; Start 08/09/17 at 21:00 Cefepime HCl 1 gm/ Dextrose 50 ml @ 100 mls/hr Q8HRS IV ; Start 08/09/17 at 22 :00; Status UNV Cefepime HCl (Maxipime) 1 gm Q12HR IVP ; Start 08/09/17 at 21:00; Status Cancel Cefepime HCl 1 gm/ Dextrose 50 ml @ 100 mls/hr Q12HR IV Last administered on 08/10/17 20:19; Start 08/09/17 at 21:00; Stop 08/10/17 at 23:00; Status DC Potassium Chloride/Sodium Chloride 1,000 ml @ 75 mls/hr [id number] IV Last administered on 08/10/17 09:04; Start 08/09/17 at 14:45; Stop 08/10/17 at 16 :00; Status DC Magnesium Sulfate/ Dextrose 100 ml @ 25 mls/hr 1X ONCE IV Last administered on 08/09/17 15:30; Start 08/09/17 at 14:45; Stop 08/09/17 at 18:44; Status DC Potassium Chloride (Klor-Con) 40 meq 1X ONCE PO Last administered on 20:32; Start 08/09/17 at 16:30; Stop 08/09/17 at 16:31; Status DC Enoxaparin Sodium (Lovenox 40mg Syringe) 40 mg Q24H SQ ; Start 08/09/17 at 16: 30; Status UNV Tbo-Filgrastim (Granix) 480 mcg QHS SQ Last administered on 08/14/17 21:13; Start 08/09/17 at 21:00 Cefepime HCl (Maxipime) 1 gm Q12HR IVP Last administered on 08/15/17 09:09; Start 08/11/17 at 09:00 Info (Anti-Coagulation Monitoring By Pharmacy) 1 each PRN DAILY PRN MC SEE COMMENTS Last administered on 08/14/17 09:55; Start 08/10/17 at 11:00 Calcium Carbonate/ Glycine (Tums) 500 mg PRN AFTMEALHC PRN PO INDIGESTION Last administered on 08/10/17 21:09; Start 08/10/17 at 20:45 Multi-Ingredient Mouthwash/Gargle (Gi Cocktail Single Dose) 15 ml PRN 1X PRN SWSW CHEST PAIN; Start 08/10/17 at 20:45 Sodium Chloride 1,000 ml @ 1,000 mls/hr 1X ONCE IV Last administered on 08/12 15:02; Start 08/12/17 at 14:00; Stop 08/12/17 at 14:59; Status DC Vecuronium [place] (Norcuron Bolus) 4 mg PRN Q4HRS PRN IV AGITATION; Start at 14:30; Stop 08/12/17 at 14:48; Status DC Albumin Human 100 ml @ 100 mls/hr 1X ONCE IV Last administered on 08/12/17 16:15; Start 08/12/17 at 15:45; Stop 08/12/17 at 16:44; Status DC Potassium Chloride (Klor-Con) 40 meq 1X ONCE PO Last administered on 16:08; Start 08/12/17 at 15:45; Stop 08/12/17 at 15:46; Status DC Potassium Chloride (Klor-Con) 20 meq 1X ONCE PO Last administered on 20:12; Start 08/12/17 at 18:00; Stop 08/12/17 at 18:01; Status DC Magnesium Sulfate/ Dextrose 100 ml @ 25 mls/hr 1X ONCE IV Last administered on 08/12/17 16:09; Start 08/12/17 at 16:00; Stop 08/12/17 at 19:59; Status DC Potassium Chloride (Klor-Con) 40 meq 1X ONCE PO Last administered on 21:56; Start 08/12/17 at 22:00; Stop 08/12/17 at 22:01; Status DC Potassium Chloride (Klor-Con) 40 meq 1X ONCE PO Last administered on 00:27; Start 08/13/17 at 00:00; Stop 08/13/17 at 00:01; Status DC Micafungin Sodium 100 mg/Dextrose 100 ml @ 100 mls/hr Q24H IV Last administered on 08/15/17 13:16; Start 08/13/17 at 12:00 Active Scripts Active Reported Ativan (Lorazepam) 1 Mg Tablet 1 Mg PO Q6HRS PRN Eliquis (Apixaban) 5 Mg Tablet 5 Mg PO BID Zofran (Ondansetron Hcl) 8 Mg Tablet 8 Mg PO BID PRN Pantoprazole Sodium 40 Mg Tablet. 1 Tab PO DAILY Vitals/I & O Vital Sign - Last 24 Hours 08/14/17 08/14/17 08/14/17 08/14/17 16:15 19:15 19:19 19:20 Temp 97.8 97.8 Pulse 125 Resp 25 B/P (MAP) 87/54 (65) Pulse Ox 94 O2 Delivery Room Air Room Air Room Air Room Air 08/14/17 08/15/17 08/15/17 08/15/17 23:15 02:52 07:00 07:16 Temp 98.8 97.9 98.1 98.8 97.9 98.1 Pulse 120 120 119 Resp 22 22 18 B/P (MAP) 94/52 (66) 108/55 (72) 103/56 (72) Pulse Ox 96 94 92 95 O2 Delivery Room Air Nasal Cannula Nasal Cannula Room Air O2 Flow Rate 2.0 2.0 08/15/17 08/15/17 08/15/17 08/15/17 08:00 08:00 11:00 11:14 Temp 97.3 97.3 Pulse 119 Resp 17 B/P (MAP) 98/52 (67) Pulse Ox 94 O2 Delivery Room Air Room Air Room Air Room Air 08/15/17 08/15/17 15:00 15:31 Temp 98.1 98.1 Pulse 124 Resp 18 B/P (MAP) 106/60 (75) Pulse Ox 94 O2 Delivery Room Air Room Air Intake and Output 08/14/17 08/14/17 08/15/17 15:00 23:00 07:00 Intake Total 728 ml 600 ml 450 ml Output Total 0 ml 800 ml 350 ml Balance 728 ml -200 ml 100 ml ALFONZO MONSALVE MD Aug 15, 2017 16:14
--- NOTE | 2017-08-15 17:36 | PDOC ---
PULMONARY PROGRESS NOTES Subjective FEELS BETTER LESS SOA NO INCREASE COUGH Vitals Vital Signs Date Time Temp Pulse Resp B/P (MAP) Pulse Ox O2 Delivery O2 Flow Rate FiO2 08/15/17 15:31 Room Air 08/15/17 15:00 98.1 124 18 106/60 (75) 94 98.1 08/15/17 07:00 2.0 ROS: No Nausea, No Chest Pain, No Abdominal Pain, No Increase Cough General: Alert, No acute distress Lungs: Other (decrease bs, fine crackles ) Cardiovascular: S1 Abdomen: Soft Neuro Exam: Alert Extremities: Other (1+edema) Labs Laboratory Tests Test 08/14/17 03:00 08/15/17 03:33 08/15/17 12:00 White Blood Count 0.7 x10^3/uL (4.0-11.0) 1.8 x10^3/uL (4.0-11.0) Red Blood Count 2.86 x10^6/uL (3.50-5.40) 2.98 x10^6/uL (3.50-5.40) Hemoglobin 7.9 g/dL (12.0-15.5) 8.2 g/dL (12.0-15.5) Hematocrit 23.8 % (36.0-47.0) 24.9 % (36.0-47.0) Mean Corpuscular Volume 83 fL (79-100) 83 fL (79-100) Mean Corpuscular Hemoglobin 28 pg (25-35) 27 pg (25-35) Mean Corpuscular Hemoglobin Concent 33 g/dL (31-37) 33 g/dL (31-37) Red Cell Distribution Width 24.5 % (11.5-14.5) 24.5 % (11.5-14.5) Platelet Count 13 x10^3/uL (140-400) 49 x10^3/uL (140-400) Neutrophils (%) (Auto) 30 % (31-73) 65 % (31-73) Lymphocytes (%) (Auto) 52 % (24-48) 21 % (24-48) Monocytes (%) (Auto) 16 % (0-9) 13 % (0-9) Eosinophils (%) (Auto) 2 % (0-3) 1 % (0-3) Basophils (%) (Auto) 0 % (0-3) 0 % (0-3) Neutrophils # (Auto) 0.2 x10^3uL (1.8-7.7) 1.2 x10^3uL (1.8-7.7) Lymphocytes # (Auto) 0.4 x10^3/uL (1.0-4.8) 0.4 x10^3/uL (1.0-4.8) Monocytes # (Auto) 0.1 x10^3/uL (0.0-1.1) 0.2 x10^3/uL (0.0-1.1) Eosinophils # (Auto) 0.0 x10^3/uL (0.0-0.7) 0.0 x10^3/uL (0.0-0.7) Basophils # (Auto) 0.0 x10^3/uL (0.0-0.2) 0.0 x10^3/uL (0.0-0.2) Sodium Level 137 mmol/L (136-145) 137 mmol/L (136-145) Potassium Level 4.4 mmol/L (3.5-5.1) 4.0 mmol/L (3.5-5.1) Chloride Level 103 mmol/L (98-107) 102 mmol/L (98-107) Carbon Dioxide Level 27 mmol/L (21-32) 30 mmol/L (21-32) Anion Gap 7 (6-14) 5 (6-14) Blood Urea Nitrogen 11 mg/dL (7-20) 12 mg/dL (7-20) Creatinine 0.7 mg/dL (0.6-1.0) 0.8 mg/dL (0.6-1.0) Estimated GFR (Cockcroft-Gault) 80.9 69.4 BUN/Creatinine Ratio 16 (6-20) Glucose Level 102 mg/dL (70-99) 116 mg/dL (70-99) Calcium Level 8.7 mg/dL (8.5-10.1) 8.7 mg/dL (8.5-10.1) Total Bilirubin 0.5 mg/dL (0.2-1.0) Aspartate Amino Transf (AST/SGOT) 12 U/L (15-37) Alanine Aminotransferase (ALT/SGPT) 14 U/L (14-59) Alkaline Phosphatase 91 U/L (46-116) Total Protein 5.8 g/dL (6.4-8.2) Albumin 2.6 g/dL (3.4-5.0) Albumin/Globulin Ratio 0.8 (1.0-1.7) Stool Occult Blood Negative (NEG) Laboratory Tests Test 08/15/17 03:33 08/15/17 12:00 White Blood Count 1.8 x10^3/uL (4.0-11.0) Red Blood Count 2.98 x10^6/uL (3.50-5.40) Hemoglobin 8.2 g/dL (12.0-15.5) Hematocrit 24.9 % (36.0-47.0) Mean Corpuscular Volume 83 fL (79-100) Mean Corpuscular Hemoglobin 27 pg (25-35) Mean Corpuscular Hemoglobin Concent 33 g/dL (31-37) Red Cell Distribution Width 24.5 % (11.5-14.5) Platelet Count 49 x10^3/uL (140-400) Neutrophils (%) (Auto) 65 % (31-73) Lymphocytes (%) (Auto) 21 % (24-48) Monocytes (%) (Auto) 13 % (0-9) Eosinophils (%) (Auto) 1 % (0-3) Basophils (%) (Auto) 0 % (0-3) Neutrophils # (Auto) 1.2 x10^3uL (1.8-7.7) Lymphocytes # (Auto) 0.4 x10^3/uL (1.0-4.8) Monocytes # (Auto) 0.2 x10^3/uL (0.0-1.1) Eosinophils # (Auto) 0.0 x10^3/uL (0.0-0.7) Basophils # (Auto) 0.0 x10^3/uL (0.0-0.2) Sodium Level 137 mmol/L (136-145) Potassium Level 4.0 mmol/L (3.5-5.1) Chloride Level 102 mmol/L (98-107) Carbon Dioxide Level 30 mmol/L (21-32) Anion Gap 5 (6-14) Blood Urea Nitrogen 12 mg/dL (7-20) Creatinine 0.8 mg/dL (0.6-1.0) Estimated GFR (Cockcroft-Gault) 69.4 Glucose Level 116 mg/dL (70-99) Calcium Level 8.7 mg/dL (8.5-10.1) Stool Occult Blood Negative (NEG) Medications Active Scripts Medications Dose Route/Sig Max Daily Dose Days Date Category Ativan (Lorazepam) 1 Mg Tablet 1 Mg PO Q6HRS PRN 07/25/17 Reported Eliquis (Apixaban) 5 Mg Tablet 5 Mg PO BID 07/25/17 Reported Zofran (Ondansetron Hcl) 8 Mg Tablet 8 Mg PO BID PRN 06/09/17 Reported Pantoprazole Sodium 40 Mg Tablet.dr 1 Tab PO DAILY 05/18/17 Reported Impression . 1. Progressive dyspnea multifactorial 2. Small cell carcinoma, undifferentiated status post chemo and radiation. 3. History of recent pulmonary embolism and no evidence of any deep venous thrombosis. This is secondary to hypercoagulable state. Continue Eliquis 4. Neutropenia and anemia, chemo-induced. 5. Underlying chronic obstructive pulmonary disease. 6. Suspected post-obstructive pneumonia. 7. SHOCK improved Plan . ok to d/c soon may need home health 1. Continue with p.r.n. oxygen. 2. Antibiotic cefepime. 3. Continue Eliquis. 4. DuoNebs. 5. Follow Oncology recommendation. IGNACIO AMADO MD Aug 15, 2017 17:36
[2017-08-15 19:15] VITALS: BP 105/65
[2017-08-15] MEDS: TBO-FILGRASTIM 480 MCG/0.8 ML SYRINGE. SQ SCH (20:33)
[2017-08-15 22:45] VITALS: BP 103/64
[2017-08-16 03:20] VITALS: BP 93/57
[2017-08-16 04:20] LABS: BASO % 0 % (0-3); EOS % 0 % (0-3); HEMATOCRIT 25.2 % (36.0-47.0); HEMOGLOBIN 8.4 g/dL (12.0-15.5); LYMPH # 0.5 x10^3/uL (1.0-4.8); LYMPH % 11 % (24-48); MEAN CORPUSCULAR HEMOGLOBIN 28 pg (25-35); MEAN CORPUSCULAR HGB CONC 33 g/dL (31-37); MEAN CORPUSCULAR VOLUME 84 fL (79-100); MONO % 14 % (0-9); NEUT % 76 % (31-73); PLATELET COUNT 43 x10^3/uL (140-400); RED BLOOD COUNT 2.99 x10^6/uL (3.50-5.40); RED CELL DISTRIBUTION WIDTH 24.5 % (11.5-14.5); WHITE BLOOD COUNT 4.3 x10^3/uL (4.0-11.0)
[2017-08-16] MEDS: IPRATRPIUM/ALBUTEROL 0.5/2.5MG 3 ML NEBU. NEB SCH ×3 (06:52→16:07)
[2017-08-16 07:00] VITALS: BP 95/52
--- NOTE | 2017-08-16 09:04 | PDOC ---
SUBJECTIVE Subjective Sitting in bed, conversant, states feels well and anticipates d/c home today. OBJECTIVE Objective Cough remains, no h/a, n/v. Eating and bowels moving. Denies any pain. Vital Signs Vital Signs Date Time Temp Pulse Resp B/P (MAP) Pulse Ox O2 Delivery O2 Flow Rate FiO2 08/16/17 07:55 Room Air 08/16/17 07:00 97.5 116 18 95/52 (66) 91 Room Air 97.5 08/16/17 06:54 94 Room Air 08/16/17 03:20 97.9 113 20 93/57 (69) 92 Room Air 97.9 08/15/17 22:45 99.3 122 20 103/64 (77) 94 Room Air 99.3 08/15/17 20:00 Room Air 08/15/17 19:54 92 Room Air 08/15/17 19:15 97.7 121 18 105/65 (78) 92 Room Air 97.7 08/15/17 15:31 Room Air 08/15/17 15:00 98.1 124 18 106/60 (75) 94 Room Air 98.1 08/15/17 11:14 Room Air 08/15/17 11:00 97.3 119 17 98/52 (67) 94 Room Air 97.3 I & O Intake and Output 08/16/17 07:00 Intake Total 480 ml Output Total 525 ml Balance -45 ml Intake Oral 360 ml IV Total 120 ml Output Urine Total 525 ml PHYSICAL EXAM Physical Exam A&O Alopecia CV Tachy, reg rhythm rate 108 Lungs few rhonchi upper airways which clear with cough ABd BS+, soft, NT ND Ext No edema no cords Skin ecchymosis on dorsum UEs Neuro non-focal ASSESSMENT/PLAN Assessment/Plan Limited Stage SCLC Pt on break from [facility] due to severe pancytopenias, sepsis. Improved. Plan to resume RT on Wednesday 08/[address] Greer. Pt verbalizes understanding. Further chemo at discretion of med onc and patient Problems: COMMENT Lab Laboratory Tests Test 08/15/17 12:00 08/16/17 03:40 Stool Occult Blood Negative (NEG) White Blood Count 4.3 x10^3/uL (4.0-11.0) Red Blood Count 2.99 x10^6/uL (3.50-5.40) Hemoglobin 8.4 g/dL (12.0-15.5) Hematocrit 25.2 % (36.0-47.0) Mean Corpuscular Volume 84 fL (79-100) Mean Corpuscular Hemoglobin 28 pg (25-35) Mean Corpuscular Hemoglobin Concent 33 g/dL (31-37) Red Cell Distribution Width 24.5 % (11.5-14.5) Platelet Count 43 x10^3/uL (140-400) Neutrophils (%) (Auto) 76 % (31-73) Lymphocytes (%) (Auto) 11 % (24-48) Monocytes (%) (Auto) 14 % (0-9) Eosinophils (%) (Auto) 0 % (0-3) Basophils (%) (Auto) 0 % (0-3) Neutrophils # (Auto) 3.2 x10^3uL (1.8-7.7) Lymphocytes # (Auto) 0.5 x10^3/uL (1.0-4.8) Monocytes # (Auto) 0.6 x10^3/uL (0.0-1.1) Eosinophils # (Auto) 0.0 x10^3/uL (0.0-0.7) Basophils # (Auto) 0.0 x10^3/uL (0.0-0.2) NARGIS ARNOLD MD Aug 16, 2017 09:04
--- NOTE | 2017-08-16 09:18 | PDOC ---
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 ROS - dyspnea improved Objective Objective Vital Signs Date Time Temp Pulse Resp B/P (MAP) Pulse Ox O2 Delivery O2 Flow Rate FiO2 08/16/17 07:55 Room Air 08/16/17 07:00 97.5 116 18 95/52 (66) 91 97.5 08/15/17 07:00 2.0 Intake and Output 08/16/17 07:00 Intake Total 480 ml Output Total 525 ml Balance -45 ml Intake Oral 360 ml IV Total 120 ml Output Urine Total 525 ml Physical Exam Heart: Normal S1, Normal S2 General: Alert, Oriented X3 Lungs: Clear to auscultation Neuro: Normal speech Psych/Mental Status: Mental status NL Assessment Assessment Problems Medical Problems: (1) Anemia Status: Acute (2) Neutropenia Status: Acute (3) Pneumonia Status: Acute IMPRESSION AND PLAN: 1. 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 She was started on chemotherapy with carboplatin and etoposide on 06/06/2017. Cycle #2 was given on 06/27/2017 and radiation therapy was also initiated on 06/27/2017. Cycle #3 was postponed because of severe thrombocytopenia and platelet counts improved and she received chemo Aug 01,,. She declines further chemo due to toxicities. Prefers radiation only. 2. Acute pulmonary embolism, bilateral diagnosed on 07/21/2017 along with deep venous thrombosis of the left peroneal vein diagnosed on 07/22/2017. She was initially started on Lovenox and then switched to Eliquis. Agree to continue anticoagulation and in view of the malignancy, 3. Anemia due to chemotherapy. Hemoglobin is worse at 7.0 on 08/09/17. Transfused 1 unit. Hb better at 7.5 on 08/10/17. Worse at 6.9 on 08/11/17, s/p 1 unit PRBC 08.11.17 Hb 8.4 on 08/16/17 Continue to monitor hemoglobin and transfuse as needed. 4. Coronary artery disease. Appreciate Cardiology evaluation. 5. Neutropenia due to chemo - started granix 08/09/17. WBC 4.3 on 08/16/17, monitor. d/c granix 08/16/17. 6. Thrombocytopenia, monitor. Plt 43. I d/w RN Comment Review of Relevant I have reviewed the following items gen (where applicable) has been applied. Labs Laboratory Tests Test 08/15/17 03:33 08/15/17 12:00 08/16/17 03:40 White Blood Count 1.8 x10^3/uL (4.0-11.0) 4.3 x10^3/uL (4.0-11.0) Red Blood Count 2.98 x10^6/uL (3.50-5.40) 2.99 x10^6/uL (3.50-5.40) Hemoglobin 8.2 g/dL (12.0-15.5) 8.4 g/dL (12.0-15.5) Hematocrit 24.9 % (36.0-47.0) 25.2 % (36.0-47.0) Mean Corpuscular Volume 83 fL (79-100) 84 fL (79-100) Mean Corpuscular Hemoglobin 27 pg (25-35) 28 pg (25-35) Mean Corpuscular Hemoglobin Concent 33 g/dL (31-37) 33 g/dL (31-37) Red Cell Distribution Width 24.5 % (11.5-14.5) 24.5 % (11.5-14.5) Platelet Count 49 x10^3/uL (140-400) 43 x10^3/uL (140-400) Neutrophils (%) (Auto) 65 % (31-73) 76 % (31-73) Lymphocytes (%) (Auto) 21 % (24-48) 11 % (24-48) Monocytes (%) (Auto) 13 % (0-9) 14 % (0-9) Eosinophils (%) (Auto) 1 % (0-3) 0 % (0-3) Basophils (%) (Auto) 0 % (0-3) 0 % (0-3) Neutrophils # (Auto) 1.2 x10^3uL (1.8-7.7) 3.2 x10^3uL (1.8-7.7) Lymphocytes # (Auto) 0.4 x10^3/uL (1.0-4.8) 0.5 x10^3/uL (1.0-4.8) Monocytes # (Auto) 0.2 x10^3/uL (0.0-1.1) 0.6 x10^3/uL (0.0-1.1) Eosinophils # (Auto) 0.0 x10^3/uL (0.0-0.7) 0.0 x10^3/uL (0.0-0.7) Basophils # (Auto) 0.0 x10^3/uL (0.0-0.2) 0.0 x10^3/uL (0.0-0.2) Sodium Level 137 mmol/L (136-145) Potassium Level 4.0 mmol/L (3.5-5.1) Chloride Level 102 mmol/L (98-107) Carbon Dioxide Level 30 mmol/L (21-32) Anion Gap 5 (6-14) Blood Urea Nitrogen 12 mg/dL (7-20) Creatinine 0.8 mg/dL (0.6-1.0) Estimated GFR (Cockcroft-Gault) 69.4 Glucose Level 116 mg/dL (70-99) Calcium Level 8.7 mg/dL (8.5-10.1) Stool Occult Blood Negative (NEG) Laboratory Tests Test 08/15/17 12:00 08/16/17 03:40 Stool Occult Blood Negative (NEG) White Blood Count 4.3 x10^3/uL (4.0-11.0) Red Blood Count 2.99 x10^6/uL (3.50-5.40) Hemoglobin 8.4 g/dL (12.0-15.5) Hematocrit 25.2 % (36.0-47.0) Mean Corpuscular Volume 84 fL (79-100) Mean Corpuscular Hemoglobin 28 pg (25-35) Mean Corpuscular Hemoglobin Concent 33 g/dL (31-37) Red Cell Distribution Width 24.5 % (11.5-14.5) Platelet Count 43 x10^3/uL (140-400) Neutrophils (%) (Auto) 76 % (31-73) Lymphocytes (%) (Auto) 11 % (24-48) Monocytes (%) (Auto) 14 % (0-9) Eosinophils (%) (Auto) 0 % (0-3) Basophils (%) (Auto) 0 % (0-3) Neutrophils # (Auto) 3.2 x10^3uL (1.8-7.7) Lymphocytes # (Auto) 0.5 x10^3/uL (1.0-4.8) Monocytes # (Auto) 0.6 x10^3/uL (0.0-1.1) Eosinophils # (Auto) 0.0 x10^3/uL (0.0-0.7) Basophils # (Auto) 0.0 x10^3/uL (0.0-0.2) Microbiology 08/09/17 Blood Culture - Final, Complete NO GROWTH AFTER 5 DAYS 08/11/17 - Final, Complete 08/11/17 - Final, Complete 08/11/17 - Final, Complete 08/11/17 - Final, Complete 08/11/17 - Final, Complete 08/11/17 Gram Stain Evaluation - Final, Complete 08/11/17 Sputum Culture - Final, Complete 08/11/17 Sputum Result 1 - Final, Complete Medications Current Medications Lorazepam (Ativan) 1 mg 1X ONCE IV Last administered on 08/09/17 11:27; Start 08/09/17 at 11:00; Stop 08/09/17 at 11:01; Status DC Sodium Chloride 1,000 ml @ 1,000 mls/hr Q1H IV Last administered on 11:27; Start 08/09/17 at 10:49; Stop 08/09/17 at 11:48; Status DC Sodium Chloride (Normal Saline Flush) 10 ml QSHIFT PRN IV AFTER MEDS AND BLOOD DRAWS Last administered on 08/09/17 11:28; Start 08/09/17 at 11:00; Stop at 09:41; Status DC Albuterol/ Ipratropium (Duoneb) 3 ml 1X ONCE NEB Last administered on 11:05; Start 08/09/17 at 11:00; Stop 08/09/17 at 11:01; Status DC Methylprednisolone Sodium Succinate (SOLU-Medrol 125MG VIAL) 125 mg 1X ONCE IV Last administered on 08/09/17 11:27; Start 08/09/17 at 11:00; Stop at 11:01; Status DC Sodium Chloride (Normal Saline Flush) 10 ml QSHIFT PRN IV AFTER MEDS AND BLOOD DRAWS; Start 08/09/17 at 12:15 Sodium Chloride 1,000 ml @ 1,830 mls/hr Q33M IV Last administered on 12:37; Start 08/09/17 at 12:10; Stop 08/09/17 at 13:10; Status DC Cefepime HCl 2 gm/ Sodium Chloride 100 ml @ 200 mls/hr 1X ONCE IV ; Start at 12:15; Stop 08/09/17 at 12:44; Status UNV Norepinephrine Bitartrate 250 ml @ 0 mls/hr CONT PRN IV PER PROTOCOL Last administered on 08/12/17 21:01; Start 08/09/17 at 12:15; Stop 08/14/17 at 09 :55; Status DC Cefepime HCl (Maxipime) 2 gm 1X ONCE IVP Last administered on 08/09/17 12:33 ; Start 08/09/17 at 12:30; Stop 08/09/17 at 12:31; Status DC Ondansetron HCl (Zofran) 4 mg PRN Q8HRS PRN IV NAUSEA/VOMITING; Start at 12:45; Stop 08/09/17 at 14:13; Status DC Fentanyl Citrate (Fentanyl 2ml Vial) 50 mcg PRN Q2HR PRN IV PAIN Last administered on 08/10/17 01:01; Start 08/09/17 at 12:45; Stop 08/10/17 at 12 :44; Status DC Acetaminophen (Tylenol) 650 mg PRN Q4HRS PRN PO FEVER; Start 08/09/17 at 12:45 ; Stop 08/10/17 at 12:44; Status DC Acetaminophen (Tylenol) 650 mg PRN Q6HRS PRN PO FEVER Last administered on 09:03; Start 08/09/17 at 14:15 Ondansetron HCl (Zofran) 4 mg PRN Q6HRS PRN IV NAUSEA/VOMITING Last administered on 08/12/17 13:38; Start 08/09/17 at 14:15 Morphine Sulfate 2 mg PRN Q2HR PRN IV PAIN; Start 08/09/17 at 14:15 Tramadol HCl (Ultram) 50 mg PRN Q6HRS PRN PO PAIN; Start 08/09/17 at 14:15 Hydralazine HCl (Apresoline Inj) 10 mg PRN Q4HRS PRN IVP ELEVATED BP, SEE COMMENTS; Start 08/09/17 at 14:15 Docusate Sodium (Colace) 100 mg PRN DAILY PRN PO CONSTIPATION; Start 08/09/17 at 14:15 Apixaban (Eliquis) 5 mg BID PO Last administered on 08/15/17 20:32; Start at 21:00 Lorazepam (Ativan) 0.5 mg Q6HRS PRN PO ANXIETY; Start 08/09/17 at 14:15 Pantoprazole Sodium (Protonix) 40 mg DAILYAC PO Last administered on 09:09; Start 08/10/17 at 07:30 Albuterol/ Ipratropium (Duoneb) 3 ml RTQID NEB Last administered on 08/16/17 06:52; Start 08/09/17 at 16:00 Albuterol Sulfate (Ventolin Neb Soln) 2.5 mg PRN Q2HR PRN NEB SHORTNESS OF BREATH; Start 08/09/17 at 14:15 Guaifenesin (Mucinex) 600 mg BID PO Last administered on 08/15/17 20:32; Start 08/09/17 at 21:00 Cefepime HCl 1 gm/ Dextrose 50 ml @ 100 mls/hr Q8HRS IV ; Start 08/09/17 at 22 :00; Status UNV Cefepime HCl (Maxipime) 1 gm Q12HR IVP ; Start 08/09/17 at 21:00; Status Cancel Cefepime HCl 1 gm/ Dextrose 50 ml @ 100 mls/hr Q12HR IV Last administered on 08/10/17 20:19; Start 08/09/17 at 21:00; Stop 08/10/17 at 23:00; Status DC Potassium Chloride/Sodium Chloride 1,000 ml @ 75 mls/hr [id number] IV Last administered on 08/10/17 09:04; Start 08/09/17 at 14:45; Stop 08/10/17 at 16 :00; Status DC Magnesium Sulfate/ Dextrose 100 ml @ 25 mls/hr 1X ONCE IV Last administered on 08/09/17 15:30; Start 08/09/17 at 14:45; Stop 08/09/17 at 18:44; Status DC Potassium Chloride (Klor-Con) 40 meq 1X ONCE PO Last administered on 20:32; Start 08/09/17 at 16:30; Stop 08/09/17 at 16:31; Status DC Enoxaparin Sodium (Lovenox 40mg Syringe) 40 mg Q24H SQ ; Start 08/09/17 at 16: 30; Status UNV Tbo-Filgrastim (Granix) 480 mcg QHS SQ Last administered on 08/15/17 20:33; Start 08/09/17 at 21:00; Stop 08/16/17 at 07:56; Status DC Cefepime HCl (Maxipime) 1 gm Q12HR IVP Last administered on 08/15/17 20:32; Start 08/11/17 at 09:00 Info (Anti-Coagulation Monitoring By Pharmacy) 1 each PRN DAILY PRN MC SEE COMMENTS Last administered on 08/14/17 09:55; Start 08/10/17 at 11:00 Calcium Carbonate/ Glycine (Tums) 500 mg PRN AFTMEALHC PRN PO INDIGESTION Last administered on 08/10/17 21:09; Start 08/10/17 at 20:45 Multi-Ingredient Mouthwash/Gargle (Gi Cocktail Single Dose) 15 ml PRN 1X PRN SWSW CHEST PAIN; Start 08/10/17 at 20:45 Sodium Chloride 1,000 ml @ 1,000 mls/hr 1X ONCE IV Last administered on 08/12 15:02; Start 08/12/17 at 14:00; Stop 08/12/17 at 14:59; Status DC Vecuronium [place] (Norcuron Bolus) 4 mg PRN Q4HRS PRN IV AGITATION; Start at 14:30; Stop 08/12/17 at 14:48; Status DC Albumin Human 100 ml @ 100 mls/hr 1X ONCE IV Last administered on 08/12/17 16:15; Start 08/12/17 at 15:45; Stop 08/12/17 at 16:44; Status DC Potassium Chloride (Klor-Con) 40 meq 1X ONCE PO Last administered on 16:08; Start 08/12/17 at 15:45; Stop 08/12/17 at 15:46; Status DC Potassium Chloride (Klor-Con) 20 meq 1X ONCE PO Last administered on 20:12; Start 08/12/17 at 18:00; Stop 08/12/17 at 18:01; Status DC Magnesium Sulfate/ Dextrose 100 ml @ 25 mls/hr 1X ONCE IV Last administered on 08/12/17 16:09; Start 08/12/17 at 16:00; Stop 08/12/17 at 19:59; Status DC Potassium Chloride (Klor-Con) 40 meq 1X ONCE PO Last administered on 21:56; Start 08/12/17 at 22:00; Stop 08/12/17 at 22:01; Status DC Potassium Chloride (Klor-Con) 40 meq 1X ONCE PO Last administered on 00:27; Start 08/13/17 at 00:00; Stop 08/13/17 at 00:01; Status DC Micafungin Sodium 100 mg/Dextrose 100 ml @ 100 mls/hr Q24H IV Last administered on 08/15/17 13:16; Start 08/13/17 at 12:00 Active Scripts Active Reported Ativan (Lorazepam) 1 Mg Tablet 1 Mg PO Q6HRS PRN Eliquis (Apixaban) 5 Mg Tablet 5 Mg PO BID Zofran (Ondansetron Hcl) 8 Mg Tablet 8 Mg PO BID PRN Pantoprazole Sodium 40 Mg Tablet.dr 1 Tab PO DAILY Vitals/I & O Vital Sign - Last 24 Hours 08/15/17 08/15/17 08/15/17 08/15/17 11:00 11:14 15:00 15:31 Temp 97.3 98.1 97.3 98.1 Pulse 119 124 Resp 17 18 B/P (MAP) 98/52 (67) 106/60 (75) Pulse Ox 94 94 O2 Delivery Room Air Room Air Room Air Room Air 08/15/17 08/15/17 08/15/17 08/15/17 19:15 19:54 20:00 22:45 Temp 97.7 99.3 97.7 99.3 Pulse 121 122 Resp 18 20 B/P (MAP) 105/65 (78) 103/64 (77) Pulse Ox 92 92 94 O2 Delivery Room Air Room Air Room Air Room Air 08/16/17 08/16/17 08/16/17 08/16/17 03:20 06:54 07:00 07:55 Temp 97.9 97.5 97.9 97.5 Pulse 113 116 Resp 20 18 B/P (MAP) 93/57 (69) 95/52 (66) Pulse Ox 92 94 91 O2 Delivery Room Air Room Air Room Air Room Air Intake and Output 08/15/17 08/15/17 08/16/17 15:00 23:00 07:00 Intake Total 180 ml 200 ml 100 ml Output Total 150 ml 225 ml 150 ml Balance 30 ml -25 ml -50 ml IRENE HDZ MD Aug 16, 2017 09:18
[2017-08-16] MEDS: PANTOPRAZOLE 40 MG TABLET.DR. PO SCH (09:38)
[2017-08-16] MEDS: APIXABAN 5 MG TABLET. PO SCH (09:38)
[2017-08-16] MEDS: CEFEPIME HCL IV Push 1 GM VIAL. IVP SCH (09:39)
[2017-08-16 11:00] VITALS: BP 102/62
[2017-08-16] MEDS: MICAFUNGIN 100 MG in IV DEXTROSE 5% 100 ML IV SCH (13:12)
--- NOTE | 2017-08-16 13:26 | PDOC ---
PROGRESS NOTES Chief Complaint Chief Complaint Acute dyspnea Bilateral PE on eliquis Right lung NON small cell Ca, chemo and RT Obstructive PNA Tachycardia Hypotension Sepsis, required days of IV norepi in the ICU Pancytopenia, critical thrombocytopenia h/o Grade 1 CHF COPD w/ prior tobacco use history Rheumatoid arthritis Anemia with RT, CHEMO CKD 3 Mild malnutrition History of Present Illness History of Present Illness Pt seen and examined at bedside Pt feeling better and desires d/c home health Hypotension better Thrombocytopenia improved, heme and RadOnc team following Vitals Vitals Vital Signs Date Time Temp Pulse Resp B/P (MAP) Pulse Ox O2 Delivery O2 Flow Rate FiO2 08/16/17 11:00 97.9 127 19 102/62 (75) 95 Room Air 97.9 08/15/17 07:00 2.0 Physical Exam Physical Exam General: Alert, Oriented X3 Heart: Normal S1, Normal S2 Lungs: Other (decrease bs, fine crackles ) Abdomen: Normal bowel sounds, No tenderness Extremities: No clubbing, No cyanosis, No edema Skin: No rashes, No breakdown, No significant lesion Labs LABS Laboratory Tests Test 08/16/17 03:40 White Blood Count 4.3 x10^3/uL (4.0-11.0) Red Blood Count 2.99 x10^6/uL (3.50-5.40) Hemoglobin 8.4 g/dL (12.0-15.5) Hematocrit 25.2 % (36.0-47.0) Mean Corpuscular Volume 84 fL (79-100) Mean Corpuscular Hemoglobin 28 pg (25-35) Mean Corpuscular Hemoglobin Concent 33 g/dL (31-37) Red Cell Distribution Width 24.5 % (11.5-14.5) Platelet Count 43 x10^3/uL (140-400) Neutrophils (%) (Auto) 76 % (31-73) Lymphocytes (%) (Auto) 11 % (24-48) Monocytes (%) (Auto) 14 % (0-9) Eosinophils (%) (Auto) 0 % (0-3) Basophils (%) (Auto) 0 % (0-3) Neutrophils # (Auto) 3.2 x10^3uL (1.8-7.7) Lymphocytes # (Auto) 0.5 x10^3/uL (1.0-4.8) Monocytes # (Auto) 0.6 x10^3/uL (0.0-1.1) Eosinophils # (Auto) 0.0 x10^3/uL (0.0-0.7) Basophils # (Auto) 0.0 x10^3/uL (0.0-0.2) Review of Systems Review of Systems Admits: SOB, Dyspnea, Fatigue Denies: CP, N/V Assessment and Plan Assessmemt and Plan Problems Medical Problems: (1) Anemia Status: Acute (2) Neutropenia Status: Acute (3) Pneumonia Status: Acute Assessment: Acute dyspnea Bilateral PE on eliquis Right lung NON small cell Ca, chemo and RT Obstructive PNA Tachycardia Hypotension Sepsis, required days of IV norepi in the ICU Pancytopenia, critical thrombocytopenia h/o Grade 1 CHF COPD w/ prior tobacco use history Rheumatoid arthritis Anemia with RT, CHEMO CKD 3 Mild malnutrition Plan: Possible discharge to home health Awaiting further input from cardiology Continue home medications PT/OT ordered Recheck labs in AM Problems: Comment Review of Relevant I have reviewed the following items gen (where applicable) has been applied. Labs Laboratory Tests Test 08/15/17 03:33 08/15/17 12:00 08/16/17 03:40 White Blood Count 1.8 x10^3/uL (4.0-11.0) 4.3 x10^3/uL (4.0-11.0) Red Blood Count 2.98 x10^6/uL (3.50-5.40) 2.99 x10^6/uL (3.50-5.40) Hemoglobin 8.2 g/dL (12.0-15.5) 8.4 g/dL (12.0-15.5) Hematocrit 24.9 % (36.0-47.0) 25.2 % (36.0-47.0) Mean Corpuscular Volume 83 fL (79-100) 84 fL (79-100) Mean Corpuscular Hemoglobin 27 pg (25-35) 28 pg (25-35) Mean Corpuscular Hemoglobin Concent 33 g/dL (31-37) 33 g/dL (31-37) Red Cell Distribution Width 24.5 % (11.5-14.5) 24.5 % (11.5-14.5) Platelet Count 49 x10^3/uL (140-400) 43 x10^3/uL (140-400) Neutrophils (%) (Auto) 65 % (31-73) 76 % (31-73) Lymphocytes (%) (Auto) 21 % (24-48) 11 % (24-48) Monocytes (%) (Auto) 13 % (0-9) 14 % (0-9) Eosinophils (%) (Auto) 1 % (0-3) 0 % (0-3) Basophils (%) (Auto) 0 % (0-3) 0 % (0-3) Neutrophils # (Auto) 1.2 x10^3uL (1.8-7.7) 3.2 x10^3uL (1.8-7.7) Lymphocytes # (Auto) 0.4 x10^3/uL (1.0-4.8) 0.5 x10^3/uL (1.0-4.8) Monocytes # (Auto) 0.2 x10^3/uL (0.0-1.1) 0.6 x10^3/uL (0.0-1.1) Eosinophils # (Auto) 0.0 x10^3/uL (0.0-0.7) 0.0 x10^3/uL (0.0-0.7) Basophils # (Auto) 0.0 x10^3/uL (0.0-0.2) 0.0 x10^3/uL (0.0-0.2) Sodium Level 137 mmol/L (136-145) Potassium Level 4.0 mmol/L (3.5-5.1) Chloride Level 102 mmol/L (98-107) Carbon Dioxide Level 30 mmol/L (21-32) Anion Gap 5 (6-14) Blood Urea Nitrogen 12 mg/dL (7-20) Creatinine 0.8 mg/dL (0.6-1.0) Estimated GFR (Cockcroft-Gault) 69.4 Glucose Level 116 mg/dL (70-99) Calcium Level 8.7 mg/dL (8.5-10.1) Stool Occult Blood Negative (NEG) Laboratory Tests Test 08/16/17 03:40 White Blood Count 4.3 x10^3/uL (4.0-11.0) Red Blood Count 2.99 x10^6/uL (3.50-5.40) Hemoglobin 8.4 g/dL (12.0-15.5) Hematocrit 25.2 % (36.0-47.0) Mean Corpuscular Volume 84 fL (79-100) Mean Corpuscular Hemoglobin 28 pg (25-35) Mean Corpuscular Hemoglobin Concent 33 g/dL (31-37) Red Cell Distribution Width 24.5 % (11.5-14.5) Platelet Count 43 x10^3/uL (140-400) Neutrophils (%) (Auto) 76 % (31-73) Lymphocytes (%) (Auto) 11 % (24-48) Monocytes (%) (Auto) 14 % (0-9) Eosinophils (%) (Auto) 0 % (0-3) Basophils (%) (Auto) 0 % (0-3) Neutrophils # (Auto) 3.2 x10^3uL (1.8-7.7) Lymphocytes # (Auto) 0.5 x10^3/uL (1.0-4.8) Monocytes # (Auto) 0.6 x10^3/uL (0.0-1.1) Eosinophils # (Auto) 0.0 x10^3/uL (0.0-0.7) Basophils # (Auto) 0.0 x10^3/uL (0.0-0.2) Microbiology 08/09/17 Blood Culture - Final, Complete NO GROWTH AFTER 5 DAYS 08/11/17 - Final, Complete 08/11/17 - Final, Complete 08/11/17 - Final, Complete 08/11/17 - Final, Complete 08/11/17 - Final, Complete 08/11/17 Gram Stain Evaluation - Final, Complete 08/11/17 Sputum Culture - Final, Complete 08/11/17 Sputum Result 1 - Final, Complete Medications Current Medications Lorazepam (Ativan) 1 mg 1X ONCE IV Last administered on 08/09/17 11:27; Start 08/09/17 at 11:00; Stop 08/09/17 at 11:01; Status DC Sodium Chloride 1,000 ml @ 1,000 mls/hr Q1H IV Last administered on 11:27; Start 08/09/17 at 10:49; Stop 08/09/17 at 11:48; Status DC Sodium Chloride (Normal Saline Flush) 10 ml QSHIFT PRN IV AFTER MEDS AND BLOOD DRAWS Last administered on 08/09/17 11:28; Start 08/09/17 at 11:00; Stop at 09:41; Status DC Albuterol/ Ipratropium (Duoneb) 3 ml 1X ONCE NEB Last administered on 11:05; Start 08/09/17 at 11:00; Stop 08/09/17 at 11:01; Status DC Methylprednisolone Sodium Succinate (SOLU-Medrol 125MG VIAL) 125 mg 1X ONCE IV Last administered on 08/09/17 11:27; Start 08/09/17 at 11:00; Stop at 11:01; Status DC Sodium Chloride (Normal Saline Flush) 10 ml QSHIFT PRN IV AFTER MEDS AND BLOOD DRAWS; Start 08/09/17 at 12:15 Sodium Chloride 1,000 ml @ 1,830 mls/hr Q33M IV Last administered on 12:37; Start 08/09/17 at 12:10; Stop 08/09/17 at 13:10; Status DC Cefepime HCl 2 gm/ Sodium Chloride 100 ml @ 200 mls/hr 1X ONCE IV ; Start at 12:15; Stop 08/09/17 at 12:44; Status UNV Norepinephrine Bitartrate 250 ml @ 0 mls/hr CONT PRN IV PER PROTOCOL Last administered on 08/12/17 21:01; Start 08/09/17 at 12:15; Stop 08/14/17 at 09 :55; Status DC Cefepime HCl (Maxipime) 2 gm 1X ONCE IVP Last administered on 08/09/17 12:33 ; Start 08/09/17 at 12:30; Stop 08/09/17 at 12:31; Status DC Ondansetron HCl (Zofran) 4 mg PRN Q8HRS PRN IV NAUSEA/VOMITING; Start at 12:45; Stop 08/09/17 at 14:13; Status DC Fentanyl Citrate (Fentanyl 2ml Vial) 50 mcg PRN Q2HR PRN IV PAIN Last administered on 08/10/17 01:01; Start 08/09/17 at 12:45; Stop 08/10/17 at 12 :44; Status DC Acetaminophen (Tylenol) 650 mg PRN Q4HRS PRN PO FEVER; Start 08/09/17 at 12:45 ; Stop 08/10/17 at 12:44; Status DC Acetaminophen (Tylenol) 650 mg PRN Q6HRS PRN PO FEVER Last administered on 09:03; Start 08/09/17 at 14:15 Ondansetron HCl (Zofran) 4 mg PRN Q6HRS PRN IV NAUSEA/VOMITING Last administered on 08/12/17 13:38; Start 08/09/17 at 14:15 Morphine Sulfate 2 mg PRN Q2HR PRN IV PAIN; Start 08/09/17 at 14:15 Tramadol HCl (Ultram) 50 mg PRN Q6HRS PRN PO PAIN; Start 08/09/17 at 14:15 Hydralazine HCl (Apresoline Inj) 10 mg PRN Q4HRS PRN IVP ELEVATED BP, SEE COMMENTS; Start 08/09/17 at 14:15 Docusate Sodium (Colace) 100 mg PRN DAILY PRN PO CONSTIPATION; Start 08/09/17 at 14:15 Apixaban (Eliquis) 5 mg BID PO Last administered on 08/16/17 09:38; Start at 21:00 Lorazepam (Ativan) 0.5 mg Q6HRS PRN PO ANXIETY; Start 08/09/17 at 14:15 Pantoprazole Sodium (Protonix) 40 mg DAILYAC PO Last administered on 09:38; Start 08/10/17 at 07:30 Albuterol/ Ipratropium (Duoneb) 3 ml RTQID NEB Last administered on 08/16/17 10:53; Start 08/09/17 at 16:00 Albuterol Sulfate (Ventolin Neb Soln) 2.5 mg PRN Q2HR PRN NEB SHORTNESS OF BREATH; Start 08/09/17 at 14:15 Guaifenesin (Mucinex) 600 mg BID PO Last administered on 08/16/17 09:38; Start 08/09/17 at 21:00 Cefepime HCl 1 gm/ Dextrose 50 ml @ 100 mls/hr Q8HRS IV ; Start 08/09/17 at 22 :00; Status UNV Cefepime HCl (Maxipime) 1 gm Q12HR IVP ; Start 08/09/17 at 21:00; Status Cancel Cefepime HCl 1 gm/ Dextrose 50 ml @ 100 mls/hr Q12HR IV Last administered on 08/10/17 20:19; Start 08/09/17 at 21:00; Stop 08/10/17 at 23:00; Status DC Potassium Chloride/Sodium Chloride 1,000 ml @ 75 mls/hr [id number] IV Last administered on 08/10/17 09:04; Start 08/09/17 at 14:45; Stop 08/10/17 at 16 :00; Status DC Magnesium Sulfate/ Dextrose 100 ml @ 25 mls/hr 1X ONCE IV Last administered on 08/09/17 15:30; Start 08/09/17 at 14:45; Stop 08/09/17 at 18:44; Status DC Potassium Chloride (Klor-Con) 40 meq 1X ONCE PO Last administered on 20:32; Start 08/09/17 at 16:30; Stop 08/09/17 at 16:31; Status DC Enoxaparin Sodium (Lovenox 40mg Syringe) 40 mg Q24H SQ ; Start 08/09/17 at 16: 30; Status UNV Tbo-Filgrastim (Granix) 480 mcg QHS SQ Last administered on 08/15/17 20:33; Start 08/09/17 at 21:00; Stop 08/16/17 at 07:56; Status DC Cefepime HCl (Maxipime) 1 gm Q12HR IVP Last administered on 08/16/17 09:39; Start 08/11/17 at 09:00 Info (Anti-Coagulation Monitoring By Pharmacy) 1 each PRN DAILY PRN MC SEE COMMENTS Last administered on 08/14/17 09:55; Start 08/10/17 at 11:00 Calcium Carbonate/ Glycine (Tums) 500 mg PRN AFTMEALHC PRN PO INDIGESTION Last administered on 08/10/17 21:09; Start 08/10/17 at 20:45 Multi-Ingredient Mouthwash/Gargle (Gi Cocktail Single Dose) 15 ml PRN 1X PRN SWSW CHEST PAIN; Start 08/10/17 at 20:45 Sodium Chloride 1,000 ml @ 1,000 mls/hr 1X ONCE IV Last administered on 08/12 15:02; Start 08/12/17 at 14:00; Stop 08/12/17 at 14:59; Status DC Vecuronium Center (Norcuron Bolus) 4 mg PRN Q4HRS PRN IV AGITATION; Start at 14:30; Stop 08/12/17 at 14:48; Status DC Albumin Human 100 ml @ 100 mls/hr 1X ONCE IV Last administered on 08/12/17 16:15; Start 08/12/17 at 15:45; Stop 08/12/17 at 16:44; Status DC Potassium Chloride (Klor-Con) 40 meq 1X ONCE PO Last administered on 16:08; Start 08/12/17 at 15:45; Stop 08/12/17 at 15:46; Status DC Potassium Chloride (Klor-Con) 20 meq 1X ONCE PO Last administered on 20:12; Start 08/12/17 at 18:00; Stop 08/12/17 at 18:01; Status DC Magnesium Sulfate/ Dextrose 100 ml @ 25 mls/hr 1X ONCE IV Last administered on 08/12/17 16:09; Start 08/12/17 at 16:00; Stop 08/12/17 at 19:59; Status DC Potassium Chloride (Klor-Con) 40 meq 1X ONCE PO Last administered on 21:56; Start 08/12/17 at 22:00; Stop 08/12/17 at 22:01; Status DC Potassium Chloride (Klor-Con) 40 meq 1X ONCE PO Last administered on 00:27; Start 08/13/17 at 00:00; Stop 08/13/17 at 00:01; Status DC Micafungin Sodium 100 mg/Dextrose 100 ml @ 100 mls/hr Q24H IV Last administered on 08/15/17 13:16; Start 08/13/17 at 12:00 Active Scripts Active Reported Ativan (Lorazepam) 1 Mg Tablet 1 Mg PO Q6HRS PRN Eliquis (Apixaban) 5 Mg Tablet 5 Mg PO BID Zofran (Ondansetron Hcl) 8 Mg Tablet 8 Mg PO BID PRN Pantoprazole Sodium 40 Mg Tablet. 1 Tab PO DAILY Vitals/I & O Vital Sign - Last 24 Hours 08/15/17 08/15/17 08/15/17 08/15/17 15:00 15:31 19:15 19:54 Temp 98.1 97.7 98.1 97.7 Pulse 124 121 Resp 18 18 B/P (MAP) 106/60 (75) 105/65 (78) Pulse Ox 94 92 92 O2 Delivery Room Air Room Air Room Air Room Air 08/15/17 08/15/17 08/16/17 08/16/17 20:00 22:45 03:20 06:54 Temp 99.3 97.9 99.3 97.9 Pulse 122 113 Resp 20 20 B/P (MAP) 103/64 (77) 93/57 (69) Pulse Ox 94 92 94 O2 Delivery Room Air Room Air Room Air Room Air 08/16/17 08/16/17 08/16/17 08/16/17 07:00 07:55 10:53 11:00 Temp 97.5 97.9 97.5 97.9 Pulse 116 127 Resp 18 19 B/P (MAP) 95/52 (66) 102/62 (75) Pulse Ox 91 95 O2 Delivery Room Air Room Air Room Air Room Air Intake and Output 08/15/17 08/15/17 08/16/17 15:00 23:00 07:00 Intake Total 180 ml 200 ml 100 ml Output Total 150 ml 225 ml 150 ml Balance 30 ml -25 ml -50 ml AYESHA HURST III DO Aug 16, 2017 13:26
--- NOTE | 2017-08-16 15:35 | PDOC ---
PULMONARY PROGRESS NOTES Subjective FEELS BETTER LESS SOA NO INCREASE COUGH Vitals Vital Signs Date Time Temp Pulse Resp B/P (MAP) Pulse Ox O2 Delivery O2 Flow Rate FiO2 08/16/17 11:00 97.9 127 19 102/62 (75) 95 Room Air 97.9 08/15/17 07:00 2.0 ROS: No Nausea, No Chest Pain, No Abdominal Pain, No Increase Cough General: Alert, No acute distress Lungs: Other (decrease bs, fine crackles ) Cardiovascular: S1 Abdomen: Soft Neuro Exam: Alert Extremities: Other (1+edema) Labs Laboratory Tests Test 08/15/17 03:33 08/15/17 12:00 08/16/17 03:40 White Blood Count 1.8 x10^3/uL (4.0-11.0) 4.3 x10^3/uL (4.0-11.0) Red Blood Count 2.98 x10^6/uL (3.50-5.40) 2.99 x10^6/uL (3.50-5.40) Hemoglobin 8.2 g/dL (12.0-15.5) 8.4 g/dL (12.0-15.5) Hematocrit 24.9 % (36.0-47.0) 25.2 % (36.0-47.0) Mean Corpuscular Volume 83 fL (79-100) 84 fL (79-100) Mean Corpuscular Hemoglobin 27 pg (25-35) 28 pg (25-35) Mean Corpuscular Hemoglobin Concent 33 g/dL (31-37) 33 g/dL (31-37) Red Cell Distribution Width 24.5 % (11.5-14.5) 24.5 % (11.5-14.5) Platelet Count 49 x10^3/uL (140-400) 43 x10^3/uL (140-400) Neutrophils (%) (Auto) 65 % (31-73) 76 % (31-73) Lymphocytes (%) (Auto) 21 % (24-48) 11 % (24-48) Monocytes (%) (Auto) 13 % (0-9) 14 % (0-9) Eosinophils (%) (Auto) 1 % (0-3) 0 % (0-3) Basophils (%) (Auto) 0 % (0-3) 0 % (0-3) Neutrophils # (Auto) 1.2 x10^3uL (1.8-7.7) 3.2 x10^3uL (1.8-7.7) Lymphocytes # (Auto) 0.4 x10^3/uL (1.0-4.8) 0.5 x10^3/uL (1.0-4.8) Monocytes # (Auto) 0.2 x10^3/uL (0.0-1.1) 0.6 x10^3/uL (0.0-1.1) Eosinophils # (Auto) 0.0 x10^3/uL (0.0-0.7) 0.0 x10^3/uL (0.0-0.7) Basophils # (Auto) 0.0 x10^3/uL (0.0-0.2) 0.0 x10^3/uL (0.0-0.2) Sodium Level 137 mmol/L (136-145) Potassium Level 4.0 mmol/L (3.5-5.1) Chloride Level 102 mmol/L (98-107) Carbon Dioxide Level 30 mmol/L (21-32) Anion Gap 5 (6-14) Blood Urea Nitrogen 12 mg/dL (7-20) Creatinine 0.8 mg/dL (0.6-1.0) Estimated GFR (Cockcroft-Gault) 69.4 Glucose Level 116 mg/dL (70-99) Calcium Level 8.7 mg/dL (8.5-10.1) Stool Occult Blood Negative (NEG) Laboratory Tests Test 08/16/17 03:40 White Blood Count 4.3 x10^3/uL (4.0-11.0) Red Blood Count 2.99 x10^6/uL (3.50-5.40) Hemoglobin 8.4 g/dL (12.0-15.5) Hematocrit 25.2 % (36.0-47.0) Mean Corpuscular Volume 84 fL (79-100) Mean Corpuscular Hemoglobin 28 pg (25-35) Mean Corpuscular Hemoglobin Concent 33 g/dL (31-37) Red Cell Distribution Width 24.5 % (11.5-14.5) Platelet Count 43 x10^3/uL (140-400) Neutrophils (%) (Auto) 76 % (31-73) Lymphocytes (%) (Auto) 11 % (24-48) Monocytes (%) (Auto) 14 % (0-9) Eosinophils (%) (Auto) 0 % (0-3) Basophils (%) (Auto) 0 % (0-3) Neutrophils # (Auto) 3.2 x10^3uL (1.8-7.7) Lymphocytes # (Auto) 0.5 x10^3/uL (1.0-4.8) Monocytes # (Auto) 0.6 x10^3/uL (0.0-1.1) Eosinophils # (Auto) 0.0 x10^3/uL (0.0-0.7) Basophils # (Auto) 0.0 x10^3/uL (0.0-0.2) Medications Active Scripts Medications Dose Route/Sig Max Daily Dose Days Date Category Ativan (Lorazepam) 1 Mg Tablet 1 Mg PO Q6HRS PRN 07/25/17 Reported Eliquis (Apixaban) 5 Mg Tablet 5 Mg PO BID 07/25/17 Reported Zofran (Ondansetron Hcl) 8 Mg Tablet 8 Mg PO BID PRN 06/09/17 Reported Pantoprazole Sodium 40 Mg Tablet.dr 1 Tab PO DAILY 05/18/17 Reported Impression . 1. Progressive dyspnea multifactorial 2. Small cell carcinoma, undifferentiated status post chemo and radiation. 3. History of recent pulmonary embolism and no evidence of any deep venous thrombosis. This is secondary to hypercoagulable state. Continue Eliquis 4. Neutropenia and anemia, chemo-induced. 5. Underlying chronic obstructive pulmonary disease. 6. Suspected post-obstructive pneumonia. 7. SHOCK improved Plan . D/C HOME FOLLOW UP IN OFFICE IN FEB IGNACIO AMADO MD Aug 16, 2017 15:35
--- NOTE | 2017-08-26 10:53 | DS ---
DATE OF DISCHARGE: 08/16/2017 ADMISSION DIAGNOSES: Pneumonia, neutropenic sepsis. DISCHARGE DIAGNOSES: Resolving pneumonia, resolving neutropenic sepsis. HOSPITAL COURSE: The patient is a 76-year-old pleasant female who presented with neutropenia and sepsis. She was admitted. We gave her IV antibiotics. We consulted Infectious Disease and Heme/Onc. She did well. We discharged home with close outpatient followup. DISPOSITION: Home. ACTIVITY: As tolerated. DIET: Low sodium. MEDICATIONS: Please see MRAD. TOTAL TIME ON DISCHARGE: 33 minutes. AYESHA HURST DO DR: KAJAL/poonam JOB#: [id number] / [id number]
[2017-08-27] MEDS ORDERED: GUAI600T47 PO (11:52)
[2017-08-27] MEDS ORDERED: POTA20TA82 PO ×2 (15:14)
== END 2017-08-16 16:50 | disposition home or self-care (01) | DRG 871 ==
LOC: ER 10:31 → 1 WEST ICU 13:07 → 2 NORTH 08-13 17:50
PROVIDERS: ADMIT Internal Medicine; ATTEND Internal Medicine
PROC: 30233R1 Transfusion of Nonautologous Platelets into Peripheral Vein, Percutaneous Approach (ICD-10-PCS; principal; 2017-08-14)
DX: A41.9 Sepsis, unspecified organism (principal); J18.9 Pneumonia, unspecified organism; I26.99 Other pulmonary embolism without acute cor pulmonale; D61.818 Other pancytopenia; D64.81 Anemia due to antineoplastic chemotherapy; I13.0 Hypertensive heart and chronic kidney disease with heart failure and stage 1 through stage 4 chronic kidney disease, or unspecified chronic kidney disease; E87.2 Acidosis; D68.59 Other primary thrombophilia; E44.1 Mild protein-calorie malnutrition; I50.9 Heart failure, unspecified; J44.0 Chronic obstructive pulmonary disease with (acute) lower respiratory infection; C34.91 Malignant neoplasm of unspecified part of right bronchus or lung; E78.00 Pure hypercholesterolemia, unspecified; E83.42 Hypomagnesemia; E87.6 Hypokalemia; F17.210 Nicotine dependence, cigarettes, uncomplicated; G89.29 Other chronic pain; M54.9 Dorsalgia, unspecified; M19.90 Unspecified osteoarthritis, unspecified site; F41.9 Anxiety disorder, unspecified; I25.10 Atherosclerotic heart disease of native coronary artery without angina pectoris; K21.9 Gastro-esophageal reflux disease without esophagitis; R65.20 Severe sepsis without septic shock; T45.1X5A Adverse effect of antineoplastic and immunosuppressive drugs, initial encounter; Z96.659 Presence of unspecified artificial knee joint; M06.9 Rheumatoid arthritis, unspecified; N18.3 Chronic kidney disease, stage 3 (moderate); Z51.5 Encounter for palliative care; Z79.01 Long term (current) use of anticoagulants; Z82.49 Family history of ischemic heart disease and other diseases of the circulatory system; Z86.711 Personal history of pulmonary embolism; I25.2 Old myocardial infarction; Z85.118 Personal history of other malignant neoplasm of bronchus and lung; Z92.3 Personal history of irradiation; Z95.5 Presence of coronary angioplasty implant and graft; Y92.89 Other specified places as the place of occurrence of the external cause; Z68.24 Body mass index [BMI] 24.0-24.9, adult
CPT/HCPCS: 36415; 71010; 80048; 80053; 80076; 82274; 82553; 82607; 82728; 82746; 83540; 83550; 83605; 83735; 83880; 84100; 84132; 84443; 84484; 85007; 85025; 85027; 86850; 86900; 86901; 86920; 87040; 87070; 87205; 87641; 87804; 93005; 94250; 94640; 94760; 96361; 96374; 96375; J0692; J1442; J2060; J2248; J2405; J2930; J3010; J3475; J7030; J7620; P9016; P9035; P9046; 97530; 99291-25

== ENCOUNTER 2017-09-26 21:55 | Inpatient (IN) | payer MEDICARE, OTHER ==
[2017-09-26 22:45] LABS: BASO % 0 % (0-3); EOS % 1 % (0-3); HEMATOCRIT 39.8 % (36.0-47.0); HEMOGLOBIN 13.1 g/dL (12.0-15.5); LYMPH # 0.3 x10^3/uL (1.0-4.8); LYMPH % 9 % (24-48); MEAN CORPUSCULAR HEMOGLOBIN 35 pg (25-35); MEAN CORPUSCULAR HGB CONC 33 g/dL (31-37); MEAN CORPUSCULAR VOLUME 105 fL (79-100); MONO # 0.3 x10^3/uL (0.0-1.1); MONO % 9 % (0-9); NEUT # 2.3 x10^3uL (1.8-7.7); NEUT % 81 % (31-73); PLATELET COUNT 110 x10^3/uL (140-400); RED BLOOD COUNT 3.78 x10^6/uL (3.50-5.40); RED CELL DISTRIBUTION WIDTH 20.8 % (11.5-14.5); WHITE BLOOD COUNT 2.9 x10^3/uL (4.0-11.0)
[2017-09-26 22:47] LABS: ADD MAN DIFF? YES
[2017-09-26 22:52] LABS: ANION GAP 15 (6-14); BLOOD UREA NITROGEN 10 mg/dL (7-20); BUN/CREATININE RATIO 11 (6-20); CALCIUM 8.5 mg/dL (8.5-10.1); CARBON DIOXIDE 23 mmol/L (21-32); CHLORIDE 101 mmol/L (98-107); CREATININE 0.9 mg/dL (0.6-1.0); GFR 60.6; GLUCOSE 132 mg/dL (70-99); POTASSIUM 4.2 mmol/L (3.5-5.1); SODIUM 139 mmol/L (136-145)
[2017-09-26] MEDS: IV NORMAL SALINE 1000ML BAG 1,000 ML IV (22:56)
[2017-09-26 22:59] LABS: ALBUMIN 3.4 g/dL (3.4-5.0); ALK PHOS 131 U/L (46-116); ALT (SGPT) 13 U/L (14-59); AST (SGOT) 21 U/L (15-37); LIPASE 127 U/L (73-393); TOTAL BILIRUBIN 1.1 mg/dL (0.2-1.0); TOTAL PROTEIN 6.7 g/dL (6.4-8.2)
[2017-09-26] MEDS ORDERED: CONTRAST GIVEN MC (23:00)
[2017-09-26 23:01] LABS: LACTIC ACID 1.8 mmol/L (0.4-2.0); TROPONINI < 0.017 ng/mL (0.000-0.055)
[2017-09-26] MEDS: IOHEXOL 300 MG/ML 100ML VIAL. IV (23:01)
[2017-09-26 23:03] LABS: % BANDS 12 % (0-9); % BASOS 1 % (0-3); % EOS 1 % (0-5); % LYMPHS 9 % (24-48); % MONOS 6 % (0-10); % SEGS 71 % (35-66)
[2017-09-26 23:05] LABS: ANISOCYTOSIS MOD; BILIRUBIN,URINE SMALL (NEG); GLUCOSE,URINE NEGATIVE (NEG); NITRITE,URINE NEGATIVE (NEG); PH,URINE 5.5; PLT ESTIMATE DECREASED (ADEQUATE); PROTEIN,URINE NEGATIVE (NEG-TRACE); TOXIC GRANULATION SLIGHT
[2017-09-26 23:09] LABS: CLARITY,URINE CLEAR; COLOR,URINE DK YELLOW
[2017-09-26 23:12] LABS: BACTERIA,URINE FEW /HPF (0-FEW); RBC,URINE RARE /HPF (0-2); WBC,URINE OCC /HPF (0-4)
[2017-09-26 23:13] LABS: HYALINE CASTS, URINE FEW /HPF; SQUAMOUS EPITHELIAL CELL,UR MOD /LPF
[2017-09-27 00:24] LABS: INFLUENZA A PATIENT NEGATIVE (NEGATIVE); INFLUENZA B PATIENT NEGATIVE (NEGATIVE); OBC FLU VALID
[2017-09-27] MEDS ORDERED: ONDANSETRON PF 4 MG/2 ML VIAL. IV (00:45)
[2017-09-27] MEDS ORDERED: fentaNYL PF VIAL 100 MCG/2 ML VIAL IV (00:45)
[2017-09-27] MEDS: IV NORMAL SALINE 1000ML BAG 1,000 ML IV ×4 (01:49→21:52)
[2017-09-27] MEDS: AZITHRMYCN 500MG IVPB FOR OMNI 250 ML IV (01:50)
[2017-09-27] MEDS: ACETAMINOPHEN 500 MG TABLET PO (11:33)
[2017-09-27] MEDS ORDERED: ONDANSETRON ODT 4 MG TAB.RAPDIS. PO (21:15)
[2017-09-27] MEDS: ENOXAPARIN 40 MG/0.4 ML SYRINGE. SQ (21:49)
[2017-09-27] MEDS: APIXABAN 5 MG TABLET. PO (21:49)
[2017-09-28 04:50] LABS: ADD MAN DIFF? NO
[2017-09-28 05:08] LABS: BASO % 0 % (0-3); EOS % 2 % (0-3); HEMATOCRIT 34.6 % (36.0-47.0); HEMOGLOBIN 11.3 g/dL (12.0-15.5); LYMPH # 0.3 x10^3/uL (1.0-4.8); LYMPH % 15 % (24-48); MEAN CORPUSCULAR HEMOGLOBIN 35 pg (25-35); MEAN CORPUSCULAR HGB CONC 33 g/dL (31-37); MEAN CORPUSCULAR VOLUME 106 fL (79-100); MONO # 0.2 x10^3/uL (0.0-1.1); MONO % 11 % (0-9); NEUT # 1.4 x10^3uL (1.8-7.7); NEUT % 72 % (31-73); PLATELET COUNT 85 x10^3/uL (140-400); RED BLOOD COUNT 3.26 x10^6/uL (3.50-5.40)
[2017-09-28 05:21] LABS: ANION GAP 12 (6-14); BLOOD UREA NITROGEN 5 mg/dL (7-20); CALCIUM 7.9 mg/dL (8.5-10.1); CARBON DIOXIDE 24 mmol/L (21-32); CHLORIDE 105 mmol/L (98-107); CREATININE 0.8 mg/dL (0.6-1.0); GFR 69.4; GLUCOSE 101 mg/dL (70-99); POTASSIUM 3.2 mmol/L (3.5-5.1); SODIUM 141 mmol/L (136-145)
[2017-09-28] MEDS: PANTOPRAZOLE 40 MG TABLET.DR. PO (06:23)
[2017-09-28] MEDS: cefTRIAXone IV Push 1 GM VIAL. IVP (08:44)
[2017-09-28] MEDS: DOXYCYCLINE HYCLATE 100 MG TABLET PO ×2 (08:48→21:28)
[2017-09-28] MEDS: APIXABAN 5 MG TABLET. PO ×2 (08:48→21:28)
[2017-09-28] MEDS: POTASSIUM CHLORIDE 20 MEQ TABLET.ER. PO ×2 (08:48→17:07)
[2017-09-28] MEDS: IV NORMAL SALINE 1000ML BAG 1,000 ML IV (12:31)
[2017-09-28] MEDS: ACETAMINOPHEN 500 MG TABLET PO (12:32)
[2017-09-28] MEDS ORDERED: POTASSIUM CHLORIDE 20 MEQ/15 ML ORAL LIQUID. PO (15:30)
[2017-09-28] MEDS: POTASSIUM CHLORIDE 20 MEQ/15 ML ORAL LIQUID. FT (15:54)
[2017-09-28] MEDS: guaiFENesin DM 200MG/20MG 10 ML SYRUP PO (17:48)
[2017-09-28] MEDS: HYDROcodone/APAP 5/325MG 1 TAB TABLET PO (17:49)
[2017-09-28] MEDS: ALBUTEROL SULFATE 2.5 MG/3 ML NEBU. NEB (19:42)
[2017-09-28] MEDS ORDERED: POTASSIUM & SODIUM PHOSPHATES PACKET. PO (21:00)
[2017-09-28] MEDS: MAGNESIUM OXIDE 400 MG TABLET PO (21:28)
[2017-09-28] MEDS: BENZONATATE 100 MG CAPSULE. PO (21:29)
[2017-09-29] MEDS: guaiFENesin DM 200MG/20MG 10 ML SYRUP PO ×2 (01:35→08:46)
[2017-09-29] MEDS: IV NORMAL SALINE 1000ML BAG 1,000 ML IV ×2 (01:36→13:30)
[2017-09-29] MEDS: LORazepam 1 MG TABLET PO ×2 (01:41→22:00)
[2017-09-29 03:35] LABS: ADD MAN DIFF? NO
[2017-09-29 03:42] LABS: BASO % 0 % (0-3); EOS % 2 % (0-3); HEMATOCRIT 31.3 % (36.0-47.0); HEMOGLOBIN 10.2 g/dL (12.0-15.5); LYMPH # 0.3 x10^3/uL (1.0-4.8); LYMPH % 17 % (24-48); MEAN CORPUSCULAR HEMOGLOBIN 35 pg (25-35); MEAN CORPUSCULAR HGB CONC 33 g/dL (31-37); MEAN CORPUSCULAR VOLUME 106 fL (79-100); MONO # 0.2 x10^3/uL (0.0-1.1); MONO % 11 % (0-9); NEUT # 1.3 x10^3uL (1.8-7.7); NEUT % 70 % (31-73); PLATELET COUNT 74 x10^3/uL (140-400); RED BLOOD COUNT 2.95 x10^6/uL (3.50-5.40); RED CELL DISTRIBUTION WIDTH 19.9 % (11.5-14.5)
[2017-09-29 04:03] LABS: ANION GAP 10 (6-14); BLOOD UREA NITROGEN 6 mg/dL (7-20); CALCIUM 7.8 mg/dL (8.5-10.1); CARBON DIOXIDE 25 mmol/L (21-32); CHLORIDE 106 mmol/L (98-107); CREATININE 0.7 mg/dL (0.6-1.0); GFR 80.9; GLUCOSE 124 mg/dL (70-99); POTASSIUM 3.8 mmol/L (3.5-5.1); SODIUM 141 mmol/L (136-145)
[2017-09-29 04:26] LABS: WHITE BLOOD COUNT 1.9 x10^3/uL (4.0-11.0)
[2017-09-29] MEDS: ALBUTEROL SULFATE 2.5 MG/3 ML NEBU. NEB ×4 (07:44→19:40)
[2017-09-29] MEDS: cefTRIAXone IV Push 1 GM VIAL. IVP (08:41)
[2017-09-29] MEDS: PANTOPRAZOLE 40 MG TABLET.DR. PO (08:43)
[2017-09-29] MEDS: MAGNESIUM OXIDE 400 MG TABLET PO ×2 (08:44→21:22)
[2017-09-29] MEDS: APIXABAN 5 MG TABLET. PO ×2 (08:44→21:22)
[2017-09-29] MEDS: POTASSIUM CHLORIDE 20 MEQ TABLET.ER. PO ×2 (08:44→17:30)
[2017-09-29] MEDS: DOXYCYCLINE HYCLATE 100 MG TABLET PO ×2 (08:45→21:23)
[2017-09-29] MEDS: BENZONATATE 100 MG CAPSULE. PO ×3 (08:45→21:23)
[2017-09-29] MEDS: HYDROcodone/APAP 5/325MG 1 TAB TABLET PO ×2 (08:46→21:23)
[2017-09-29 23:18] LABS: FREE T4 1.23 ng/dL (0.76-1.46)
[2017-09-29 23:18] LABS: TROPONINI < 0.017 ng/mL (0.000-0.055)
[2017-09-30] MEDS: guaiFENesin DM 200MG/20MG 10 ML SYRUP PO ×2 (02:54→14:00)
[2017-09-30] MEDS: HYDROcodone/APAP 5/325MG 1 TAB TABLET PO ×3 (02:55→18:48)
[2017-09-30] MEDS: IV NORMAL SALINE 1000ML BAG 1,000 ML IV (03:05)
[2017-09-30] MEDS: ALBUTEROL SULFATE 2.5 MG/3 ML NEBU. NEB ×5 (07:22→21:33)
[2017-09-30 08:16] LABS: ADD MAN DIFF? NO
[2017-09-30 08:34] LABS: BASO % 1 % (0-3); EOS % 1 % (0-3); HEMATOCRIT 31.4 % (36.0-47.0); HEMOGLOBIN 9.9 g/dL (12.0-15.5); LYMPH # 0.4 x10^3/uL (1.0-4.8); LYMPH % 19 % (24-48); MEAN CORPUSCULAR HEMOGLOBIN 35 pg (25-35); MEAN CORPUSCULAR HGB CONC 32 g/dL (31-37); MEAN CORPUSCULAR VOLUME 109 fL (79-100); MONO # 0.2 x10^3/uL (0.0-1.1); MONO % 9 % (0-9); NEUT # 1.5 x10^3uL (1.8-7.7); NEUT % 70 % (31-73); PLATELET COUNT 73 x10^3/uL (140-400); RED BLOOD COUNT 2.87 x10^6/uL (3.50-5.40); RED CELL DISTRIBUTION WIDTH 20.4 % (11.5-14.5); WHITE BLOOD COUNT 2.1 x10^3/uL (4.0-11.0)
[2017-09-30] MEDS: MAGNESIUM SULFATE 2GM 50 ML IV (09:22)
[2017-09-30] MEDS: cefTRIAXone IV Push 1 GM VIAL. IVP (09:22)
[2017-09-30] MEDS: APIXABAN 5 MG TABLET. PO ×2 (09:23→23:30)
[2017-09-30] MEDS: BENZONATATE 100 MG CAPSULE. PO ×3 (09:23→23:30)
[2017-09-30] MEDS: MAGNESIUM OXIDE 400 MG TABLET PO (09:23)
[2017-09-30] MEDS: DOXYCYCLINE HYCLATE 100 MG TABLET PO ×2 (09:23→23:30)
[2017-09-30] MEDS: POTASSIUM CHLORIDE 20 MEQ TABLET.ER. PO ×2 (09:23→18:42)
[2017-09-30] MEDS: PANTOPRAZOLE 40 MG TABLET.DR. PO (09:24)
[2017-09-30] MEDS: fentaNYL PF VIAL 100 MCG/2 ML VIAL IV ×2 (09:55→14:05)
[2017-09-30 10:46] LABS: CHOLESTEROL 95 mg/dL (0-200); HDLC 49 mg/dL (40-60); LDLC 26 mg/dL (0-100); NON-HDL CHOLESTEROL 46 mg/dL (0-129); TRIGLYCERIDES 98 mg/dL (0-150); VLDLC 20 mg/dL (0-40)
[2017-09-30 10:49] LABS: CHOLESTEROL/HDL RATIO 1.9
[2017-09-30 12:38] LABS: TROPONINI < 0.017 ng/mL (0.000-0.055)
[2017-09-30] MEDS ORDERED: fentaNYL PF VIAL 100 MCG/2 ML VIAL IV (13:15)
[2017-09-30] MEDS ORDERED: ONDANSETRON PF 4 MG/2 ML VIAL. IV (13:30)
[2017-09-30] MEDS ORDERED: ONDANSETRON ODT 4 MG TAB.RAPDIS. PO (13:30)
[2017-09-30] MEDS: DRONABINOL 2.5 MG CAPSULE. PO (16:30)
[2017-09-30] MEDS: PROMETH/CODEINE 6.25/10MG 5 ML SYRUP. PO ×2 (18:42→23:30)
[2017-09-30 18:44] LABS: TROPONINI < 0.017 ng/mL (0.000-0.055)
[2017-10-01] MEDS: HYDROcodone/APAP 5/325MG 1 TAB TABLET PO ×2 (03:38→17:01)
[2017-10-01] MEDS: PANTOPRAZOLE 40 MG TABLET.DR. PO (05:54)
[2017-10-01 06:49] LABS: TROPONINI < 0.017 ng/mL (0.000-0.055)
[2017-10-01] MEDS: ALBUTEROL SULFATE 2.5 MG/3 ML NEBU. NEB ×5 (07:02→20:17)
[2017-10-01] MEDS: POTASSIUM CHLORIDE 20 MEQ TABLET.ER. PO ×2 (09:07→17:02)
[2017-10-01] MEDS: BENZONATATE 100 MG CAPSULE. PO ×3 (09:07→21:45)
[2017-10-01] MEDS: cefTRIAXone IV Push 1 GM VIAL. IVP (09:07)
[2017-10-01] MEDS: DOXYCYCLINE HYCLATE 100 MG TABLET PO ×2 (09:07→21:28)
[2017-10-01] MEDS: PROMETH/CODEINE 6.25/10MG 5 ML SYRUP. PO ×4 (09:07→21:28)
[2017-10-01] MEDS: APIXABAN 5 MG TABLET. PO ×2 (09:07→21:28)
[2017-10-01] MEDS: DRONABINOL 2.5 MG CAPSULE. PO ×2 (12:09→17:01)
[2017-10-02] MEDS: PANTOPRAZOLE 40 MG TABLET.DR. PO (05:45)
[2017-10-02] MEDS: ALBUTEROL SULFATE 2.5 MG/3 ML NEBU. NEB (08:01)
[2017-10-02] MEDS: APIXABAN 5 MG TABLET. PO ×2 (08:44→20:15)
[2017-10-02] MEDS: POTASSIUM CHLORIDE 20 MEQ TABLET.ER. PO ×2 (08:44→17:01)
[2017-10-02] MEDS: HYDROcodone/APAP 5/325MG 1 TAB TABLET PO ×2 (08:44→14:13)
[2017-10-02] MEDS: DOXYCYCLINE HYCLATE 100 MG TABLET PO ×2 (08:44→20:15)
[2017-10-02] MEDS: PROMETH/CODEINE 6.25/10MG 5 ML SYRUP. PO ×4 (08:44→20:16)
[2017-10-02] MEDS: BENZONATATE 100 MG CAPSULE. PO ×3 (08:44→20:15)
[2017-10-02] MEDS: cefTRIAXone IV Push 1 GM VIAL. IVP (08:45)
[2017-10-02] MEDS: DRONABINOL 2.5 MG CAPSULE. PO ×2 (11:43→17:01)
[2017-10-03] MEDS: DOXYCYCLINE HYCLATE 100 MG TABLET PO ×2 (07:53→20:38)
[2017-10-03] MEDS: PANTOPRAZOLE 40 MG TABLET.DR. PO (07:53)
[2017-10-03] MEDS: POTASSIUM CHLORIDE 20 MEQ TABLET.ER. PO ×2 (07:53→17:11)
[2017-10-03] MEDS: HYDROcodone/APAP 5/325MG 1 TAB TABLET PO ×2 (07:53→13:49)
[2017-10-03] MEDS: ALBUTEROL SULFATE 2.5 MG/3 ML NEBU. NEB ×4 (07:53→20:11)
[2017-10-03] MEDS: BENZONATATE 100 MG CAPSULE. PO ×3 (07:54→20:38)
[2017-10-03] MEDS: PROMETH/CODEINE 6.25/10MG 5 ML SYRUP. PO ×4 (07:54→20:38)
[2017-10-03] MEDS: APIXABAN 5 MG TABLET. PO ×2 (07:54→20:38)
[2017-10-03] MEDS: cefTRIAXone IV Push 1 GM VIAL. IVP (07:55)
[2017-10-03 08:07] LABS: MAGNESIUM 1.1 mg/dL (1.8-2.4)
[2017-10-03] MEDS: DRONABINOL 2.5 MG CAPSULE. PO ×2 (11:51→17:11)
[2017-10-03 12:46] LABS: ALBUMIN 2.6 g/dL (3.4-5.0); ALBUMIN/GLOBULIN RATIO 0.7 (1.0-1.7); ALK PHOS 106 U/L (46-116); ALT (SGPT) 12 U/L (14-59); ANION GAP 10 (6-14); AST (SGOT) 15 U/L (15-37); BLOOD UREA NITROGEN 11 mg/dL (7-20); BUN/CREATININE RATIO 14 (6-20); CALCIUM 8.8 mg/dL (8.5-10.1); CARBON DIOXIDE 29 mmol/L (21-32); CHLORIDE 102 mmol/L (98-107); CREATININE 0.8 mg/dL (0.6-1.0); GFR 69.4; GLUCOSE 101 mg/dL (70-99); POTASSIUM 4.1 mmol/L (3.5-5.1); SODIUM 141 mmol/L (136-145); TOTAL BILIRUBIN 0.4 mg/dL (0.2-1.0); TOTAL PROTEIN 6.1 g/dL (6.4-8.2)
[2017-10-03 13:06] LABS: ADD MAN DIFF? NO; BASO % 0 % (0-3); EOS % 1 % (0-3); HEMATOCRIT 34.4 % (36.0-47.0); HEMOGLOBIN 10.9 g/dL (12.0-15.5); LYMPH # 0.5 x10^3/uL (1.0-4.8); LYMPH % 17 % (24-48); MEAN CORPUSCULAR HEMOGLOBIN 34 pg (25-35); MEAN CORPUSCULAR HGB CONC 32 g/dL (31-37); MEAN CORPUSCULAR VOLUME 108 fL (79-100); MONO # 0.2 x10^3/uL (0.0-1.1); MONO % 8 % (0-9); NEUT # 2.1 x10^3uL (1.8-7.7); NEUT % 73 % (31-73); PLATELET COUNT 102 x10^3/uL (140-400); RED BLOOD COUNT 3.19 x10^6/uL (3.50-5.40); RED CELL DISTRIBUTION WIDTH 18.3 % (11.5-14.5); WHITE BLOOD COUNT 2.9 x10^3/uL (4.0-11.0)
[2017-10-03] MEDS: MAGNESIUM SULFATE 4GM 100 ML IV (13:50)
[2017-10-04 05:04] LABS: MAGNESIUM 1.9 mg/dL (1.8-2.4)
[2017-10-04] MEDS: ALBUTEROL SULFATE 2.5 MG/3 ML NEBU. NEB ×4 (06:18→19:29)
[2017-10-04] MEDS: PANTOPRAZOLE 40 MG TABLET.DR. PO (07:26)
[2017-10-04] MEDS: POTASSIUM CHLORIDE 20 MEQ TABLET.ER. PO ×2 (07:47→17:20)
[2017-10-04] MEDS: APIXABAN 5 MG TABLET. PO ×2 (07:47→20:44)
[2017-10-04] MEDS: cefTRIAXone IV Push 1 GM VIAL. IVP (07:47)
[2017-10-04] MEDS: PROMETH/CODEINE 6.25/10MG 5 ML SYRUP. PO ×4 (07:48→20:44)
[2017-10-04] MEDS: DOXYCYCLINE HYCLATE 100 MG TABLET PO ×2 (07:48→20:44)
[2017-10-04] MEDS: BENZONATATE 100 MG CAPSULE. PO ×3 (07:48→20:44)
[2017-10-04] MEDS: DRONABINOL 2.5 MG CAPSULE. PO ×2 (12:03→17:20)
[2017-10-04] MEDS: HYDROcodone/APAP 5/325MG 1 TAB TABLET PO (14:27)
[2017-10-05] MEDS: ALBUTEROL SULFATE 2.5 MG/3 ML NEBU. NEB ×4 (04:44→19:21)
[2017-10-05] MEDS: LORazepam 1 MG TABLET PO (04:44)
[2017-10-05] MEDS: PANTOPRAZOLE 40 MG TABLET.DR. PO (08:12)
[2017-10-05] MEDS: APIXABAN 5 MG TABLET. PO ×2 (08:13→20:51)
[2017-10-05] MEDS: PROMETH/CODEINE 6.25/10MG 5 ML SYRUP. PO ×4 (08:13→20:51)
[2017-10-05] MEDS: BENZONATATE 100 MG CAPSULE. PO ×3 (08:13→20:51)
[2017-10-05] MEDS: POTASSIUM CHLORIDE 20 MEQ TABLET.ER. PO ×2 (08:13→17:27)
[2017-10-05] MEDS: DOXYCYCLINE HYCLATE 100 MG TABLET PO ×2 (08:14→20:51)
[2017-10-05] MEDS: CEFPODOXIME PROXETIL 100 MG TABLET. PO ×2 (08:14→20:51)
[2017-10-05] MEDS: DRONABINOL 2.5 MG CAPSULE. PO ×2 (12:24→17:27)
[2017-10-05] MEDS: ANTI-COAG MONITOR BY PHARMACY. MC (13:56)
[2017-10-05] MEDS: HYDROcodone/APAP 5/325MG 1 TAB TABLET PO (19:58)
[2017-10-06] MEDS: ALBUTEROL SULFATE 2.5 MG/3 ML NEBU. NEB ×3 (00:26→11:41)
[2017-10-06] MEDS: DOXYCYCLINE HYCLATE 100 MG TABLET PO (08:48)
[2017-10-06] MEDS: CEFPODOXIME PROXETIL 100 MG TABLET. PO (08:48)
[2017-10-06] MEDS: PANTOPRAZOLE 40 MG TABLET.DR. PO (08:48)
[2017-10-06] MEDS: APIXABAN 5 MG TABLET. PO (08:49)
[2017-10-06] MEDS: BENZONATATE 100 MG CAPSULE. PO ×2 (08:49→12:42)
[2017-10-06] MEDS: PROMETH/CODEINE 6.25/10MG 5 ML SYRUP. PO ×2 (08:49→12:42)
[2017-10-06] MEDS: POTASSIUM CHLORIDE 20 MEQ TABLET.ER. PO (08:49)
[2017-10-06] MEDS: DRONABINOL 2.5 MG CAPSULE. PO (11:15)
[2017-10-06] MEDS: ANTI-COAG MONITOR BY PHARMACY. MC (13:38)
[2017-10-06] MEDS: ACETAMINOPHEN 500 MG TABLET PO (15:18)
== END 2017-10-06 15:43 | disposition home health service (06) | DRG 871 ==
LOC: 5 NORTH 09-27 00:34 → ER 21:55
DX: A41.9 Sepsis, unspecified organism (principal); J15.6 Pneumonia due to other Gram-negative bacteria; J96.01 Acute respiratory failure with hypoxia; D68.59 Other primary thrombophilia; D69.59 Other secondary thrombocytopenia; D70.1 Agranulocytosis secondary to cancer chemotherapy; C34.11 Malignant neoplasm of upper lobe, right bronchus or lung; D64.9 Anemia, unspecified; E83.42 Hypomagnesemia; I47.1 Supraventricular tachycardia; J44.0 Chronic obstructive pulmonary disease with (acute) lower respiratory infection; J44.1 Chronic obstructive pulmonary disease with (acute) exacerbation; D75.89 Other specified diseases of blood and blood-forming organs; F41.9 Anxiety disorder, unspecified; I10 Essential (primary) hypertension; I25.10 Atherosclerotic heart disease of native coronary artery without angina pectoris; M19.90 Unspecified osteoarthritis, unspecified site; T45.1X5A Adverse effect of antineoplastic and immunosuppressive drugs, initial encounter; Z96.659 Presence of unspecified artificial knee joint; Z79.01 Long term (current) use of anticoagulants; Z82.49 Family history of ischemic heart disease and other diseases of the circulatory system; Z85.118 Personal history of other malignant neoplasm of bronchus and lung; Z86.711 Personal history of pulmonary embolism; Z86.718 Personal history of other venous thrombosis and embolism; Z87.891 Personal history of nicotine dependence; Z92.3 Personal history of irradiation; Z95.5 Presence of coronary angioplasty implant and graft
CPT/HCPCS: 36415; 71045; 71275; 80048; 80053; 80061; 81001; 83605; 83690; 83735; 84100; 84439; 84484; 85007; 85025; 87040; 87070; 87205; 87804; 87804-59; 93005; 93308; 94618; 94640; 94760; 96360; 96361; 96365; 97110-GP; 97116-GP; 97161-GP; 97166-GO; 97530-GO; 97535-GO; 99285; 99285-25; J0456; J0696; J1650; J2060; J3010; J3475; J7030; J7060; J7613; Q0167; Q9967

== ENCOUNTER → 2017-11-30 | Outpatient (CLI) | payer MEDICARE, OTHER | END | disposition home or self-care (01) | LOC: CT 09:11 | DX: C34.11 Malignant neoplasm of upper lobe, right bronchus or lung (principal); J18.1 Lobar pneumonia, unspecified organism; J90 Pleural effusion, not elsewhere classified; J44.9 Chronic obstructive pulmonary disease, unspecified | CPT/HCPCS: 71260 ==

== ENCOUNTER → 2018-03-08 | Outpatient (CLI) | payer MEDICARE, OTHER ==
[~2018-03-08] MED LIST changes: -APIX5TAB PO; -ASPI-482 PO; -ATORVASTATIN CA80 MG PO; -CELE200C PO; -DIAZ2TAB3 PO; -DOXY100C14 PO; +IOHEXOL 300 MG/ML 100ML VIAL. IV; -LORA-434 PO; -METO-239 PO; -NAPR-682 PO; -NAPR-695 PO; -ONDA8TAB9 PO; -PANT40TA5 PO; -POTA20TA82 PO; -POTASSIUM CHLO10 MEQ PO; -PRED-220 PO; -PROAIR HFA8.5 GM INH; -TIOT4MIS3 IH; -TRAM50TA PO
[2018-03-08 10:08] LABS: GFR 60.4
[2018-03-08 10:08] LABS: CREATININE 0.9 mg/dL (0.6-1.0)
[2018-03-08] MEDS: IOHEXOL 300 MG/ML 100ML VIAL. IV (10:50)
== END | disposition home or self-care (01) ==
LOC: CT 09:35
DX: K76.89 Other specified diseases of liver (principal); E27.8 Other specified disorders of adrenal gland; J43.2 Centrilobular emphysema; R59.1 Generalized enlarged lymph nodes; R91.1 Solitary pulmonary nodule; Z85.118 Personal history of other malignant neoplasm of bronchus and lung
CPT/HCPCS: 36415; 71260; 82565; Q9967

== ENCOUNTER 2018-08-01 19:22 | Inpatient (IN) | payer MEDICARE, OTHER ==
[~2018-08-01] VITALS: Ht 160 cm; Wt 44.5 kg
[~2018-08-01 19:22] MED LIST changes: +APIX5TAB PO; +ASPI-482 PO; +ATORVASTATIN CA80 MG PO; +CALC1TAB75 PO; +CEFP100T PO; +CEFP200T PO; +CELE200C PO; +DIAZ2TAB3 PO; +DOXY100C14 PO; +DOXY100T PO; +GUAI600T47 PO; +HYDR-2758 PO; +HYDR-963 PO; -IOHEXOL 300 MG/ML 100ML VIAL. IV; +LORA-434 PO; +METO-239 PO; +NAPR-682 PO; +NAPR-695 PO; +ONDA8TAB9 PO; +PANT40TA5 PO; +POTA10TA12 PO; +POTA20TA82 PO; +PRED-220 PO; +PROAIR HFA8.5 GM INH; +TIOT4MIS3 IH; +TRAM50TA PO
[2018-08-01 19:56] LABS: BASO % 0 % (0-3); EOS % 0 % (0-3); HEMOGLOBIN 13.9 g/dL (12.0-15.5); LYMPH # 0.2 x10^3/uL (1.0-4.8); LYMPH % 3 % (24-48); MEAN CORPUSCULAR HEMOGLOBIN 32 pg (25-35); MEAN CORPUSCULAR HGB CONC 34 g/dL (31-37); MEAN CORPUSCULAR VOLUME 95 fL (79-100); MONO # 0.6 x10^3/uL (0.0-1.1); MONO % 7 % (0-9); NEUT % 90 % (31-73); PLATELET COUNT 176 x10^3/uL (140-400); RED BLOOD COUNT 4.29 x10^6/uL (3.50-5.40); RED CELL DISTRIBUTION WIDTH 17.8 % (11.5-14.5); WHITE BLOOD COUNT 7.8 x10^3/uL (4.0-11.0)
[2018-08-01 19:57] LABS: BILIRUBIN,URINE NEGATIVE (NEG); CLARITY,URINE CLEAR; COLOR,URINE YELLOW; NITRITE,URINE NEGATIVE (NEG); PROTEIN,URINE NEGATIVE (NEG-TRACE)
[2018-08-01 20:05] LABS: BACTERIA,URINE FEW /HPF (0-FEW); RBC,URINE OCC /HPF (0-2)
--- NOTE | 2018-08-01 20:05 | RAD ---
EXAM: Chest, single view. HISTORY: Mental status changes. Lung cancer. COMPARISON: 04/07/2018 FINDINGS: A frontal view of the chest is obtained. There has been no significant change in right hemithorax volume loss with architectural distortion due to known pulmonary malignancy. There has been slight interval decrease in a now trace right pleural effusion and right lower lobe infiltrate or atelectasis. There is stable diffuse left lung interstitial prominence without focal infiltrate. The heart is normal in size. There is no pneumothorax. IMPRESSION: Stable right hemithorax volume loss and architectural distortion due to known pulmonary malignancy. There has been interval decrease in a trace right pleural effusion and right lower lobe airspace disease. The remainder of the right lung opacities are stable in appearance. Electronically signed by: Cynthia Quick MD (08/01/2018 8:02 PM) [facility]
[2018-08-01 20:06] LABS: HYALINE CASTS, URINE MODERATE /HPF; SQUAMOUS EPITHELIAL CELL,UR FEW /LPF
[2018-08-01 20:07] LABS: PROTHROMBIN TIME PATIENT 14.5 SEC (11.7-14.0)
[2018-08-01 20:17] LABS: CALCIUM 7.6 mg/dL (8.5-10.1); CREATININE 1.2 mg/dL (0.6-1.0); GFR 43.3; POTASSIUM 4.4 mmol/L (3.5-5.1)
[2018-08-01 20:22] LABS: % BANDS 3 % (0-9); % LYMPHS 1 % (24-48); % MONOS 6 % (0-10); % SEGS 90 % (35-66); ANISOCYTOSIS SLIGHT; PLT ESTIMATE ADEQUATE (ADEQUATE); POIKILOCYTOSIS SLIGHT
[2018-08-01 20:23] LABS: BURR CELLS OCC; OVALOCYTES FEW; SPHEROCYTES OCC
[2018-08-01 20:35] LABS: ALBUMIN/GLOBULIN RATIO 0.6 (1.0-1.7); MAGNESIUM 0.8 mg/dL (1.8-2.4); TOTAL BILIRUBIN 0.5 mg/dL (0.2-1.0); TOTAL PROTEIN 5.5 g/dL (6.4-8.2)
[2018-08-01] MEDS ORDERED: IV RINGERS,LACTATED 1000ML 1,000 ML IV ONE (21:00)
--- NOTE | 2018-08-01 21:19 | RAD ---
EXAM: Head and cervical spine CT without contrast. HISTORY: Fall. TECHNIQUE: Computed tomographic images the head and cervical spine were obtained without contrast. *One or more of the following individualized dose reduction techniques were utilized for this examination: 1. Automated exposure control. 2. Adjustment of the mA and/or kV according to patient size. 3. Use of iterative reconstruction technique. COMPARISON: 03/27/2008. FINDINGS: Head: There is curvilinear increased density within the right frontal extra-axial space due to a prominent cortical vessel. There is no convincing acute or subacute hemorrhage. There is no mass effect or midline shift. There is no hydrocephalus. There is a chronic lacunar infarct within the left thalamus. There is hypodensity within the medial left frontal lobe likely due to chronic infarction. There may also be a chronic lacunar infarct within the left adis There are scattered areas of hypodensity within the cerebral white matter, likely due to chronic small vessel disease. The orbits and paranasal sinuses are unremarkable. There is fluid throughout the mastoid air cells. There is bone demineralization. No calvarial fracture is seen. Cervical spine: There is mild anterolisthesis of C5 on C6, C6 on C7, C7 on T1 and T1 on T2. There is degenerative endplate remodeling primarily at C6-C7 and C7-T1. There is bone demineralization. No fracture is seen. There is mild facet arthropathy at multiple levels. No significant stenosis is seen. There is a 5.0 cm hypodense lesion within the left thoracic inlet. There is suspected right apical pleural thickening. IMPRESSION: 1. No acute intracranial finding or evidence of acute cervical spine trauma. 2. Scattered areas of hypodensity within the cerebral white matter, likely due to chronic small vessel disease. 3. Suspected chronic infarct within the left thalamus, medial left lower lobe and possibly the left adis. 4. Cerebral atrophy. 5. Degenerative change within the cervical spine and bone demineralization. 6. 5.0 cm hypodense lesion within the left thoracic inlet. This may be a mass or pathologically enlarged lymph node. This is stable compared to a CT dated 03/27/2018. Electronically signed by: Cynthia Quick MD (08/01/2018 9:16 PM) [facility]
[2018-08-01] MEDS ORDERED: ONDANSETRON PF 4 MG/2 ML VIAL. IV PRN (21:45)
[2018-08-01] MEDS ORDERED: PIPERACILLIN/TAZOBACTAM 3.375 GM in IV NORMAL SALINE 50ML 50 ML IV ONE (21:45)
--- NOTE | 2018-08-01 21:54 | PHYS DOC ---
Past Medical History Past Medical History: Arthritis, Cancer, NH, Pneumonia, Other Additional Past Medical Histor: LUNG CA, PANCREAS CA, L LYMPH NODE CA, PE, RADIATION TREATMENTS Past Surgical History: Knee Replacement, Other Additional Past Surgical Histo: CARDIAC STENT Alcohol Use: None Drug Use: None Adult General Chief Complaint Chief Complaint: ALTERED MENTAL STATUS HPI HPI Patient is a 77 year old female who presents with altered mental status. Patient was normal last night and reported as normal at 10:00 this morning. Family arrived at 7:00 this evening to find her laying on the floor with a decreased level of consciousness. Patient was brought in by EMS, found to be tachycardic, and given 1 L of IV fluids by EMS. There was no significant change in her heart rate from EMS. Patient has a known history of lung cancer and has had previous radiation therapy due to metastasis. During the course of the emergency department visit more history was obtainable from family who reports that patient had a complained about some sensation changes in her right leg yesterday evening but was able to move it fully. History was limited from the patient due to her altered mental status[] Review of Systems Review of Systems Review of systems Limited due to altered mental status All other systems were reviewed and found to be within normal limits, except as documented in this note. Current Medications Current Medications Current Medications Medications (Trade) Dose Ordered Sig/Moses Start Time Stop Time Status Last Admin Dose Admin Lorazepam (Ativan) 0.5 mg 1X ONCE 08/01/18 21:00 08/01/18 21:01 DC 08/01/18 20:40 0.5 MG Ringer's Solution 1,000 ml @ 75 mls/hr 1X ONCE 08/01/18 21:00 08/02/18 10:19 08/01/18 20:59 75 MLS/HR Allergies Allergies Allergies Coded Allergies Type Severity Reaction Last Updated Verified No Known Drug Allergies 05/18/17 No Physical Exam Physical Exam Constitutional: Cachectic. [] HENT: Normocephalic, atraumatic, bilateral external ears normal, oropharynx moist, no oral exudates, nose normal. [] Eyes: PERRLA, EOMI, conjunctiva normal, no discharge. [] Neck: no tenderness, supple, no stridor. [] Cardiovascular: Tachycardic Heart rate regular rhythm, no murmur [] Lungs & Thorax: Bilateral breath sounds with crackles[] Abdomen: Bowel sounds normal, soft, no tenderness, no masses, no pulsatile masses. [] Skin: Warm, dry, no erythema, no rash. [] Back: No tenderness, no CVA tenderness. [] Extremities: No tenderness, no cyanosis, no clubbing, ROM intact, no edema. [] Neurologic: Decreased mental status, GCS 13, E4, M5, V4[] Psychologic: Unable to determine. [] Current Patient Data Vital Signs Vital Signs Date Time Temp Pulse Resp B/P (MAP) Pulse Ox O2 Delivery O2 Flow Rate FiO2 08/01/18 19:22 98.6 123 38 109/66 (80) 96 Nasal Cannula 3.0 98.6 Lab Values Laboratory Tests Test 08/01/18 19:30 08/01/18 19:40 08/01/18 19:55 Urine Collection Type U cath Urine Color Yellow Urine Clarity Clear Urine pH 6.0 Urine Specific [place] 1.015 Urine Protein Negative mg/dL (NEG-TRACE) Urine Glucose (UA) Negative mg/dL (NEG) Urine Ketones (Stick) Negative mg/dL (NEG) Urine Blood Negative (NEG) Urine Nitrite Negative (NEG) Urine Bilirubin Negative (NEG) Urine Urobilinogen Dipstick 1.0 mg/dL (0.2 mg/dL) Urine Leukocyte Esterase Negative (NEG) Urine RBC Occ /HPF (0-2) Urine WBC 1-4 /HPF (0-4) Urine Squamous Epithelial Cells Few /LPF Urine Bacteria Few /HPF (0-FEW) Urine Hyaline Casts Moderate /HPF Urine Mucus Marked /LPF White Blood Count 7.8 x10^3/uL (4.0-11.0) Red Blood Count 4.29 x10^6/uL (3.50-5.40) Hemoglobin 13.9 g/dL (12.0-15.5) Hematocrit 41.0 % (36.0-47.0) Mean Corpuscular Volume 95 fL (79-100) Mean Corpuscular Hemoglobin 32 pg (25-35) Mean Corpuscular Hemoglobin Concent 34 g/dL (31-37) Red Cell Distribution Width 17.8 % (11.5-14.5) H Platelet Count 176 x10^3/uL (140-400) Neutrophils (%) (Auto) 90 % (31-73) H Lymphocytes (%) (Auto) 3 % (24-48) L Monocytes (%) (Auto) 7 % (0-9) Eosinophils (%) (Auto) 0 % (0-3) Basophils (%) (Auto) 0 % (0-3) Neutrophils # (Auto) 7.0 x10^3uL (1.8-7.7) Lymphocytes # (Auto) 0.2 x10^3/uL (1.0-4.8) L Monocytes # (Auto) 0.6 x10^3/uL (0.0-1.1) Eosinophils # (Auto) 0.0 x10^3/uL (0.0-0.7) Basophils # (Auto) 0.0 x10^3/uL (0.0-0.2) Segmented Neutrophils % 90 % (35-66) H Band Neutrophils % 3 % (0-9) Lymphocytes % 1 % (24-48) L Monocytes % 6 % (0-10) Platelet Estimate Adequate (ADEQUATE) Poikilocytosis Slight Anisocytosis Slight Spherocytes Occ Sickle Cells Ovalocytes Few Joellen Cells Occ Prothrombin Time 14.5 SEC (11.7-14.0) H Prothrombin Time INR 1.2 (0.8-1.1) H Sodium Level 141 mmol/L (136-145) Potassium Level 4.4 mmol/L (3.5-5.1) Chloride Level 103 mmol/L (98-107) Carbon Dioxide Level 24 mmol/L (21-32) Anion Gap 14 (6-14) Blood Urea Nitrogen 12 mg/dL (7-20) Creatinine 1.2 mg/dL (0.6-1.0) H Estimated GFR (Cockcroft-Gault) 43.3 BUN/Creatinine Ratio 10 (6-20) Glucose Level 92 mg/dL (70-99) Lactic Acid Level 4.3 mmol/L (0.4-2.0) *H Calcium Level 7.6 mg/dL (8.5-10.1) L Magnesium Level 0.8 mg/dL (1.8-2.4) L Total Bilirubin 0.5 mg/dL (0.2-1.0) Aspartate Amino Transferase (AST) 57 U/L (15-37) H Alanine Aminotransferase (ALT) 28 U/L (14-59) Alkaline Phosphatase 120 U/L (46-116) H Ammonia < 10 mcmol/L (11-34) L Creatine Kinase 1246 U/L (26-192) H Troponin I Quantitative 2.273 ng/mL (0.000-0.055) Total Protein 5.5 g/dL (6.4-8.2) L Albumin 2.0 g/dL (3.4-5.0) L Albumin/Globulin Ratio 0.6 (1.0-1.7) L Glucose (Fingerstick) 76 mg/dL (70-99) Laboratory Tests 08/01/18 19:40 Laboratory Tests 08/01/18 19:40 EKG EKG EKG shows a sinus tachycardia at 122 bpm. This was compared with the EKG of 2017 where tachycardia was present at that point as well. No ST elevation is present. QTc is 443 ms.[] Radiology/Procedures Radiology/Procedures Chest x-ray did not show any acute features CT scan of the head and C-spine did not show any acute features[] Course & Med Decision Making Course & Med Decision Making Pertinent Labs and Imaging studies reviewed. (See chart for details) ED course: Patient arrived by EMS, was placed in R bed. Patient was transported to and from [place] without any complications. Patient had these rhythmic episodes of shaking but was conscious during these episodes so concern for possible partial motor seizures was present, and Ativan was administered. Patient didn't meet Sirs criteria and so an initial dose of antibiotics was administered. There is no specific source for infection noted and the lactate could also be elevated from seizure activity. Also noted to be in rhabdomyolysis with the elevated CPK and so D5W with 3 A of bicarbonate will be infused for hydration and renal protection. These was were discussed with family who voiced understanding. All questions were answered Critical care time of 45 minutes due to bedside care, discussion with the family , and review of medications, and discussion with consultants.[] Dragon Disclaimer Dragon Disclaimer This electronic medical record was generated, in whole or in part, using a voice recognition dictation system. Departure Departure Impression: Primary Impression: Altered mental status Additional Impressions: Non-STEMI (non-ST elevated myocardial infarction) Rhabdomyolysis Elevated lactic acid level Disposition: 09 ADMITTED INPATIENT Admitting Physician: Xie. Gong Condition: CRITICAL Referrals: JERRY GONZALEZ (PCP) Problem Qualifiers Primary Impression: Altered mental status Altered mental status type: unspecified Qualified Codes: R41.82 - Altered mental status, unspecified Additional Impressions: Rhabdomyolysis Rhabdomyolysis type: non-traumatic Qualified Codes: M62.82 - Rhabdomyolysis HUMBERTO COLLINS DO Aug 01, 2018 21:54
[2018-08-01] MEDS ORDERED: fentaNYL PF VIAL 100 MCG/2 ML VIAL IV ONE (22:15)
[2018-08-01] MEDS: SODIUM BICARBONATE VIAL 150 MEQ in IV DEXTROSE 5% 1,000 ML IV SCH (22:18)
[2018-08-01 23:30] VITALS: BP 91/62
[2018-08-01 23:45] VITALS: BP 97/59
[2018-08-02] VITALS (21 sets, daily range): BP systolic 41–193; BP diastolic 33–117
[2018-08-02 00:11] LABS: BASE EXCESS ABG -3 mmol/L (-3-3); HCO3 ABG 20 mmol/L (21-28); PCO2 ABG 29 mmHg (35-46); PO2 ABG 77 mmHg (65-108)
[2018-08-02 00:17] LABS: FIO2 ABG 32
[2018-08-02] MEDS ORDERED: MAGNESIUM SULFATE 4GM 100 ML IV ONE (02:15)
--- NOTE | 2018-08-02 03:19 | EKG ---
[facility] [address] [place] [address] Test Date: 2018-08-01 Test Time: 19:33:12 Pat Name: KAITLYN LEMUS Department: Room: 105 1 Gender: F Professor Of History: : 1940 Requested By: HUMBERTO COLLINS Order Number: [id number] Reading MD: Diogenes Goldberg MD Measurements Intervals [place] Rate: 122 P: 59 MN: 132 QRS: 127 QRSD: 70 T: 63 QT: 310 QTc: 443 Interpretive Statements SINUS TACHYCARDIA NON-SPECIFIC ST/T CHANGES Electronically Signed On 08-02-2018 17:52:58 MAP MAKER by Diogenes Goldberg MD
[2018-08-02] MEDS: SODIUM BICARBONATE VIAL 150 MEQ in IV DEXTROSE 5% 1,000 ML IV SCH (06:08)
[2018-08-02 07:32] LABS: BASO % 0 % (0-3); EOS % 0 % (0-3); HEMATOCRIT 34.4 % (36.0-47.0); HEMOGLOBIN 11.9 g/dL (12.0-15.5); LYMPH # 0.3 x10^3/uL (1.0-4.8); LYMPH % 5 % (24-48); MEAN CORPUSCULAR HEMOGLOBIN 33 pg (25-35); MEAN CORPUSCULAR HGB CONC 35 g/dL (31-37); MEAN CORPUSCULAR VOLUME 94 fL (79-100); MONO # 0.4 x10^3/uL (0.0-1.1); MONO % 7 % (0-9); NEUT # 5.3 x10^3uL (1.8-7.7); NEUT % 88 % (31-73); PLATELET COUNT 147 x10^3/uL (140-400); RED BLOOD COUNT 3.65 x10^6/uL (3.50-5.40); RED CELL DISTRIBUTION WIDTH 17.2 % (11.5-14.5)
[2018-08-02 07:37] LABS: ALBUMIN 1.6 g/dL (3.4-5.0); ALBUMIN/GLOBULIN RATIO 0.6 (1.0-1.7); CALCIUM 6.7 mg/dL (8.5-10.1); CHOLESTEROL/HDL RATIO 1.9; CREATININE 0.8 mg/dL (0.6-1.0); GFR 69.2; MAGNESIUM 1.8 mg/dL (1.8-2.4); POTASSIUM 3.1 mmol/L (3.5-5.1); TOTAL BILIRUBIN 0.4 mg/dL (0.2-1.0); TOTAL PROTEIN 4.4 g/dL (6.4-8.2)
[2018-08-02] MEDS ORDERED: NITROGLYCERIN PREMIX 250 ML IV PRN (07:45)
[2018-08-02] MEDS ORDERED: FUROSEMIDE 20 MG/2 ML VIAL. IVP ONE (07:45)
--- NOTE | 2018-08-02 07:53 | RAD ---
Portable chest, 08/02/2018: HISTORY: Shortness of breath, lung cancer Comparison is made to yesterday's study. There is increasing volume loss on the right with increasing pulmonary opacities compatible with atelectasis/infiltrate. There is mild pleural thickening laterally on the right. There is no evidence of pneumothorax. The left chest is clear. No left-sided pleural fluid is seen. IMPRESSION: Worsening infiltrate and volume loss in the right chest. Electronically signed by: Wilbur Kay MD (08/02/2018 7:50 AM) [facility]
--- NOTE | 2018-08-02 08:00 | EKG ---
[facility] [address] [place] [address] Test Date: 2018-08-02 Test Time: 07:57:14 Pat Name: KAITLYN LEMUS Department: Room: 105 1 Gender: F Patient Appointment Coordinator: : 1940 Requested By: ISABEL WELSH Order Number: [id number] Reading MD: Diogenes Goldberg MD Measurements Intervals [place] Rate: 146 P: [place]: QRS: 38 QRSD: 54 T: 31 QT: 328 QTc: 513 Interpretive Statements SINUS TACHYCARDIA LOW VOLTAGE NON-SPECIFIC ST/T CHANGES Electronically Signed On 08-02-2018 17:57:07 [employer]ER[employer]ICS TEACHER by Diogenes Goldberg MD
[2018-08-02] MEDS ORDERED: POTASSIUM CL 20MEQ D5-0.9%NACL 1,000 ML IV SCH (08:15)
[2018-08-02] MEDS ORDERED: MORPHINE SULFATE 2 MG/ML VIAL. IV PRN (08:15)
[2018-08-02] MEDS ORDERED: DIGOXIN IV 500 MCG/2 ML AMPUL. IV ONE (08:15)
[2018-08-02] MEDS ORDERED: ACETAMINOPHEN 325 MG TABLET. PO PRN (08:15)
[2018-08-02] MEDS ORDERED: ONDANSETRON PF 4 MG/2 ML VIAL. IV PRN (08:15)
[2018-08-02] MEDS ORDERED: DOCUSATE SODIUM 100 MG CAPSULE. PO PRN (08:15)
[2018-08-02] MEDS ORDERED: traMADol 50 MG TABLET PO PRN (08:15)
--- NOTE | 2018-08-02 08:27 | PDOC2 ---
CARDIAC CONSULT DATE OF CONSULT Date of Consult DATE: 08/02/18 TIME: 08:22 REASON FOR CONSULT Reason for Consult: Increased Troponin REFERRING PHYSICIAN Referring Physician: Dr. Williamson SOURCE Source: Chart review HISTORY OF PRESENT ILLNESS HISTORY OF PRESENT ILLNESS This is a 77 yo female who presented secondary to mental status changes. HPI obtained from chart review as patient is only responsive to painful stimuli at this time and family is not present. Patient lives at home along with family routinely checks on her. Was visited by family yesterday aroud 10am and was reportedly normal. Family visited again around 7 pm last night and patient was found down on the ground with decreased LOC. EMS called. PAST MEDICAL HISTORY Cardiovascular: CAD (s/p PCI/stent placement ), HTN Pulmonary: COPD, Pulmonary embolus, Pneumonia, Other (Small cell lung CA) Heme/Onc: Anemia NOS, Cancer (pancreatic ), Other (lymphoma ) Musculoskeletal: Osteoarthritis Endocrine: No pertinent hx Dermatology: No pertinent hx PAST SURGICAL HISTORY Past Surgical History: Other (PCI/stent placement ) FAMILY HISTORY Family History: Coronary Artery Disease (father ), Hypertension SOCIAL HISTORY Social History Smoke: Quit (04/2017) ALCOHOL: none Drugs: None Lives: Alone CURRENT MEDICATIONS CURRENT MEDICATIONS Current Medications Medications (Trade) Dose Ordered Sig/Moses Route PRN Reason Start Time Stop Time Status Last Admin Dose Admin Lorazepam (Ativan) 0.5 mg 1X ONCE IV 08/01/18 21:00 08/01/18 21:01 DC 08/01/18 20:40 Ringer's Solution 1,000 ml @ 75 mls/hr 1X ONCE IV 08/01/18 21:00 08/02/18 10:19 08/01/18 20:59 Piperacillin Sod/ Tazobactam Sod 3.375 gm/Sodium Chloride 50 ml @ 100 mls/hr 1X ONCE IV 08/01/18 21:45 08/01/18 22:14 DC 08/01/18 21:50 Sodium Bicarbonate 150 meq/Dextrose 1,150 ml @ 150 mls/hr [id number] IV 08/01/18 22:00 08/02/18 08:13 DC 08/02/18 06:08 Fentanyl Citrate (Fentanyl 2ml Vial) 25 mcg 1X ONCE IV 08/01/18 22:15 08/01/18 22:16 DC 08/01/18 23:03 Lorazepam (Ativan) 0.5 mg 1X ONCE IV 08/01/18 23:00 08/01/18 23:01 DC 08/01/18 23:02 Magnesium Sulfate/ Dextrose 100 ml @ 25 mls/hr 1X ONCE IV 08/02/18 02:15 08/02/18 06:14 DC 08/02/18 02:31 Furosemide (Lasix) 20 mg 1X ONCE IVP 08/02/18 07:45 08/02/18 07:46 DC 08/02/18 07:43 ALLERGIES ALLERGIES: Coded Allergies: No Known Drug Allergies (Unverified , 05/18/17) ROS Review of System unobtainable. PHYSICAL EXAM General: No acute distress, Other (responsive to painful stimuli. ) HEENT: Atraumatic Lungs: Other (bilateral rhonchi) Heart: Normal S1, Normal S2, Other (tele ST with PAC's. rate 130) Extremities: No edema, Normal pulses Skin: No significant lesion Neuro: Normal tone Psych/Mental Status: Other (uable to assess) MUSCULOSKELETAL: Other (jerking/shaking movements) VITALS VITALS Vital Signs Date Time Temp Pulse Resp B/P (MAP) Pulse Ox O2 Delivery O2 Flow Rate FiO2 08/02/18 08:00 Venturi Mask 08/02/18 08:00 99.5 142 28 82/53 (63) 95 99.5 08/02/18 07:00 3.0 LABS Lab: Laboratory Tests Test 08/01/18 19:30 08/01/18 19:40 08/01/18 19:55 08/01/18 23:30 Urine Collection Type U cath Urine Color Yellow Urine Clarity Clear Urine pH 6.0 Urine Specific [place] 1.015 Urine Protein Negative mg/dL (NEG-TRACE) Urine Glucose (UA) Negative mg/dL (NEG) Urine Ketones (Stick) Negative mg/dL (NEG) Urine Blood Negative (NEG) Urine Nitrite Negative (NEG) Urine Bilirubin Negative (NEG) Urine Urobilinogen Dipstick 1.0 mg/dL (0.2 mg/dL) Urine Leukocyte Esterase Negative (NEG) Urine RBC Occ /HPF (0-2) Urine WBC 1-4 /HPF (0-4) Urine Squamous Epithelial Cells Few /LPF Urine Bacteria Few /HPF (0-FEW) Urine Hyaline Casts Moderate /HPF Urine Mucus Marked /LPF White Blood Count 7.8 x10^3/uL (4.0-11.0) Red Blood Count 4.29 x10^6/uL (3.50-5.40) Hemoglobin 13.9 g/dL (12.0-15.5) Hematocrit 41.0 % (36.0-47.0) Mean Corpuscular Volume 95 fL (79-100) Mean Corpuscular Hemoglobin 32 pg (25-35) Mean Corpuscular Hemoglobin Concent 34 g/dL (31-37) Red Cell Distribution Width 17.8 % (11.5-14.5) Platelet Count 176 x10^3/uL (140-400) Neutrophils (%) (Auto) 90 % (31-73) Lymphocytes (%) (Auto) 3 % (24-48) Monocytes (%) (Auto) 7 % (0-9) Eosinophils (%) (Auto) 0 % (0-3) Basophils (%) (Auto) 0 % (0-3) Neutrophils # (Auto) 7.0 x10^3uL (1.8-7.7) Lymphocytes # (Auto) 0.2 x10^3/uL (1.0-4.8) Monocytes # (Auto) 0.6 x10^3/uL (0.0-1.1) Eosinophils # (Auto) 0.0 x10^3/uL (0.0-0.7) Basophils # (Auto) 0.0 x10^3/uL (0.0-0.2) Segmented Neutrophils % 90 % (35-66) Band Neutrophils % 3 % (0-9) Lymphocytes % 1 % (24-48) Monocytes % 6 % (0-10) Platelet Estimate Adequate (ADEQUATE) Poikilocytosis Slight Anisocytosis Slight Spherocytes Occ Sickle Cells Ovalocytes Few [place] Cells Occ Prothrombin Time 14.5 SEC (11.7-14.0) Prothromb Time International Ratio 1.2 (0.8-1.1) Sodium Level 141 mmol/L (136-145) Potassium Level 4.4 mmol/L (3.5-5.1) Chloride Level 103 mmol/L (98-107) Carbon Dioxide Level 24 mmol/L (21-32) Anion Gap 14 (6-14) Blood Urea Nitrogen 12 mg/dL (7-20) Creatinine 1.2 mg/dL (0.6-1.0) Estimated GFR (Cockcroft-Gault) 43.3 BUN/Creatinine Ratio 10 (6-20) Glucose Level 92 mg/dL (70-99) Lactic Acid Level 4.3 mmol/L (0.4-2.0) 2.8 mmol/L (0.4-2.0) Calcium Level 7.6 mg/dL (8.5-10.1) Magnesium Level 0.8 mg/dL (1.8-2.4) Total Bilirubin 0.5 mg/dL (0.2-1.0) Aspartate Amino Transf (AST/SGOT) 57 U/L (15-37) Alanine Aminotransferase (ALT/SGPT) 28 U/L (14-59) Alkaline Phosphatase 120 U/L (46-116) Ammonia < 10 mcmol/L (11-34) Creatine Kinase 1246 U/L (26-192) Troponin I Quantitative 2.273 ng/mL (0.000-0.055) Total Protein 5.5 g/dL (6.4-8.2) Albumin 2.0 g/dL (3.4-5.0) Albumin/Globulin Ratio 0.6 (1.0-1.7) Glucose (Fingerstick) 76 mg/dL (70-99) Test 08/02/18 00:10 08/02/18 06:30 O2 Saturation % (92-99) Arterial Blood pH 7.45 (7.35-7.45) Arterial Blood pCO2 at Patient Temp 29 mmHg (35-46) Arterial Blood pO2 at Patient Temp 77 mmHg (65-108) Arterial Blood HCO3 20 mmol/L (21-28) Arterial Blood Base Excess -3 mmol/L (-3-3) FiO2 32 White Blood Count 6.0 x10^3/uL (4.0-11.0) Red Blood Count 3.65 x10^6/uL (3.50-5.40) Hemoglobin 11.9 g/dL (12.0-15.5) Hematocrit 34.4 % (36.0-47.0) Mean Corpuscular Volume 94 fL (79-100) Mean Corpuscular Hemoglobin 33 pg (25-35) Mean Corpuscular Hemoglobin Concent 35 g/dL (31-37) Red Cell Distribution Width 17.2 % (11.5-14.5) Platelet Count 147 x10^3/uL (140-400) Neutrophils (%) (Auto) 88 % (31-73) Lymphocytes (%) (Auto) 5 % (24-48) Monocytes (%) (Auto) 7 % (0-9) Eosinophils (%) (Auto) 0 % (0-3) Basophils (%) (Auto) 0 % (0-3) Neutrophils # (Auto) 5.3 x10^3uL (1.8-7.7) Lymphocytes # (Auto) 0.3 x10^3/uL (1.0-4.8) Monocytes # (Auto) 0.4 x10^3/uL (0.0-1.1) Eosinophils # (Auto) 0.0 x10^3/uL (0.0-0.7) Basophils # (Auto) 0.0 x10^3/uL (0.0-0.2) Sodium Level 141 mmol/L (136-145) Potassium Level 3.1 mmol/L (3.5-5.1) Chloride Level 103 mmol/L (98-107) Carbon Dioxide Level 29 mmol/L (21-32) Anion Gap 9 (6-14) Blood Urea Nitrogen 9 mg/dL (7-20) Creatinine 0.8 mg/dL (0.6-1.0) Estimated GFR (Cockcroft-Gault) 69.2 BUN/Creatinine Ratio 11 (6-20) Glucose Level 129 mg/dL (70-99) Calcium Level 6.7 mg/dL (8.5-10.1) Magnesium Level 1.8 mg/dL (1.8-2.4) Total Bilirubin 0.4 mg/dL (0.2-1.0) Aspartate Amino Transf (AST/SGOT) 83 U/L (15-37) Alanine Aminotransferase (ALT/SGPT) 25 U/L (14-59) Alkaline Phosphatase 86 U/L (46-116) Creatine Kinase 1924 U/L (26-192) Troponin I Quantitative 1.947 ng/mL (0.000-0.055) Total Protein 4.4 g/dL (6.4-8.2) Albumin 1.6 g/dL (3.4-5.0) Albumin/Globulin Ratio 0.6 (1.0-1.7) Triglycerides Level 108 mg/dL (0-150) Cholesterol Level 101 mg/dL (0-200) LDL Cholesterol, Calculated 26 mg/dL (0-100) VLDL Cholesterol, Calculated 22 mg/dL (0-40) Non-HDL Cholesterol Calculated 48 mg/dL (0-129) HDL Cholesterol 53 mg/dL (40-60) Cholesterol/HDL Ratio 1.9 Thyroid Stimulating Hormone (TSH) 1.164 uIU/mL (0.358-3.74) ECHOCARDIOGRAM ECHOCARDIOGRAM <Conclusion> The left ventricular systolic function is hyperdynamic. The Ejection Fraction is >70%. There is normal LV segmental wall motion. The right ventricle is mildly dilated. Doppler and Color Flow revealed trace tricuspid regurgitation.There is mild pulmonary hypertension.The PA pressure was estimated at 38 mmHg. DATE: 07/22/17 1258 Limited Echo <Conclusion> Grossly normal LV systolic function. EF 55% Wall motion not well visualized but grossly normal LV wall motion and RV size/ function. Limited echo only for wall motion and EF. DATE: 09/30/17 181 ASSESSMENT/PLAN ASSESSMENT/PLAN 1. NSTEMI; highest 2.273. Multifactorial 2. Sinus tachycardia; reactive. IV Dig x1 this am. 3. Acute diastolic heart failure; received > 3L since admission. CXR now worse. IV lasix this am. 4. Acute respiratory failure; requiring venti mask. Pulm consulted 5. Metabolic encephalopathy; intermittent shaking movements. Neuro consulted. 6. Rhabdomyolysis; found down at home 7. Lactic acidosis; initially 4.3. now 2.8 8. Small cell lung CA; s/p radiation therapy and chemo with carboplatin and etoposide 9. CAD s/p previous PCI/stent placement. Echo 10/13 with normal LV systolic function. Repeat echo ordered 10. Hypokalemia; replacement ongoing 11. Severe Hypomagnesemia; replaced 12. H/o PE; previously on Eliquis 13. Protein malnutrition Notified patient is now comfort care measures Will cancel echo Supportive care CARLENE EASON APRN Aug 02, 2018 08:27
[2018-08-02] MEDS ORDERED: IOHEXOL 300 MG/ML 100ML VIAL. IV ONE (08:30)
[2018-08-02] MEDS: HEPARIN for SUB-Q USE 5,000 UNIT/ML VIAL. SQ SCH ×2 (08:43→13:30)
[2018-08-02] MEDS ORDERED: POTASSIUM CHLORIDE 20 MEQ in IV NORMAL SALINE 250ML 250 ML IV ONE (09:00)
[2018-08-02] MEDS ORDERED: ASPIRIN 300 MG SUPP.RECT PR SCH (09:00)
[2018-08-02] MEDS ORDERED: PIP/TAZO PER PHARMACY MC PRN (11:15)
--- NOTE | 2018-08-02 11:20 | PDOC1 ---
History and Physical Date of Admission Date of Admission 08/02/18 Identification/Chief Complaint Chief Complaint AMS Source Source: Chart review, Patient History of Present Illness History of Present Illness HPI HPI Patient is a 77 year old female who presents with altered mental status last night. pt seen in ICU, on venti mask, HR 130s overnight with new afib, has some ext shaky , looks very sick, not really answer questions, but follow commands by squeezing my hands. BP was low for a while then high, then low again at 80-90s systolic. all history got from ERP and ICU nurse. Pt was diagonsed with lung Ca with mets? treated with RT. Patient was normal last night and reported as normal at 10:00 this morning. Family arrived at 7:00 this evening to find her laying on the floor with a decreased level of consciousness. Patient was brought in by EMS, found to be tachycardic, and given 1 L of IV fluids by EMS. Pt got 3-4L overnight, now tachypnea, bl coarse bs and rhonchis, lasix x1 iv given. LA was 4 down to 2.8. ICU nurse called daughter at 8am, DNR now. worse CXR today, head ct no mets. cannot do echo given pt cannot keep still. Past Medical History Cardiovascular: CAD (s/p PCI/stent placement ), HTN Pulmonary: COPD, Pulmonary embolus, Pneumonia, Other (Small cell lung CA) GI: No pertinent hx Heme/Onc: Anemia NOS, Cancer (pancreatic ), Other (lymphoma ) Hepatobiliary: No pertinent hx Psych: No pertinent hx Infectious disease: No pertinent hx Renal/: No pertinent hx Endocrine: No pertinent hx Dermatology: No pertinent hx Past Surgical History Past Surgical History: Other Family History Family History: Coronary Artery Disease (father ), Hypertension Social History Smoke: No ALCOHOL: none Drugs: None Current Problem List Problem List Problems Medical Problems: (1) Elevated lactic acid level Status: Acute (2) Non-STEMI (non-ST elevated myocardial infarction) Status: Acute (3) Rhabdomyolysis Status: Acute Current Medications Current Medications Current Medications Medications (Trade) Dose Ordered Sig/Moses Start Time Stop Time Status Last Admin Dose Admin Acetaminophen (Tylenol) 650 mg PRN Q6HRS PRN 08/02/18 08:15 Aspirin (Aspirin) 300 mg DAILY 08/02/18 09:00 08/02/18 08:42 300 MG Digoxin (Lanoxin) 500 mcg 1X ONCE 08/02/18 08:15 08/02/18 08:16 DC 08/02/18 08:41 500 MCG Docusate Sodium (Colace) 100 mg PRN DAILY PRN 08/02/18 08:15 Famotidine (Pepcid Vial) 20 mg QHS 08/02/18 21:00 Fentanyl Citrate (Fentanyl 2ml Vial) 25 mcg 1X ONCE 08/01/18 22:15 08/01/18 22:16 DC 08/01/18 23:03 25 MCG Furosemide (Lasix) 20 mg 1X ONCE 08/02/18 07:45 08/02/18 07:46 DC 08/02/18 07:43 20 MG Heparin Sodium (Porcine) (Heparin Sodium) 5,000 unit Q8HRS 08/02/18 08:30 08/02/18 08:43 5,000 UNIT Iohexol (Omnipaque 300 Mg/ml) 75 ml 1X ONCE 08/02/18 08:30 08/02/18 08:50 DC Lorazepam (Ativan) 2 mg PRN Q4HRS PRN 08/01/18 23:45 Magnesium Sulfate/ Dextrose 100 ml @ 25 mls/hr 1X ONCE 08/02/18 02:15 08/02/18 06:14 DC 08/02/18 02:31 25 MLS/HR Morphine Sulfate (Morphine Sulfate) 2 mg PRN Q2HR PRN 08/02/18 08:15 Nitroglycerin/ Dextrose 250 ml @ 1.5 mls/hr CONT PRN 08/02/18 07:45 Ondansetron HCl (Zofran) 4 mg PRN Q6HRS PRN 08/02/18 08:15 Piperacillin Sod/ Tazobactam Sod 3.375 gm/Sodium Chloride 50 ml @ 100 mls/hr 1X ONCE 08/01/18 21:45 08/01/18 22:14 DC 08/01/18 21:50 100 MLS/HR Potassium Chloride 20 meq/ Sodium Chloride 260 ml @ 130 mls/hr 1X ONCE 08/02/18 09:00 08/02/18 10:59 DC 08/02/18 08:57 130 MLS/HR Potassium Chloride/Dextrose/ Sod Cl 1,000 ml @ 75 mls/hr [id number] 08/02/18 08:15 08/02/18 08:42 75 MLS/HR Ringer's Solution 1,000 ml @ 75 mls/hr 1X ONCE 08/01/18 21:00 08/02/18 10:19 DC 08/01/18 20:59 75 MLS/HR Sodium Bicarbonate 150 meq/Dextrose 1,150 ml @ 150 mls/hr [id number] 08/01/18 22:00 08/02/18 08:13 DC 08/02/18 06:08 150 MLS/HR Tramadol HCl (Ultram) 50 mg PRN Q6HRS PRN 08/02/18 08:15 Allergies Allergies Allergies Coded Allergies Type Severity Reaction Last Updated Verified No Known Drug Allergies 05/18/17 No ROS Review of System CONSTITUTIONAL: No fever or chills EYES: No recent changes SKIN: No rash or itching CARDIOVASCULAR: No chest pain, syncope, palpitations, or edema RESPIRATORY: No SOB or cough GASTROINTESTINAL: No nausea, vomiting or abdominal pain NEUROLOGICAL: No headaches or weakness ENDOCRINE: No cold or heat intolerance GENITOURINARY: No urgency or frequency of urination MUSCULOSKELETAL: No back pain or joint pain LYMPHATICS: No enlarged lymph nodes PSYCHIATRIC: No anxiety or depression Physical Exam Physical Exam GEN.: very uncomfortable and sick, shaky, not answer questions, said "hi", squeezing my hands bl. HEENT: Head is normocephalic, atraumatic NECK: Supple. LUNGS: bl coarse bs and rhonchis HEART: irregular, tachy, S1, S2 present. Peripheral pulses intact ABDOMEN: Soft, nontender. Positive bowel sounds. mild distended abd. EXTREMITIES: Without any cyanosis. bl leg 1+ edema. SKIN: No ulcerations Vitals Vitals Vital Signs Date Time Temp Pulse Resp B/P (MAP) Pulse Ox O2 Delivery O2 Flow Rate FiO2 08/02/18 10:00 131 32 80/44 (56) 93 Venturi Mask 08/02/18 08:00 99.5 99.5 08/02/18 07:00 3.0 Labs Labs Laboratory Tests Test 08/01/18 19:30 08/01/18 19:40 08/01/18 19:55 08/01/18 23:30 Urine Collection Type U cath Urine Color Yellow Urine Clarity Clear Urine pH 6.0 Urine Specific [place] 1.015 Urine Protein Negative mg/dL (NEG-TRACE) Urine Glucose (UA) Negative mg/dL (NEG) Urine Ketones (Stick) Negative mg/dL (NEG) Urine Blood Negative (NEG) Urine Nitrite Negative (NEG) Urine Bilirubin Negative (NEG) Urine Urobilinogen Dipstick 1.0 mg/dL (0.2 mg/dL) Urine Leukocyte Esterase Negative (NEG) Urine RBC Occ /HPF (0-2) Urine WBC 1-4 /HPF (0-4) Urine Squamous Epithelial Cells Few /LPF Urine Bacteria Few /HPF (0-FEW) Urine Hyaline Casts Moderate /HPF Urine Mucus Marked /LPF White Blood Count 7.8 x10^3/uL (4.0-11.0) Red Blood Count 4.29 x10^6/uL (3.50-5.40) Hemoglobin 13.9 g/dL (12.0-15.5) Hematocrit 41.0 % (36.0-47.0) Mean Corpuscular Volume 95 fL (79-100) Mean Corpuscular Hemoglobin 32 pg (25-35) Mean Corpuscular Hemoglobin Concent 34 g/dL (31-37) Red Cell Distribution Width 17.8 % (11.5-14.5) Platelet Count 176 x10^3/uL (140-400) Neutrophils (%) (Auto) 90 % (31-73) Lymphocytes (%) (Auto) 3 % (24-48) Monocytes (%) (Auto) 7 % (0-9) Eosinophils (%) (Auto) 0 % (0-3) Basophils (%) (Auto) 0 % (0-3) Neutrophils # (Auto) 7.0 x10^3uL (1.8-7.7) Lymphocytes # (Auto) 0.2 x10^3/uL (1.0-4.8) Monocytes # (Auto) 0.6 x10^3/uL (0.0-1.1) Eosinophils # (Auto) 0.0 x10^3/uL (0.0-0.7) Basophils # (Auto) 0.0 x10^3/uL (0.0-0.2) Segmented Neutrophils % 90 % (35-66) Band Neutrophils % 3 % (0-9) Lymphocytes % 1 % (24-48) Monocytes % 6 % (0-10) Platelet Estimate Adequate (ADEQUATE) Poikilocytosis Slight Anisocytosis Slight Spherocytes Occ Sickle Cells Ovalocytes Few [place] Cells Occ Prothrombin Time 14.5 SEC (11.7-14.0) Prothromb Time International Ratio 1.2 (0.8-1.1) Sodium Level 141 mmol/L (136-145) Potassium Level 4.4 mmol/L (3.5-5.1) Chloride Level 103 mmol/L (98-107) Carbon Dioxide Level 24 mmol/L (21-32) Anion Gap 14 (6-14) Blood Urea Nitrogen 12 mg/dL (7-20) Creatinine 1.2 mg/dL (0.6-1.0) Estimated GFR (Cockcroft-Gault) 43.3 BUN/Creatinine Ratio 10 (6-20) Glucose Level 92 mg/dL (70-99) Lactic Acid Level 4.3 mmol/L (0.4-2.0) 2.8 mmol/L (0.4-2.0) Calcium Level 7.6 mg/dL (8.5-10.1) Magnesium Level 0.8 mg/dL (1.8-2.4) Total Bilirubin 0.5 mg/dL (0.2-1.0) Aspartate Amino Transf (AST/SGOT) 57 U/L (15-37) Alanine Aminotransferase (ALT/SGPT) 28 U/L (14-59) Alkaline Phosphatase 120 U/L (46-116) Ammonia < 10 mcmol/L (11-34) Creatine Kinase 1246 U/L (26-192) Troponin I Quantitative 2.273 ng/mL (0.000-0.055) Total Protein 5.5 g/dL (6.4-8.2) Albumin 2.0 g/dL (3.4-5.0) Albumin/Globulin Ratio 0.6 (1.0-1.7) Glucose (Fingerstick) 76 mg/dL (70-99) Test 08/02/18 00:10 08/02/18 06:30 O2 Saturation % (92-99) Arterial Blood pH 7.45 (7.35-7.45) Arterial Blood pCO2 at Patient Temp 29 mmHg (35-46) Arterial Blood pO2 at Patient Temp 77 mmHg (65-108) Arterial Blood HCO3 20 mmol/L (21-28) Arterial Blood Base Excess -3 mmol/L (-3-3) FiO2 32 White Blood Count 6.0 x10^3/uL (4.0-11.0) Red Blood Count 3.65 x10^6/uL (3.50-5.40) Hemoglobin 11.9 g/dL (12.0-15.5) Hematocrit 34.4 % (36.0-47.0) Mean Corpuscular Volume 94 fL (79-100) Mean Corpuscular Hemoglobin 33 pg (25-35) Mean Corpuscular Hemoglobin Concent 35 g/dL (31-37) Red Cell Distribution Width 17.2 % (11.5-14.5) Platelet Count 147 x10^3/uL (140-400) Neutrophils (%) (Auto) 88 % (31-73) Lymphocytes (%) (Auto) 5 % (24-48) Monocytes (%) (Auto) 7 % (0-9) Eosinophils (%) (Auto) 0 % (0-3) Basophils (%) (Auto) 0 % (0-3) Neutrophils # (Auto) 5.3 x10^3uL (1.8-7.7) Lymphocytes # (Auto) 0.3 x10^3/uL (1.0-4.8) Monocytes # (Auto) 0.4 x10^3/uL (0.0-1.1) Eosinophils # (Auto) 0.0 x10^3/uL (0.0-0.7) Basophils # (Auto) 0.0 x10^3/uL (0.0-0.2) Sodium Level 141 mmol/L (136-145) Potassium Level 3.1 mmol/L (3.5-5.1) Chloride Level 103 mmol/L (98-107) Carbon Dioxide Level 29 mmol/L (21-32) Anion Gap 9 (6-14) Blood Urea Nitrogen 9 mg/dL (7-20) Creatinine 0.8 mg/dL (0.6-1.0) Estimated GFR (Cockcroft-Gault) 69.2 BUN/Creatinine Ratio 11 (6-20) Glucose Level 129 mg/dL (70-99) Calcium Level 6.7 mg/dL (8.5-10.1) Magnesium Level 1.8 mg/dL (1.8-2.4) Total Bilirubin 0.4 mg/dL (0.2-1.0) Aspartate Amino Transf (AST/SGOT) 83 U/L (15-37) Alanine Aminotransferase (ALT/SGPT) 25 U/L (14-59) Alkaline Phosphatase 86 U/L (46-116) Creatine Kinase 1924 U/L (26-192) Troponin I Quantitative 1.947 ng/mL (0.000-0.055) Total Protein 4.4 g/dL (6.4-8.2) Albumin 1.6 g/dL (3.4-5.0) Albumin/Globulin Ratio 0.6 (1.0-1.7) Triglycerides Level 108 mg/dL (0-150) Cholesterol Level 101 mg/dL (0-200) LDL Cholesterol, Calculated 26 mg/dL (0-100) VLDL Cholesterol, Calculated 22 mg/dL (0-40) Non-HDL Cholesterol Calculated 48 mg/dL (0-129) HDL Cholesterol 53 mg/dL (40-60) Cholesterol/HDL Ratio 1.9 Vitamin B12 Level 247 pg/mL (247-911) Thyroid Stimulating Hormone (TSH) 1.164 uIU/mL (0.358-3.74) Laboratory Tests Test 08/01/18 19:30 08/01/18 19:40 08/01/18 19:55 08/01/18 23:30 Urine Collection Type U cath Urine Color Yellow Urine Clarity Clear Urine pH 6.0 Urine Specific [place] 1.015 Urine Protein Negative mg/dL (NEG-TRACE) Urine Glucose (UA) Negative mg/dL (NEG) Urine Ketones (Stick) Negative mg/dL (NEG) Urine Blood Negative (NEG) Urine Nitrite Negative (NEG) Urine Bilirubin Negative (NEG) Urine Urobilinogen Dipstick 1.0 mg/dL (0.2 mg/dL) Urine Leukocyte Esterase Negative (NEG) Urine RBC Occ /HPF (0-2) Urine WBC 1-4 /HPF (0-4) Urine Squamous Epithelial Cells Few /LPF Urine Bacteria Few /HPF (0-FEW) Urine Hyaline Casts Moderate /HPF Urine Mucus Marked /LPF White Blood Count 7.8 x10^3/uL (4.0-11.0) Red Blood Count 4.29 x10^6/uL (3.50-5.40) Hemoglobin 13.9 g/dL (12.0-15.5) Hematocrit 41.0 % (36.0-47.0) Mean Corpuscular Volume 95 fL (79-100) Mean Corpuscular Hemoglobin 32 pg (25-35) Mean Corpuscular Hemoglobin Concent 34 g/dL (31-37) Red Cell Distribution Width 17.8 % (11.5-14.5) Platelet Count 176 x10^3/uL (140-400) Neutrophils (%) (Auto) 90 % (31-73) Lymphocytes (%) (Auto) 3 % (24-48) Monocytes (%) (Auto) 7 % (0-9) Eosinophils (%) (Auto) 0 % (0-3) Basophils (%) (Auto) 0 % (0-3) Neutrophils # (Auto) 7.0 x10^3uL (1.8-7.7) Lymphocytes # (Auto) 0.2 x10^3/uL (1.0-4.8) Monocytes # (Auto) 0.6 x10^3/uL (0.0-1.1) Eosinophils # (Auto) 0.0 x10^3/uL (0.0-0.7) Basophils # (Auto) 0.0 x10^3/uL (0.0-0.2) Segmented Neutrophils % 90 % (35-66) Band Neutrophils % 3 % (0-9) Lymphocytes % 1 % (24-48) Monocytes % 6 % (0-10) Platelet Estimate Adequate (ADEQUATE) Poikilocytosis Slight Anisocytosis Slight Spherocytes Occ Sickle Cells Ovalocytes Few [place] Cells Occ Prothrombin Time 14.5 SEC (11.7-14.0) Prothromb Time International Ratio 1.2 (0.8-1.1) Sodium Level 141 mmol/L (136-145) Potassium Level 4.4 mmol/L (3.5-5.1) Chloride Level 103 mmol/L (98-107) Carbon Dioxide Level 24 mmol/L (21-32) Anion Gap 14 (6-14) Blood Urea Nitrogen 12 mg/dL (7-20) Creatinine 1.2 mg/dL (0.6-1.0) Estimated GFR (Cockcroft-Gault) 43.3 BUN/Creatinine Ratio 10 (6-20) Glucose Level 92 mg/dL (70-99) Lactic Acid Level 4.3 mmol/L (0.4-2.0) 2.8 mmol/L (0.4-2.0) Calcium Level 7.6 mg/dL (8.5-10.1) Magnesium Level 0.8 mg/dL (1.8-2.4) Total Bilirubin 0.5 mg/dL (0.2-1.0) Aspartate Amino Transf (AST/SGOT) 57 U/L (15-37) Alanine Aminotransferase (ALT/SGPT) 28 U/L (14-59) Alkaline Phosphatase 120 U/L (46-116) Ammonia < 10 mcmol/L (11-34) Creatine Kinase 1246 U/L (26-192) Troponin I Quantitative 2.273 ng/mL (0.000-0.055) Total Protein 5.5 g/dL (6.4-8.2) Albumin 2.0 g/dL (3.4-5.0) Albumin/Globulin Ratio 0.6 (1.0-1.7) Glucose (Fingerstick) 76 mg/dL (70-99) Test 08/02/18 00:10 08/02/18 06:30 O2 Saturation % (92-99) Arterial Blood pH 7.45 (7.35-7.45) Arterial Blood pCO2 at Patient Temp 29 mmHg (35-46) Arterial Blood pO2 at Patient Temp 77 mmHg (65-108) Arterial Blood HCO3 20 mmol/L (21-28) Arterial Blood Base Excess -3 mmol/L (-3-3) FiO2 32 White Blood Count 6.0 x10^3/uL (4.0-11.0) Red Blood Count 3.65 x10^6/uL (3.50-5.40) Hemoglobin 11.9 g/dL (12.0-15.5) Hematocrit 34.4 % (36.0-47.0) Mean Corpuscular Volume 94 fL (79-100) Mean Corpuscular Hemoglobin 33 pg (25-35) Mean Corpuscular Hemoglobin Concent 35 g/dL (31-37) Red Cell Distribution Width 17.2 % (11.5-14.5) Platelet Count 147 x10^3/uL (140-400) Neutrophils (%) (Auto) 88 % (31-73) Lymphocytes (%) (Auto) 5 % (24-48) Monocytes (%) (Auto) 7 % (0-9) Eosinophils (%) (Auto) 0 % (0-3) Basophils (%) (Auto) 0 % (0-3) Neutrophils # (Auto) 5.3 x10^3uL (1.8-7.7) Lymphocytes # (Auto) 0.3 x10^3/uL (1.0-4.8) Monocytes # (Auto) 0.4 x10^3/uL (0.0-1.1) Eosinophils # (Auto) 0.0 x10^3/uL (0.0-0.7) Basophils # (Auto) 0.0 x10^3/uL (0.0-0.2) Sodium Level 141 mmol/L (136-145) Potassium Level 3.1 mmol/L (3.5-5.1) Chloride Level 103 mmol/L (98-107) Carbon Dioxide Level 29 mmol/L (21-32) Anion Gap 9 (6-14) Blood Urea Nitrogen 9 mg/dL (7-20) Creatinine 0.8 mg/dL (0.6-1.0) Estimated GFR (Cockcroft-Gault) 69.2 BUN/Creatinine Ratio 11 (6-20) Glucose Level 129 mg/dL (70-99) Calcium Level 6.7 mg/dL (8.5-10.1) Magnesium Level 1.8 mg/dL (1.8-2.4) Total Bilirubin 0.4 mg/dL (0.2-1.0) Aspartate Amino Transf (AST/SGOT) 83 U/L (15-37) Alanine Aminotransferase (ALT/SGPT) 25 U/L (14-59) Alkaline Phosphatase 86 U/L (46-116) Creatine Kinase 1924 U/L (26-192) Troponin I Quantitative 1.947 ng/mL (0.000-0.055) Total Protein 4.4 g/dL (6.4-8.2) Albumin 1.6 g/dL (3.4-5.0) Albumin/Globulin Ratio 0.6 (1.0-1.7) Triglycerides Level 108 mg/dL (0-150) Cholesterol Level 101 mg/dL (0-200) LDL Cholesterol, Calculated 26 mg/dL (0-100) VLDL Cholesterol, Calculated 22 mg/dL (0-40) Non-HDL Cholesterol Calculated 48 mg/dL (0-129) HDL Cholesterol 53 mg/dL (40-60) Cholesterol/HDL Ratio 1.9 Vitamin B12 Level 247 pg/mL (247-911) Thyroid Stimulating Hormone (TSH) 1.164 uIU/mL (0.358-3.74) VTE Prophylaxis Ordered VTE Prophylaxis Devices: Yes VTE Pharmacological Prophylaxi: Yes Assessment/Plan Assessment/Plan AMS, 2/2 metabolic encephalopathy likely acute hypoxic resp failure, with possible PNA, lung Ca, fluid overloaded h/o Lung Ca with mets? s/p RT h/o pancreas Ca h/o CAD with PCI lactate acidosis hypokalemia severe malnutrition elevated trop with possible sepsis, CHF new onset rapid afib plan: card, pulm, neuro consult MRI brain to rule out mets CTA to rule out PE dig 500mcg x1, pressors prn if Bp DRops, keep MAP >65 echo ordered, but cannot get it done given pt not keep stable. lasix x1 given as per card, decrease ivf npo. Mask for now dvt, gi ppx replete K add zyvox and zosyn for now PAT consult, DNR now critical ill, poor prognosis, CC time 40min. ASHLEY DUMONT MD Aug 02, 2018 11:20
[2018-08-02] MEDS ORDERED: PIPERACILLIN/TAZOBACTAM 2.25 GM in IV NORMAL SALINE 50ML 50 ML IV SCH (12:00)
[2018-08-02] MEDS: MORPHINE SULFATE/PF 30 ML IV PRN (12:34)
--- NOTE | 2018-08-02 13:15 | PDOC ---
PULMONARY PROGRESS NOTES Vitals Vital Signs Date Time Temp Pulse Resp B/P (MAP) Pulse Ox O2 Delivery O2 Flow Rate FiO2 08/02/18 12:34 34 95 Venturi Mask 08/02/18 12:00 98.3 141 95/42 (59) 98.3 08/02/18 07:00 3.0 General: Alert, No acute distress Lungs: Other Cardiovascular: S1, S2 Abdomen: Soft Extremities: No Edema Labs Laboratory Tests Test 08/01/18 19:30 08/01/18 19:40 08/01/18 19:55 08/01/18 23:30 Urine Collection Type U cath Urine Color Yellow Urine Clarity Clear Urine pH 6.0 Urine Specific [place] 1.015 Urine Protein Negative mg/dL (NEG-TRACE) Urine Glucose (UA) Negative mg/dL (NEG) Urine Ketones (Stick) Negative mg/dL (NEG) Urine Blood Negative (NEG) Urine Nitrite Negative (NEG) Urine Bilirubin Negative (NEG) Urine Urobilinogen Dipstick 1.0 mg/dL (0.2 mg/dL) Urine Leukocyte Esterase Negative (NEG) Urine RBC Occ /HPF (0-2) Urine WBC 1-4 /HPF (0-4) Urine Squamous Epithelial Cells Few /LPF Urine Bacteria Few /HPF (0-FEW) Urine Hyaline Casts Moderate /HPF Urine Mucus Marked /LPF White Blood Count 7.8 x10^3/uL (4.0-11.0) Red Blood Count 4.29 x10^6/uL (3.50-5.40) Hemoglobin 13.9 g/dL (12.0-15.5) Hematocrit 41.0 % (36.0-47.0) Mean Corpuscular Volume 95 fL (79-100) Mean Corpuscular Hemoglobin 32 pg (25-35) Mean Corpuscular Hemoglobin Concent 34 g/dL (31-37) Red Cell Distribution Width 17.8 % (11.5-14.5) Platelet Count 176 x10^3/uL (140-400) Neutrophils (%) (Auto) 90 % (31-73) Lymphocytes (%) (Auto) 3 % (24-48) Monocytes (%) (Auto) 7 % (0-9) Eosinophils (%) (Auto) 0 % (0-3) Basophils (%) (Auto) 0 % (0-3) Neutrophils # (Auto) 7.0 x10^3uL (1.8-7.7) Lymphocytes # (Auto) 0.2 x10^3/uL (1.0-4.8) Monocytes # (Auto) 0.6 x10^3/uL (0.0-1.1) Eosinophils # (Auto) 0.0 x10^3/uL (0.0-0.7) Basophils # (Auto) 0.0 x10^3/uL (0.0-0.2) Segmented Neutrophils % 90 % (35-66) Band Neutrophils % 3 % (0-9) Lymphocytes % 1 % (24-48) Monocytes % 6 % (0-10) Platelet Estimate Adequate (ADEQUATE) Poikilocytosis Slight Anisocytosis Slight Spherocytes Occ Sickle Cells Ovalocytes Few Eola Cells Occ Prothrombin Time 14.5 SEC (11.7-14.0) Prothromb Time International Ratio 1.2 (0.8-1.1) Sodium Level 141 mmol/L (136-145) Potassium Level 4.4 mmol/L (3.5-5.1) Chloride Level 103 mmol/L (98-107) Carbon Dioxide Level 24 mmol/L (21-32) Anion Gap 14 (6-14) Blood Urea Nitrogen 12 mg/dL (7-20) Creatinine 1.2 mg/dL (0.6-1.0) Estimated GFR (Cockcroft-Gault) 43.3 BUN/Creatinine Ratio 10 (6-20) Glucose Level 92 mg/dL (70-99) Lactic Acid Level 4.3 mmol/L (0.4-2.0) 2.8 mmol/L (0.4-2.0) Calcium Level 7.6 mg/dL (8.5-10.1) Magnesium Level 0.8 mg/dL (1.8-2.4) Total Bilirubin 0.5 mg/dL (0.2-1.0) Aspartate Amino Transf (AST/SGOT) 57 U/L (15-37) Alanine Aminotransferase (ALT/SGPT) 28 U/L (14-59) Alkaline Phosphatase 120 U/L (46-116) Ammonia < 10 mcmol/L (11-34) Creatine Kinase 1246 U/L (26-192) Troponin I Quantitative 2.273 ng/mL (0.000-0.055) Total Protein 5.5 g/dL (6.4-8.2) Albumin 2.0 g/dL (3.4-5.0) Albumin/Globulin Ratio 0.6 (1.0-1.7) Glucose (Fingerstick) 76 mg/dL (70-99) Test 08/02/18 00:10 08/02/18 06:30 O2 Saturation % (92-99) Arterial Blood pH 7.45 (7.35-7.45) Arterial Blood pCO2 at Patient Temp 29 mmHg (35-46) Arterial Blood pO2 at Patient Temp 77 mmHg (65-108) Arterial Blood HCO3 20 mmol/L (21-28) Arterial Blood Base Excess -3 mmol/L (-3-3) FiO2 32 White Blood Count 6.0 x10^3/uL (4.0-11.0) Red Blood Count 3.65 x10^6/uL (3.50-5.40) Hemoglobin 11.9 g/dL (12.0-15.5) Hematocrit 34.4 % (36.0-47.0) Mean Corpuscular Volume 94 fL (79-100) Mean Corpuscular Hemoglobin 33 pg (25-35) Mean Corpuscular Hemoglobin Concent 35 g/dL (31-37) Red Cell Distribution Width 17.2 % (11.5-14.5) Platelet Count 147 x10^3/uL (140-400) Neutrophils (%) (Auto) 88 % (31-73) Lymphocytes (%) (Auto) 5 % (24-48) Monocytes (%) (Auto) 7 % (0-9) Eosinophils (%) (Auto) 0 % (0-3) Basophils (%) (Auto) 0 % (0-3) Neutrophils # (Auto) 5.3 x10^3uL (1.8-7.7) Lymphocytes # (Auto) 0.3 x10^3/uL (1.0-4.8) Monocytes # (Auto) 0.4 x10^3/uL (0.0-1.1) Eosinophils # (Auto) 0.0 x10^3/uL (0.0-0.7) Basophils # (Auto) 0.0 x10^3/uL (0.0-0.2) Sodium Level 141 mmol/L (136-145) Potassium Level 3.1 mmol/L (3.5-5.1) Chloride Level 103 mmol/L (98-107) Carbon Dioxide Level 29 mmol/L (21-32) Anion Gap 9 (6-14) Blood Urea Nitrogen 9 mg/dL (7-20) Creatinine 0.8 mg/dL (0.6-1.0) Estimated GFR (Cockcroft-Gault) 69.2 BUN/Creatinine Ratio 11 (6-20) Glucose Level 129 mg/dL (70-99) Calcium Level 6.7 mg/dL (8.5-10.1) Magnesium Level 1.8 mg/dL (1.8-2.4) Total Bilirubin 0.4 mg/dL (0.2-1.0) Aspartate Amino Transf (AST/SGOT) 83 U/L (15-37) Alanine Aminotransferase (ALT/SGPT) 25 U/L (14-59) Alkaline Phosphatase 86 U/L (46-116) Creatine Kinase 1924 U/L (26-192) Troponin I Quantitative 1.947 ng/mL (0.000-0.055) Total Protein 4.4 g/dL (6.4-8.2) Albumin 1.6 g/dL (3.4-5.0) Albumin/Globulin Ratio 0.6 (1.0-1.7) Triglycerides Level 108 mg/dL (0-150) Cholesterol Level 101 mg/dL (0-200) LDL Cholesterol, Calculated 26 mg/dL (0-100) VLDL Cholesterol, Calculated 22 mg/dL (0-40) Non-HDL Cholesterol Calculated 48 mg/dL (0-129) HDL Cholesterol 53 mg/dL (40-60) Cholesterol/HDL Ratio 1.9 Vitamin B12 Level 247 pg/mL (247-911) Thyroid Stimulating Hormone (TSH) 1.164 uIU/mL (0.358-3.74) Laboratory Tests Test 08/01/18 19:30 08/01/18 19:40 08/01/18 19:55 08/01/18 23:30 Urine Collection Type U cath Urine Color Yellow Urine Clarity Clear Urine pH 6.0 Urine Specific [place] 1.015 Urine Protein Negative mg/dL (NEG-TRACE) Urine Glucose (UA) Negative mg/dL (NEG) Urine Ketones (Stick) Negative mg/dL (NEG) Urine Blood Negative (NEG) Urine Nitrite Negative (NEG) Urine Bilirubin Negative (NEG) Urine Urobilinogen Dipstick 1.0 mg/dL (0.2 mg/dL) Urine Leukocyte Esterase Negative (NEG) Urine RBC Occ /HPF (0-2) Urine WBC 1-4 /HPF (0-4) Urine Squamous Epithelial Cells Few /LPF Urine Bacteria Few /HPF (0-FEW) Urine Hyaline Casts Moderate /HPF Urine Mucus Marked /LPF White Blood Count 7.8 x10^3/uL (4.0-11.0) Red Blood Count 4.29 x10^6/uL (3.50-5.40) Hemoglobin 13.9 g/dL (12.0-15.5) Hematocrit 41.0 % (36.0-47.0) Mean Corpuscular Volume 95 fL (79-100) Mean Corpuscular Hemoglobin 32 pg (25-35) Mean Corpuscular Hemoglobin Concent 34 g/dL (31-37) Red Cell Distribution Width 17.8 % (11.5-14.5) Platelet Count 176 x10^3/uL (140-400) Neutrophils (%) (Auto) 90 % (31-73) Lymphocytes (%) (Auto) 3 % (24-48) Monocytes (%) (Auto) 7 % (0-9) Eosinophils (%) (Auto) 0 % (0-3) Basophils (%) (Auto) 0 % (0-3) Neutrophils # (Auto) 7.0 x10^3uL (1.8-7.7) Lymphocytes # (Auto) 0.2 x10^3/uL (1.0-4.8) Monocytes # (Auto) 0.6 x10^3/uL (0.0-1.1) Eosinophils # (Auto) 0.0 x10^3/uL (0.0-0.7) Basophils # (Auto) 0.0 x10^3/uL (0.0-0.2) Segmented Neutrophils % 90 % (35-66) Band Neutrophils % 3 % (0-9) Lymphocytes % 1 % (24-48) Monocytes % 6 % (0-10) Platelet Estimate Adequate (ADEQUATE) Poikilocytosis Slight Anisocytosis Slight Spherocytes Occ Sickle Cells Ovalocytes Few Joellen Cells Occ Prothrombin Time 14.5 SEC (11.7-14.0) Prothromb Time International Ratio 1.2 (0.8-1.1) Sodium Level 141 mmol/L (136-145) Potassium Level 4.4 mmol/L (3.5-5.1) Chloride Level 103 mmol/L (98-107) Carbon Dioxide Level 24 mmol/L (21-32) Anion Gap 14 (6-14) Blood Urea Nitrogen 12 mg/dL (7-20) Creatinine 1.2 mg/dL (0.6-1.0) Estimated GFR (Cockcroft-Gault) 43.3 BUN/Creatinine Ratio 10 (6-20) Glucose Level 92 mg/dL (70-99) Lactic Acid Level 4.3 mmol/L (0.4-2.0) 2.8 mmol/L (0.4-2.0) Calcium Level 7.6 mg/dL (8.5-10.1) Magnesium Level 0.8 mg/dL (1.8-2.4) Total Bilirubin 0.5 mg/dL (0.2-1.0) Aspartate Amino Transf (AST/SGOT) 57 U/L (15-37) Alanine Aminotransferase (ALT/SGPT) 28 U/L (14-59) Alkaline Phosphatase 120 U/L (46-116) Ammonia < 10 mcmol/L (11-34) Creatine Kinase 1246 U/L (26-192) Troponin I Quantitative 2.273 ng/mL (0.000-0.055) Total Protein 5.5 g/dL (6.4-8.2) Albumin 2.0 g/dL (3.4-5.0) Albumin/Globulin Ratio 0.6 (1.0-1.7) Glucose (Fingerstick) 76 mg/dL (70-99) Test 08/02/18 00:10 08/02/18 06:30 O2 Saturation % (92-99) Arterial Blood pH 7.45 (7.35-7.45) Arterial Blood pCO2 at Patient Temp 29 mmHg (35-46) Arterial Blood pO2 at Patient Temp 77 mmHg (65-108) Arterial Blood HCO3 20 mmol/L (21-28) Arterial Blood Base Excess -3 mmol/L (-3-3) FiO2 32 White Blood Count 6.0 x10^3/uL (4.0-11.0) Red Blood Count 3.65 x10^6/uL (3.50-5.40) Hemoglobin 11.9 g/dL (12.0-15.5) Hematocrit 34.4 % (36.0-47.0) Mean Corpuscular Volume 94 fL (79-100) Mean Corpuscular Hemoglobin 33 pg (25-35) Mean Corpuscular Hemoglobin Concent 35 g/dL (31-37) Red Cell Distribution Width 17.2 % (11.5-14.5) Platelet Count 147 x10^3/uL (140-400) Neutrophils (%) (Auto) 88 % (31-73) Lymphocytes (%) (Auto) 5 % (24-48) Monocytes (%) (Auto) 7 % (0-9) Eosinophils (%) (Auto) 0 % (0-3) Basophils (%) (Auto) 0 % (0-3) Neutrophils # (Auto) 5.3 x10^3uL (1.8-7.7) Lymphocytes # (Auto) 0.3 x10^3/uL (1.0-4.8) Monocytes # (Auto) 0.4 x10^3/uL (0.0-1.1) Eosinophils # (Auto) 0.0 x10^3/uL (0.0-0.7) Basophils # (Auto) 0.0 x10^3/uL (0.0-0.2) Sodium Level 141 mmol/L (136-145) Potassium Level 3.1 mmol/L (3.5-5.1) Chloride Level 103 mmol/L (98-107) Carbon Dioxide Level 29 mmol/L (21-32) Anion Gap 9 (6-14) Blood Urea Nitrogen 9 mg/dL (7-20) Creatinine 0.8 mg/dL (0.6-1.0) Estimated GFR (Cockcroft-Gault) 69.2 BUN/Creatinine Ratio 11 (6-20) Glucose Level 129 mg/dL (70-99) Calcium Level 6.7 mg/dL (8.5-10.1) Magnesium Level 1.8 mg/dL (1.8-2.4) Total Bilirubin 0.4 mg/dL (0.2-1.0) Aspartate Amino Transf (AST/SGOT) 83 U/L (15-37) Alanine Aminotransferase (ALT/SGPT) 25 U/L (14-59) Alkaline Phosphatase 86 U/L (46-116) Creatine Kinase 1924 U/L (26-192) Troponin I Quantitative 1.947 ng/mL (0.000-0.055) Total Protein 4.4 g/dL (6.4-8.2) Albumin 1.6 g/dL (3.4-5.0) Albumin/Globulin Ratio 0.6 (1.0-1.7) Triglycerides Level 108 mg/dL (0-150) Cholesterol Level 101 mg/dL (0-200) LDL Cholesterol, Calculated 26 mg/dL (0-100) VLDL Cholesterol, Calculated 22 mg/dL (0-40) Non-HDL Cholesterol Calculated 48 mg/dL (0-129) HDL Cholesterol 53 mg/dL (40-60) Cholesterol/HDL Ratio 1.9 Vitamin B12 Level 247 pg/mL (247-911) Thyroid Stimulating Hormone (TSH) 1.164 uIU/mL (0.358-3.74) Medications Active Scripts Medications Dose Route/Sig Max Daily Dose Days Date Category [place] 10-325 Tablet (Acetaminophen/Hydrocodone Bitart) 1 Each Tablet 1 Tab PO PRN Q6HRS PRN 07/17/18 Reported Prednisone (Prednisone) 10 Mg Tablet 10 Mg PO DAILY 07/17/18 Reported Calcium 600 + Vit D 200 Tablet (Calcium Carbonate/Vitamin D3) 1 Each Tablet 1 Each PO DAILY 11/30/17 Reported Potassium Chloride 20 Meq Tablet.er 20 Meq PO BID 08/27/17 Reported Ativan (Lorazepam) 1 Mg Tablet 1 Mg PO Q6HRS PRN 07/25/17 Reported Zofran (Ondansetron Hcl) 8 Mg Tablet 8 Mg PO BID PRN 06/09/17 Reported Pantoprazole Sodium 40 Mg Tablet. 1 Tab PO DAILY 05/18/17 Reported Impression . NOTE DICTATED SPOKE WITH FAMILY WILL PROCEED WITH COMFORT CARE START IV ATIVAN FOR SEIZURES NO NEED FOR NEURO CONSULT THANKS D/W DAUGHTER AND RN PT EXPECTED TO IN NEXT 24-48 HOURS IGNACIO AMADO MD Aug 02, 2018 13:15
--- NOTE | 2018-08-02 16:34 | PDOC2 ---
NEUROLOGY CONSULT Date of Admission Date of Admission DATE: 08/02/18 TIME: 16:13 Reason for Consult Reason for Consult: IMPRESSION: Lethargy. Metabolic encephalopathy. Respiratory failure. Seizure or myoclonic abnormal movements. Lactic acidosis. NSTEMI. Lung cancer with metastatic diseases. Pancreatic cancer. 5 cm lesion in left thoracic inlet. CAD s/p stent placement. PE, Hx. Hypocalcemia. Hypokalemia. HTN COPD. 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 Former smoker. RECOMMENDATIONS/PLAN: Ativan P.R.N for abnormal movements. Family declined brain MRI. Family decided for comfort care. HISTORY OF PRESENT ILLNESS This is a 77-y-old female patient with above medical and oncological diseases was found by her family lying on the floor unresponsive in her house. She was brought to the ER of [facility] and was eventually admitted into ICU. Her nurse called Neurology after midnight stating her NIH score was > 20. Rectal ASA 300 mg was administrated and stroke evaluations placed in order. Neurology learned the next day that her family decided for comfort care. PAST MEDICAL HISTORY Cardiovascular: CAD (s/p PCI/stent placement ), HTN Pulmonary: COPD, Pulmonary embolus, Pneumonia, Other (Small cell lung CA) Heme/Onc: Anemia NOS, Cancer (pancreatic ), Other (lymphoma ) Musculoskeletal: Osteoarthritis Endocrine: No pertinent hx Dermatology: No pertinent hx PAST SURGICAL HISTORY PCI/stent placement. FAMILY HISTORY Coronary Artery Disease (father ), Hypertension SOCIAL HISTORY Smoke: Quit (04/2017) ALCOHOL: none Drugs: None Lives: Alone ALLERGY: Reviewed. MEDICATIONS: Refer to MAR REVIEW OF SYSTEMS: Constitutional: Malnutrition. Head: No acute traumatic brain or head injury. Skin: No edema, or rash. Ear: No infection. Eyes: No vision loss or color blindness. Nose: No bleeding or purulent discharges. Hearing: Hearing decrease. Neck: No injury. Breast: No history of cancer, masses,or discharges. Cardiac: CAD, s/p stent, HTN. Pulmonary: Lung cancer. COPD. PE. GI: Pancreatic cancer. Urinary/genital: UTI. Endocrinologic: No cousin face, craniofacial dysmorphism, polydactyly, goiter. Skeletomuscular: Generalized weakness. Neurological: see HP. Psychiatric: Substance (smoking) use/abuse. Otherwise, not [id number] review of systems. PHYSICAL EXAMINATION: General appearance is in acute on chronic distress. HEENT: Normocephalic and nontraumatic. Eyes, nose, ears, and throat are unremarkable. Neck is supple. No crepitus. Cardiovascular: S1, S2, seemed regular rate and rhythm. Pulmonary: failure. Abdomen: Bowel sounds are weak.. Extremities: No rash, lesions. No restriction of range of motion NEUROLOGICAL EXAMINATION: Unresponsiveness. Not oriented to time, place and person. PERRL. EOMI not elicited. CN: no focal findings. Muscle tone: fluctuated. Muscle strength: movements noted to pain stimuli. DTR: 1-2 Plantar reflex: Neutral response bilaterally Gait: Unable to walk. Sensory exam: withdrew response to stimuli. Not able to access cerebellar signs. F-T-N test not performed due to lethargy. Myoclonic abnormal movements in UE noted. Current Medications Current Medications Current Medications Lorazepam (Ativan) 0.5 mg 1X ONCE IV Last administered on 08/01/18at 20:40; Start 08/01/18 at 21:00; Stop 08/01/18 at 21:01; Status DC Ringer's Solution 1,000 ml @ 75 mls/hr 1X ONCE IV Last administered on at 20:59; Start 08/01/18 at 21:00; Stop 08/02/18 at 10:19; Status DC Ondansetron HCl (Zofran) 4 mg PRN Q8HRS PRN IV NAUSEA/VOMITING; Start 08/01/18 at 21:45; Stop 08/02/18 at 21:44 Piperacillin Sod/ Tazobactam Sod 3.375 gm/Sodium Chloride 50 ml @ 100 mls/hr 1X ONCE IV Last administered on 08/01/18at 21:50; Start 08/01/18 at 21:45; Stop 08/02/18 at 13:38; Status DC Sodium Bicarbonate 150 meq/Dextrose 1,150 ml @ 150 mls/hr Q7H40M IV Last administered on 08/02/18at 06:08; Start 08/01/18 at 22:00; Stop 08/02/18 at 08:13 ; Status DC Fentanyl Citrate (Fentanyl 2ml Vial) 25 mcg 1X ONCE IV Last administered on at 23:03; Start 08/01/18 at 22:15; Stop 08/01/18 at 22:16; Status DC Lorazepam (Ativan) 0.5 mg 1X ONCE IV Last administered on 08/01/18at 23:02; Start 08/01/18 at 23:00; Stop 08/01/18 at 23:01; Status DC Lorazepam (Ativan) 2 mg PRN Q4HRS PRN IV ANXIETY / AGITATION Last administered on 08/02/18at 14:57; Start 08/01/18 at 23:45 Aspirin (Aspirin) 300 mg DAILY MD Last administered on 08/02/18at 08:42; Start 08/02/18 at 09:00 Magnesium Sulfate/ Dextrose 100 ml @ 25 mls/hr 1X ONCE IV Last administered on 08/02/18at 02:31; Start 08/02/18 at 02:15; Stop 08/02/18 at 06:14; Status DC Nitroglycerin/ Dextrose 250 ml @ 1.5 mls/hr CONT PRN IV SEE I/O RECORD; Start 08/02/18 at 07:45 Furosemide (Lasix) 20 mg 1X ONCE IVP Last administered on 08/02/18at 07:43; Start 08/02/18 at 07:45; Stop 08/02/18 at 07:46; Status DC Digoxin (Lanoxin) 500 mcg 1X ONCE IV Last administered on 08/02/18at 08:41; Start 08/02/18 at 08:15; Stop 08/02/18 at 08:16; Status DC Potassium Chloride/Dextrose/ Sod Cl 1,000 ml @ 75 mls/hr [id number] IV Last administered on 08/02/18at 08:42; Start 08/02/18 at 08:15 Acetaminophen (Tylenol) 650 mg PRN Q6HRS PRN PO FEVER; Start 08/02/18 at 08:15 Ondansetron HCl (Zofran) 4 mg PRN Q6HRS PRN IV NAUSEA/VOMITING; Start 08/02/18 at 08:15 Morphine Sulfate (Morphine Sulfate) 2 mg PRN Q2HR PRN IV MODERATE TO SEVERE PAIN; Start 08/02/18 at 08:15 Tramadol HCl (Ultram) 50 mg PRN Q6HRS PRN PO MILD TO MODERATE PAIN; Start 08/02 at 08:15 Docusate Sodium (Colace) 100 mg PRN DAILY PRN PO CONSTIPATION; Start 08/02/18 at 08:15 Heparin Sodium (Porcine) (Heparin Sodium) 5,000 unit Q8HRS SQ Last administered on 08/02/18at 08:43; Start 08/02/18 at 08:30 Famotidine (Pepcid Vial) 20 mg QHS IVP ; Start 08/02/18 at 21:00 Potassium Chloride 20 meq/ Sodium Chloride 260 ml @ 130 mls/hr 1X ONCE IV Last administered on 08/02/18at 08:57; Start 08/02/18 at 09:00; Stop 08/02/18 at 10:59; Status DC Iohexol (Omnipaque 300 Mg/ml) 75 ml 1X ONCE IV ; Start 08/02/18 at 08:30; Stop 08/02/18 at 08:50; Status DC Linezolid/Dextrose 300 ml @ 300 mls/hr Q12HR IV Last administered on at 11:42; Start 08/02/18 at 11:30; Stop 08/02/18 at 13:38; Status DC Piperacillin Sod/ Tazobactam Sod 2.25 gm/Sodium Chloride 50 ml @ 100 mls/hr Q6HRS IV ; Start 08/02/18 at 12:00; Stop 08/02/18 at 13:38; Status DC Piperacillin Sod/ Tazobactam Sod (Zosyn Per Pharmacy) 1 each PRN DAILY PRN MC SEE COMMENTS; Start 08/02/18 at 11:15; Stop 08/02/18 at 11:18; Status DC Morphine Sulfate 30 ml @ 0 mls/hr CONT PRN PRN IV PER PROTOCOL Last administered on 08/02/18at 12:34; Start 08/02/18 at 12:00 Lorazepam (Ativan) 1 mg PRN Q1HR PRN IV TREMORS Last administered on 08/02/18at 13:53; Start 08/02/18 at 13:45 Active Scripts Active Reported [place] 10-325 Tablet (Acetaminophen/Hydrocodone Bitart) 1 Each Tablet 1 Tab PO PRN Q6HRS PRN Prednisone (Prednisone) 10 Mg Tablet 10 Mg PO DAILY Calcium 600 + Vit D 200 Tablet (Calcium Carbonate/Vitamin D3) 1 Each Tablet 1 Each PO DAILY Potassium Chloride 20 Meq Tablet.er 20 Meq PO BID Ativan (Lorazepam) 1 Mg Tablet 1 Mg PO Q6HRS PRN Zofran (Ondansetron Hcl) 8 Mg Tablet 8 Mg PO BID PRN Pantoprazole Sodium 40 Mg Tablet. 1 Tab PO DAILY Allergies Allergies: Allergies Coded Allergies Type Severity Reaction Last Updated Verified No Known Drug Allergies 05/18/17 No ROS Review of System The patient denies any associated fevers, chills, headache, ear pain, rhinorrhea , sore throat, stiff neck, productive cough, chest pain, shortness of breath, back or flank pain, abdominal pain, nausea, vomiting, diarrhea, constipation, dysuria, rash, numbness, weakness, tingling, incontinence, difficulty ambulating, or diaphoresis. Physical Exam Physical Exam General: Well developed, well nourished, no acute distress, well appearing HEENT: Pupils equally round and reactive to light, EOMI, no discharge, normal conjunctiva Neck: Supple, no nuchal rigidity, no JVD, trachea midline, no tenderness Cardiac: RRR, no murmurs, no gallops, no rubs Chest/Lungs: CTAB, no wheeze, no rhonchi, no crackles Abdomen: soft, non-distended, no guarding, no peritoneal signs, non-tender Back: No tenderness Extremities: no edema, pulses intact, non-tender,capillary refill <3 sec bilateral upper and lower extremities, Neuro: Alert and oriented x 4, no focal deficits, normal speech Vitals Vitals: Vital Signs Date Time Temp Pulse Resp B/P (MAP) Pulse Ox O2 Delivery O2 Flow Rate FiO2 08/02/18 15:00 121 26 62/38 (46) 97 Venturi Mask 08/02/18 12:00 98.3 98.3 08/02/18 07:00 3.0 Labs Labs Laboratory Tests Test 08/01/18 19:30 08/01/18 19:40 08/01/18 19:55 08/01/18 23:30 Urine Collection Type U cath Urine Color Yellow Urine Clarity Clear Urine pH 6.0 Urine Specific [place] 1.015 Urine Protein Negative mg/dL (NEG-TRACE) Urine Glucose (UA) Negative mg/dL (NEG) Urine Ketones (Stick) Negative mg/dL (NEG) Urine Blood Negative (NEG) Urine Nitrite Negative (NEG) Urine Bilirubin Negative (NEG) Urine Urobilinogen Dipstick 1.0 mg/dL (0.2 mg/dL) Urine Leukocyte Esterase Negative (NEG) Urine RBC Occ /HPF (0-2) Urine WBC 1-4 /HPF (0-4) Urine Squamous Epithelial Cells Few /LPF Urine Bacteria Few /HPF (0-FEW) Urine Hyaline Casts Moderate /HPF Urine Mucus Marked /LPF White Blood Count 7.8 x10^3/uL (4.0-11.0) Red Blood Count 4.29 x10^6/uL (3.50-5.40) Hemoglobin 13.9 g/dL (12.0-15.5) Hematocrit 41.0 % (36.0-47.0) Mean Corpuscular Volume 95 fL (79-100) Mean Corpuscular Hemoglobin 32 pg (25-35) Mean Corpuscular Hemoglobin Concent 34 g/dL (31-37) Red Cell Distribution Width 17.8 % (11.5-14.5) Platelet Count 176 x10^3/uL (140-400) Neutrophils (%) (Auto) 90 % (31-73) Lymphocytes (%) (Auto) 3 % (24-48) Monocytes (%) (Auto) 7 % (0-9) Eosinophils (%) (Auto) 0 % (0-3) Basophils (%) (Auto) 0 % (0-3) Neutrophils # (Auto) 7.0 x10^3uL (1.8-7.7) Lymphocytes # (Auto) 0.2 x10^3/uL (1.0-4.8) Monocytes # (Auto) 0.6 x10^3/uL (0.0-1.1) Eosinophils # (Auto) 0.0 x10^3/uL (0.0-0.7) Basophils # (Auto) 0.0 x10^3/uL (0.0-0.2) Segmented Neutrophils % 90 % (35-66) Band Neutrophils % 3 % (0-9) Lymphocytes % 1 % (24-48) Monocytes % 6 % (0-10) Platelet Estimate Adequate (ADEQUATE) Poikilocytosis Slight Anisocytosis Slight Spherocytes Occ Sickle Cells Ovalocytes Few Joellen Cells Occ Prothrombin Time 14.5 SEC (11.7-14.0) Prothromb Time International Ratio 1.2 (0.8-1.1) Sodium Level 141 mmol/L (136-145) Potassium Level 4.4 mmol/L (3.5-5.1) Chloride Level 103 mmol/L (98-107) Carbon Dioxide Level 24 mmol/L (21-32) Anion Gap 14 (6-14) Blood Urea Nitrogen 12 mg/dL (7-20) Creatinine 1.2 mg/dL (0.6-1.0) Estimated GFR (Cockcroft-Gault) 43.3 BUN/Creatinine Ratio 10 (6-20) Glucose Level 92 mg/dL (70-99) Lactic Acid Level 4.3 mmol/L (0.4-2.0) 2.8 mmol/L (0.4-2.0) Calcium Level 7.6 mg/dL (8.5-10.1) Magnesium Level 0.8 mg/dL (1.8-2.4) Total Bilirubin 0.5 mg/dL (0.2-1.0) Aspartate Amino Transf (AST/SGOT) 57 U/L (15-37) Alanine Aminotransferase (ALT/SGPT) 28 U/L (14-59) Alkaline Phosphatase 120 U/L (46-116) Ammonia < 10 mcmol/L (11-34) Creatine Kinase 1246 U/L (26-192) Troponin I Quantitative 2.273 ng/mL (0.000-0.055) Total Protein 5.5 g/dL (6.4-8.2) Albumin 2.0 g/dL (3.4-5.0) Albumin/Globulin Ratio 0.6 (1.0-1.7) Glucose (Fingerstick) 76 mg/dL (70-99) Test 08/02/18 00:10 08/02/18 06:30 O2 Saturation % (92-99) Arterial Blood pH 7.45 (7.35-7.45) Arterial Blood pCO2 at Patient Temp 29 mmHg (35-46) Arterial Blood pO2 at Patient Temp 77 mmHg (65-108) Arterial Blood HCO3 20 mmol/L (21-28) Arterial Blood Base Excess -3 mmol/L (-3-3) FiO2 32 White Blood Count 6.0 x10^3/uL (4.0-11.0) Red Blood Count 3.65 x10^6/uL (3.50-5.40) Hemoglobin 11.9 g/dL (12.0-15.5) Hematocrit 34.4 % (36.0-47.0) Mean Corpuscular Volume 94 fL (79-100) Mean Corpuscular Hemoglobin 33 pg (25-35) Mean Corpuscular Hemoglobin Concent 35 g/dL (31-37) Red Cell Distribution Width 17.2 % (11.5-14.5) Platelet Count 147 x10^3/uL (140-400) Neutrophils (%) (Auto) 88 % (31-73) Lymphocytes (%) (Auto) 5 % (24-48) Monocytes (%) (Auto) 7 % (0-9) Eosinophils (%) (Auto) 0 % (0-3) Basophils (%) (Auto) 0 % (0-3) Neutrophils # (Auto) 5.3 x10^3uL (1.8-7.7) Lymphocytes # (Auto) 0.3 x10^3/uL (1.0-4.8) Monocytes # (Auto) 0.4 x10^3/uL (0.0-1.1) Eosinophils # (Auto) 0.0 x10^3/uL (0.0-0.7) Basophils # (Auto) 0.0 x10^3/uL (0.0-0.2) Sodium Level 141 mmol/L (136-145) Potassium Level 3.1 mmol/L (3.5-5.1) Chloride Level 103 mmol/L (98-107) Carbon Dioxide Level 29 mmol/L (21-32) Anion Gap 9 (6-14) Blood Urea Nitrogen 9 mg/dL (7-20) Creatinine 0.8 mg/dL (0.6-1.0) Estimated GFR (Cockcroft-Gault) 69.2 BUN/Creatinine Ratio 11 (6-20) Glucose Level 129 mg/dL (70-99) Calcium Level 6.7 mg/dL (8.5-10.1) Magnesium Level 1.8 mg/dL (1.8-2.4) Total Bilirubin 0.4 mg/dL (0.2-1.0) Aspartate Amino Transf (AST/SGOT) 83 U/L (15-37) Alanine Aminotransferase (ALT/SGPT) 25 U/L (14-59) Alkaline Phosphatase 86 U/L (46-116) Creatine Kinase 1924 U/L (26-192) Troponin I Quantitative 1.947 ng/mL (0.000-0.055) Total Protein 4.4 g/dL (6.4-8.2) Albumin 1.6 g/dL (3.4-5.0) Albumin/Globulin Ratio 0.6 (1.0-1.7) Triglycerides Level 108 mg/dL (0-150) Cholesterol Level 101 mg/dL (0-200) LDL Cholesterol, Calculated 26 mg/dL (0-100) VLDL Cholesterol, Calculated 22 mg/dL (0-40) Non-HDL Cholesterol Calculated 48 mg/dL (0-129) HDL Cholesterol 53 mg/dL (40-60) Cholesterol/HDL Ratio 1.9 Vitamin B12 Level 247 pg/mL (247-911) Thyroid Stimulating Hormone (TSH) 1.164 uIU/mL (0.358-3.74) Laboratory Tests Test 08/01/18 19:30 08/01/18 19:40 08/01/18 19:55 08/01/18 23:30 Urine Collection Type U cath Urine Color Yellow Urine Clarity Clear Urine pH 6.0 Urine Specific [place] 1.015 Urine Protein Negative mg/dL (NEG-TRACE) Urine Glucose (UA) Negative mg/dL (NEG) Urine Ketones (Stick) Negative mg/dL (NEG) Urine Blood Negative (NEG) Urine Nitrite Negative (NEG) Urine Bilirubin Negative (NEG) Urine Urobilinogen Dipstick 1.0 mg/dL (0.2 mg/dL) Urine Leukocyte Esterase Negative (NEG) Urine RBC Occ /HPF (0-2) Urine WBC 1-4 /HPF (0-4) Urine Squamous Epithelial Cells Few /LPF Urine Bacteria Few /HPF (0-FEW) Urine Hyaline Casts Moderate /HPF Urine Mucus Marked /LPF White Blood Count 7.8 x10^3/uL (4.0-11.0) Red Blood Count 4.29 x10^6/uL (3.50-5.40) Hemoglobin 13.9 g/dL (12.0-15.5) Hematocrit 41.0 % (36.0-47.0) Mean Corpuscular Volume 95 fL (79-100) Mean Corpuscular Hemoglobin 32 pg (25-35) Mean Corpuscular Hemoglobin Concent 34 g/dL (31-37) Red Cell Distribution Width 17.8 % (11.5-14.5) Platelet Count 176 x10^3/uL (140-400) Neutrophils (%) (Auto) 90 % (31-73) Lymphocytes (%) (Auto) 3 % (24-48) Monocytes (%) (Auto) 7 % (0-9) Eosinophils (%) (Auto) 0 % (0-3) Basophils (%) (Auto) 0 % (0-3) Neutrophils # (Auto) 7.0 x10^3uL (1.8-7.7) Lymphocytes # (Auto) 0.2 x10^3/uL (1.0-4.8) Monocytes # (Auto) 0.6 x10^3/uL (0.0-1.1) Eosinophils # (Auto) 0.0 x10^3/uL (0.0-0.7) Basophils # (Auto) 0.0 x10^3/uL (0.0-0.2) Segmented Neutrophils % 90 % (35-66) Band Neutrophils % 3 % (0-9) Lymphocytes % 1 % (24-48) Monocytes % 6 % (0-10) Platelet Estimate Adequate (ADEQUATE) Poikilocytosis Slight Anisocytosis Slight Spherocytes Occ Sickle Cells Ovalocytes Few Joellen Cells Occ Prothrombin Time 14.5 SEC (11.7-14.0) Prothromb Time International Ratio 1.2 (0.8-1.1) Sodium Level 141 mmol/L (136-145) Potassium Level 4.4 mmol/L (3.5-5.1) Chloride Level 103 mmol/L (98-107) Carbon Dioxide Level 24 mmol/L (21-32) Anion Gap 14 (6-14) Blood Urea Nitrogen 12 mg/dL (7-20) Creatinine 1.2 mg/dL (0.6-1.0) Estimated GFR (Cockcroft-Gault) 43.3 BUN/Creatinine Ratio 10 (6-20) Glucose Level 92 mg/dL (70-99) Lactic Acid Level 4.3 mmol/L (0.4-2.0) 2.8 mmol/L (0.4-2.0) Calcium Level 7.6 mg/dL (8.5-10.1) Magnesium Level 0.8 mg/dL (1.8-2.4) Total Bilirubin 0.5 mg/dL (0.2-1.0) Aspartate Amino Transf (AST/SGOT) 57 U/L (15-37) Alanine Aminotransferase (ALT/SGPT) 28 U/L (14-59) Alkaline Phosphatase 120 U/L (46-116) Ammonia < 10 mcmol/L (11-34) Creatine Kinase 1246 U/L (26-192) Troponin I Quantitative 2.273 ng/mL (0.000-0.055) Total Protein 5.5 g/dL (6.4-8.2) Albumin 2.0 g/dL (3.4-5.0) Albumin/Globulin Ratio 0.6 (1.0-1.7) Glucose (Fingerstick) 76 mg/dL (70-99) Test 08/02/18 00:10 08/02/18 06:30 O2 Saturation % (92-99) Arterial Blood pH 7.45 (7.35-7.45) Arterial Blood pCO2 at Patient Temp 29 mmHg (35-46) Arterial Blood pO2 at Patient Temp 77 mmHg (65-108) Arterial Blood HCO3 20 mmol/L (21-28) Arterial Blood Base Excess -3 mmol/L (-3-3) FiO2 32 White Blood Count 6.0 x10^3/uL (4.0-11.0) Red Blood Count 3.65 x10^6/uL (3.50-5.40) Hemoglobin 11.9 g/dL (12.0-15.5) Hematocrit 34.4 % (36.0-47.0) Mean Corpuscular Volume 94 fL (79-100) Mean Corpuscular Hemoglobin 33 pg (25-35) Mean Corpuscular Hemoglobin Concent 35 g/dL (31-37) Red Cell Distribution Width 17.2 % (11.5-14.5) Platelet Count 147 x10^3/uL (140-400) Neutrophils (%) (Auto) 88 % (31-73) Lymphocytes (%) (Auto) 5 % (24-48) Monocytes (%) (Auto) 7 % (0-9) Eosinophils (%) (Auto) 0 % (0-3) Basophils (%) (Auto) 0 % (0-3) Neutrophils # (Auto) 5.3 x10^3uL (1.8-7.7) Lymphocytes # (Auto) 0.3 x10^3/uL (1.0-4.8) Monocytes # (Auto) 0.4 x10^3/uL (0.0-1.1) Eosinophils # (Auto) 0.0 x10^3/uL (0.0-0.7) Basophils # (Auto) 0.0 x10^3/uL (0.0-0.2) Sodium Level 141 mmol/L (136-145) Potassium Level 3.1 mmol/L (3.5-5.1) Chloride Level 103 mmol/L (98-107) Carbon Dioxide Level 29 mmol/L (21-32) Anion Gap 9 (6-14) Blood Urea Nitrogen 9 mg/dL (7-20) Creatinine 0.8 mg/dL (0.6-1.0) Estimated GFR (Cockcroft-Gault) 69.2 BUN/Creatinine Ratio 11 (6-20) Glucose Level 129 mg/dL (70-99) Calcium Level 6.7 mg/dL (8.5-10.1) Magnesium Level 1.8 mg/dL (1.8-2.4) Total Bilirubin 0.4 mg/dL (0.2-1.0) Aspartate Amino Transf (AST/SGOT) 83 U/L (15-37) Alanine Aminotransferase (ALT/SGPT) 25 U/L (14-59) Alkaline Phosphatase 86 U/L (46-116) Creatine Kinase 1924 U/L (26-192) Troponin I Quantitative 1.947 ng/mL (0.000-0.055) Total Protein 4.4 g/dL (6.4-8.2) Albumin 1.6 g/dL (3.4-5.0) Albumin/Globulin Ratio 0.6 (1.0-1.7) Triglycerides Level 108 mg/dL (0-150) Cholesterol Level 101 mg/dL (0-200) LDL Cholesterol, Calculated 26 mg/dL (0-100) VLDL Cholesterol, Calculated 22 mg/dL (0-40) Non-HDL Cholesterol Calculated 48 mg/dL (0-129) HDL Cholesterol 53 mg/dL (40-60) Cholesterol/HDL Ratio 1.9 Vitamin B12 Level 247 pg/mL (247-911) Thyroid Stimulating Hormone (TSH) 1.164 uIU/mL (0.358-3.74) DALTON TAPIA MD Aug 02, 2018 16:34
--- NOTE | 2018-08-02 17:28 | PDOC ---
Provider Note Provider Note I SPOKE WITH FAMILY AT BEDSIDE EARLIER PT DNR, THEY WISH TO PROCEED WITH COMFORT CARE AND ALLOW NATURAL MORPHINE DRIP/PRN ATIVAN D/C MONITOR D/C ALL REGULAR IGNACIO HUITRON MD Aug 02, 2018 17:28
--- NOTE | 2018-08-02 17:54 | EEG ---
DATE OF SERVICE: 08/02/2018 ELECTROENCEPHALOGRAM NUMBER: [id number]. OBJECTIVE: This is a 77-year-old female patient who was found down, unresponsive on the floor at home. The patient also had myoclonic movements. EEG was requested to evaluate cerebral activity and seizure activity. METHODS: Twenty electrodes were applied according to the international 10-20 electrode placement system. EKG monitoring, hyperventilation, intermittent photic stimulation, monopolar and bipolar montages are routinely utilized. The record was obtained on a digital system with video monitoring. FINDINGS: 1. Background: The patient was recorded in the unresponsive state only. No physiological awake, drowsy, and sleep states were recorded. The overall background amplitude is variable. No posterior dominant rhythm is observed. The overall background rhythm is disorganized with diffuse slowing in the theta and delta frequencies throughout the entire recording. 2. Abnormalities: There are frequent near generalized sharp contoured waves noted. Diffuse slowing in the theta and delta frequencies is throughout the entire recording. 3. Activation: Hyperventilation was not performed because the patient was in the unresponsive state. Intermittent photic stimulation was performed without photic driving. IMPRESSION: This electroencephalogram is a remarkably abnormal study for the unresponsive state only. No physiological awake, drowsy, and sleep states were recorded. No posterior dominant rhythm is observed. The overall background rhythm is disorganized with diffuse slowing in the theta and delta frequencies throughout the entire recording. Near generalized sharp contoured waves noted. This pattern of electroencephalogram is suggestive of severe diffuse encephalopathy with increased risk of seizure. DALTON TAPIA MD DR: Jason JOB#: [id number] / [id number]
[2018-08-02] MEDS ORDERED: FAMOTIDINE 20 MG/2 ML VIAL IVP SCH (21:00)
--- NOTE | 2018-08-02 21:12 | CONS ---
DATE OF CONSULTATION: 08/02/2018 ATTENDING PHYSICIAN: Dr. Monaco. REASON FOR CONSULTATION: The patient seen in pulmonary consultation at the request of Dr. Monaco for acute chronic respiratory failure, history of lung cancer. HISTORY OF PRESENT ILLNESS: The patient is a 77-year-old well known to me from previous hospitalizations. 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 She completed a course in 11/2017. Her diagnosis was initially established in 06/2017. The patient presented from home with altered mental status. Apparently, she was normal the night before last at 10.00. Family arrived this morning at 7:00 a.m. She was lying on the floor with decreased level of consciousness. She was brought to the Emergency Department and found to have tachypnea, was given 1 liter of fluids. There was no significant change in the heart rate. The patient was then transferred to the intensive care unit. I was asked to see her in consultation. During my initial evaluation, the patient had signs of seizures. She underwent CT head and neck and cervical spine revealing no acute intracranial findings or evidence of cervical spine trauma. She has some scattered areas of hypodensity within the cerebral white matter. 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 There was some degenerative change of the cervical spine and she had a 5.0 cm hypodense lesion within the left thoracic inlet. No history is obtained from the patient herself. Family is not at the bedside at the moment. PAST MEDICAL HISTORY: 1. 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 She is status post chemoradiation. She, of course, has also been complicated with bilateral pulmonary embolism, recurrent pleural effusion, status post talc pleurodesis. 2. Coronary artery disease with previous cardiac stenting. 3. Hypertension. 4. Anemia. 5. Osteoarthritis. PAST SURGICAL HISTORY: PCI and stent placement. FAMILY HISTORY: Coronary artery disease, hypertension. SOCIAL HISTORY: She quit tobacco in 04/2017. REVIEW OF SYSTEMS: Unobtainable secondary to the patient's condition. PHYSICAL EXAMINATION: GENERAL: The patient appeared to be very cachectic and poor nutritional status. She has lost quite a bit of weight since I last saw her. VITAL SIGNS: She was on simple facemask, oxygen saturation was greater than 92%. HEENT: Eyes, the sclerae were nonicteric. NECK: Jugular venous distention was not elevated. No lymphadenopathy. CHEST: Full expansion. LUNGS: Bilateral coarse breath sounds, no wheezes. CARDIOVASCULAR: Regular rate and rhythm with S1, S2, no S3. ABDOMEN: Soft, nontender, nondistended. EXTREMITIES: No clubbing, cyanosis or edema. NEUROLOGIC: The patient was seizing, having jerky type of movements mostly on the right side. LABORATORY DATA: Reviewed. White count was normal. Hemoglobin and hematocrit were noted. Arterial blood gas; pH of 7.45, PaCO2 of 29, paO2 of 77. UA was noted. Albumin was markedly low. IMPRESSION: 1. Acute on chronic hypoxemic respiratory failure. 2. History of stage 3, T2 N2 M0 squamous cell carcinoma of the right upper lobe, status post chemoradiation completed in 11/2017. 3. History of recurrent effusion, status post talc pleurodesis. 4. New-onset seizures. 5. 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 The patient having active seizures despite CT revealing no evidence of new disease. 6. Hypotension. 7. Severe protein malnutrition, present upon admission. 8. Chronic anemia. 9. Elevated troponin level. PLAN: 1. Case was discussed with the daughter over the phone. The patient is currently a do not resuscitate candidate. 2. I recommend that we proceed with comfort care measures. The daughter has agreed. If she is to drop her blood pressure, we will not treat hypotension. 3. Clinically, patient is actively dying. She is actively seizing. We will initiate IV Ativan and morphine continuously. 4. Suspect the patient will not survive in the next 24-48 hours. 5. Family conference to be completed within the next several hours. 6. The patient is too unstable to travel to Radiology Department for MRI of the brain. With that being said, I do not think that we would change our approach and treatment plan. I do appreciate the privilege in sharing in this patient's care. Total cumulative critical care time of 50 minutes. IGNACIO AMADO MD DR: JENNIFER/poonam JOB#: [id number] / [id number]
[2018-08-03] MEDS: MORPHINE SULFATE/PF 30 ML IV PRN (01:02)
[2018-08-03 03:36] VITALS: BP 91/48
[2018-08-03 07:51] VITALS: BP 92/52
--- NOTE | 2018-08-03 09:55 | PDOC ---
PULMONARY PROGRESS NOTES Subjective PT ACTIVELY DYING Vitals Vital Signs Date Time Temp Pulse Resp B/P (MAP) Pulse Ox O2 Delivery O2 Flow Rate FiO2 08/03/18 08:00 Venturi Mask 11.5 08/03/18 07:51 100.4 131 14 92/52 (65) 91 100.4 Lungs: Crackles Cardiovascular: S1, S2 Abdomen: Soft Extremities: No Edema Labs Laboratory Tests Test 08/01/18 19:30 08/01/18 19:40 08/01/18 19:55 08/01/18 23:25 Urine Collection Type U cath Urine Color Yellow Urine Clarity Clear Urine pH 6.0 Urine Specific [place] 1.015 Urine Protein Negative mg/dL (NEG-TRACE) Urine Glucose (UA) Negative mg/dL (NEG) Urine Ketones (Stick) Negative mg/dL (NEG) Urine Blood Negative (NEG) Urine Nitrite Negative (NEG) Urine Bilirubin Negative (NEG) Urine Urobilinogen Dipstick 1.0 mg/dL (0.2 mg/dL) Urine Leukocyte Esterase Negative (NEG) Urine RBC Occ /HPF (0-2) Urine WBC 1-4 /HPF (0-4) Urine Squamous Epithelial Cells Few /LPF Urine Bacteria Few /HPF (0-FEW) Urine Hyaline Casts Moderate /HPF Urine Mucus Marked /LPF White Blood Count 7.8 x10^3/uL (4.0-11.0) Red Blood Count 4.29 x10^6/uL (3.50-5.40) Hemoglobin 13.9 g/dL (12.0-15.5) Hematocrit 41.0 % (36.0-47.0) Mean Corpuscular Volume 95 fL (79-100) Mean Corpuscular Hemoglobin 32 pg (25-35) Mean Corpuscular Hemoglobin Concent 34 g/dL (31-37) Red Cell Distribution Width 17.8 % (11.5-14.5) Platelet Count 176 x10^3/uL (140-400) Neutrophils (%) (Auto) 90 % (31-73) Lymphocytes (%) (Auto) 3 % (24-48) Monocytes (%) (Auto) 7 % (0-9) Eosinophils (%) (Auto) 0 % (0-3) Basophils (%) (Auto) 0 % (0-3) Neutrophils # (Auto) 7.0 x10^3uL (1.8-7.7) Lymphocytes # (Auto) 0.2 x10^3/uL (1.0-4.8) Monocytes # (Auto) 0.6 x10^3/uL (0.0-1.1) Eosinophils # (Auto) 0.0 x10^3/uL (0.0-0.7) Basophils # (Auto) 0.0 x10^3/uL (0.0-0.2) Segmented Neutrophils % 90 % (35-66) Band Neutrophils % 3 % (0-9) Lymphocytes % 1 % (24-48) Monocytes % 6 % (0-10) Platelet Estimate Adequate (ADEQUATE) Poikilocytosis Slight Anisocytosis Slight Spherocytes Occ Sickle Cells Ovalocytes Few Joellen Cells Occ Prothrombin Time 14.5 SEC (11.7-14.0) Prothromb Time International Ratio 1.2 (0.8-1.1) Sodium Level 141 mmol/L (136-145) Potassium Level 4.4 mmol/L (3.5-5.1) Chloride Level 103 mmol/L (98-107) Carbon Dioxide Level 24 mmol/L (21-32) Anion Gap 14 (6-14) Blood Urea Nitrogen 12 mg/dL (7-20) Creatinine 1.2 mg/dL (0.6-1.0) Estimated GFR (Cockcroft-Gault) 43.3 BUN/Creatinine Ratio 10 (6-20) Glucose Level 92 mg/dL (70-99) Lactic Acid Level 4.3 mmol/L (0.4-2.0) Calcium Level 7.6 mg/dL (8.5-10.1) Magnesium Level 0.8 mg/dL (1.8-2.4) Total Bilirubin 0.5 mg/dL (0.2-1.0) Aspartate Amino Transf (AST/SGOT) 57 U/L (15-37) Alanine Aminotransferase (ALT/SGPT) 28 U/L (14-59) Alkaline Phosphatase 120 U/L (46-116) Ammonia < 10 mcmol/L (11-34) Creatine Kinase 1246 U/L (26-192) Troponin I Quantitative 2.273 ng/mL (0.000-0.055) Total Protein 5.5 g/dL (6.4-8.2) Albumin 2.0 g/dL (3.4-5.0) Albumin/Globulin Ratio 0.6 (1.0-1.7) Glucose (Fingerstick) 76 mg/dL (70-99) Nasal Screen MRSA (PCR) Negative (Negative) Test 08/01/18 23:30 08/02/18 00:10 08/02/18 06:30 Lactic Acid Level 2.8 mmol/L (0.4-2.0) O2 Saturation % (92-99) Arterial Blood pH 7.45 (7.35-7.45) Arterial Blood pCO2 at Patient Temp 29 mmHg (35-46) Arterial Blood pO2 at Patient Temp 77 mmHg (65-108) Arterial Blood HCO3 20 mmol/L (21-28) Arterial Blood Base Excess -3 mmol/L (-3-3) FiO2 32 White Blood Count 6.0 x10^3/uL (4.0-11.0) Red Blood Count 3.65 x10^6/uL (3.50-5.40) Hemoglobin 11.9 g/dL (12.0-15.5) Hematocrit 34.4 % (36.0-47.0) Mean Corpuscular Volume 94 fL (79-100) Mean Corpuscular Hemoglobin 33 pg (25-35) Mean Corpuscular Hemoglobin Concent 35 g/dL (31-37) Red Cell Distribution Width 17.2 % (11.5-14.5) Platelet Count 147 x10^3/uL (140-400) Neutrophils (%) (Auto) 88 % (31-73) Lymphocytes (%) (Auto) 5 % (24-48) Monocytes (%) (Auto) 7 % (0-9) Eosinophils (%) (Auto) 0 % (0-3) Basophils (%) (Auto) 0 % (0-3) Neutrophils # (Auto) 5.3 x10^3uL (1.8-7.7) Lymphocytes # (Auto) 0.3 x10^3/uL (1.0-4.8) Monocytes # (Auto) 0.4 x10^3/uL (0.0-1.1) Eosinophils # (Auto) 0.0 x10^3/uL (0.0-0.7) Basophils # (Auto) 0.0 x10^3/uL (0.0-0.2) Sodium Level 141 mmol/L (136-145) Potassium Level 3.1 mmol/L (3.5-5.1) Chloride Level 103 mmol/L (98-107) Carbon Dioxide Level 29 mmol/L (21-32) Anion Gap 9 (6-14) Blood Urea Nitrogen 9 mg/dL (7-20) Creatinine 0.8 mg/dL (0.6-1.0) Estimated GFR (Cockcroft-Gault) 69.2 BUN/Creatinine Ratio 11 (6-20) Glucose Level 129 mg/dL (70-99) Calcium Level 6.7 mg/dL (8.5-10.1) Magnesium Level 1.8 mg/dL (1.8-2.4) Total Bilirubin 0.4 mg/dL (0.2-1.0) Aspartate Amino Transf (AST/SGOT) 83 U/L (15-37) Alanine Aminotransferase (ALT/SGPT) 25 U/L (14-59) Alkaline Phosphatase 86 U/L (46-116) Creatine Kinase 1924 U/L (26-192) Troponin I Quantitative 1.947 ng/mL (0.000-0.055) Total Protein 4.4 g/dL (6.4-8.2) Albumin 1.6 g/dL (3.4-5.0) Albumin/Globulin Ratio 0.6 (1.0-1.7) Triglycerides Level 108 mg/dL (0-150) Cholesterol Level 101 mg/dL (0-200) LDL Cholesterol, Calculated 26 mg/dL (0-100) VLDL Cholesterol, Calculated 22 mg/dL (0-40) Non-HDL Cholesterol Calculated 48 mg/dL (0-129) HDL Cholesterol 53 mg/dL (40-60) Cholesterol/HDL Ratio 1.9 Vitamin B12 Level 247 pg/mL (247-911) Thyroid Stimulating Hormone (TSH) 1.164 uIU/mL (0.358-3.74) Medications Active Scripts Medications Dose Route/Sig Max Daily Dose Days Date Category [place] 10-325 Tablet (Acetaminophen/Hydrocodone Bitart) 1 Each Tablet 1 Tab PO PRN Q6HRS PRN 07/17/18 Reported Prednisone (Prednisone) 10 Mg Tablet 10 Mg PO DAILY 07/17/18 Reported Calcium 600 + Vit D 200 Tablet (Calcium Carbonate/Vitamin D3) 1 Each Tablet 1 Each PO DAILY 11/30/17 Reported Potassium Chloride 20 Meq Tablet.er 20 Meq PO BID 08/27/17 Reported Ativan (Lorazepam) 1 Mg Tablet 1 Mg PO Q6HRS PRN 07/25/17 Reported Zofran (Ondansetron Hcl) 8 Mg Tablet 8 Mg PO BID PRN 06/09/17 Reported Pantoprazole Sodium 40 Mg Tablet.dr 1 Tab PO DAILY 05/18/17 Reported Impression . IMPRESSION: 1. Acute on chronic hypoxemic respiratory failure. 2. History of stage 3, T2 N2 M0 squamous cell carcinoma of the right upper lobe, status post chemoradiation completed in 11/2017. 3. History of recurrent effusion, status post talc pleurodesis. 4. New-onset seizures. 5. 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 The patient having active seizures despite CT revealing no evidence of new disease. 6. Hypotension. 7. Severe protein malnutrition, present upon admission. 8. Chronic anemia. 9. Elevated troponin level. Plan . D/W FAMILY YESTERDAY PT MADE COMFORT CARE ALLOW NATURAL EXPECTED TO IN NEXT 24 HOURS CONTINUE IV MORPHINE NO FAMILY AT BEDSIDE THIS AM WHEN EMANI D/W IGNACIO PATEL MD Aug 03, 2018 09:55
--- NOTE | 2018-08-03 10:19 | PDOC ---
PROGRESS NOTES History of Present Illness History of Present Illness Assessment/Plan Assessment/Plan AMS, 2/2 metabolic encephalopathy likely TOBACCO ABUSE acute hypoxic resp failure, with possible PNA, lung Ca, fluid overloaded h/o Lung Ca with mets? s/p RT h/o pancreas Ca h/o CAD with PCI lactate acidosis hypokalemia severe malnutrition elevated trop with possible sepsis, CHF new onset rapid afib plan: card, pulm, neuro following MRI brain to rule out mets CTA reviewed dig 500mcg x1, pressors prn if Bp DRops, keep MAP >65 echo ordered, but cannot get it done given pt not keep stable. lasix x1 given as per card, decrease ivf dvt, gi ppx replete K add zyvox and zosyn for now PAT consult, DNR now critical ill, poor prognosis, comfort measures. Vitals Vitals Vital Signs Date Time Temp Pulse Resp B/P (MAP) Pulse Ox O2 Delivery O2 Flow Rate FiO2 08/03/18 08:00 Venturi Mask 11.5 08/03/18 07:51 100.4 131 14 92/52 (65) 91 100.4 Physical Exam Physical Exam HEENT: normocephalic, atraumatic NECK: Supple. LUNGS: bl coarse bs and rhonchi HEART: irregular, tachy, S1, S2 present. Peripheral pulses intact ABDOMEN: Soft, nontender. Positive bowel sounds. mild distended abd. EXTREMITIES: no cyanosis. bl leg 1+ edema. SKIN: No ulcerations General: No acute distress, Other (responsive to painful stimuli. ) Heart: Normal S1, Normal S2, Other (tele ST with PAC's. rate 130) Lungs: Crackles, Other Abdomen: Soft Extremities: No cyanosis, No edema, Normal pulses Skin: No significant lesion Assessment and Plan Assessmemt and Plan Problems Medical Problems: (1) Elevated lactic acid level Status: Acute (2) Non-STEMI (non-ST elevated myocardial infarction) Status: Acute (3) Rhabdomyolysis Status: Acute Comment Review of Relevant I have reviewed the following items gen (where applicable) has been applied. Labs Laboratory Tests Test 08/01/18 19:30 08/01/18 19:40 08/01/18 19:55 08/01/18 23:25 Urine Collection Type U cath Urine Color Yellow Urine Clarity Clear Urine pH 6.0 Urine Specific [place] 1.015 Urine Protein Negative mg/dL (NEG-TRACE) Urine Glucose (UA) Negative mg/dL (NEG) Urine Ketones (Stick) Negative mg/dL (NEG) Urine Blood Negative (NEG) Urine Nitrite Negative (NEG) Urine Bilirubin Negative (NEG) Urine Urobilinogen Dipstick 1.0 mg/dL (0.2 mg/dL) Urine Leukocyte Esterase Negative (NEG) Urine RBC Occ /HPF (0-2) Urine WBC 1-4 /HPF (0-4) Urine Squamous Epithelial Cells Few /LPF Urine Bacteria Few /HPF (0-FEW) Urine Hyaline Casts Moderate /HPF Urine Mucus Marked /LPF White Blood Count 7.8 x10^3/uL (4.0-11.0) Red Blood Count 4.29 x10^6/uL (3.50-5.40) Hemoglobin 13.9 g/dL (12.0-15.5) Hematocrit 41.0 % (36.0-47.0) Mean Corpuscular Volume 95 fL (79-100) Mean Corpuscular Hemoglobin 32 pg (25-35) Mean Corpuscular Hemoglobin Concent 34 g/dL (31-37) Red Cell Distribution Width 17.8 % (11.5-14.5) Platelet Count 176 x10^3/uL (140-400) Neutrophils (%) (Auto) 90 % (31-73) Lymphocytes (%) (Auto) 3 % (24-48) Monocytes (%) (Auto) 7 % (0-9) Eosinophils (%) (Auto) 0 % (0-3) Basophils (%) (Auto) 0 % (0-3) Neutrophils # (Auto) 7.0 x10^3uL (1.8-7.7) Lymphocytes # (Auto) 0.2 x10^3/uL (1.0-4.8) Monocytes # (Auto) 0.6 x10^3/uL (0.0-1.1) Eosinophils # (Auto) 0.0 x10^3/uL (0.0-0.7) Basophils # (Auto) 0.0 x10^3/uL (0.0-0.2) Segmented Neutrophils % 90 % (35-66) Band Neutrophils % 3 % (0-9) Lymphocytes % 1 % (24-48) Monocytes % 6 % (0-10) Platelet Estimate Adequate (ADEQUATE) Poikilocytosis Slight Anisocytosis Slight Spherocytes Occ Sickle Cells Ovalocytes Few [place] Cells Occ Prothrombin Time 14.5 SEC (11.7-14.0) Prothromb Time International Ratio 1.2 (0.8-1.1) Sodium Level 141 mmol/L (136-145) Potassium Level 4.4 mmol/L (3.5-5.1) Chloride Level 103 mmol/L (98-107) Carbon Dioxide Level 24 mmol/L (21-32) Anion Gap 14 (6-14) Blood Urea Nitrogen 12 mg/dL (7-20) Creatinine 1.2 mg/dL (0.6-1.0) Estimated GFR (Cockcroft-Gault) 43.3 BUN/Creatinine Ratio 10 (6-20) Glucose Level 92 mg/dL (70-99) Lactic Acid Level 4.3 mmol/L (0.4-2.0) Calcium Level 7.6 mg/dL (8.5-10.1) Magnesium Level 0.8 mg/dL (1.8-2.4) Total Bilirubin 0.5 mg/dL (0.2-1.0) Aspartate Amino Transf (AST/SGOT) 57 U/L (15-37) Alanine Aminotransferase (ALT/SGPT) 28 U/L (14-59) Alkaline Phosphatase 120 U/L (46-116) Ammonia < 10 mcmol/L (11-34) Creatine Kinase 1246 U/L (26-192) Troponin I Quantitative 2.273 ng/mL (0.000-0.055) Total Protein 5.5 g/dL (6.4-8.2) Albumin 2.0 g/dL (3.4-5.0) Albumin/Globulin Ratio 0.6 (1.0-1.7) Glucose (Fingerstick) 76 mg/dL (70-99) Nasal Screen MRSA (PCR) Negative (Negative) Test 08/01/18 23:30 08/02/18 00:10 08/02/18 06:30 Lactic Acid Level 2.8 mmol/L (0.4-2.0) O2 Saturation % (92-99) Arterial Blood pH 7.45 (7.35-7.45) Arterial Blood pCO2 at Patient Temp 29 mmHg (35-46) Arterial Blood pO2 at Patient Temp 77 mmHg (65-108) Arterial Blood HCO3 20 mmol/L (21-28) Arterial Blood Base Excess -3 mmol/L (-3-3) FiO2 32 White Blood Count 6.0 x10^3/uL (4.0-11.0) Red Blood Count 3.65 x10^6/uL (3.50-5.40) Hemoglobin 11.9 g/dL (12.0-15.5) Hematocrit 34.4 % (36.0-47.0) Mean Corpuscular Volume 94 fL (79-100) Mean Corpuscular Hemoglobin 33 pg (25-35) Mean Corpuscular Hemoglobin Concent 35 g/dL (31-37) Red Cell Distribution Width 17.2 % (11.5-14.5) Platelet Count 147 x10^3/uL (140-400) Neutrophils (%) (Auto) 88 % (31-73) Lymphocytes (%) (Auto) 5 % (24-48) Monocytes (%) (Auto) 7 % (0-9) Eosinophils (%) (Auto) 0 % (0-3) Basophils (%) (Auto) 0 % (0-3) Neutrophils # (Auto) 5.3 x10^3uL (1.8-7.7) Lymphocytes # (Auto) 0.3 x10^3/uL (1.0-4.8) Monocytes # (Auto) 0.4 x10^3/uL (0.0-1.1) Eosinophils # (Auto) 0.0 x10^3/uL (0.0-0.7) Basophils # (Auto) 0.0 x10^3/uL (0.0-0.2) Sodium Level 141 mmol/L (136-145) Potassium Level 3.1 mmol/L (3.5-5.1) Chloride Level 103 mmol/L (98-107) Carbon Dioxide Level 29 mmol/L (21-32) Anion Gap 9 (6-14) Blood Urea Nitrogen 9 mg/dL (7-20) Creatinine 0.8 mg/dL (0.6-1.0) Estimated GFR (Cockcroft-Gault) 69.2 BUN/Creatinine Ratio 11 (6-20) Glucose Level 129 mg/dL (70-99) Calcium Level 6.7 mg/dL (8.5-10.1) Magnesium Level 1.8 mg/dL (1.8-2.4) Total Bilirubin 0.4 mg/dL (0.2-1.0) Aspartate Amino Transf (AST/SGOT) 83 U/L (15-37) Alanine Aminotransferase (ALT/SGPT) 25 U/L (14-59) Alkaline Phosphatase 86 U/L (46-116) Creatine Kinase 1924 U/L (26-192) Troponin I Quantitative 1.947 ng/mL (0.000-0.055) Total Protein 4.4 g/dL (6.4-8.2) Albumin 1.6 g/dL (3.4-5.0) Albumin/Globulin Ratio 0.6 (1.0-1.7) Triglycerides Level 108 mg/dL (0-150) Cholesterol Level 101 mg/dL (0-200) LDL Cholesterol, Calculated 26 mg/dL (0-100) VLDL Cholesterol, Calculated 22 mg/dL (0-40) Non-HDL Cholesterol Calculated 48 mg/dL (0-129) HDL Cholesterol 53 mg/dL (40-60) Cholesterol/HDL Ratio 1.9 Vitamin B12 Level 247 pg/mL (247-911) Thyroid Stimulating Hormone (TSH) 1.164 uIU/mL (0.358-3.74) Microbiology 08/01/18 Blood Culture - Preliminary, Resulted NO GROWTH AFTER 1 DAY Medications Current Medications Lorazepam (Ativan) 0.5 mg 1X ONCE IV Last administered on 08/01/18at 20:40; Start 08/01/18 at 21:00; Stop 08/02/18 at 17:38; Status DC Ringer's Solution 1,000 ml @ 75 mls/hr 1X ONCE IV Last administered on at 20:59; Start 08/01/18 at 21:00; Stop 08/02/18 at 10:19; Status DC Ondansetron HCl (Zofran) 4 mg PRN Q8HRS PRN IV NAUSEA/VOMITING; Start 08/01/18 at 21:45; Stop 08/02/18 at 17:38; Status DC Piperacillin Sod/ Tazobactam Sod 3.375 gm/Sodium Chloride 50 ml @ 100 mls/hr 1X ONCE IV Last administered on 08/01/18at 21:50; Start 08/01/18 at 21:45; Stop 08/02/18 at 17:38; Status DC Sodium Bicarbonate 150 meq/Dextrose 1,150 ml @ 150 mls/hr Q7H40M IV Last administered on 08/02/18at 06:08; Start 08/01/18 at 22:00; Stop 08/02/18 at 08:13 ; Status DC Fentanyl Citrate (Fentanyl 2ml Vial) 25 mcg 1X ONCE IV Last administered on at 23:03; Start 08/01/18 at 22:15; Stop 08/02/18 at 17:38; Status DC Lorazepam (Ativan) 0.5 mg 1X ONCE IV Last administered on 08/01/18at 23:02; Start 08/01/18 at 23:00; Stop 08/02/18 at 17:38; Status DC Lorazepam (Ativan) 2 mg PRN Q4HRS PRN IV ANXIETY / AGITATION Last administered on 08/02/18at 23:29; Start 08/01/18 at 23:45 Aspirin (Aspirin) 300 mg DAILY MO Last administered on 08/02/18at 08:42; Start 08/02/18 at 09:00; Stop 08/02/18 at 17:38; Status DC Magnesium Sulfate/ Dextrose 100 ml @ 25 mls/hr 1X ONCE IV Last administered on 08/02/18at 02:31; Start 08/02/18 at 02:15; Stop 08/02/18 at 06:14; Status DC Nitroglycerin/ Dextrose 250 ml @ 1.5 mls/hr CONT PRN IV SEE I/O RECORD; Start 08/02/18 at 07:45; Stop 08/02/18 at 17:38; Status DC Furosemide (Lasix) 20 mg 1X ONCE IVP Last administered on 08/02/18at 07:43; Start 08/02/18 at 07:45; Stop 08/02/18 at 17:38; Status DC Digoxin (Lanoxin) 500 mcg 1X ONCE IV Last administered on 08/02/18at 08:41; Start 08/02/18 at 08:15; Stop 08/02/18 at 17:38; Status DC Potassium Chloride/Dextrose/ Sod Cl 1,000 ml @ 75 mls/hr [id number] IV Last administered on 08/02/18at 08:42; Start 08/02/18 at 08:15; Stop 08/02/18 at 17:38 ; Status DC Acetaminophen (Tylenol) 650 mg PRN Q6HRS PRN PO FEVER; Start 08/02/18 at 08:15 ; Stop 08/02/18 at 17:38; Status DC Ondansetron HCl (Zofran) 4 mg PRN Q6HRS PRN IV NAUSEA/VOMITING; Start 08/02/18 at 08:15; Stop 08/02/18 at 17:38; Status DC Morphine Sulfate (Morphine Sulfate) 2 mg PRN Q2HR PRN IV MODERATE TO SEVERE PAIN; Start 08/02/18 at 08:15 Tramadol HCl (Ultram) 50 mg PRN Q6HRS PRN PO MILD TO MODERATE PAIN; Start 08/02 at 08:15; Stop 08/02/18 at 17:38; Status DC Docusate Sodium (Colace) 100 mg PRN DAILY PRN PO CONSTIPATION; Start 08/02/18 at 08:15; Stop 08/02/18 at 17:38; Status DC Heparin Sodium (Porcine) (Heparin Sodium) 5,000 unit Q8HRS SQ Last administered on 08/02/18at 08:43; Start 08/02/18 at 08:30; Stop 08/02/18 at 17:38 ; Status DC Famotidine (Pepcid Vial) 20 mg QHS IVP ; Start 08/02/18 at 21:00; Stop 08/02/18 at 21:00; Status DC Potassium Chloride 20 meq/ Sodium Chloride 260 ml @ 130 mls/hr 1X ONCE IV Last administered on 08/02/18at 08:57; Start 08/02/18 at 09:00; Stop 08/02/18 at 17:38; Status DC Iohexol (Omnipaque 300 Mg/ml) 75 ml 1X ONCE IV ; Start 08/02/18 at 08:30; Stop 08/02/18 at 17:38; Status DC Linezolid/Dextrose 300 ml @ 300 mls/hr Q12HR IV Last administered on at 11:42; Start 08/02/18 at 11:30; Stop 08/02/18 at 13:38; Status DC Piperacillin Sod/ Tazobactam Sod 2.25 gm/Sodium Chloride 50 ml @ 100 mls/hr Q6HRS IV ; Start 08/02/18 at 12:00; Stop 08/02/18 at 13:38; Status DC Piperacillin Sod/ Tazobactam Sod (Zosyn Per Pharmacy) 1 each PRN DAILY PRN MC SEE COMMENTS; Start 08/02/18 at 11:15; Stop 08/02/18 at 11:18; Status DC Morphine Sulfate 30 ml @ 0 mls/hr CONT PRN PRN IV PER PROTOCOL Last administered on 08/03/18at 01:02; Start 08/02/18 at 12:00 Lorazepam (Ativan) 1 mg PRN Q1HR PRN IV TREMORS Last administered on 08/03/18at 03:37; Start 08/02/18 at 13:45 Active Scripts Active Reported [place] 10-325 Tablet (Acetaminophen/Hydrocodone Bitart) 1 Each Tablet 1 Tab PO PRN Q6HRS PRN Prednisone (Prednisone) 10 Mg Tablet 10 Mg PO DAILY Calcium 600 + Vit D 200 Tablet (Calcium Carbonate/Vitamin D3) 1 Each Tablet 1 Each PO DAILY Potassium Chloride 20 Meq Tablet.er 20 Meq PO BID Ativan (Lorazepam) 1 Mg Tablet 1 Mg PO Q6HRS PRN Zofran (Ondansetron Hcl) 8 Mg Tablet 8 Mg PO BID PRN Pantoprazole Sodium 40 Mg Tablet. 1 Tab PO DAILY Vitals/I & O Vital Sign - Last 24 Hours 08/02/18 08/02/18 08/02/18 08/02/18 11:00 12:00 12:00 12:34 Temp 98.3 98.3 Pulse 135 141 Resp 33 34 34 B/P (MAP) 87/44 (58) 95/42 (59) Pulse Ox 96 96 95 O2 Delivery Venturi Mask Venturi Mask Venturi Mask Venturi Mask 08/02/18 08/02/18 08/02/18 08/02/18 13:00 13:24 14:00 15:00 Pulse 127 144 121 Resp 31 31 28 26 B/P (MAP) 41/33 (36) 59/43 (48) 62/38 (46) Pulse Ox 95 95 97 97 O2 Delivery Venturi Mask Venturi Mask Venturi Mask 08/02/18 08/02/18 08/02/18 08/02/18 16:14 16:33 19:31 20:00 Temp 97.5 97.7 97.5 97.7 Pulse 120 122 Resp 32 16 B/P (MAP) 76/46 (56) 88/49 (62) Pulse Ox 99 95 O2 Delivery Venturi Mask Venturi Mask Venturi Mask Venturi Mask O2 Flow Rate 12.0 12.0 08/02/18 08/03/18 08/03/18 08/03/18 23:31 00:00 01:02 01:35 Temp 97.8 97.8 Pulse 123 Resp 18 B/P (MAP) 88/51 (63) Pulse Ox 94 O2 Delivery Venturi Mask Venturi Mask Venturi Mask O2 Flow Rate 12.0 12.0 12.0 08/03/18 08/03/18 08/03/18 03:36 07:51 08:00 Temp 97.8 100.4 97.8 100.4 Pulse 121 131 Resp 16 14 B/P (MAP) 91/48 (62) 92/52 (65) Pulse Ox 94 91 O2 Delivery Venturi Mask Venturi Mask Venturi Mask O2 Flow Rate 11.5 11.5 Intake and Output 08/02/18 08/02/18 08/03/18 15:00 23:00 07:00 Intake Total 300 ml Output Total 880 ml 300 ml Balance -580 ml -300 ml Nutrition Consultation Dietary Evaluation: Comments: REC nutrition as appropriate per goals of care If aggressive treatment measures are desired and pt remains NPO w/AMS, pt will need some form of nutrition support (feeding tube placement, PPN) Expected Outcomes/Goals: nutrition as appropriate per goals of care Interpretation of weight loss: >7.5% in 3 months Malnutrition Findings: Body Fat Depletion (Non Severe: Mild Depletion Weight Status: Underweight KALYAN LOZA MD Aug 03, 2018 10:19
[2018-08-03 11:38] VITALS: BP 124/68
--- NOTE | 2018-08-03 16:41 | PDOC3 ---
Discharge Summary Date of Admission: Aug 01, 2018 Date of Discharge: Aug 03, 2018 Follow-Up: Other () Admitting Diagnosis comment: DISCHARGE DIAGNOSIS Assessment/Plan AMS, 2/2 metabolic encephalopathy likely TOBACCO ABUSE acute hypoxic resp failure, with possible PNA, lung Ca, fluid overloaded h/o Lung Ca with mets? s/p RT h/o pancreas Ca h/o CAD with PCI lactate acidosis hypokalemia severe malnutrition elevated trop with possible sepsis, CHF new onset rapid afib plan: COMFORT CARE card, pulm, neuro following MRI brain to rule out mets CTA reviewed dig 500mcg x1, pressors prn if Bp DRops, keep MAP >65 echo ordered, but cannot get it done given pt not keep stable. lasix x1 given as per card, decrease ivf dvt, gi ppx replete K add zyvox and zosyn for now PAT consult, DNR now critical ill, poor prognosis, comfort measures. THIS AFTERNOON Vitals Vitals Vital Signs Date Time Temp Pulse Resp B/P (MAP) Pulse Ox O2 Delivery O2 Flow Rate FiO2 08/03/18 08:00 Venturi Mask 11.5 08/03/18 07:51 100.4 131 14 92/52 (65) 91 100.4 Physical Exam Physical Exam HEENT: normocephalic, atraumatic NECK: Supple. LUNGS: bl coarse bs and rhonchi HEART: irregular, tachy, S1, S2 present. Peripheral pulses intact ABDOMEN: Soft, nontender. Positive bowel sounds. mild distended abd. EXTREMITIES: no cyanosis. bl leg 1+ edema. SKIN: No ulcerations General: No acute distress, Other (responsive to painful stimuli. ) Heart: Normal S1, Normal S2, Other (tele ST with PAC's. rate 130) Lungs: Crackles, Other Abdomen: Soft Extremities: No cyanosis, No edema, Normal pulses Skin: No significant lesion FINAL DIAGNOSIS Problems Medical Problems: (1) Elevated lactic acid level Status: Acute (2) Non-STEMI (non-ST elevated myocardial infarction) Status: Acute (3) Rhabdomyolysis Status: Acute Brief Hospital Course Ms. Sahni is a 77 old [sex] who presented with [SEPSIS, LUNG CANCER ] CONDITION AT DISCHARGE: / Discharge Medications Current Medications Lorazepam (Ativan) 0.5 mg 1X ONCE IV Last administered on 08/01/18at 20:40; Start 08/01/18 at 21:00; Stop 08/02/18 at 17:38; Status DC Ringer's Solution 1,000 ml @ 75 mls/hr 1X ONCE IV Last administered on at 20:59; Start 08/01/18 at 21:00; Stop 08/02/18 at 10:19; Status DC Ondansetron HCl (Zofran) 4 mg PRN Q8HRS PRN IV NAUSEA/VOMITING; Start 08/01/18 at 21:45; Stop 08/02/18 at 17:38; Status DC Piperacillin Sod/ Tazobactam Sod 3.375 gm/Sodium Chloride 50 ml @ 100 mls/hr 1X ONCE IV Last administered on 08/01/18at 21:50; Start 08/01/18 at 21:45; Stop 08/02/18 at 17:38; Status DC Sodium Bicarbonate 150 meq/Dextrose 1,150 ml @ 150 mls/hr Q7H40M IV Last administered on 08/02/18at 06:08; Start 08/01/18 at 22:00; Stop 08/02/18 at 08:13 ; Status DC Fentanyl Citrate (Fentanyl 2ml Vial) 25 mcg 1X ONCE IV Last administered on at 23:03; Start 08/01/18 at 22:15; Stop 08/02/18 at 17:38; Status DC Lorazepam (Ativan) 0.5 mg 1X ONCE IV Last administered on 08/01/18at 23:02; Start 08/01/18 at 23:00; Stop 08/02/18 at 17:38; Status DC Lorazepam (Ativan) 2 mg PRN Q4HRS PRN IV ANXIETY / AGITATION Last administered on 08/02/18at 23:29; Start 08/01/18 at 23:45; Stop 08/03/18 at 15:56; Status DC Aspirin (Aspirin) 300 mg DAILY MD Last administered on 08/02/18at 08:42; Start 08/02/18 at 09:00; Stop 08/02/18 at 17:38; Status DC Magnesium Sulfate/ Dextrose 100 ml @ 25 mls/hr 1X ONCE IV Last administered on 08/02/18at 02:31; Start 08/02/18 at 02:15; Stop 08/02/18 at 06:14; Status DC Nitroglycerin/ Dextrose 250 ml @ 1.5 mls/hr CONT PRN IV SEE I/O RECORD; Start 08/02/18 at 07:45; Stop 08/02/18 at 17:38; Status DC Furosemide (Lasix) 20 mg 1X ONCE IVP Last administered on 08/02/18at 07:43; Start 08/02/18 at 07:45; Stop 08/02/18 at 17:38; Status DC Digoxin (Lanoxin) 500 mcg 1X ONCE IV Last administered on 08/02/18at 08:41; Start 08/02/18 at 08:15; Stop 08/02/18 at 17:38; Status DC Potassium Chloride/Dextrose/ Sod Cl 1,000 ml @ 75 mls/hr [id number] IV Last administered on 08/02/18at 08:42; Start 08/02/18 at 08:15; Stop 08/02/18 at 17:38 ; Status DC Acetaminophen (Tylenol) 650 mg PRN Q6HRS PRN PO FEVER; Start 08/02/18 at 08:15 ; Stop 08/02/18 at 17:38; Status DC Ondansetron HCl (Zofran) 4 mg PRN Q6HRS PRN IV NAUSEA/VOMITING; Start 08/02/18 at 08:15; Stop 08/02/18 at 17:38; Status DC Morphine Sulfate (Morphine Sulfate) 2 mg PRN Q2HR PRN IV MODERATE TO SEVERE PAIN; Start 08/02/18 at 08:15; Stop 08/03/18 at 15:56; Status DC Tramadol HCl (Ultram) 50 mg PRN Q6HRS PRN PO MILD TO MODERATE PAIN; Start 08/02 at 08:15; Stop 08/02/18 at 17:38; Status DC Docusate Sodium (Colace) 100 mg PRN DAILY PRN PO CONSTIPATION; Start 08/02/18 at 08:15; Stop 08/02/18 at 17:38; Status DC Heparin Sodium (Porcine) (Heparin Sodium) 5,000 unit Q8HRS SQ Last administered on 08/02/18at 08:43; Start 08/02/18 at 08:30; Stop 08/02/18 at 17:38 ; Status DC Famotidine (Pepcid Vial) 20 mg QHS IVP ; Start 08/02/18 at 21:00; Stop 08/02/18 at 21:00; Status DC Potassium Chloride 20 meq/ Sodium Chloride 260 ml @ 130 mls/hr 1X ONCE IV Last administered on 08/02/18at 08:57; Start 08/02/18 at 09:00; Stop 08/02/18 at 17:38; Status DC Iohexol (Omnipaque 300 Mg/ml) 75 ml 1X ONCE IV ; Start 08/02/18 at 08:30; Stop 08/02/18 at 17:38; Status DC Linezolid/Dextrose 300 ml @ 300 mls/hr Q12HR IV Last administered on at 11:42; Start 08/02/18 at 11:30; Stop 08/02/18 at 13:38; Status DC Piperacillin Sod/ Tazobactam Sod 2.25 gm/Sodium Chloride 50 ml @ 100 mls/hr Q6HRS IV ; Start 08/02/18 at 12:00; Stop 08/02/18 at 13:38; Status DC Piperacillin Sod/ Tazobactam Sod (Zosyn Per Pharmacy) 1 each PRN DAILY PRN MC SEE COMMENTS; Start 08/02/18 at 11:15; Stop 08/02/18 at 11:18; Status DC Morphine Sulfate 30 ml @ 0 mls/hr CONT PRN PRN IV PER PROTOCOL Last administered on 08/03/18at 01:02; Start 08/02/18 at 12:00; Stop 08/03/18 at 15:56 ; Status DC Lorazepam (Ativan) 1 mg PRN Q1HR PRN IV TREMORS Last administered on 08/03/18at 03:37; Start 08/02/18 at 13:45; Stop 08/03/18 at 15:56; Status DC Active Scripts Active Reported [place] 10-325 Tablet (Acetaminophen/Hydrocodone Bitart) 1 Each Tablet 1 Tab PO PRN Q6HRS PRN Prednisone (Prednisone) 10 Mg Tablet 10 Mg PO DAILY Calcium 600 + Vit D 200 Tablet (Calcium Carbonate/Vitamin D3) 1 Each Tablet 1 Each PO DAILY Potassium Chloride 20 Meq Tablet.er 20 Meq PO BID Ativan (Lorazepam) 1 Mg Tablet 1 Mg PO Q6HRS PRN Zofran (Ondansetron Hcl) 8 Mg Tablet 8 Mg PO BID PRN Pantoprazole Sodium 40 Mg Tablet.dr 1 Tab PO DAILY Vital Signs Vital Signs Date Time Temp Pulse Resp B/P (MAP) Pulse Ox O2 Delivery O2 Flow Rate FiO2 08/03/18 11:38 100.0 139 20 124/68 (86) 79 Venturi Mask 11.5 100.0 Labs Laboratory Tests Test 08/01/18 19:30 08/01/18 19:40 08/01/18 19:55 08/01/18 23:25 Urine Collection Type U cath Urine Color Yellow Urine Clarity Clear Urine pH 6.0 Urine Specific Dwight 1.015 Urine Protein Negative mg/dL (NEG-TRACE) Urine Glucose (UA) Negative mg/dL (NEG) Urine Ketones (Stick) Negative mg/dL (NEG) Urine Blood Negative (NEG) Urine Nitrite Negative (NEG) Urine Bilirubin Negative (NEG) Urine Urobilinogen Dipstick 1.0 mg/dL (0.2 mg/dL) Urine Leukocyte Esterase Negative (NEG) Urine RBC Occ /HPF (0-2) Urine WBC 1-4 /HPF (0-4) Urine Squamous Epithelial Cells Few /LPF Urine Bacteria Few /HPF (0-FEW) Urine Hyaline Casts Moderate /HPF Urine Mucus Marked /LPF White Blood Count 7.8 x10^3/uL (4.0-11.0) Red Blood Count 4.29 x10^6/uL (3.50-5.40) Hemoglobin 13.9 g/dL (12.0-15.5) Hematocrit 41.0 % (36.0-47.0) Mean Corpuscular Volume 95 fL (79-100) Mean Corpuscular Hemoglobin 32 pg (25-35) Mean Corpuscular Hemoglobin Concent 34 g/dL (31-37) Red Cell Distribution Width 17.8 % (11.5-14.5) Platelet Count 176 x10^3/uL (140-400) Neutrophils (%) (Auto) 90 % (31-73) Lymphocytes (%) (Auto) 3 % (24-48) Monocytes (%) (Auto) 7 % (0-9) Eosinophils (%) (Auto) 0 % (0-3) Basophils (%) (Auto) 0 % (0-3) Neutrophils # (Auto) 7.0 x10^3uL (1.8-7.7) Lymphocytes # (Auto) 0.2 x10^3/uL (1.0-4.8) Monocytes # (Auto) 0.6 x10^3/uL (0.0-1.1) Eosinophils # (Auto) 0.0 x10^3/uL (0.0-0.7) Basophils # (Auto) 0.0 x10^3/uL (0.0-0.2) Segmented Neutrophils % 90 % (35-66) Band Neutrophils % 3 % (0-9) Lymphocytes % 1 % (24-48) Monocytes % 6 % (0-10) Platelet Estimate Adequate (ADEQUATE) Poikilocytosis Slight Anisocytosis Slight Spherocytes Occ Sickle Cells Ovalocytes Few Joellen Cells Occ Prothrombin Time 14.5 SEC (11.7-14.0) Prothromb Time International Ratio 1.2 (0.8-1.1) Sodium Level 141 mmol/L (136-145) Potassium Level 4.4 mmol/L (3.5-5.1) Chloride Level 103 mmol/L (98-107) Carbon Dioxide Level 24 mmol/L (21-32) Anion Gap 14 (6-14) Blood Urea Nitrogen 12 mg/dL (7-20) Creatinine 1.2 mg/dL (0.6-1.0) Estimated GFR (Cockcroft-Gault) 43.3 BUN/Creatinine Ratio 10 (6-20) Glucose Level 92 mg/dL (70-99) Lactic Acid Level 4.3 mmol/L (0.4-2.0) Calcium Level 7.6 mg/dL (8.5-10.1) Magnesium Level 0.8 mg/dL (1.8-2.4) Total Bilirubin 0.5 mg/dL (0.2-1.0) Aspartate Amino Transf (AST/SGOT) 57 U/L (15-37) Alanine Aminotransferase (ALT/SGPT) 28 U/L (14-59) Alkaline Phosphatase 120 U/L (46-116) Ammonia < 10 mcmol/L (11-34) Creatine Kinase 1246 U/L (26-192) Troponin I Quantitative 2.273 ng/mL (0.000-0.055) Total Protein 5.5 g/dL (6.4-8.2) Albumin 2.0 g/dL (3.4-5.0) Albumin/Globulin Ratio 0.6 (1.0-1.7) Glucose (Fingerstick) 76 mg/dL (70-99) Nasal Screen MRSA (PCR) Negative (Negative) Test 08/01/18 23:30 08/02/18 00:10 08/02/18 06:30 Lactic Acid Level 2.8 mmol/L (0.4-2.0) O2 Saturation % (92-99) Arterial Blood pH 7.45 (7.35-7.45) Arterial Blood pCO2 at Patient Temp 29 mmHg (35-46) Arterial Blood pO2 at Patient Temp 77 mmHg (65-108) Arterial Blood HCO3 20 mmol/L (21-28) Arterial Blood Base Excess -3 mmol/L (-3-3) FiO2 32 White Blood Count 6.0 x10^3/uL (4.0-11.0) Red Blood Count 3.65 x10^6/uL (3.50-5.40) Hemoglobin 11.9 g/dL (12.0-15.5) Hematocrit 34.4 % (36.0-47.0) Mean Corpuscular Volume 94 fL (79-100) Mean Corpuscular Hemoglobin 33 pg (25-35) Mean Corpuscular Hemoglobin Concent 35 g/dL (31-37) Red Cell Distribution Width 17.2 % (11.5-14.5) Platelet Count 147 x10^3/uL (140-400) Neutrophils (%) (Auto) 88 % (31-73) Lymphocytes (%) (Auto) 5 % (24-48) Monocytes (%) (Auto) 7 % (0-9) Eosinophils (%) (Auto) 0 % (0-3) Basophils (%) (Auto) 0 % (0-3) Neutrophils # (Auto) 5.3 x10^3uL (1.8-7.7) Lymphocytes # (Auto) 0.3 x10^3/uL (1.0-4.8) Monocytes # (Auto) 0.4 x10^3/uL (0.0-1.1) Eosinophils # (Auto) 0.0 x10^3/uL (0.0-0.7) Basophils # (Auto) 0.0 x10^3/uL (0.0-0.2) Sodium Level 141 mmol/L (136-145) Potassium Level 3.1 mmol/L (3.5-5.1) Chloride Level 103 mmol/L (98-107) Carbon Dioxide Level 29 mmol/L (21-32) Anion Gap 9 (6-14) Blood Urea Nitrogen 9 mg/dL (7-20) Creatinine 0.8 mg/dL (0.6-1.0) Estimated GFR (Cockcroft-Gault) 69.2 BUN/Creatinine Ratio 11 (6-20) Glucose Level 129 mg/dL (70-99) Calcium Level 6.7 mg/dL (8.5-10.1) Magnesium Level 1.8 mg/dL (1.8-2.4) Total Bilirubin 0.4 mg/dL (0.2-1.0) Aspartate Amino Transf (AST/SGOT) 83 U/L (15-37) Alanine Aminotransferase (ALT/SGPT) 25 U/L (14-59) Alkaline Phosphatase 86 U/L (46-116) Creatine Kinase 1924 U/L (26-192) Troponin I Quantitative 1.947 ng/mL (0.000-0.055) Total Protein 4.4 g/dL (6.4-8.2) Albumin 1.6 g/dL (3.4-5.0) Albumin/Globulin Ratio 0.6 (1.0-1.7) Triglycerides Level 108 mg/dL (0-150) Cholesterol Level 101 mg/dL (0-200) LDL Cholesterol, Calculated 26 mg/dL (0-100) VLDL Cholesterol, Calculated 22 mg/dL (0-40) Non-HDL Cholesterol Calculated 48 mg/dL (0-129) HDL Cholesterol 53 mg/dL (40-60) Cholesterol/HDL Ratio 1.9 Vitamin B12 Level 247 pg/mL (247-911) Thyroid Stimulating Hormone (TSH) 1.164 uIU/mL (0.358-3.74) Allergies Allergies Coded Allergies Type Severity Reaction Last Updated Verified No Known Drug Allergies 05/18/17 No Disposition/Orders: Patient Instructions D/C PLANNING 38 MIN KALYAN LOZA MD Aug 03, 2018 16:41
== END 2018-08-03 14:10 | disposition expired | DRG 871 ==
LOC: ER 19:22 → 1 WEST ICU 21:39 → 6 SOUTH 08-02 16:14
PROVIDERS: ADMIT Internal Medicine; ATTEND Internal Medicine
DX: A41.9 Sepsis, unspecified organism (principal); G93.41 Metabolic encephalopathy; J96.21 Acute and chronic respiratory failure with hypoxia; E43 Unspecified severe protein-calorie malnutrition; I21.4 Non-ST elevation (NSTEMI) myocardial infarction; I50.31 Acute diastolic (congestive) heart failure; J18.9 Pneumonia, unspecified organism; Z68.1 Body mass index [BMI] 19.9 or less, adult; C25.9 Malignant neoplasm of pancreas, unspecified; M62.82 Rhabdomyolysis; J44.0 Chronic obstructive pulmonary disease with (acute) lower respiratory infection; Z51.5 Encounter for palliative care; M19.90 Unspecified osteoarthritis, unspecified site; D64.9 Anemia, unspecified; I11.0 Hypertensive heart disease with heart failure; E83.42 Hypomagnesemia; G25.3 Myoclonus; E87.6 Hypokalemia; I25.10 Atherosclerotic heart disease of native coronary artery without angina pectoris; I48.91 Unspecified atrial fibrillation; Z96.659 Presence of unspecified artificial knee joint; R56.9 Unspecified convulsions; Z82.49 Family history of ischemic heart disease and other diseases of the circulatory system; Z87.01 Personal history of pneumonia (recurrent); Z85.118 Personal history of other malignant neoplasm of bronchus and lung; Z85.07 Personal history of malignant neoplasm of pancreas; Z72.0 Tobacco use; Z85.72 Personal history of non-Hodgkin lymphomas; Z86.711 Personal history of pulmonary embolism; Z86.73 Personal history of transient ischemic attack (TIA), and cerebral infarction without residual deficits; Z92.3 Personal history of irradiation; Z92.21 Personal history of antineoplastic chemotherapy; Z95.5 Presence of coronary angioplasty implant and graft
CPT/HCPCS: 36415; 36600; 70450; 71045; 72125; 80053; 80061; 81001; 82140; 82550; 82607; 82805; 82962; 83605; 83735; 84443; 84484; 85007; 85025; 85610; 87040; 87641; 93005; 95816; 96361; 96374; 96376; J1160; J1644; J1940; J2020; J2060; J2270; J2543; J3010; J3475; J3480; J7050; J7120; 99285-25; J7030